=== PATIENT | male | born 1975 | race Caucasian/White ===

== ENCOUNTER → 2018-04-09 09:13 | Outpatient (CLI) | payer OTHER, MEDICAID, SELFPAY ==
[2018-04-09 09:37] LABS: Add Manual Diff / Slide Review NO; Basophils Percent Auto 0.8 % (0-2); Eosinophils Percent Auto 5.5 % (2-4); Hematocrit 43.6 % (41-53); Hemoglobin 15.3 g/dL (13.5-17.5); Lymphocytes Percent Auto 38.6 % (25-40); Mean Corpuscular HGB Conc 35.1 % (30-36); Mean Corpuscular Hemoglobin 29.6 PG (26-34); Mean Corpuscular Volume 84.5 fL (80-100); Monocytes Percent Auto 7.6 % (3-14); Neutrophils Absolute Auto 3700 /uL (3000-5900); Neutrophils Percent Auto 47.5 % (50-75); Platelet Count 208 X10^3/uL (150-400); Red Blood Cell Count 5.15 X10^6/uL (4.5-5.9); White Blood Cell Count 7.7 X10^3/uL (4.5-11.0)
[2018-04-09 10:01] LABS: Cholesterol 148 mg/dL (140-199); HDL Cholesterol 30 mg/dL (40-60); LDL Cholesterol Calculated 68 mg/dL (<100); Triglycerides 251 mg/dL (35-150)
[2018-04-09 10:30] LABS: Thyroid Stimulating Hormone 2.09 uIU/mL (0.47-4.68)
[2018-04-09 10:32] LABS: Prostate Specific Antigen Scrn 0.285 ng/mL (0.1-4.0)
== END ==
PROVIDERS: Family Provider Family Medicine; PCP Family Medicine; Visit Provider Family Medicine
DX: I24.9 Acute ischemic heart disease, unspecified (principal)
CPT/HCPCS: 36415; 80061; 84443; 85025; 85027; G0103

== ENCOUNTER → 2018-10-08 13:24 | Outpatient (CLI) | payer OTHER, MEDICAID, SELFPAY ==
--- NOTE | 2018-10-08 13:25 | DI.US.S_ITS ---
PROCEDURE: US ARTERIAL DUPLEX LE BI INDICATIONS: Low back pain TECHNIQUE: Color and pulse Doppler interrogation was performed of both lower extremity arterial systems, with image documentation. COMPARISON: None. FINDINGS: Right lower extremity: Common femoral artery: 133 cm/sec, with triphasic flow. Deep femoral artery: 55 cm/sec, with triphasic flow. Proximal superficial femoral artery: 93 cm/sec, with triphasic flow. Mid superficial femoral artery: 86 cm/sec, with triphasic flow. Distal superficial femoral artery: 80 cm/sec, with triphasic flow. Popliteal artery: 53 cm/sec, with triphasic flow. Posterior tibial artery: 79 cm/sec, with triphasic flow. Anterior tibial artery/dorsalis pedis: 43 cm/sec, with biphasic flow. [place]-scale imaging description: Negative Left lower extremity: Common femoral artery: 126 cm/sec, with triphasic flow. Deep femoral artery: 45 cm/sec, with biphasic flow. Proximal superficial femoral artery: 97 cm/sec, with triphasic flow. Mid superficial femoral artery: 86 cm/sec, with triphasic flow. Distal superficial femoral artery: 77 cm/sec, with triphasic flow. Popliteal artery: 55 cm/sec, with triphasic flow. Posterior tibial artery: 81 cm/sec, with biphasic flow. Anterior tibial artery/dorsalis pedis: 52 cm/sec, with biphasic flow. [place]-scale imaging description: Negative IMPRESSION: No evidence of arterial insufficiency to the bilateral lower extremities. Dictated by: Mio Suarez M.D. on 10/08/2018 at 15:48 Approved by: Mio Suarez M.D. on 10/08/2018 at 15:50
== END ==
PROVIDERS: Family Provider Family Medicine; PCP Family Medicine; Visit Provider Family Medicine
DX: M54.5 Low back pain (principal)
CPT/HCPCS: 93925

== ENCOUNTER 2018-11-30 23:54 | Emergency (ER) | payer OTHER, MEDICAID, SELFPAY ==
--- NOTE | 2018-11-30 23:57 | ED_ITS ---
HPI - Chest Pain General Chief Complaint: Chest Pain Stated Complaint: Chest Pain Time Seen by Provider: 11/30/18 23:54 Source: patient Mode of arrival: EMS Limitations: no limitations History of Present Illness HPI narrative: 43-year-old male with a known history of coronary artery disease who states he has had 5 heart attacks in the past and also has [address] here for evaluation of chest pain. He states that his chest pain started while he was sitting at home. Started approximately 1900 hr last evening. Has a fairly sudden onset. Not worse with palpation or movement or breathing. He states that it feels very similar to his prior episodes that left to stent placement. Not complaining of any shortness of breath. States that his pain was an 8/10. He called EMS. When EMS arrived they gave him nitroglycerin which improved his pain to 4/10. He also received an aspirin prior to arrival. He did take his statin and Plavix today. Patient arrived by EMS for further evaluation Related Data Home Medications Medication Instructions Recorded Confirmed aspirin 81 mg tablet,delayed 81 mg PO DAILY 04/07/18 12/01/18 release atorvastatin 80 mg tablet 80 mg PO DAILY 04/07/18 12/01/18 Previous Rx's Medication Instructions Recorded metoprolol succinate [Toprol XL] 25 mg PO BID #180 tab 05/08/17 clopidogrel [Plavix] 75 mg PO QDAY #90 tab 05/04/18 lisinopril 2.5 mg PO QDAY #90 tab 05/04/18 Allergies Allergy/AdvReac Type Severity Reaction Status Date / Time No Known Allergies Allergy Uncoded 09/22/18 15:29 Review of Systems Constitutional Denies fever(s) and Denies headache(s) ENT Ears, Nose, Mouth, and Throat: Denies dizziness and Denies headache(s) Cardiovascular Reports chest pain, Denies rapid heart rate, Denies pedal edema, Denies edema, Denies irregular heart rhythm, Denies palpitations and Denies dyspnea Respiratory Denies dyspnea Gastrointestinal Gastrointestinal: Denies abdominal pain, Denies nausea and Denies vomiting Genitourinary Denies dysuria Musculoskeletal Denies myalgias and Denies arthralgias Integumentary/Breasts Denies rash Neurologic Denies confusion, Denies dizziness and Denies headache(s) Psychiatric Denies confusion Endocrine Denies palpitations Hematologic/Lymphatic Comments: The not on anticoagulation [facility] Medical History Chronic back pain (Chronic) Hypertension (Chronic) Myocardial infarction (Resolved) Surgical History Anesthesia (Resolved) History of angioplasty (~1999) History of angioplasty (10/14/11) History of angioplasty (01/02/15) Social History Smoking Status: Former smoker Exam Initial Vital Signs Initial Vital Signs: Vital Signs Pulse Rate 78 12/01/18 00:00 Blood Pressure 141/86 H 12/01/18 00:00 Const General: cooperative, No comfortable (Uncomfortable appearing), well developed, well groomed and No acute distress Orientation: alert, awake and oriented x3 HENMT Head: normal to inspection and normocephalic Chest Chest: normal inspection of the chest, No crepitus and No tenderness Resp Effort & Inspection: normal respiratory effort Auscultation: clear to auscultation bilaterally Cardio Rate: regular rate Rhythm: regular rhythm Pulses: radial pulses present GI Inspection: non-distended Palpation: soft, No firm and No tender Skin Lesions: no lesions Rashes: no rashes Neuro General: alert, awake and oriented x3 Extrem General: normal to inspection and capillary refill normal Psych Appearance: grossly normal and well kempt Course Orders Ordered: ED Orders 11/30/18 23:55 Basic Metabolic Panel Stat Complete Blood Count AUTO DIFF Stat Partial Thromboplastin Time Stat Prothrombin Time INR Stat Troponin I Stat 11/30/18 23:56 EKG-12 Lead Stat 12/01/18 EKG-12 Lead Stat 12/01/18 00:00 XR chest 1V Stat Discontinued Medications Morphine Sulfate (Morphine Sulfate) 4 mg IV NOW ONE Stop: 12/01/18 00:12 Last Admin: 12/01/18 00:15 Dose: 4 mg Morphine Sulfate (Morphine) 4 mg IV NOW ONE Stop: 12/01/18 00:53 Last Admin: 12/01/18 01:00 Dose: 4 mg Nitroglycerin (Nitro-Bid) 1 inch TOP NOW ONE Stop: 11/30/18 23:58 Last Admin: 12/01/18 00:00 Dose: 1 inch Vital Signs - 8 hr 12/01/18 00:00 12/01/18 00:03 12/01/18 00:29 Temperature 97.8 F Pulse Rate 78 78 65 Respiratory Rate 22 15 Blood Pressure 141/86 H 141/86 H Blood Pressure [Left Arm] 134/92 H Pulse Oximetry 100 100 12/01/18 00:41 12/01/18 03:00 Temperature Pulse Rate 67 62 Respiratory Rate 22 13 Blood Pressure Blood Pressure [Left Arm] 132/88 133/92 H Pulse Oximetry 98 100 MDM - Chest Pain Lab Data Attestation: I reviewed the patient's lab results. Result diagrams: 12/01/18 00:05 12/01/18 00:05 Lab Results 12/01/18 12/01/18 12/01/18 Range/Units 00:05 00:05 00:05 WBC 8.4 (4.5-11.0) X10^3/uL RBC 4.87 (4.5-5.9) X10^6/uL Hgb 14.2 (13.5-17.5) g/dL Hct 41.2 (41-53) % MCV 84.6 (80-100) fL MCH 29.1 (26-34) PG MCHC 34.4 (30-36) % RDW 13.7 (11.6-14.8) % Plt Count 223 (150-400) X10^3/uL Neut % (Auto) 33.5 L (50-75) % Lymph % (Auto) 50.4 H (25-40) % [place] % (Auto) 9.2 (3-14) % Eos % (Auto) 5.5 H (2-4) % Baso % (Auto) 1.4 (0-2) % Neut # (Auto) 2800 (6068-9697) /uL PT 11.3 (10.1-12.7) SECONDS INR 1.0 (0.9-1.3) APTT 26 L (26.4-36.2) SECONDS Sodium 139 (137-145) mmol/L Potassium 3.8 (3.4-5.1) mmol/L Chloride 105 (98-107) mmol/L Carbon Dioxide 22 (22-32) mmol/L BUN 10 (9-20) mg/dL Creatinine 0.80 (0.66-1.25) mg/dL Estimated GFR > 60.0 (>60) mL/min BUN/Creatinine Ratio 12.5 (6-22) Glucose 94 (70-100) mg/dL Calcium 9.2 (8.4-10.2) mg/dL Troponin I < 0.012 (0.01-0.034) ng/mL Imaging Data Chest x-ray: Attestation: I personally reviewed and interpreted this imaging study as follows: My impression: Bilateral patchy infiltrates unchanged from prior chest x- ray ECG Data Attestation: I personally reviewed and interpreted this ECG as follows: Prior ECG tracings: not available for review Interpretation: EKG transmitted by EMS shows sinus rhythm ventricular rate [address] T wave changes EKG timed 2356 hr Sinus rhythm Ventricular rate is 79 Normal QRS Q-waves in lead 3 and AVF Unchanged from EKG transmitted by EMS MDM Narrative Medical decision making narrative: Patient received an aspirin prior to arrival. He also has taken his Plavix. Chest x-ray shows bilateral patchy infiltrates however it is unchanged from her prior chest x-ray. Has a nonischemic EKG. Troponin negative. Upon arrival patient states that his chest pain was worsening so nitro paste was placed. He was also given several doses of pain medication which did seem to improve his symptoms somewhat. Patient has never been completely chest pain free. Patient's convict guard is Dr. Capone at [facility]. [facility] has no bed availability. Discussed the case with Dr. Hearn with Cardiology at [facility] who accepts the patient in transfer in for admission. I discussed the transfer with the patient who expressed understanding and agreement. Patient is stable for transport Discharge Plan Departure Patient Disposition: [facility] Clinical Impression: Chest pain Prescriptions: No Action metoprolol succinate [Toprol XL] 25 MG tablet extended release 24 hr 25 mg PO BID Qty: 180 RF: 3 clopidogrel [Plavix] 75 mg tablet 75 mg PO QDAY Qty: 90 RF: 3 lisinopril 2.5 mg tablet 2.5 mg PO QDAY Qty: 90 RF: 3 atorvastatin 80 mg tablet 80 mg PO DAILY RF: 0 aspirin [Aspirin Low Dose] 81 mg tablet,delayed release (DR/EC) 81 mg PO DAILY RF: 0
[2018-12-01] VITALS (8 sets, daily range): BP systolic 106–141; BP diastolic 77–92; PULSE 55–78; RESP 13–22; TEMP 36.6; O2SAT 93–100
[2018-12-01] MEDS: NITROGLYCERIN OINT 1 INCH/GM OINT...G. TOP
--- NOTE | 2018-12-01 | DI.RAD.S_ITS ---
PROCEDURE: XR CHEST 1V INDICATIONS: chest pain TECHNIQUE: One view of the chest was acquired. COMPARISON: [facility], CR, CHEST 1 VIEW, 02/28/2016, 16:55. [facility], CR, XR CHEST 1VW (PORTABLE), 12/07/2016, 0:13. [facility], CR, CHEST 1 VIEW, 02/02/2017, 21:13. FINDINGS: Surgical changes and devices: None. Lungs and pleura: No pleural effusions or pneumothorax. Mild chronic interstitial prominence is unchanged. No focal consolidations. Mediastinum: Mediastinal contours appear normal. Heart size is normal. Bones and chest wall: No suspicious bony lesions. Overlying soft tissues appear unremarkable. IMPRESSION: Mild chronic interstitial prominence. Dictated by: Alysha Olivia M.D. on 12/01/2018 at 8:59 Approved by: Alysha Olivia M.D. on 12/01/2018 at 9:01
[2018-12-01] MEDS: MORPHINE 5 MG/ML INJ 4 MG IV (00:15)
[2018-12-01 00:20] LABS: Add Manual Diff / Slide Review NO; Basophils Percent Auto 1.4 % (0-2); Eosinophils Percent Auto 5.5 % (2-4); Hematocrit 41.2 % (41-53); Hemoglobin 14.2 g/dL (13.5-17.5); Lymphocytes Percent Auto 50.4 % (25-40); Mean Corpuscular HGB Conc 34.4 % (30-36); Mean Corpuscular Hemoglobin 29.1 PG (26-34); Mean Corpuscular Volume 84.6 fL (80-100); Monocytes Percent Auto 9.2 % (3-14); Neutrophils Absolute Auto 2800 /uL (1500-7000); Neutrophils Percent Auto 33.5 % (50-75); Platelet Count 223 X10^3/uL (150-400); Red Blood Cell Count 4.87 X10^6/uL (4.5-5.9); Red Cell Distribution Width 13.7 % (11.6-14.8); White Blood Cell Count 8.4 X10^3/uL (4.5-11.0)
[2018-12-01 00:25] LABS: BUN Creatinine Ratio 12.5 (6-22); Blood Urea Nitrogen 10 mg/dL (9-20); Calcium 9.2 mg/dL (8.4-10.2); Carbon Dioxide 22 mmol/L (22-32); Chloride 105 mmol/L (98-107); Estimated Glomerular Filt Rate > 60.0 mL/min (>60); Glucose 94 mg/dL (70-100); HEMOLYSIS < 15 (0-50); Potassium 3.8 mmol/L (3.4-5.1); Sodium 139 mmol/L (137-145)
[2018-12-01 00:35] LABS: PTT Partial Thromboplastin Tim 26 SECONDS (26.4-36.2); Prothrombin Time 11.3 SECONDS (10.1-12.7)
[2018-12-01 00:38] LABS: Troponin I < 0.012 ng/mL (0.01-0.034)
[2018-12-01] MEDS: MORPHINE 4 MG/ML INJ IV (01:00)
[2018-12-01] MEDS: HYDROMORPHONE 1 MG INJ IV (03:40)
== END 2018-12-01 04:30 | disposition short-term general hospital (02) ==
PROVIDERS: Emergency Provider Emergency Medicine; Family Provider Family Medicine; PCP Family Medicine
DX: R07.9 Chest pain, unspecified (principal)
CPT/HCPCS: 36415; 71045; 80048; 84484; 85025; 85610; 85730; 93005; 96374; 96375; 96376; 99283; 99285; J1170; J2270

== ENCOUNTER 2019-01-24 23:20 | Emergency (ER) | payer OTHER, MEDICAID, SELFPAY ==
--- NOTE | 2019-01-24 23:24 | DI.RAD.S_ITS ---
PROCEDURE: XR CHEST 1V INDICATIONS: chest pain TECHNIQUE: One view of the chest was acquired. COMPARISON: [facility], , CHEST 1 VIEW, 02/02/2017, 21:13. [facility], , XR CHEST 1V, 12/01/2018, 0:19. FINDINGS: Surgical changes and devices: None. Lungs and pleura: Mild chronic interstitial prominence appears unchanged. No pleural effusions or pneumothorax. Mediastinum: Mediastinal contours appear normal. Heart size is normal. Bones and chest wall: No suspicious bony lesions. Overlying soft tissues appear unremarkable. IMPRESSION: No acute cardiopulmonary disease. Dictated by: Alysha Olivia M.D. on 01/25/2019 at 9:29 Approved by: Alysha Olivia M.D. on 01/25/2019 at 9:30
[2019-01-24 23:27] VITALS: BP 125/98; PULSE 77; RESP 17; TEMP 36.8; O2SAT 99; BMI 25.1
[2019-01-24 23:39] VITALS: BP 115/74; PULSE 68; RESP 15; O2SAT 94
[2019-01-24 23:50] LABS: Add Manual Diff / Slide Review NO; Basophils Absolute Auto 100 /uL (0-100); Basophils Percent Auto 1.2 % (0-2); Eosinophils Absolute Auto 100 /uL (0-450); Eosinophils Percent Auto 2.1 % (2-4); Hematocrit 41.1 % (41-53); Lymphocytes Absolute Auto 3400 /uL (1100-4500); Lymphocytes Percent Auto 48.9 % (25-40); Mean Corpuscular HGB Conc 34.1 % (30-36); Mean Corpuscular Hemoglobin 28.9 PG (26-34); Mean Corpuscular Volume 84.7 fL (80-100); Monocytes Absolute Auto 800 /uL (0-900); Monocytes Percent Auto 11.5 % (3-14); Neutrophils Absolute Auto 2500 /uL (1500-7000); Neutrophils Percent Auto 36.3 % (50-75); Platelet Count 231 X10^3/uL (150-400); Red Blood Cell Count 4.86 X10^6/uL (4.5-5.9); Red Cell Distribution Width 13.6 % (11.6-14.8)
[2019-01-24 23:54] VITALS: BP 115/74; PULSE 66
[2019-01-24] MEDS: NITROGLYCERIN 0.4 MG SL TAB SL ×2 (23:54→23:59)
[2019-01-24] MEDS: SODIUM CHLORIDE 0.9% 1,000 ML 150 ML IV (23:54)
[2019-01-24 23:57] LABS: Alanine Aminotransferase 52 IU/L (21-72); Albumin 4.3 g/dL (3.5-5.0); Albumin Globulin Ratio 1.4 (1.0-2.8); Alkaline Phosphatase 64 U/L (38-126); Aspartate Aminotransferase 22 IU/L (17-59); BUN Creatinine Ratio 23.3 (6-22); Bilirubin Total 0.5 mg/dL (0.2-1.3); Blood Urea Nitrogen 21 mg/dL (9-20); Calcium 8.6 mg/dL (8.4-10.2); Carbon Dioxide 23 mmol/L (22-32); Chloride 100 mmol/L (98-107); Creatine Kinase 62 U/L (55-170); Estimated Glomerular Filt Rate > 60.0 mL/min (>60); Glucose 118 mg/dL (70-100); HEMOLYSIS < 15 (0-50); Lipase 131 U/L (23-300); Potassium 3.7 mmol/L (3.4-5.1); Sodium 136 mmol/L (137-145); Total Protein 7.3 g/dL (6.3-8.2)
[2019-01-24 23:58] VITALS: BP 105/65; PULSE 73
[2019-01-24 23:59] VITALS: BP 105/65; PULSE 72
[2019-01-25 00:03] VITALS: BP 94/66; PULSE 76
[2019-01-25 00:10] LABS: Troponin I < 0.012 ng/mL (0.01-0.034)
--- NOTE | 2019-01-25 00:36 | ED.CHESTPAIN ---
HPI - Chest Pain General Chief Complaint: Chest Pain Stated Complaint: Chest Pain Time Seen by Provider: 01/24/19 23:24 Source: patient and EMS Mode of arrival: EMS Limitations: no limitations History of Present Illness HPI narrative: 43-year-old male nonsmoker with cardiac history presents with chief complaint of retrosternal chest pressure that started approximately 30-45 minutes prior to his arrival. He denies associated symptoms such as dizziness, weakness or lightheadedness. He has no shortness of breath, nausea or vomiting. He denies diaphoresis. His pain improved with nitro glycerin which he took at home. At maximum his pain was 8/10 but dropped to 4/10 after his nitro. EMS arrived and performed an EKG which looks similar to prior, no obvious ST change but there is some incomplete left bundle branch block. He was given 1 more of nitro prior to his arrival and has had full-dose aspirin prior to arrival. His most recent cardiac evaluation was in November in which he was transferred from [facility] facility to [facility] and had very complete cardiac evaluation during his admission including an echocardiogram noting EF of 50% and a heart catheterization. The patient was not stented, but does have a history of 5 prior stents. His primary dyer helper is at [facility] complaint: chest pain Onset (ago): minute(s) Duration: constant Onset: during rest Pain location: substernal Severity: moderate Severity scale (1-10): 8 Quality: aching and heaviness Pain radiation: none Relieving factors: nitroglycerin Exacerbating factors: nothing Treatments prior to arrival chest pain: aspirin, nitroglycerin and oxygen Related Data Home Medications Medication Instructions Recorded Confirmed aspirin 81 mg tablet,delayed 81 mg PO DAILY 04/07/18 12/24/18 release atorvastatin 80 mg tablet 80 mg PO DAILY 04/07/18 12/24/18 Previous Rx's Medication Instructions Recorded metoprolol succinate [Toprol XL] 25 mg PO BID #180 tab 05/08/17 clopidogrel [Plavix] 75 mg PO QDAY #90 tab 05/04/18 lisinopril 2.5 mg PO QDAY #90 tab 05/04/18 trazodone 50 mg tablet 50 mg PO BEDTIME #60 tab 12/24/18 oxycodone-acetaminophen 7.5 mg-325 2 tab PO Q6H PRN #100 tab 01/07/19 mg tablet Allergies Allergy/AdvReac Type Severity Reaction Status Date / Time No Known Allergies Allergy Uncoded 12/24/18 12:09 Review of Systems Constitutional Denies chills, Denies fever(s), Denies lethargy and Denies weakness Eyes Denies change in vision, Denies eye discharge, Denies irritation and Denies loss of vision ENT Ears, Nose, Mouth, and Throat: Denies change in voice, Denies neck pain and Denies sore throat Cardiovascular Reports chest pain, Denies irregular heart rhythm, Denies lightheadedness, Denies palpitations, Denies dyspnea, Denies dyspnea on exertion and Denies orthopnea Respiratory Denies cough, Denies dyspnea, Denies dyspnea on exertion and Denies wheezing Gastrointestinal Gastrointestinal: Denies abdominal pain, Denies change in bowel habits, Denies diarrhea, Denies nausea and Denies vomiting Genitourinary Denies hematuria, Denies flank pain, Denies urinary incontinence and Denies urinary urgency Musculoskeletal Denies neck pain Integumentary/Breasts Denies pruritus, Denies erythema, Denies rash and Denies wounds Neurologic Denies confusion, Denies loss of vision and Denies weakness Psychiatric Denies anxiety, Denies confusion, Denies depression, Denies homicidal ideation and Denies suicidal ideation Endocrine Denies palpitations Hematologic/Lymphatic Denies easy bruising Allergic/Immunologic Denies wheezing PFSH Medical History Chronic back pain (Chronic) Hypertension (Chronic) Myocardial infarction (Resolved) Surgical History Anesthesia (Resolved) History of angioplasty (~1999) History of angioplasty (10/14/11) History of angioplasty (01/02/15) Social History Smoking Status: Former smoker Social History Smoking Status: Former smoker Exam Narrative Exam Narrative: GENERAL: This is a well-nourished, well-developed patient, in mild distress. HEAD: Atraumatic. Normocephalic. No temporal or scalp tenderness. EYES: Pupils equal round and reactive. Extraocular motions intact. No scleral icterus. No injection or drainage. ENT: Nose without bleeding, purulent drainage or septal hematoma. Throat without erythema, tonsillar hypertrophy or exudate. Uvula midline. Airway patent. NECK: Trachea midline. No JVD or lymphadenopathy. Supple, nontender, no meningeal signs. CARDIOVASCULAR: Regular rate and rhythm without murmurs, gallops, or rubs. RESPIRATORY: Clear to auscultation. Breath sounds equal bilaterally. No wheezes, rales, or rhonchi. GASTROINTESTINAL: Abdomen soft, non-tender, nondistended. No hepato-splenomegaly, or palpable masses. No guarding. EXTREMITIES: No clubbing, cyanosis, or edema. No joint tenderness, effusion, or edema noted. BACK: Nontender without deformity or crepitance. No flank tenderness. NEURO: AOx3. SKIN: No rash or erythema. Initial Vital Signs Initial Vital Signs: Vital Signs Temperature 98.3 F 01/24/19 23:27 Pulse Rate 77 01/24/19 23:27 Respiratory Rate 17 01/24/19 23:27 Blood Pressure 125/98 H 01/24/19 23:27 Pulse Oximetry 99 01/24/19 23:27 Course Orders Ordered: ED Orders 01/24/19 23:24 XR chest 1V Stat EKG-12 Lead Stat 01/24/19 23:40 Complete Blood Count AUTO DIFF Stat Comprehensive Metabolic Panel Stat Lipase Stat Troponin & CK Cardiac Panel Stat 01/25/19 EKG-12 Lead Stat Sodium Chloride (Normal Saline 0.9%) 1,000 mls @ 150 mls/hr IV CONT ARAVIND Last Infusion: 01/25/19 03:05 Dose: 150 mls/hr Admin: 01/24/19 23:54 Dose: 150 mls/hr Nitroglycerin (Nitrostat) 0.4 mg SL [id number] PRN PRN Reason: Chest Pain Last Admin: 01/24/19 23:59 Dose: 0.4 mg Admin: 01/24/19 23:54 Dose: 0.4 mg Discontinued Medications Metoprolol Tartrate (Lopressor) 5 mg IV NOW ONE Stop: 01/24/19 23:25 Last Admin: 01/25/19 02:04 Dose: Not Given Reevaluation(s) Reevaluation #1: Patient having 5. Has had NG x2 here. BP in 90s, HR in 60s, will hold Metoprolol, but he does take it at home. Awaiting records from [facility] Consultations Consultation #1: All records have arrived from [facility], heart catheterization results demonstrated intervention of the right posterior descending artery noting 99% pre intervention stenosis which improved to 10% after percutaneous coronary angioplasty with 2.5 x 12mm trek balloon Consultation #2: [facility] is full. Decision to call [facility] based on recent transfer and intervention. Dr. Roman is data integrity consultant for cardiology and recommends nitropaste and transfer, he will be accepting. Vital Signs - 8 hr 01/24/19 23:27 01/24/19 23:39 01/24/19 23:54 Temperature 98.3 F Pulse Rate 77 68 66 Respiratory Rate 17 15 Blood Pressure 125/98 H 115/74 Blood Pressure [Right Arm] 115/74 Pulse Oximetry 99 94 01/24/19 23:58 01/24/19 23:59 01/25/19 00:03 Temperature Pulse Rate 73 72 76 Respiratory Rate Blood Pressure 105/65 105/65 94/66 Blood Pressure [Right Arm] Pulse Oximetry 01/25/19 01:31 01/25/19 02:02 01/25/19 02:30 Temperature Pulse Rate 55 L 56 L 56 L Respiratory Rate 12 15 12 Blood Pressure Blood Pressure [Right Arm] 94/61 95/66 93/60 Pulse Oximetry 97 98 96 01/25/19 03:05 Temperature Pulse Rate 53 L Respiratory Rate 13 Blood Pressure Blood Pressure [Right Arm] 90/61 Pulse Oximetry 96 MDM - Chest Pain Medical Records Data Attestation: I reviewed the patient's medical records. Lab Data Attestation: I reviewed the patient's lab results. Result diagrams: 01/24/19 23:40 01/24/19 23:40 Lab Results 01/24/19 01/24/19 Range/Units 23:40 23:40 WBC 7.0 (4.5-11.0) X10^3/uL RBC 4.86 (4.5-5.9) X10^6/uL Hgb 14.0 (13.5-17.5) g/dL Hct 41.1 (41-53) % MCV 84.7 (80-100) fL MCH 28.9 (26-34) PG MCHC 34.1 (30-36) % RDW 13.6 (11.6-14.8) % Plt Count 231 (150-400) X10^3/uL Neut % (Auto) 36.3 L (50-75) % Lymph % (Auto) 48.9 H (25-40) % [place] % (Auto) 11.5 (3-14) % Eos % (Auto) 2.1 (2-4) % Baso % (Auto) 1.2 (0-2) % Neut # (Auto) 2500 (2395-5543) /uL Lymph # (Auto) 3400 (3149-3045) /uL [place] # (Auto) 800 (0-900) /uL Eos # (Auto) 100 (0-450) /uL Baso # (Auto) 100 (0-100) /uL Sodium 136 L (137-145) mmol/L Potassium 3.7 (3.4-5.1) mmol/L Chloride 100 (98-107) mmol/L Carbon Dioxide 23 (22-32) mmol/L BUN 21 H (9-20) mg/dL Creatinine 0.90 (0.66-1.25) mg/dL Estimated GFR > 60.0 (>60) mL/min BUN/Creatinine Ratio 23.3 H (6-22) Glucose 118 H (70-100) mg/dL Calcium 8.6 (8.4-10.2) mg/dL Total Bilirubin 0.5 (0.2-1.3) mg/dL AST 22 (17-59) IU/L ALT 52 (21-72) IU/L Alkaline Phosphatase 64 (38-126) U/L Total Creatine Kinase 62 (55-170) U/L CK-MB (CK-2) TNP CK-MB (CK-2) Rel Index TNP Troponin I < 0.012 (0.01-0.034) ng/mL Total Protein 7.3 (6.3-8.2) g/dL Albumin 4.3 (3.5-5.0) g/dL Globulin 3.0 (1.7-4.1) g/dL Albumin/Globulin Ratio 1.4 (1.0-2.8) Lipase 131 (23-300) U/L Imaging Data Chest x-ray: Attestation: I personally reviewed and interpreted this imaging study as follows: My impression: NAP ECG Data Attestation: I personally reviewed and interpreted this ECG as follows: Prior ECG tracings: available for review Interpretation: EKG is normal sinus rhythm rate [59 ] and free of any signs of ischemia or ectopy. No ST segmental elevation or depression. No T wave inversions Discharge Plan Departure Patient Disposition: [facility] Clinical Impression: Acute coronary syndrome Prescriptions: No Action metoprolol succinate [Toprol XL] 25 MG tablet extended release 24 hr 25 mg PO BID Qty: 180 RF: 3 clopidogrel [Plavix] 75 mg tablet 75 mg PO QDAY Qty: 90 RF: 3 lisinopril 2.5 mg tablet 2.5 mg PO QDAY Qty: 90 RF: 3 oxycodone-acetaminophen 7.5-325 mg tablet 2 tab PO Q6H PRN (Reason: pain) Qty: 100 RF: 0 atorvastatin 80 mg tablet 80 mg PO DAILY RF: 0 aspirin [Aspirin Low Dose] 81 mg tablet,delayed release (DR/EC) 81 mg PO DAILY RF: 0 trazodone 50 mg tablet 50 mg PO BEDTIME Qty: 60 RF: 5 Referrals: Jaylon Muñoz MD [Primary Care Provider] -
--- NOTE | 2019-01-25 00:42 | ED_ITS ---
HPI - Chest Pain General Chief Complaint: Chest Pain Stated Complaint: Chest Pain Time Seen by Provider: 01/24/19 23:24 Source: patient and EMS Mode of arrival: EMS Limitations: no limitations History of Present Illness HPI narrative: 43-year-old male nonsmoker with cardiac history presents with chief complaint of retrosternal chest pressure that started approximately 30-45 minutes prior to his arrival. He denies associated symptoms such as dizziness, weakness or lightheadedness. He has no shortness of breath, nausea or vomiting. He denies diaphoresis. His pain improved with nitro glycerin which he took at home. At maximum his pain was 8/10 but dropped to 4/10 after his nitro. EMS arrived and performed an EKG which looks similar to prior, no obvious ST change but there is some incomplete left bundle branch block. He was given 1 more of nitro prior to his arrival and has had full-dose aspirin prior to arrival. His most recent cardiac evaluation was in November in which he was transferred from our facility to [facility] and had very complete cardiac evaluation during his admission including an echocardiogram noting EF of 50% and a heart catheterization. The patient was not stented, but does have a history of 5 prior stents. 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 [facility] complaint: chest pain Onset (ago): minute(s) Duration: constant Onset: during rest Pain location: substernal Severity: moderate Severity scale (1-10): 8 Quality: aching and heaviness Pain radiation: none Relieving factors: nitroglycerin Exacerbating factors: nothing Treatments prior to arrival chest pain: aspirin, nitroglycerin and oxygen Related Data Home Medications Medication Instructions Recorded Confirmed aspirin 81 mg tablet,delayed 81 mg PO DAILY 04/07/18 12/24/18 release atorvastatin 80 mg tablet 80 mg PO DAILY 04/07/18 12/24/18 Previous Rx's Medication Instructions Recorded metoprolol succinate [Toprol XL] 25 mg PO BID #180 tab 05/08/17 clopidogrel [Plavix] 75 mg PO QDAY #90 tab 05/04/18 lisinopril 2.5 mg PO QDAY #90 tab 05/04/18 trazodone 50 mg tablet 50 mg PO BEDTIME #60 tab 12/24/18 oxycodone-acetaminophen 7.5 mg-325 2 tab PO Q6H PRN #100 tab 01/07/19 mg tablet Allergies Allergy/AdvReac Type Severity Reaction Status Date / Time No Known Allergies Allergy Uncoded 12/24/18 12:09 Review of Systems Constitutional Denies chills, Denies fever(s), Denies lethargy and Denies weakness Eyes Denies change in vision, Denies eye discharge, Denies irritation and Denies loss of vision ENT Ears, Nose, Mouth, and Throat: Denies change in voice, Denies neck pain and Denies sore throat Cardiovascular Reports chest pain, Denies irregular heart rhythm, Denies lightheadedness, Denies palpitations, Denies dyspnea, Denies dyspnea on exertion and Denies orthopnea Respiratory Denies cough, Denies dyspnea, Denies dyspnea on exertion and Denies wheezing Gastrointestinal Gastrointestinal: Denies abdominal pain, Denies change in bowel habits, Denies diarrhea, Denies nausea and Denies vomiting Genitourinary Denies hematuria, Denies flank pain, Denies urinary incontinence and Denies urinary urgency Musculoskeletal Denies neck pain Integumentary/Breasts Denies pruritus, Denies erythema, Denies rash and Denies wounds Neurologic Denies confusion, Denies loss of vision and Denies weakness Psychiatric Denies anxiety, Denies confusion, Denies depression, Denies homicidal ideation and Denies suicidal ideation Endocrine Denies palpitations Hematologic/Lymphatic Denies easy bruising Allergic/Immunologic Denies wheezing PFSH Medical History Chronic back pain (Chronic) Hypertension (Chronic) Myocardial infarction (Resolved) Surgical History Anesthesia (Resolved) History of angioplasty (~1999) History of angioplasty (10/14/11) History of angioplasty (01/02/15) Social History Smoking Status: Former smoker Social History Smoking Status: Former smoker Exam Narrative Exam Narrative: GENERAL: This is a well-nourished, well-developed patient, in mild distress. HEAD: Atraumatic. Normocephalic. No temporal or scalp tenderness. EYES: Pupils equal round and reactive. Extraocular motions intact. No scleral icterus. No injection or drainage. ENT: Nose without bleeding, purulent drainage or septal hematoma. Throat without erythema, tonsillar hypertrophy or exudate. Uvula midline. Airway patent. NECK: Trachea midline. No JVD or lymphadenopathy. Supple, nontender, no meningeal signs. CARDIOVASCULAR: Regular rate and rhythm without murmurs, gallops, or rubs. RESPIRATORY: Clear to auscultation. Breath sounds equal bilaterally. No wheezes, rales, or rhonchi. GASTROINTESTINAL: Abdomen soft, non-tender, nondistended. No hepato- splenomegaly, or palpable masses. No guarding. EXTREMITIES: No clubbing, cyanosis, or edema. No joint tenderness, effusion, or edema noted. BACK: Nontender without deformity or crepitance. No flank tenderness. NEURO: AOx3. SKIN: No rash or erythema. Initial Vital Signs Initial Vital Signs: Vital Signs Temperature 98.3 F 01/24/19 23:27 Pulse Rate 77 01/24/19 23:27 Respiratory Rate 17 01/24/19 23:27 Blood Pressure 125/98 H 01/24/19 23:27 Pulse Oximetry 99 01/24/19 23:27 Course Orders Ordered: ED Orders 01/24/19 23:24 XR chest 1V Stat EKG-12 Lead Stat 01/24/19 23:40 Complete Blood Count AUTO DIFF Stat Comprehensive Metabolic Panel Stat Lipase Stat Troponin & CK Cardiac Panel Stat 01/25/19 EKG-12 Lead Stat Sodium Chloride (Normal Saline 0.9%) 1,000 mls @ 150 mls/hr IV CONT ARAVIND Last Infusion: 01/25/19 03:05 Dose: 150 mls/hr Admin: 01/24/19 23:54 Dose: 150 mls/hr Nitroglycerin (Nitrostat) 0.4 mg SL [id number] PRN PRN Reason: Chest Pain Last Admin: 01/24/19 23:59 Dose: 0.4 mg Admin: 01/24/19 23:54 Dose: 0.4 mg Discontinued Medications Metoprolol Tartrate (Lopressor) 5 mg IV NOW ONE Stop: 01/24/19 23:25 Last Admin: 01/25/19 02:04 Dose: Not Given Reevaluation(s) Reevaluation #1: Patient having 5. Has had NG x2 here. BP in 90s, HR in 60s, will hold Metoprolol, but he does take it at home. Awaiting records from [facility] Consultations Consultation #1: All records have arrived from [facility], heart catheterization results demonstrated intervention of the right posterior descending artery noting 99% pre intervention stenosis which improved to 10% after percutaneous coronary angioplasty with 2.5 x 12mm trek balloon Consultation #2: [facility] is full. Decision to call [facility] based on recent transfer and intervention. Dr. Roman is educational advisor for cardiology and recommends nitropaste and transfer, he will be accepting. Vital Signs - 8 hr 01/24/19 23:27 01/24/19 23:39 01/24/19 23:54 Temperature 98.3 F Pulse Rate 77 68 66 Respiratory Rate 17 15 Blood Pressure 125/98 H 115/74 Blood Pressure [Right Arm] 115/74 Pulse Oximetry 99 94 01/24/19 23:58 01/24/19 23:59 01/25/19 00:03 Temperature Pulse Rate 73 72 76 Respiratory Rate Blood Pressure 105/65 105/65 94/66 Blood Pressure [Right Arm] Pulse Oximetry 01/25/19 01:31 01/25/19 02:02 01/25/19 02:30 Temperature Pulse Rate 55 L 56 L 56 L Respiratory Rate 12 15 12 Blood Pressure Blood Pressure [Right Arm] 94/61 95/66 93/60 Pulse Oximetry 97 98 96 01/25/19 03:05 Temperature Pulse Rate 53 L Respiratory Rate 13 Blood Pressure Blood Pressure [Right Arm] 90/61 Pulse Oximetry 96 MDM - Chest Pain Medical Records Data Attestation: I reviewed the patient's medical records. Lab Data Attestation: I reviewed the patient's lab results. Result diagrams: 01/24/19 23:40 01/24/19 23:40 Lab Results 01/24/19 01/24/19 Range/Units 23:40 23:40 WBC 7.0 (4.5-11.0) X10^3/uL RBC 4.86 (4.5-5.9) X10^6/uL Hgb 14.0 (13.5-17.5) g/dL Hct 41.1 (41-53) % MCV 84.7 (80-100) fL MCH 28.9 (26-34) PG MCHC 34.1 (30-36) % RDW 13.6 (11.6-14.8) % Plt Count 231 (150-400) X10^3/uL Neut % (Auto) 36.3 L (50-75) % Lymph % (Auto) 48.9 H (25-40) % [place] % (Auto) 11.5 (3-14) % Eos % (Auto) 2.1 (2-4) % Baso % (Auto) 1.2 (0-2) % Neut # (Auto) 2500 (6691-7195) /uL Lymph # (Auto) 3400 (8127-0922) /uL [place] # (Auto) 800 (0-900) /uL Eos # (Auto) 100 (0-450) /uL Baso # (Auto) 100 (0-100) /uL Sodium 136 L (137-145) mmol/L Potassium 3.7 (3.4-5.1) mmol/L Chloride 100 (98-107) mmol/L Carbon Dioxide 23 (22-32) mmol/L BUN 21 H (9-20) mg/dL Creatinine 0.90 (0.66-1.25) mg/dL Estimated GFR > 60.0 (>60) mL/min BUN/Creatinine Ratio 23.3 H (6-22) Glucose 118 H (70-100) mg/dL Calcium 8.6 (8.4-10.2) mg/dL Total Bilirubin 0.5 (0.2-1.3) mg/dL AST 22 (17-59) IU/L ALT 52 (21-72) IU/L Alkaline Phosphatase 64 (38-126) U/L Total Creatine Kinase 62 (55-170) U/L CK-MB (CK-2) TNP CK-MB (CK-2) Rel Index TNP Troponin I < 0.012 (0.01-0.034) ng/mL Total Protein 7.3 (6.3-8.2) g/dL Albumin 4.3 (3.5-5.0) g/dL Globulin 3.0 (1.7-4.1) g/dL Albumin/Globulin Ratio 1.4 (1.0-2.8) Lipase 131 (23-300) U/L Imaging Data Chest x-ray: Attestation: I personally reviewed and interpreted this imaging study as follows: My impression: NAP ECG Data Attestation: I personally reviewed and interpreted this ECG as follows: Prior ECG tracings: available for review Interpretation: EKG is normal sinus rhythm rate [59 ] and free of any signs of ischemia or ectopy. No ST segmental elevation or depression. No T wave inversions Discharge Plan Departure Patient Disposition: [facility] Clinical Impression: Acute coronary syndrome Prescriptions: No Action metoprolol succinate [Toprol XL] 25 MG tablet extended release 24 hr 25 mg PO BID Qty: 180 RF: 3 clopidogrel [Plavix] 75 mg tablet 75 mg PO QDAY Qty: 90 RF: 3 lisinopril 2.5 mg tablet 2.5 mg PO QDAY Qty: 90 RF: 3 oxycodone-acetaminophen 7.5-325 mg tablet 2 tab PO Q6H PRN (Reason: pain) Qty: 100 RF: 0 atorvastatin 80 mg tablet 80 mg PO DAILY RF: 0 aspirin [Aspirin Low Dose] 81 mg tablet,delayed release (DR/EC) 81 mg PO DAILY RF: 0 trazodone 50 mg tablet 50 mg PO BEDTIME Qty: 60 RF: 5 Referrals: Jaylon Muñoz MD [Primary Care Provider] -
[2019-01-25 01:31] VITALS: BP 94/61; PULSE 55; RESP 12; O2SAT 97
[2019-01-25 02:02] VITALS: BP 95/66; PULSE 56; RESP 15; O2SAT 98
[2019-01-25 02:30] VITALS: BP 93/60; PULSE 56; RESP 12; O2SAT 96
[2019-01-25 03:05] VITALS: BP 90/61; PULSE 53; RESP 13; O2SAT 96
== END 2019-01-25 03:35 | disposition short-term general hospital (02) ==
PROVIDERS: Emergency Provider Emergency Medicine; Family Provider Family Medicine; PCP Family Medicine
DX: I24.9 Acute ischemic heart disease, unspecified (principal)
CPT/HCPCS: 36415; 71045; 80053; 82550; 82553; 83690; 84484; 85025; 93005; 96360; 96361; 99283; 99291; 99292

== ENCOUNTER → 2019-08-18 14:30 | Outpatient (CLI) | payer OTHER, MEDICAID, SELFPAY ==
--- NOTE | 2019-08-18 14:33 | DI.RAD.S_ITS ---
PROCEDURE: XR KNEE RT 3V INDICATIONS: pain TECHNIQUE: 3 views of the knee were acquired. COMPARISON: [facility], , KNEE 3V RIGHT, 09/08/2016, 10:29. FINDINGS: Bones: No fractures or dislocations. No suspicious bony lesions. Soft tissues: No joint effusion. No suspicious soft tissue calcifications. IMPRESSION: No acute osseous atelectasis. If clinical symptoms persist or suspicion for internal derangement is high, MRI is suggested for further evaluation. Dictated by: Alysha Olivia M.D. on 08/18/2019 at 17:44 Approved by: Alysha Olivia M.D. on 08/18/2019 at 18:44
--- NOTE | 2019-08-18 14:33 | DI.RAD.S_ITS ---
PROCEDURE: XR HIP W PEL IF DONE RT 2V INDICATIONS: pain TECHNIQUE: AP pelvis with lateral view(s) of the right hip(s). COMPARISON: None. FINDINGS: Bones: No fractures or dislocations. Pelvic ring appears intact. No suspicious bony lesions. Mild to moderate symmetric degenerative joint disease hips bilaterally. Soft tissues: The visualized bowel gas pattern is normal. No suspicious soft tissue calcifications. IMPRESSION: Mild to moderate degenerative joint disease hips. Dictated by: Alysha Olivia M.D. on 08/18/2019 at 17:45 Approved by: Alysha Olivia M.D. on 08/18/2019 at 18:42
== END ==
PROVIDERS: PCP Family Medicine; Visit Provider Family Medicine
DX: M16.0 Bilateral primary osteoarthritis of hip (principal); M25.561 Pain in right knee
CPT/HCPCS: 73502; 73562

== ENCOUNTER → 2019-08-19 08:51 | Outpatient (CLI) | payer OTHER, MEDICAID, SELFPAY ==
[2019-08-19 10:04] LABS: Add Manual Diff / Slide Review NO; Basophils Absolute Auto 0 /uL (0-100); Basophils Percent Auto 0.6 % (0-2); Eosinophils Absolute Auto 300 /uL (0-450); Eosinophils Percent Auto 4.5 % (2-4); Hematocrit 42.3 % (41-53); Hemoglobin 14.1 g/dL (13.5-17.5); Lymphocytes Absolute Auto 2100 /uL (1100-4500); Lymphocytes Percent Auto 32.8 % (25-40); Mean Corpuscular HGB Conc 33.4 % (30-36); Mean Corpuscular Volume 89.8 fL (80-100); Monocytes Absolute Auto 500 /uL (0-900); Monocytes Percent Auto 8.6 % (3-14); Neutrophils Absolute Auto 3400 /uL (1500-7000); Neutrophils Percent Auto 53.5 % (50-75); Platelet Count 236 X10^3/uL (150-400); Red Blood Cell Count 4.71 X10^6/uL (4.5-5.9); Red Cell Distribution Width 13.2 % (11.6-14.8); White Blood Cell Count 6.3 X10^3/uL (4.5-11.0)
[2019-08-19 10:20] LABS: Erythrocyte Sedimentation Rate 7 MM/HR (0-15)
[2019-08-19 10:28] LABS: Alanine Aminotransferase 35 IU/L (21-72); Albumin 4.4 g/dL (3.5-5.0); Albumin Globulin Ratio 1.6 (1.0-2.8); Alkaline Phosphatase 55 U/L (38-126); Aspartate Aminotransferase 27 IU/L (17-59); BUN Creatinine Ratio 21.3 (6-22); Bilirubin Total 0.4 mg/dL (0.2-1.3); Blood Urea Nitrogen 17 mg/dL (9-20); Calcium 9.5 mg/dL (8.4-10.2); Carbon Dioxide 27 mmol/L (22-32); Chloride 104 mmol/L (98-107); Estimated Glomerular Filt Rate > 60.0 mL/min (>60); Globulin 2.8 g/dL (1.7-4.1); Glucose 107 mg/dL (70-100); HEMOLYSIS < 15 (0-50); Lipase 129 U/L (23-300); Potassium 4.5 mmol/L (3.4-5.1); Sodium 140 mmol/L (137-145); Total Protein 7.2 g/dL (6.3-8.2)
[2019-08-19 10:38] LABS: C-Reactive Protein Quant < 0.5 mg/dL (<1.0)
[2019-08-21 14:40] LABS: Urea Breath Test >18YRS NOT DETECTED
== END ==
PROVIDERS: PCP Family Medicine; Visit Provider Family Medicine
DX: M54.5 Low back pain (principal)
CPT/HCPCS: 36415; 80053; 83013; 83690; 84443; 85025; 85651; 86140

== ENCOUNTER 2019-10-19 13:45 | Outpatient (RCR) | payer OTHER, MEDICAID, SELFPAY ==
--- NOTE | 2019-05-27 10:39 | PT.OIE ---
Current Diagnoses Low back pain (05/27/19) Muscle spasm of back (05/27/19) Past Medical History (Last Updated 09/21/18 @ 11:33 by Chasidy Kulkarni) Chronic back pain (Chronic) Hypertension (Chronic) Myocardial infarction (Resolved) Past Surgical History (Last Updated 09/21/18 @ 11:33 by Chasidy Kulkarni) Anesthesia (Resolved) History of angioplasty (~1999) History of angioplasty (10/14/11) History of angioplasty (01/02/15) Provider Visit Care Team Role Provider Type Jaylon Muñoz MD Attending Provider Physician Primary Care Provider Specialty: Family Practice Address: [address] [place] [address] Email: [email or web address] Therapy Initial Evaluation PT-OP-A Visit Information Start: 05/27/19 07:37 Freq: Status: Active Protocol: Document 05/27/19 09:00 AMB (Rec: 05/27/19 11:38 AMB [email or web address]) Out-Patient Physical Therapy Visit Information Visit Information Visit Type Initial Evaluation Visit Start Time 09:00 Visit Stop Time 09:45 Total Visit Minutes 45 Visit Number 1 PT-OP-B Current Condition Start: 05/27/19 07:37 Freq: Status: Active Protocol: Document 05/27/19 09:00 AMB (Rec: 05/27/19 15:59 AMB [email or web address]) Current Condition History of Current Condition Onset Date chronic Current Complaints back pain and bilateral lower leg pain History of Current Condition Tremaine reports that he had back pain starting at age 9 when he fell out of a tree. He has worked physical jobs most of his life, so the pain has worsened. The pain started in his low back. 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 He also reports bilateral lower leg pain with walking worse with hills and walking fast. Prior Treatments and Tests MRI 5 years ago per patient report, unavailable to review at this time Prior Functional Status Baseline Function- ADL's Independent Baseline Function- Mobility Independent Current Functional Impairments (Reported) Functional Limitations- Mobility/Gait Difficulty walking, standing, sleeping, lifting, carrying, bending due to pain. Personal Factors Other Personal Factors That May Effect History of 5 MIs per patient Therapy/Recovery report, HTN, hx angioplasty. PT-OP-C Subjective Start: 05/27/19 07:37 Freq: Status: Active Protocol: Document 05/27/19 09:00 AMB (Rec: 05/27/19 11:38 AMB [email or web address]) Patient Questionnaires Oswestry Low Back Index Oswestry Score 56 Oswestry Impairment 40 to 59% Impaired (Score 40- 59) OP-PT Pain Assessment Location Lower Leg Pain Location Details bilateral calf and sarkar Intensity 6 Scale Used Numeric (1 - 10) Pain Aggravating Factors Walking Other Pain Aggravating Factors worse with hills/ walking fast Back Pain Location Details low back and mid back Intensity 6 Scale Used Numeric (1 - 10) Description Aching Dull Frequency Constant Pain Aggravating Factors Activity Standing Sitting Walking PT-OP-F Manual Assessment Start: 05/27/19 07:37 Freq: Status: Active Protocol: Document 05/27/19 09:00 AMB (Rec: 05/29/19 10:10 AMB [email or web address]) Manual Assessments Soft Tissue Assessment Soft Tissue Mobility Assessment Tightness and pain with trigger points at lower trap and infraspinatus bilaterally. Denied pain at QL, lumbar paraspinals tight. Joint Mobility Assessment Joint Mobility Assessment PAs are mildly stiff through lumbar spine but illicit pain quickly. Worse at lower lumbar than upper. PT-OP-J Posture/Palpation/Skin Start: 05/27/19 07:37 Freq: Status: Active Protocol: Document 05/27/19 09:00 AMB (Rec: 05/29/19 10:10 AMB [email or web address]) Posture Evaluation Comments Posture Comments Flat lumbar spine with increased thoracic kyphosis PT-OP-K Range of Motion Start: 05/27/19 07:37 Freq: Status: Active Protocol: Document 05/27/19 09:00 AMB (Rec: 05/29/19 10:10 AMB [email or web address]) Lumbar Spine Range of Motion Lumbar Spine Active Degrees Testing Position Standing Flexion 10 Extension 10 Lateral Flexion Left 20 Lateral Flexion Right 10 ROM Limitations Pain Comments flexion, extension, and sidebending right all illicit low back pain, pt denies current radiating pain but states he has had that in the past PT-OP-M Strength Start: 05/27/19 07:37 Freq: Status: Active Protocol: Document 05/27/19 09:00 AMB (Rec: 05/29/19 10:10 AMB [email or web address]) Shoulder Strength Shoulder Manual Muscle Testing Right Flexion 4+ Good+ Extension 5 Normal Abduction (C5) 4+ Good+ External Rotation 4+ Good+ Internal Rotation 4+ Good+ Horizontal Abduction 4- Good- Horizontal Adduction 4- Good- Left Flexion 4+ Good+ Extension 5 Normal Abduction (C5) 4+ Good+ External Rotation 4 Good Internal Rotation 4+ Good+ Horizontal Abduction 4- Good- Horizontal Adduction 4- Good- Hip Strength Hip Manual Muscle Testing Right Flexion (L2) 4+ Good+ Extension (S1) 4+ Good+ Abduction 4+ Good+ Adduction 4+ Good+ Left Flexion (L2) 4 Good Extension (S1) 4 Good Abduction 4 Good Adduction 4 Good Knee Strength Knee Manual Muscle Testing Right Flexion (S2) 4+ Good+ Extension (L3) 4 Good Left Flexion (S2) 4+ Good+ Extension (L3) 4 Good Ankle/Foot Strength Ankle and Foot Manual Muscle Testing Right Dorsiflexion (L4) 4+ Good+ Plantarflexion (S1) 4+ Good+ Left Dorsiflexion (L4) 4+ Good+ Plantarflexion (S1) 4+ Good+ PT-OP-Q Treatments Start: 05/27/19 07:37 Freq: Status: Active Protocol: Document 05/27/19 09:00 AMB (Rec: 05/29/19 10:39 AMB [email or web address]) Therapeutic Exercises Supine Exercises 1 Supine Exercise Name lower trunk rotation Reps/Minutes 10 Sitting Exercises 2 Sitting Exercise Name cross body stretch Reps/Minutes 20x2 1 Sitting Exercise Name shoulder rolls Comments 10 PT-OP-R Modalities Start: 05/27/19 07:37 Freq: Status: Active Protocol: Document 05/27/19 09:00 AMB (Rec: 05/29/19 10:39 AMB [email or web address]) Hot Pack/Cold Pack Treatment Hot Pack Location low/mid back Patient Position Hooklying Treatment Duration (minutes) 10 PT-OP-T Assessment and Plan Start: 05/27/19 07:37 Freq: Status: Active Protocol: Document 05/27/19 09:00 AMB (Rec: 05/29/19 10:17 AMB [email or web address]) Physical Therapy Assessment Rehab Potential Rehabilitation Potential Good Evaluation Complexity Number of Personal Factors/Comorbidities 3 or More Number of Body Systems Impaired 4 or More Clinical Presentation at Evaluation Evolving Impairments Impairments Activity Tolerance Functional Mobility Gait Pain ROM Strength Goals Three Impairment lack of HEP Short Term Goal (STG) Tremaine will be independent with a HEP for his core and scapular stability. STG Duration 4 weeks One Impairment Pain Short Term Goal (STG) Tremaine will stand with good body mechanics for 5 minutes with 4/10 pain or less. STG Duration 4 weeks Group Home Goal (LTG) Tremaine will report that he can sleep for 6 hours a night without being woken secondary to pain. LTG Duration 8 weeks Two Impairment Walking Short Term Goal (STG) Tremaine will walk for 10 minutes with 4/10 pain or less. 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 The chronic nature of his low back pain, and previous physical therapy that he did not find helpful will challenge his ability to resolve his pain complaints. However, he does show poor core control and myofascial pain at the scapulas that should respond well to PT. He felt that even very gentle exercise during evaluation exacerbated his symptoms, so progression in the beginning of treatment will likely need to be slow. Physical Therapy Plan Frequency and Duration Frequency of Treatment 2x/Week Duration of Treatment 8 weeks Plan of Care Start Date 05/27/19 Plan of Care End Date 08/05/19 Therapeutic Interventions Therapeutic Interventions Aquatic Therapy Gait Training Home Exercise Program Manual Therapy Neuromuscular Re-education Self-Care/Home Management Therapeutic Activities Therapeutic Exercises Modalities Cold Pack/Ice Massage Hot Packs Next Visit Focus/Plan Next Note Type Treatment Note Next Visit Plan clear cervical spine, clear vascular cause of lower leg pain, progress scapular strengthening, core stabilization
--- NOTE | 2019-05-27 10:40 | PT.OPPOC ---
Current Diagnoses Low back pain (05/27/19) Muscle spasm of back (05/27/19) Provider Visit Care Team Role Provider Type Jaylon uMñoz MD Attending Provider Physician Primary Care Provider Specialty: Family Practice Address: [address] [place] [address], [id number] Email: [email or web address] Plan Of Care PT-OP-T Assessment and Plan Start: 05/27/19 07:37 Freq: Status: Active Protocol: Document 05/27/19 09:00 AMB (Rec: 05/29/19 10:17 AMB [email or web address]) Physical Therapy Assessment Rehab Potential Rehabilitation Potential Good Evaluation Complexity Number of Personal Factors/Comorbidities 3 or More Number of Body Systems Impaired 4 or More Clinical Presentation at Evaluation Evolving Impairments Impairments Activity Tolerance Functional Mobility Gait Pain ROM Strength Goals Three Impairment lack of HEP Short Term Goal (STG) Tremaine will be independent with a HEP for his core and scapular stability. STG Duration 4 weeks One Impairment Pain Short Term Goal (STG) Tremaine will stand with good body mechanics for 5 minutes with 4/10 pain or less. STG Duration 4 weeks Glass Furnace Tender Goal (LTG) Tremaine will report that he can sleep for 6 hours a night without being woken secondary to pain. LTG Duration 8 weeks Two Impairment Walking Short Term Goal (STG) Tremaine will walk for 10 minutes with 4/10 pain or less. 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 The chronic nature of his low back pain, and previous physical therapy that he did not find helpful will challenge his ability to resolve his pain complaints. However, he does show poor core control and myofascial pain at the scapulaes that should respond well to PT. He felt that even very gentle exercise during evaluation exacerbated his symptoms, so progression in the beginning of treatment will likely need to be slow. Physical Therapy Plan Frequency and Duration Frequency of Treatment 2x/Week Duration of Treatment 8 weeks Plan of Care Start Date 05/27/19 Plan of Care End Date 08/05/19 Therapeutic Interventions Therapeutic Interventions Aquatic Therapy Gait Training Home Exercise Program Manual Therapy Neuromuscular Re-education Self-Care/Home Management Therapeutic Activities Therapeutic Exercises Modalities Cold Pack/Ice Massage Hot Packs Next Visit Focus/Plan Next Note Type Treatment Note Next Visit Plan clear cervical spine, clear vascular cause of lower leg pain, progress scapular strengthening, core stabilization Plan of Care Dates Plan of Care Start Date 05/27/19 Plan of Care End Date 08/05/19 Please Sign and Return: I have reviewed this Plan of Care and certify that the skilled therapy services above are required to meet the patient?s needs. Physician Signature Date Printed Name and Credentials Clinical Instructor Signature Printed Name and Credentials
--- NOTE | 2019-06-02 13:01 | PT.OTN ---
Current Diagnoses Low back pain (06/02/19) Muscle spasm of back (06/02/19) Physical Therapy Treatment Note PT-OP-A Visit Information Start: 05/27/19 07:37 Freq: Status: Active Protocol: Document 06/02/19 10:30 AMB (Rec: 06/02/19 12:58 AMB [email or web address]) Out-Patient Physical Therapy Visit Information Visit Information Visit Type Treatment Note Visit Start Time 10:30 Visit Stop Time 11:15 Total Visit Minutes 45 Visit Number 2 PT-OP-B Current Condition Start: 05/27/19 07:37 Freq: Status: Active Protocol: Document 05/27/19 09:00 AMB (Rec: 05/27/19 15:59 AMB [email or web address]) Current Condition History of Current Condition Onset Date chronic Current Complaints back pain and bilateral lower leg pain History of Current Condition Tremaine reports that he had back pain starting at age 9 when he fell out of a tree. He has worked physical jobs most of his life, so the pain has worsened. The pain started in his low back. 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 He also reports bilateral lower leg pain with walking worse with hills and walking fast. Prior Treatments and Tests MRI 5 years ago per patient report, unavailable to review at this time Prior Functional Status Baseline Function- ADL's Independent Baseline Function- Mobility Independent Current Functional Impairments (Reported) Functional Limitations- Mobility/Gait Difficulty walking, standing, sleeping, lifting, carrying, bending due to pain. Personal Factors Other Personal Factors That May Effect History of 5 MIs per patient Therapy/Recovery report, HTN, hx angioplasty. PT-OP-C Subjective Start: 05/27/19 07:37 Freq: Status: Active Protocol: Document 06/02/19 10:30 AMB (Rec: 06/02/19 13:01 AMB [email or web address]) OP-PT Subjective Patient Comments Patient Comments Tremaine states that shoulder rolls increased his upper trap pain. PT-OP-F Manual Assessment Start: 05/27/19 07:37 Freq: Status: Active Protocol: Document 05/27/19 09:00 AMB (Rec: 05/29/19 10:10 AMB [email or web address]) Manual Assessments Soft Tissue Assessment Soft Tissue Mobility Assessment Tightness and pain with trigger points at lower trap and infraspinatus bilaterally. Denied pain at QL, lumbar paraspinals tight. Joint Mobility Assessment Joint Mobility Assessment PAs are mildly stiff through lumbar spine but illicit pain quickly. Worse at lower lumbar than upper. PT-OP-J Posture/Palpation/Skin Start: 05/27/19 07:37 Freq: Status: Active Protocol: Document 05/27/19 09:00 AMB (Rec: 05/29/19 10:10 AMB [email or web address]) Posture Evaluation Comments Posture Comments Flat lumbar spine with increased thoracic kyphosis PT-OP-K Range of Motion Start: 05/27/19 07:37 Freq: Status: Active Protocol: Document 05/27/19 09:00 AMB (Rec: 05/29/19 10:10 AMB [email or web address]) Lumbar Spine Range of Motion Lumbar Spine Active Degrees Testing Position Standing Flexion 10 Extension 10 Lateral Flexion Left 20 Lateral Flexion Right 10 ROM Limitations Pain Comments flexion, extension, and sidebending right all illicit low back pain, pt denies current radiating pain but states he has had that in the past PT-OP-M Strength Start: 05/27/19 07:37 Freq: Status: Active Protocol: Document 05/27/19 09:00 AMB (Rec: 05/29/19 10:10 AMB [email or web address]) Shoulder Strength Shoulder Manual Muscle Testing Right Flexion 4+ Good+ Extension 5 Normal Abduction (C5) 4+ Good+ External Rotation 4+ Good+ Internal Rotation 4+ Good+ Horizontal Abduction 4- Good- Horizontal Adduction 4- Good- Left Flexion 4+ Good+ Extension 5 Normal Abduction (C5) 4+ Good+ External Rotation 4 Good Internal Rotation 4+ Good+ Horizontal Abduction 4- Good- Horizontal Adduction 4- Good- Hip Strength Hip Manual Muscle Testing Right Flexion (L2) 4+ Good+ Extension (S1) 4+ Good+ Abduction 4+ Good+ Adduction 4+ Good+ Left Flexion (L2) 4 Good Extension (S1) 4 Good Abduction 4 Good Adduction 4 Good Knee Strength Knee Manual Muscle Testing Right Flexion (S2) 4+ Good+ Extension (L3) 4 Good Left Flexion (S2) 4+ Good+ Extension (L3) 4 Good Ankle/Foot Strength Ankle and Foot Manual Muscle Testing Right Dorsiflexion (L4) 4+ Good+ Plantarflexion (S1) 4+ Good+ Left Dorsiflexion (L4) 4+ Good+ Plantarflexion (S1) 4+ Good+ PT-OP-Q Treatments Start: 05/27/19 07:37 Freq: Status: Active Protocol: Document 06/02/19 10:30 AMB (Rec: 06/02/19 12:58 AMB [email or web address]) Therapeutic Exercises Supine Exercises 3 Supine Exercise Name piriformis stretch Reps/Minutes 30x2 2 Supine Exercise Name bridge on t ball Equipment Used 55cm Reps/Minutes 2x10 1 Supine Exercise Name lower trunk rotation Reps/Minutes 10 Sitting Exercises 1 Sitting Exercise Name shoulder rolls Comments 10 Other Exercises 2 Other Exercise Name quadruped UE flex, then LE ext Reps/Minutes 2x10 ea 1 Other Exercise Name risa pose Reps/Minutes 30x3 Manual Therapy Treatment Soft Tissue Mobilization 1 Body Location bilat scapula Mobilization Type Myofascial Release Joint Mobilizations 1 Joint upper T spine Direction PAs Grade II Body Position Sidelying PT-OP-R Modalities Start: 05/27/19 07:37 Freq: Status: Active Protocol: Document 05/27/19 09:00 AMB (Rec: 05/29/19 10:39 AMB [email or web address]) Hot Pack/Cold Pack Treatment Hot Pack Location low/mid back Patient Position Hooklying Treatment Duration (minutes) 10 PT-OP-T Assessment and Plan Start: 05/27/19 07:37 Freq: Status: Active Protocol: Document 06/02/19 10:30 AMB (Rec: 06/02/19 12:58 AMB [email or web address]) Physical Therapy Assessment Assessment Summary Assessment Normal capillary refill at great toe, no edema. Pt did have neck pain today but didn' t refer into scapulas. Pt felt increased pain in shoulder blades with light manual today. Physical Therapy Plan Next Visit Focus/Plan Next Note Type Treatment Note Next Visit Plan Progress core stabilization, stretching HEP progress manual therapy as tolerated.
--- NOTE | 2019-06-13 16:47 | PT.OTN ---
Current Diagnoses Low back pain (06/13/19) Muscle spasm of back (06/13/19) Physical Therapy Treatment Note PT-OP-A Visit Information Start: 05/27/19 07:37 Freq: Status: Active Protocol: Document 06/13/19 09:45 AMB (Rec: 06/13/19 10:31 AMB [email or web address]) Out-Patient Physical Therapy Visit Information Visit Information Visit Type Treatment Note Visit Start Time 09:45 Visit Stop Time 10:30 Total Visit Minutes 45 Visit Number 3 PT-OP-B Current Condition Start: 05/27/19 07:37 Freq: Status: Active Protocol: Document 05/27/19 09:00 AMB (Rec: 05/27/19 15:59 AMB [email or web address]) Current Condition History of Current Condition Onset Date chronic Current Complaints back pain and bilateral lower leg pain History of Current Condition Tremaine reports that he had back pain starting at age 9 when he fell out of a tree. He has worked physical jobs most of his life, so the pain has worsened. The pain started in his low back. 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 He also reports bilateral lower leg pain with walking worse with hills and walking fast. Prior Treatments and Tests MRI 5 years ago per patient report, unavailable to review at this time Prior Functional Status Baseline Function- ADL's Independent Baseline Function- Mobility Independent Current Functional Impairments (Reported) Functional Limitations- Mobility/Gait Difficulty walking, standing, sleeping, lifting, carrying, bending due to pain. Personal Factors Other Personal Factors That May Effect History of 5 MIs per patient Therapy/Recovery report, HTN, hx angioplasty. PT-OP-C Subjective Start: 05/27/19 07:37 Freq: Status: Active Protocol: Document 06/13/19 09:45 AMB (Rec: 06/13/19 10:31 AMB [email or web address]) OP-PT Subjective Patient Comments Patient Comments Pt states he fell in the shower a week ago and has had increased low back pain since. He has tried to heat but not ice. Bending forward increases his pain. PT-OP-F Manual Assessment Start: 05/27/19 07:37 Freq: Status: Active Protocol: Document 05/27/19 09:00 AMB (Rec: 05/29/19 10:10 AMB [email or web address]) Manual Assessments Soft Tissue Assessment Soft Tissue Mobility Assessment Tightness and pain with trigger points at lower trap and infraspinatus bilaterally. Denied pain at QL, lumbar paraspinals tight. Joint Mobility Assessment Joint Mobility Assessment PAs are mildly stiff through lumbar spine but illicit pain quickly. Worse at lower lumbar than upper. PT-OP-J Posture/Palpation/Skin Start: 05/27/19 07:37 Freq: Status: Active Protocol: Document 05/27/19 09:00 AMB (Rec: 05/29/19 10:10 AMB [email or web address]) Posture Evaluation Comments Posture Comments Flat lumbar spine with increased thoracic kyphosis PT-OP-K Range of Motion Start: 05/27/19 07:37 Freq: Status: Active Protocol: Document 05/27/19 09:00 AMB (Rec: 05/29/19 10:10 AMB [email or web address]) Lumbar Spine Range of Motion Lumbar Spine Active Degrees Testing Position Standing Flexion 10 Extension 10 Lateral Flexion Left 20 Lateral Flexion Right 10 ROM Limitations Pain Comments flexion, extension, and sidebending right all illicit low back pain, pt denies current radiating pain but states he has had that in the past PT-OP-M Strength Start: 05/27/19 07:37 Freq: Status: Active Protocol: Document 05/27/19 09:00 AMB (Rec: 05/29/19 10:10 AMB [email or web address]) Shoulder Strength Shoulder Manual Muscle Testing Right Flexion 4+ Good+ Extension 5 Normal Abduction (C5) 4+ Good+ External Rotation 4+ Good+ Internal Rotation 4+ Good+ Horizontal Abduction 4- Good- Horizontal Adduction 4- Good- Left Flexion 4+ Good+ Extension 5 Normal Abduction (C5) 4+ Good+ External Rotation 4 Good Internal Rotation 4+ Good+ Horizontal Abduction 4- Good- Horizontal Adduction 4- Good- Hip Strength Hip Manual Muscle Testing Right Flexion (L2) 4+ Good+ Extension (S1) 4+ Good+ Abduction 4+ Good+ Adduction 4+ Good+ Left Flexion (L2) 4 Good Extension (S1) 4 Good Abduction 4 Good Adduction 4 Good Knee Strength Knee Manual Muscle Testing Right Flexion (S2) 4+ Good+ Extension (L3) 4 Good Left Flexion (S2) 4+ Good+ Extension (L3) 4 Good Ankle/Foot Strength Ankle and Foot Manual Muscle Testing Right Dorsiflexion (L4) 4+ Good+ Plantarflexion (S1) 4+ Good+ Left Dorsiflexion (L4) 4+ Good+ Plantarflexion (S1) 4+ Good+ PT-OP-Q Treatments Start: 05/27/19 07:37 Freq: Status: Active Protocol: Document 06/13/19 09:45 AMB (Rec: 06/13/19 16:47 AMB [email or web address]) Therapeutic Exercises Supine Exercises 5 Supine Exercise Name TrA drawing in with log roll Reps/Minutes 2 4 Supine Exercise Name TrA drawing in Reps/Minutes 10 Comments hooklying 1 Supine Exercise Name lower trunk rotation Reps/Minutes 10 Prone Exercises 1 Prone Exercise Name prone on elbows Other Exercises 1 Other Exercise Name risa pose Reps/Minutes 30x3 Manual Therapy Treatment Soft Tissue Mobilization 1 Body Location bilat QL, paraspinals Mobilization Type Myofascial Release Joint Mobilizations 1 Joint Lumbar spine Direction PAs Grade II Body Position Sidelying Manual Traction Lumbar Details long axis distraction Body Position Supine Taping 1 Body Location lumbosacral spine Type of Tape Kinesio Tape Comments Star pattern PT-OP-R Modalities Start: 05/27/19 07:37 Freq: Status: Active Protocol: Document 05/27/19 09:00 AMB (Rec: 05/29/19 10:39 AMB [email or web address]) Hot Pack/Cold Pack Treatment Hot Pack Location low/mid back Patient Position Hooklying Treatment Duration (minutes) 10 PT-OP-T Assessment and Plan Start: 05/27/19 07:37 Freq: Status: Active Protocol: Document 06/13/19 09:45 AMB (Rec: 06/13/19 16:47 AMB [email or web address]) Physical Therapy Assessment Assessment Summary Assessment Tremaine had a significant increase in pain due to falling on his butt in the shower a week ago. He continues to feel extension increases his pain, but denies pain that radiates into his buttocks or legs. He did have more pain in the bilateral QLs today than at last visit, while the worst pain continues to be at the lumbosacral junction. Gentle manual therapy continues to be tolerated for short periods of time. He did respond well to body mechanics instruction of log roll technique. He also mentioned new onset dizziness that lasts briefly, did not test for BPPV as would likely exacerbate his pain but if dizziness continues could look into symptoms more. Physical Therapy Plan Next Visit Focus/Plan Next Note Type Treatment Note Next Visit Plan Progress core stabilization, stretching HEP progress manual therapy as tolerated.
--- NOTE | 2019-06-14 17:56 | PT.OTN ---
Current Diagnoses Low back pain (06/14/19) Muscle spasm of back (06/14/19) Physical Therapy Treatment Note PT-OP-A Visit Information Start: 05/27/19 07:37 Freq: Status: Active Protocol: Document 06/14/19 17:42 AMH (Rec: 06/14/19 17:55 AMH [email or web address]) Out-Patient Physical Therapy Visit Information Visit Information Visit Type Treatment Note Visit Start Time 14:30 Visit Stop Time 15:15 Total Visit Minutes 45 Visit Number 4 Evaluation Information Evaluation Date 05/27/19 PT-OP-B Current Condition Start: 05/27/19 07:37 Freq: Status: Active Protocol: Document 05/27/19 09:00 AMB (Rec: 05/27/19 15:59 AMB [email or web address]) Current Condition History of Current Condition Onset Date chronic Current Complaints back pain and bilateral lower leg pain History of Current Condition Tremaine reports that he had back pain starting at age 9 when he fell out of a tree. He has worked physical jobs most of his life, so the pain has worsened. The pain started in his low back. 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 He also reports bilateral lower leg pain with walking worse with hills and walking fast. Prior Treatments and Tests MRI 5 years ago per patient report, unavailable to review at this time Prior Functional Status Baseline Function- ADL's Independent Baseline Function- Mobility Independent Current Functional Impairments (Reported) Functional Limitations- Mobility/Gait Difficulty walking, standing, sleeping, lifting, carrying, bending due to pain. Personal Factors Other Personal Factors That May Effect History of 5 MIs per patient Therapy/Recovery report, HTN, hx angioplasty. PT-OP-C Subjective Start: 05/27/19 07:37 Freq: Status: Active Protocol: Document 06/14/19 17:42 AMH (Rec: 06/14/19 17:55 AMH [email or web address]) OP-PT Subjective Patient Comments Patient Comments pt reports the tape helped reduce some pain. He has left it on following last visit. He also gets some relief with risa pose but this is very temporary PT-OP-F Manual Assessment Start: 05/27/19 07:37 Freq: Status: Active Protocol: Document 05/27/19 09:00 AMB (Rec: 05/29/19 10:10 AMB [email or web address]) Manual Assessments Soft Tissue Assessment Soft Tissue Mobility Assessment Tightness and pain with trigger points at lower trap and infraspinatus bilaterally. Denied pain at QL, lumbar paraspinals tight. Joint Mobility Assessment Joint Mobility Assessment PAs are mildly stiff through lumbar spine but illicit pain quickly. Worse at lower lumbar than upper. PT-OP-J Posture/Palpation/Skin Start: 05/27/19 07:37 Freq: Status: Active Protocol: Document 05/27/19 09:00 AMB (Rec: 05/29/19 10:10 AMB [email or web address]) Posture Evaluation Comments Posture Comments Flat lumbar spine with increased thoracic kyphosis PT-OP-K Range of Motion Start: 05/27/19 07:37 Freq: Status: Active Protocol: Document 05/27/19 09:00 AMB (Rec: 05/29/19 10:10 AMB [email or web address]) Lumbar Spine Range of Motion Lumbar Spine Active Degrees Testing Position Standing Flexion 10 Extension 10 Lateral Flexion Left 20 Lateral Flexion Right 10 ROM Limitations Pain Comments flexion, extension, and sidebending right all illicit low back pain, pt denies current radiating pain but states he has had that in the past PT-OP-M Strength Start: 05/27/19 07:37 Freq: Status: Active Protocol: Document 05/27/19 09:00 AMB (Rec: 05/29/19 10:10 AMB [email or web address]) Shoulder Strength Shoulder Manual Muscle Testing Right Flexion 4+ Good+ Extension 5 Normal Abduction (C5) 4+ Good+ External Rotation 4+ Good+ Internal Rotation 4+ Good+ Horizontal Abduction 4- Good- Horizontal Adduction 4- Good- Left Flexion 4+ Good+ Extension 5 Normal Abduction (C5) 4+ Good+ External Rotation 4 Good Internal Rotation 4+ Good+ Horizontal Abduction 4- Good- Horizontal Adduction 4- Good- Hip Strength Hip Manual Muscle Testing Right Flexion (L2) 4+ Good+ Extension (S1) 4+ Good+ Abduction 4+ Good+ Adduction 4+ Good+ Left Flexion (L2) 4 Good Extension (S1) 4 Good Abduction 4 Good Adduction 4 Good Knee Strength Knee Manual Muscle Testing Right Flexion (S2) 4+ Good+ Extension (L3) 4 Good Left Flexion (S2) 4+ Good+ Extension (L3) 4 Good Ankle/Foot Strength Ankle and Foot Manual Muscle Testing Right Dorsiflexion (L4) 4+ Good+ Plantarflexion (S1) 4+ Good+ Left Dorsiflexion (L4) 4+ Good+ Plantarflexion (S1) 4+ Good+ PT-OP-Q Treatments Start: 05/27/19 07:37 Freq: Status: Active Protocol: Document 06/14/19 17:42 AMH (Rec: 06/14/19 17:55 AMH [email or web address]) Cardio Equipment Elliptical Duration (Minutes) 4 Resistance 2 Therapeutic Exercises Supine Exercises 7 Supine Exercise Name hamstring stretch Comments pt was able to hold behind his knee and slowly straighten a few degrees 6 Supine Exercise Name SKTC Reps/Minutes x 30 sec hold 5 Supine Exercise Name TrA drawing in with log roll Reps/Minutes 2 4 Supine Exercise Name TrA drawing in Reps/Minutes 10 Comments hooklying 3 Supine Exercise Name piriformis stretch Reps/Minutes 30x2 1 Supine Exercise Name lower trunk rotation Reps/Minutes 10 Prone Exercises 2 Prone Exercise Name prone TA facilitation Sitting Exercises 3 Sitting Exercise Name seated flexion stretch Standing Exercises 1 Standing Exercise Name standing calf stretch with the [place] Reps/Minutes 2x 30 sec each Other Exercises 3 Other Exercise Name quadraped TA facilitation Comments needs cues to relax the abdominal wall 1 Other Exercise Name risa pose Reps/Minutes 30x3 Manual Therapy Treatment Manual Traction Lumbar Details long axis distraction Body Position Supine Taping 1 Body Location lumbosacral spine Type of Tape Kinesio Tape Comments Star pattern PT-OP-R Modalities Start: 05/27/19 07:37 Freq: Status: Active Protocol: Document 05/27/19 09:00 AMB (Rec: 05/29/19 10:39 AMB [email or web address]) Hot Pack/Cold Pack Treatment Hot Pack Location low/mid back Patient Position Hooklying Treatment Duration (minutes) 10 PT-OP-T Assessment and Plan Start: 05/27/19 07:37 Freq: Status: Active Protocol: Document 06/14/19 17:42 AMH (Rec: 06/14/19 17:55 AMH [email or web address]) Physical Therapy Assessment Assessment Summary Assessment Tremaine became short of breath on the eliptical after 4 minutes. I had tried it as the biodex was hurting his back. He did not experience any increase in low back pain on the eliptical but reported he felt leg weakness following . He did recover after a few minutes. Because he reported he liked risa pose I added in a few more low back stretches for flexion and posterior chain stretches. He tolerated these without increased c/o pain today. He has difficulty relaxing his abdominal wall at rest and we worked on relaxed awareness of his abdominal wall today in quadruped and prone Physical Therapy Plan Frequency and Duration Frequency of Treatment 2x/Week Duration of Treatment 8 weeks Plan of Care Start Date 05/27/19 Plan of Care End Date 08/05/19 Therapeutic Interventions Therapeutic Interventions Aquatic Therapy Gait Training Home Exercise Program Manual Therapy Neuromuscular Re-education Self-Care/Home Management Therapeutic Activities Therapeutic Exercises Modalities Cold Pack/Ice Massage Hot Packs Next Visit Focus/Plan Next Note Type Treatment Note Next Visit Plan Progress core stabilization, stretching HEP progress manual therapy as tolerated.
--- NOTE | 2019-06-23 15:59 | PT.OTN ---
Current Diagnoses Low back pain (06/23/19) Muscle spasm of back (06/23/19) Physical Therapy Treatment Note PT-OP-A Visit Information Start: 05/27/19 07:37 Freq: Status: Active Protocol: Document 06/23/19 09:45 AMB (Rec: 06/23/19 09:57 AMB [id number]) Out-Patient Physical Therapy Visit Information Visit Information Visit Type Treatment Note Visit Start Time 09:45 Visit Stop Time 10:30 Total Visit Minutes 45 Visit Number 5 PT-OP-B Current Condition Start: 05/27/19 07:37 Freq: Status: Active Protocol: Document 05/27/19 09:00 AMB (Rec: 05/27/19 15:59 AMB [email or web address]) Current Condition History of Current Condition Onset Date chronic Current Complaints back pain and bilateral lower leg pain History of Current Condition Tremaine reports that he had back pain starting at age 9 when he fell out of a tree. He has worked physical jobs most of his life, so the pain has worsened. The pain started in his low back. 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 He also reports bilateral lower leg pain with walking worse with hills and walking fast. Prior Treatments and Tests MRI 5 years ago per patient report, unavailable to review at this time Prior Functional Status Baseline Function- ADL's Independent Baseline Function- Mobility Independent Current Functional Impairments (Reported) Functional Limitations- Mobility/Gait Difficulty walking, standing, sleeping, lifting, carrying, bending due to pain. Personal Factors Other Personal Factors That May Effect History of 5 MIs per patient Therapy/Recovery report, HTN, hx angioplasty. PT-OP-C Subjective Start: 05/27/19 07:37 Freq: Status: Active Protocol: Document 06/23/19 09:45 AMB (Rec: 06/23/19 15:59 AMB [email or web address]) OP-PT Subjective Patient Comments Patient Comments The patient states he strained his right calf last week walking down to [employer] and back. His upper back has been hurting more, now it feels like it spasms even when he is standing straight and not bending over. PT-OP-F Manual Assessment Start: 05/27/19 07:37 Freq: Status: Active Protocol: Document 05/27/19 09:00 AMB (Rec: 05/29/19 10:10 AMB [email or web address]) Manual Assessments Soft Tissue Assessment Soft Tissue Mobility Assessment Tightness and pain with trigger points at lower trap and infraspinatus bilaterally. Denied pain at QL, lumbar paraspinals tight. Joint Mobility Assessment Joint Mobility Assessment PAs are mildly stiff through lumbar spine but illicit pain quickly. Worse at lower lumbar than upper. PT-OP-J Posture/Palpation/Skin Start: 05/27/19 07:37 Freq: Status: Active Protocol: Document 05/27/19 09:00 AMB (Rec: 05/29/19 10:10 AMB [email or web address]) Posture Evaluation Comments Posture Comments Flat lumbar spine with increased thoracic kyphosis PT-OP-K Range of Motion Start: 05/27/19 07:37 Freq: Status: Active Protocol: Document 05/27/19 09:00 AMB (Rec: 05/29/19 10:10 AMB [email or web address]) Lumbar Spine Range of Motion Lumbar Spine Active Degrees Testing Position Standing Flexion 10 Extension 10 Lateral Flexion Left 20 Lateral Flexion Right 10 ROM Limitations Pain Comments flexion, extension, and sidebending right all illicit low back pain, pt denies current radiating pain but states he has had that in the past PT-OP-M Strength Start: 05/27/19 07:37 Freq: Status: Active Protocol: Document 05/27/19 09:00 AMB (Rec: 05/29/19 10:10 AMB [email or web address]) Shoulder Strength Shoulder Manual Muscle Testing Right Flexion 4+ Good+ Extension 5 Normal Abduction (C5) 4+ Good+ External Rotation 4+ Good+ Internal Rotation 4+ Good+ Horizontal Abduction 4- Good- Horizontal Adduction 4- Good- Left Flexion 4+ Good+ Extension 5 Normal Abduction (C5) 4+ Good+ External Rotation 4 Good Internal Rotation 4+ Good+ Horizontal Abduction 4- Good- Horizontal Adduction 4- Good- Hip Strength Hip Manual Muscle Testing Right Flexion (L2) 4+ Good+ Extension (S1) 4+ Good+ Abduction 4+ Good+ Adduction 4+ Good+ Left Flexion (L2) 4 Good Extension (S1) 4 Good Abduction 4 Good Adduction 4 Good Knee Strength Knee Manual Muscle Testing Right Flexion (S2) 4+ Good+ Extension (L3) 4 Good Left Flexion (S2) 4+ Good+ Extension (L3) 4 Good Ankle/Foot Strength Ankle and Foot Manual Muscle Testing Right Dorsiflexion (L4) 4+ Good+ Plantarflexion (S1) 4+ Good+ Left Dorsiflexion (L4) 4+ Good+ Plantarflexion (S1) 4+ Good+ PT-OP-Q Treatments Start: 05/27/19 07:37 Freq: Status: Active Protocol: Document 06/23/19 09:45 AMB (Rec: 06/23/19 15:59 AMB [email or web address]) Therapeutic Exercises Supine Exercises 7 Supine Exercise Name hamstring stretch Comments pt was able to hold behind his knee and slowly straighten a few degrees 6 Supine Exercise Name SKTC Reps/Minutes x 30 sec hold 1 Supine Exercise Name lower trunk rotation Reps/Minutes 10 Standing Exercises 1 Standing Exercise Name standing calf stretch with the [place]HSIA Reps/Minutes 2x 30 sec each Other Exercises 4 Other Exercise Name cat cow Reps/Minutes 2x10 1 Other Exercise Name risa pose Reps/Minutes 30x3 Manual Therapy Treatment Soft Tissue Mobilization 1 Body Location R scapula Mobilization Type Myofascial Release Joint Mobilizations 1 Joint Lumbar spine Direction PAs Grade II Body Position Sidelying Manual Traction Lumbar Details long axis distraction Body Position Supine Taping 1 Body Location lumbosacral spine Type of Tape Kinesio Tape Comments Star pattern PT-OP-R Modalities Start: 05/27/19 07:37 Freq: Status: Active Protocol: Document 05/27/19 09:00 AMB (Rec: 05/29/19 10:39 AMB [email or web address]) Hot Pack/Cold Pack Treatment Hot Pack Location low/mid back Patient Position Hooklying Treatment Duration (minutes) 10 PT-OP-T Assessment and Plan Start: 05/27/19 07:37 Freq: Status: Active Protocol: Document 06/23/19 09:45 AMB (Rec: 06/23/19 15:59 AMB [email or web address]) Physical Therapy Assessment Assessment Summary Assessment Tremaine continues to have low back and upper back pain. He was very tight in his hip flexors R>L today but had difficulty tolerating hip flexor stretches. Physical Therapy Plan Next Visit Focus/Plan Next Note Type Treatment Note Next Visit Plan Progress core stabilization, stretching HEP progress manual therapy as tolerated.
--- NOTE | 2019-06-28 13:46 | PT.OTN ---
Current Diagnoses Low back pain (06/28/19) Muscle spasm of back (06/28/19) Physical Therapy Treatment Note PT-OP-A Visit Information Start: 05/27/19 07:37 Freq: Status: Active Protocol: Document 06/28/19 10:30 GGD (Rec: 06/28/19 13:46 GGD [email or web address]) Out-Patient Physical Therapy Visit Information Visit Information Visit Type Treatment Note Visit Start Time 10:30 Visit Stop Time 11:15 Total Visit Minutes 45 Visit Number 6 Number of DIGITAL PRODUCT SPECIALIST Visits 1 Evaluation Information Evaluation Date 05/27/19 PT-OP-B Current Condition Start: 05/27/19 07:37 Freq: Status: Active Protocol: Document 05/27/19 09:00 AMB (Rec: 05/27/19 15:59 AMB [email or web address]) Current Condition History of Current Condition Onset Date chronic Current Complaints back pain and bilateral lower leg pain History of Current Condition Tremaine reports that he had back pain starting at age 9 when he fell out of a tree. He has worked physical jobs most of his life, so the pain has worsened. The pain started in his low back. 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 He also reports bilateral lower leg pain with walking worse with hills and walking fast. Prior Treatments and Tests MRI 5 years ago per patient report, unavailable to review at this time Prior Functional Status Baseline Function- ADL's Independent Baseline Function- Mobility Independent Current Functional Impairments (Reported) Functional Limitations- Mobility/Gait Difficulty walking, standing, sleeping, lifting, carrying, bending due to pain. Personal Factors Other Personal Factors That May Effect History of 5 MIs per patient Therapy/Recovery report, HTN, hx angioplasty. PT-OP-C Subjective Start: 05/27/19 07:37 Freq: Status: Active Protocol: Document 06/28/19 10:30 GGD (Rec: 06/28/19 13:46 GGD [email or web address]) OP-PT Subjective Patient Comments Patient Comments Pt states that he feels ok today, but hasn't done much. PT-OP-F Manual Assessment Start: 05/27/19 07:37 Freq: Status: Active Protocol: Document 05/27/19 09:00 AMB (Rec: 05/29/19 10:10 AMB [email or web address]) Manual Assessments Soft Tissue Assessment Soft Tissue Mobility Assessment Tightness and pain with trigger points at lower trap and infraspinatus bilaterally. Denied pain at QL, lumbar paraspinals tight. Joint Mobility Assessment Joint Mobility Assessment PAs are mildly stiff through lumbar spine but illicit pain quickly. Worse at lower lumbar than upper. PT-OP-J Posture/Palpation/Skin Start: 05/27/19 07:37 Freq: Status: Active Protocol: Document 05/27/19 09:00 AMB (Rec: 05/29/19 10:10 AMB [email or web address]) Posture Evaluation Comments Posture Comments Flat lumbar spine with increased thoracic kyphosis PT-OP-K Range of Motion Start: 05/27/19 07:37 Freq: Status: Active Protocol: Document 05/27/19 09:00 AMB (Rec: 05/29/19 10:10 AMB [email or web address]) Lumbar Spine Range of Motion Lumbar Spine Active Degrees Testing Position Standing Flexion 10 Extension 10 Lateral Flexion Left 20 Lateral Flexion Right 10 ROM Limitations Pain Comments flexion, extension, and sidebending right all illicit low back pain, pt denies current radiating pain but states he has had that in the past PT-OP-M Strength Start: 05/27/19 07:37 Freq: Status: Active Protocol: Document 05/27/19 09:00 AMB (Rec: 05/29/19 10:10 AMB [email or web address]) Shoulder Strength Shoulder Manual Muscle Testing Right Flexion 4+ Good+ Extension 5 Normal Abduction (C5) 4+ Good+ External Rotation 4+ Good+ Internal Rotation 4+ Good+ Horizontal Abduction 4- Good- Horizontal Adduction 4- Good- Left Flexion 4+ Good+ Extension 5 Normal Abduction (C5) 4+ Good+ External Rotation 4 Good Internal Rotation 4+ Good+ Horizontal Abduction 4- Good- Horizontal Adduction 4- Good- Hip Strength Hip Manual Muscle Testing Right Flexion (L2) 4+ Good+ Extension (S1) 4+ Good+ Abduction 4+ Good+ Adduction 4+ Good+ Left Flexion (L2) 4 Good Extension (S1) 4 Good Abduction 4 Good Adduction 4 Good Knee Strength Knee Manual Muscle Testing Right Flexion (S2) 4+ Good+ Extension (L3) 4 Good Left Flexion (S2) 4+ Good+ Extension (L3) 4 Good Ankle/Foot Strength Ankle and Foot Manual Muscle Testing Right Dorsiflexion (L4) 4+ Good+ Plantarflexion (S1) 4+ Good+ Left Dorsiflexion (L4) 4+ Good+ Plantarflexion (S1) 4+ Good+ PT-OP-Q Treatments Start: 05/27/19 07:37 Freq: Status: Active Protocol: Document 06/28/19 10:30 GGD (Rec: 06/28/19 13:46 GGD [email or web address]) Therapeutic Exercises Supine Exercises Posterior pelvic tilt Supine Exercise Name Posterior pelvic tilt Side bilateral 7 Supine Exercise Name hamstring stretch Comments pt was able to hold behind his knee and slowly straighten a few degrees 6 Supine Exercise Name SKTC Reps/Minutes x 30 sec hold 4 Supine Exercise Name TrA drawing in Reps/Minutes 10 Comments hooklying 1 Supine Exercise Name lower trunk rotation Reps/Minutes 10 Sidelying Exercises clamshells Sidelying Exercise Name clamshells Side bilateral Reps/Minutes 10 Standing Exercises 1 Standing Exercise Name standing calf stretch with the [place]OSHIA Reps/Minutes 2x 30 sec each Other Exercises 4 Other Exercise Name cat cow Reps/Minutes 2x10 1 Other Exercise Name risa pose Reps/Minutes 30x3 Manual Therapy Treatment Soft Tissue Mobilization 1 Body Location R scapula Mobilization Type Myofascial Release Joint Mobilizations 1 Joint Lumbar spine Direction PAs Grade II Body Position Sidelying Manual Traction Lumbar Details long axis distraction Body Position Supine Taping 1 Body Location lumbosacral spine Type of Tape Kinesio Tape Comments Star pattern PT-OP-R Modalities Start: 05/27/19 07:37 Freq: Status: Active Protocol: Document 05/27/19 09:00 AMB (Rec: 05/29/19 10:39 AMB [email or web address]) Hot Pack/Cold Pack Treatment Hot Pack Location low/mid back Patient Position Hooklying Treatment Duration (minutes) 10 PT-OP-T Assessment and Plan Start: 05/27/19 07:37 Freq: Status: Active Protocol: Document 06/28/19 10:30 GGD (Rec: 06/28/19 13:46 GGD [email or web address]) Physical Therapy Assessment Assessment Summary Assessment Pt tight in hamstring. He difficulty with motor planing with PPT. Physical Therapy Plan Frequency and Duration Frequency of Treatment 2x/Week Duration of Treatment 8 weeks Plan of Care Start Date 05/27/19 Plan of Care End Date 08/05/19 Next Visit Focus/Plan Next Note Type Treatment Note Next Visit Plan Progress core stabilization, stretching HEP progress manual therapy as tolerated.
--- NOTE | 2019-07-08 13:07 | PT.OTN ---
Current Diagnoses Low back pain (07/08/19) Muscle spasm of back (07/08/19) Physical Therapy Treatment Note PT-OP-A Visit Information Start: 05/27/19 07:37 Freq: Status: Active Protocol: Document 07/08/19 10:31 SAK (Rec: 07/08/19 11:21 SAK [id number]) Out-Patient Physical Therapy Visit Information Visit Information Visit Type Treatment Note Visit Start Time 10:30 Visit Stop Time 11:15 Total Visit Minutes 48 Visit Number 7 Number of COMMUNITY ACTION WORKER Visits 0 Evaluation Information Evaluation Date 05/27/19 PT-OP-B Current Condition Start: 05/27/19 07:37 Freq: Status: Active Protocol: Document 05/27/19 09:00 AMB (Rec: 05/27/19 15:59 AMB [email or web address]) Current Condition History of Current Condition Onset Date chronic Current Complaints back pain and bilateral lower leg pain History of Current Condition Tremaine reports that he had back pain starting at age 9 when he fell out of a tree. He has worked physical jobs most of his life, so the pain has worsened. The pain started in his low back. 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 He also reports bilateral lower leg pain with walking worse with hills and walking fast. Prior Treatments and Tests MRI 5 years ago per patient report, unavailable to review at this time Prior Functional Status Baseline Function- ADL's Independent Baseline Function- Mobility Independent Current Functional Impairments (Reported) Functional Limitations- Mobility/Gait Difficulty walking, standing, sleeping, lifting, carrying, bending due to pain. Personal Factors Other Personal Factors That May Effect History of 5 MIs per patient Therapy/Recovery report, HTN, hx angioplasty. PT-OP-C Subjective Start: 05/27/19 07:37 Freq: Status: Active Protocol: Document 07/08/19 10:31 SAK (Rec: 07/08/19 11:21 SAK [id number]) OP-PT Subjective Patient Comments Patient Comments Reports decreased lower leg pain, I think maybe it was just some weak muscles. Increased back and scapular pain with work. Reports doing HEP but otherwise minimal activity. Missed a couple appointments due to twisting right knee getting out of car, still a little tender PT-OP-F Manual Assessment Start: 05/27/19 07:37 Freq: Status: Active Protocol: Document 05/27/19 09:00 AMB (Rec: 05/29/19 10:10 AMB [email or web address]) Manual Assessments Soft Tissue Assessment Soft Tissue Mobility Assessment Tightness and pain with trigger points at lower trap and infraspinatus bilaterally. Denied pain at QL, lumbar paraspinals tight. Joint Mobility Assessment Joint Mobility Assessment PAs are mildly stiff through lumbar spine but illicit pain quickly. Worse at lower lumbar than upper. PT-OP-J Posture/Palpation/Skin Start: 05/27/19 07:37 Freq: Status: Active Protocol: Document 05/27/19 09:00 AMB (Rec: 05/29/19 10:10 AMB [email or web address]) Posture Evaluation Comments Posture Comments Flat lumbar spine with increased thoracic kyphosis PT-OP-K Range of Motion Start: 05/27/19 07:37 Freq: Status: Active Protocol: Document 05/27/19 09:00 AMB (Rec: 05/29/19 10:10 AMB [email or web address]) Lumbar Spine Range of Motion Lumbar Spine Active Degrees Testing Position Standing Flexion 10 Extension 10 Lateral Flexion Left 20 Lateral Flexion Right 10 ROM Limitations Pain Comments flexion, extension, and sidebending right all illicit low back pain, pt denies current radiating pain but states he has had that in the past PT-OP-M Strength Start: 05/27/19 07:37 Freq: Status: Active Protocol: Document 05/27/19 09:00 AMB (Rec: 05/29/19 10:10 AMB [email or web address]) Shoulder Strength Shoulder Manual Muscle Testing Right Flexion 4+ Good+ Extension 5 Normal Abduction (C5) 4+ Good+ External Rotation 4+ Good+ Internal Rotation 4+ Good+ Horizontal Abduction 4- Good- Horizontal Adduction 4- Good- Left Flexion 4+ Good+ Extension 5 Normal Abduction (C5) 4+ Good+ External Rotation 4 Good Internal Rotation 4+ Good+ Horizontal Abduction 4- Good- Horizontal Adduction 4- Good- Hip Strength Hip Manual Muscle Testing Right Flexion (L2) 4+ Good+ Extension (S1) 4+ Good+ Abduction 4+ Good+ Adduction 4+ Good+ Left Flexion (L2) 4 Good Extension (S1) 4 Good Abduction 4 Good Adduction 4 Good Knee Strength Knee Manual Muscle Testing Right Flexion (S2) 4+ Good+ Extension (L3) 4 Good Left Flexion (S2) 4+ Good+ Extension (L3) 4 Good Ankle/Foot Strength Ankle and Foot Manual Muscle Testing Right Dorsiflexion (L4) 4+ Good+ Plantarflexion (S1) 4+ Good+ Left Dorsiflexion (L4) 4+ Good+ Plantarflexion (S1) 4+ Good+ PT-OP-Q Treatments Start: 05/27/19 07:37 Freq: Status: Active Protocol: Document 07/08/19 10:31 [facility] (Rec: 07/08/19 11:21 [facility] [id number]) Cardio Equipment Recumbent Stepper (Sci-Fit) Duration (Minutes) 5 Resistance 1.5 Other emphasis on neutral alignment Therapeutic Exercises Supine Exercises pec stretch Reps/Minutes 2x30 Posterior pelvic tilt Supine Exercise Name Posterior pelvic tilt Side bilateral 7 Supine Exercise Name hamstring stretch Comments pt was able to hold behind his knee and slowly straighten a few degrees 6 Supine Exercise Name SKTC Reps/Minutes x 30 sec hold 3 Supine Exercise Name piriformis stretch Reps/Minutes 30x2 1 Supine Exercise Name lower trunk rotation Reps/Minutes 10 Standing Exercises doorway stretch Reps/Minutes 30x1 shoulder ext Resistance L1 TB Reps/Minutes 5x10 row Resistance L1 TB Reps/Minutes 5x10 1 Standing Exercise Name standing calf stretch Equipment Used stair Reps/Minutes 2x 30 sec each Other Exercises 4 Other Exercise Name cat cow Reps/Minutes 2x10 1 Other Exercise Name risa pose Reps/Minutes 30x3 Manual Therapy Treatment Taping 1 Body Location lumbosacral spine Type of Tape Kinesio Tape Comments Star pattern Self-Care/Home Management Treatment Education Patient Education Body Mechanics Home Exercise Program Posture PT-OP-R Modalities Start: 05/27/19 07:37 Freq: Status: Active Protocol: Document 07/08/19 10:31 [facility] (Rec: 07/08/19 13:07 [facility] [id number]) Hot Pack/Cold Pack Treatment Hot Pack Location low/mid back, c/s Patient Position Hooklying Treatment Duration (minutes) 15 Patient Tolerance Good PT-OP-T Assessment and Plan Start: 05/27/19 07:37 Freq: Status: Active Protocol: Document 07/08/19 10:31 [facility] (Rec: 07/08/19 11:21 [facility] [id number]) Physical Therapy Assessment Goals Three Impairment lack of HEP Short Term Goal (STG) Tremaine will be independent with a HEP for his core and scapular stability. STG Duration 4 weeks One Impairment Pain Short Term Goal (STG) Tremaine will stand with good body mechanics for 5 minutes with 4/10 pain or less. STG Duration 4 weeks Nursing Home Goal (LTG) Tremaine will report that he can sleep for 6 hours a night without being woken secondary to pain. LTG Duration 8 weeks Two Impairment Walking Short Term Goal (STG) Tremaine will walk for 10 minutes with 4/10 pain or less. STG Duration 4 weeks Assessment Summary Assessment Patient needs moderate cues for postural alignment and core stabilization with his therapeutic exercises, decreased body awareness. LE pain decreased but LBP persists, irritated by work activities. Physical Therapy Plan Frequency and Duration Frequency of Treatment 2x/Week Duration of Treatment 8 weeks Plan of Care Start Date 05/27/19 Plan of Care End Date 08/05/19 Next Visit Focus/Plan Next Note Type Treatment Note Next Visit Plan Progress core stabilization, stretching HEP progress manual therapy as tolerated.
--- NOTE | 2019-07-14 17:40 | PT.OTN ---
Current Diagnoses Low back pain (07/14/19) Muscle spasm of back (07/14/19) Physical Therapy Treatment Note PT-OP-A Visit Information Start: 05/27/19 07:37 Freq: Status: Active Protocol: Document 07/14/19 17:30 AMH (Rec: 07/14/19 17:40 AMH [email or web address]) Out-Patient Physical Therapy Visit Information Visit Information Visit Type Treatment Note Visit Start Time 15:15 Visit Stop Time 16:00 Total Visit Minutes 45 Visit Number 8 Number of SLUNK SKINNER Visits 0 PT-OP-B Current Condition Start: 05/27/19 07:37 Freq: Status: Active Protocol: Document 05/27/19 09:00 AMB (Rec: 05/27/19 15:59 AMB [email or web address]) Current Condition History of Current Condition Onset Date chronic Current Complaints back pain and bilateral lower leg pain History of Current Condition Tremaine reports that he had back pain starting at age 9 when he fell out of a tree. He has worked physical jobs most of his life, so the pain has worsened. The pain started in his low back. 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 He also reports bilateral lower leg pain with walking worse with hills and walking fast. Prior Treatments and Tests MRI 5 years ago per patient report, unavailable to review at this time Prior Functional Status Baseline Function- ADL's Independent Baseline Function- Mobility Independent Current Functional Impairments (Reported) Functional Limitations- Mobility/Gait Difficulty walking, standing, sleeping, lifting, carrying, bending due to pain. Personal Factors Other Personal Factors That May Effect History of 5 MIs per patient Therapy/Recovery report, HTN, hx angioplasty. PT-OP-C Subjective Start: 05/27/19 07:37 Freq: Status: Active Protocol: Document 07/14/19 17:30 AMH (Rec: 07/14/19 17:40 AMH [email or web address]) OP-PT Subjective Patient Comments Patient Comments Reports he has seen small improvements since starting PT . He walked from work home today 2 miles so is warmed up. PT-OP-F Manual Assessment Start: 05/27/19 07:37 Freq: Status: Active Protocol: Document 05/27/19 09:00 AMB (Rec: 05/29/19 10:10 AMB [email or web address]) Manual Assessments Soft Tissue Assessment Soft Tissue Mobility Assessment Tightness and pain with trigger points at lower trap and infraspinatus bilaterally. Denied pain at QL, lumbar paraspinals tight. Joint Mobility Assessment Joint Mobility Assessment PAs are mildly stiff through lumbar spine but illicit pain quickly. Worse at lower lumbar than upper. PT-OP-J Posture/Palpation/Skin Start: 05/27/19 07:37 Freq: Status: Active Protocol: Document 05/27/19 09:00 AMB (Rec: 05/29/19 10:10 AMB [email or web address]) Posture Evaluation Comments Posture Comments Flat lumbar spine with increased thoracic kyphosis PT-OP-K Range of Motion Start: 05/27/19 07:37 Freq: Status: Active Protocol: Document 05/27/19 09:00 AMB (Rec: 05/29/19 10:10 AMB [email or web address]) Lumbar Spine Range of Motion Lumbar Spine Active Degrees Testing Position Standing Flexion 10 Extension 10 Lateral Flexion Left 20 Lateral Flexion Right 10 ROM Limitations Pain Comments flexion, extension, and sidebending right all illicit low back pain, pt denies current radiating pain but states he has had that in the past PT-OP-M Strength Start: 05/27/19 07:37 Freq: Status: Active Protocol: Document 05/27/19 09:00 AMB (Rec: 05/29/19 10:10 AMB [email or web address]) Shoulder Strength Shoulder Manual Muscle Testing Right Flexion 4+ Good+ Extension 5 Normal Abduction (C5) 4+ Good+ External Rotation 4+ Good+ Internal Rotation 4+ Good+ Horizontal Abduction 4- Good- Horizontal Adduction 4- Good- Left Flexion 4+ Good+ Extension 5 Normal Abduction (C5) 4+ Good+ External Rotation 4 Good Internal Rotation 4+ Good+ Horizontal Abduction 4- Good- Horizontal Adduction 4- Good- Hip Strength Hip Manual Muscle Testing Right Flexion (L2) 4+ Good+ Extension (S1) 4+ Good+ Abduction 4+ Good+ Adduction 4+ Good+ Left Flexion (L2) 4 Good Extension (S1) 4 Good Abduction 4 Good Adduction 4 Good Knee Strength Knee Manual Muscle Testing Right Flexion (S2) 4+ Good+ Extension (L3) 4 Good Left Flexion (S2) 4+ Good+ Extension (L3) 4 Good Ankle/Foot Strength Ankle and Foot Manual Muscle Testing Right Dorsiflexion (L4) 4+ Good+ Plantarflexion (S1) 4+ Good+ Left Dorsiflexion (L4) 4+ Good+ Plantarflexion (S1) 4+ Good+ PT-OP-Q Treatments Start: 05/27/19 07:37 Freq: Status: Active Protocol: Document 07/14/19 17:30 AMH (Rec: 07/14/19 17:40 AMH [email or web address]) Gym Equipment Cable Column (Body Solid) Rows Details 20# 2x 10 reps Lat Pull Down Details 20 # 2x 10 reps Therapeutic Exercises Supine Exercises pec stretch Supine Exercise Name over foam roll Reps/Minutes 4 min Comments with AROM UE Posterior pelvic tilt Supine Exercise Name Posterior pelvic tilt Side bilateral 7 Supine Exercise Name hamstring stretch Comments pt was able to hold behind his knee and slowly straighten a few degrees 6 Supine Exercise Name SKTC Reps/Minutes x 30 sec hold 4 Supine Exercise Name TA with marches Reps/Minutes x 10 each leg 3 Supine Exercise Name piriformis stretch Reps/Minutes 30x2 Sidelying Exercises clamshells Sidelying Exercise Name clamshells Side bilateral Reps/Minutes 10 Sitting Exercises 3 Sitting Exercise Name seated flexion stretch 2 Sitting Exercise Name seated sidebends Other Exercises 3 Other Exercise Name quadraped TA facilitation Comments needs cues to relax the abdominal wall 1 Other Exercise Name risa pose Reps/Minutes 30x3 Manual Therapy Treatment Taping 1 Body Location lumbosacral spine Type of Tape Kinesio Tape Comments Star pattern PT-OP-R Modalities Start: 05/27/19 07:37 Freq: Status: Active Protocol: Document 07/08/19 10:31 SAK (Rec: 07/08/19 13:07 [facility] [id number]) Hot Pack/Cold Pack Treatment Hot Pack Location low/mid back, c/s Patient Position Hooklying Treatment Duration (minutes) 15 Patient Tolerance Good PT-OP-T Assessment and Plan Start: 05/27/19 07:37 Freq: Status: Active Protocol: Document 07/14/19 17:30 AMH (Rec: 07/14/19 17:40 AMH [email or web address]) Physical Therapy Assessment Assessment Summary Assessment still needs cues for stabilization but able to sustain his abdominal wall engagement for lat pull down and seated rows Physical Therapy Plan Frequency and Duration Frequency of Treatment 2x/Week Duration of Treatment 8 weeks Plan of Care Start Date 05/27/19 Plan of Care End Date 08/05/19 Therapeutic Interventions Therapeutic Interventions Aquatic Therapy Gait Training Home Exercise Program Manual Therapy Neuromuscular Re-education Self-Care/Home Management Therapeutic Activities Therapeutic Exercises Modalities Cold Pack/Ice Massage Hot Packs Next Visit Focus/Plan Next Note Type Treatment Note Next Visit Plan Progress core stabilization, stretching HEP progress manual therapy as tolerated.
--- NOTE | 2019-07-22 12:00 | PT.OTN ---
Current Diagnoses Low back pain (07/22/19) Muscle spasm of back (07/22/19) Physical Therapy Treatment Note PT-OP-A Visit Information Start: 05/27/19 07:37 Freq: Status: Active Protocol: Document 07/22/19 09:45 AMB (Rec: 07/22/19 09:52 AMB [email or web address]) Out-Patient Physical Therapy Visit Information Visit Information Visit Type Treatment Note Visit Start Time 09:45 Visit Stop Time 10:30 Total Visit Minutes 45 Visit Number 9 Number of JACKERMAN Visits 0 PT-OP-B Current Condition Start: 05/27/19 07:37 Freq: Status: Active Protocol: Document 05/27/19 09:00 AMB (Rec: 05/27/19 15:59 AMB [email or web address]) Current Condition History of Current Condition Onset Date chronic Current Complaints back pain and bilateral lower leg pain History of Current Condition Tremaine reports that he had back pain starting at age 9 when he fell out of a tree. He has worked physical jobs most of his life, so the pain has worsened. The pain started in his low back. 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 He also reports bilateral lower leg pain with walking worse with hills and walking fast. Prior Treatments and Tests MRI 5 years ago per patient report, unavailable to review at this time Prior Functional Status Baseline Function- ADL's Independent Baseline Function- Mobility Independent Current Functional Impairments (Reported) Functional Limitations- Mobility/Gait Difficulty walking, standing, sleeping, lifting, carrying, bending due to pain. Personal Factors Other Personal Factors That May Effect History of 5 MIs per patient Therapy/Recovery report, HTN, hx angioplasty. PT-OP-C Subjective Start: 05/27/19 07:37 Freq: Status: Active Protocol: Document 07/22/19 09:45 AMB (Rec: 07/22/19 09:52 AMB [email or web address]) OP-PT Subjective Patient Comments Patient Comments Pt feels his upper back pain is getting better, his low back pain is better than it was after his fall, but is still pretty bothersome. PT-OP-F Manual Assessment Start: 05/27/19 07:37 Freq: Status: Active Protocol: Document 05/27/19 09:00 AMB (Rec: 05/29/19 10:10 AMB [email or web address]) Manual Assessments Soft Tissue Assessment Soft Tissue Mobility Assessment Tightness and pain with trigger points at lower trap and infraspinatus bilaterally. Denied pain at QL, lumbar paraspinals tight. Joint Mobility Assessment Joint Mobility Assessment PAs are mildly stiff through lumbar spine but illicit pain quickly. Worse at lower lumbar than upper. PT-OP-J Posture/Palpation/Skin Start: 05/27/19 07:37 Freq: Status: Active Protocol: Document 05/27/19 09:00 AMB (Rec: 05/29/19 10:10 AMB [email or web address]) Posture Evaluation Comments Posture Comments Flat lumbar spine with increased thoracic kyphosis PT-OP-K Range of Motion Start: 05/27/19 07:37 Freq: Status: Active Protocol: Document 05/27/19 09:00 AMB (Rec: 05/29/19 10:10 AMB [email or web address]) Lumbar Spine Range of Motion Lumbar Spine Active Degrees Testing Position Standing Flexion 10 Extension 10 Lateral Flexion Left 20 Lateral Flexion Right 10 ROM Limitations Pain Comments flexion, extension, and sidebending right all illicit low back pain, pt denies current radiating pain but states he has had that in the past PT-OP-M Strength Start: 05/27/19 07:37 Freq: Status: Active Protocol: Document 05/27/19 09:00 AMB (Rec: 05/29/19 10:10 AMB [email or web address]) Shoulder Strength Shoulder Manual Muscle Testing Right Flexion 4+ Good+ Extension 5 Normal Abduction (C5) 4+ Good+ External Rotation 4+ Good+ Internal Rotation 4+ Good+ Horizontal Abduction 4- Good- Horizontal Adduction 4- Good- Left Flexion 4+ Good+ Extension 5 Normal Abduction (C5) 4+ Good+ External Rotation 4 Good Internal Rotation 4+ Good+ Horizontal Abduction 4- Good- Horizontal Adduction 4- Good- Hip Strength Hip Manual Muscle Testing Right Flexion (L2) 4+ Good+ Extension (S1) 4+ Good+ Abduction 4+ Good+ Adduction 4+ Good+ Left Flexion (L2) 4 Good Extension (S1) 4 Good Abduction 4 Good Adduction 4 Good Knee Strength Knee Manual Muscle Testing Right Flexion (S2) 4+ Good+ Extension (L3) 4 Good Left Flexion (S2) 4+ Good+ Extension (L3) 4 Good Ankle/Foot Strength Ankle and Foot Manual Muscle Testing Right Dorsiflexion (L4) 4+ Good+ Plantarflexion (S1) 4+ Good+ Left Dorsiflexion (L4) 4+ Good+ Plantarflexion (S1) 4+ Good+ PT-OP-Q Treatments Start: 05/27/19 07:37 Freq: Status: Active Protocol: Document 07/22/19 09:45 AMB (Rec: 07/22/19 10:06 AMB [id number]) Gym Equipment Cable Column (Body Solid) Rows Details 20# 2x 10 reps Lat Pull Down Details 20 # 2x 10 reps Therapeutic Exercises Supine Exercises pec stretch Supine Exercise Name over foam roll Reps/Minutes 4 min Comments with AROM UE Posterior pelvic tilt Supine Exercise Name Posterior pelvic tilt Side bilateral 7 Supine Exercise Name hamstring stretch Comments pt was able to hold behind his knee and slowly straighten a few degrees 6 Supine Exercise Name SKTC Reps/Minutes x 30 sec hold 4 Supine Exercise Name TA with marches Reps/Minutes x 10 each leg 3 Supine Exercise Name piriformis stretch Reps/Minutes 30x2 1 Supine Exercise Name lower trunk rotation Reps/Minutes 10 Other Exercises 5 Other Exercise Name low plinth plank Comments 30x3 Manual Therapy Treatment Taping 1 Body Location lumbosacral spine Type of Tape Kinesio Tape Comments Star pattern PT-OP-R Modalities Start: 05/27/19 07:37 Freq: Status: Active Protocol: Document 07/08/19 10:31 SAK (Rec: 07/08/19 13:07 SAK [id number]) Hot Pack/Cold Pack Treatment Hot Pack Location low/mid back, c/s Patient Position Hooklying Treatment Duration (minutes) 15 Patient Tolerance Good PT-OP-T Assessment and Plan Start: 05/27/19 07:37 Freq: Status: Active Protocol: Document 07/22/19 09:45 AMB (Rec: 07/22/19 10:29 AMB [email or web address]) Physical Therapy Assessment Assessment Summary Assessment Pt was able to tolerate low plinth plank with good stabilization without an increase in pain. Work continues to increase his pain . Physical Therapy Plan Next Visit Focus/Plan Next Note Type Treatment Note Next Visit Plan Progress core stabilization, stretching HEP
--- NOTE | 2019-07-26 14:27 | PT.OTN ---
Current Diagnoses Low back pain (07/26/19) Muscle spasm of back (07/26/19) Physical Therapy Treatment Note PT-OP-A Visit Information Start: 05/27/19 07:37 Freq: Status: Active Protocol: Document 07/26/19 14:20 GGD (Rec: 07/26/19 14:27 GGD [email or web address]) Out-Patient Physical Therapy Visit Information Visit Information Visit Type Treatment Note Visit Start Time 11:15 Visit Stop Time 11:55 Total Visit Minutes 40 Visit Number 10 Number of YARD PIPE GRADER Visits 1 Evaluation Information Evaluation Date 05/27/19 PT-OP-B Current Condition Start: 05/27/19 07:37 Freq: Status: Active Protocol: Document 05/27/19 09:00 AMB (Rec: 05/27/19 15:59 AMB [email or web address]) Current Condition History of Current Condition Onset Date chronic Current Complaints back pain and bilateral lower leg pain History of Current Condition Tremaine reports that he had back pain starting at age 9 when he fell out of a tree. He has worked physical jobs most of his life, so the pain has worsened. The pain started in his low back. 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 He also reports bilateral lower leg pain with walking worse with hills and walking fast. Prior Treatments and Tests MRI 5 years ago per patient report, unavailable to review at this time Prior Functional Status Baseline Function- ADL's Independent Baseline Function- Mobility Independent Current Functional Impairments (Reported) Functional Limitations- Mobility/Gait Difficulty walking, standing, sleeping, lifting, carrying, bending due to pain. Personal Factors Other Personal Factors That May Effect History of 5 MIs per patient Therapy/Recovery report, HTN, hx angioplasty. PT-OP-C Subjective Start: 05/27/19 07:37 Freq: Status: Active Protocol: Document 07/26/19 14:20 GGD (Rec: 07/26/19 14:27 GGD [email or web address]) OP-PT Subjective Patient Comments Patient Comments Pt states he is feeling stronger, but still is stiff and sore in AM. He had better tolerance to work after PT last visit. PT-OP-F Manual Assessment Start: 05/27/19 07:37 Freq: Status: Active Protocol: Document 05/27/19 09:00 AMB (Rec: 05/29/19 10:10 AMB [email or web address]) Manual Assessments Soft Tissue Assessment Soft Tissue Mobility Assessment Tightness and pain with trigger points at lower trap and infraspinatus bilaterally. Denied pain at QL, lumbar paraspinals tight. Joint Mobility Assessment Joint Mobility Assessment PAs are mildly stiff through lumbar spine but illicit pain quickly. Worse at lower lumbar than upper. PT-OP-J Posture/Palpation/Skin Start: 05/27/19 07:37 Freq: Status: Active Protocol: Document 05/27/19 09:00 AMB (Rec: 05/29/19 10:10 AMB [email or web address]) Posture Evaluation Comments Posture Comments Flat lumbar spine with increased thoracic kyphosis PT-OP-K Range of Motion Start: 05/27/19 07:37 Freq: Status: Active Protocol: Document 05/27/19 09:00 AMB (Rec: 05/29/19 10:10 AMB [email or web address]) Lumbar Spine Range of Motion Lumbar Spine Active Degrees Testing Position Standing Flexion 10 Extension 10 Lateral Flexion Left 20 Lateral Flexion Right 10 ROM Limitations Pain Comments flexion, extension, and sidebending right all illicit low back pain, pt denies current radiating pain but states he has had that in the past PT-OP-M Strength Start: 05/27/19 07:37 Freq: Status: Active Protocol: Document 05/27/19 09:00 AMB (Rec: 05/29/19 10:10 AMB [email or web address]) Shoulder Strength Shoulder Manual Muscle Testing Right Flexion 4+ Good+ Extension 5 Normal Abduction (C5) 4+ Good+ External Rotation 4+ Good+ Internal Rotation 4+ Good+ Horizontal Abduction 4- Good- Horizontal Adduction 4- Good- Left Flexion 4+ Good+ Extension 5 Normal Abduction (C5) 4+ Good+ External Rotation 4 Good Internal Rotation 4+ Good+ Horizontal Abduction 4- Good- Horizontal Adduction 4- Good- Hip Strength Hip Manual Muscle Testing Right Flexion (L2) 4+ Good+ Extension (S1) 4+ Good+ Abduction 4+ Good+ Adduction 4+ Good+ Left Flexion (L2) 4 Good Extension (S1) 4 Good Abduction 4 Good Adduction 4 Good Knee Strength Knee Manual Muscle Testing Right Flexion (S2) 4+ Good+ Extension (L3) 4 Good Left Flexion (S2) 4+ Good+ Extension (L3) 4 Good Ankle/Foot Strength Ankle and Foot Manual Muscle Testing Right Dorsiflexion (L4) 4+ Good+ Plantarflexion (S1) 4+ Good+ Left Dorsiflexion (L4) 4+ Good+ Plantarflexion (S1) 4+ Good+ PT-OP-Q Treatments Start: 05/27/19 07:37 Freq: Status: Active Protocol: Document 07/26/19 14:20 GGD (Rec: 07/26/19 14:27 GGD [email or web address]) Cardio Equipment Recumbent Stepper (Sci-Fit) Duration (Minutes) 5 Resistance 1.5 Other emphasis on neutral alignment Gym Equipment Cable Column (Body Solid) Rows Details 20# 2x 10 reps Lat Pull Down Details 20 # 2x 10 reps Therapeutic Exercises Supine Exercises pec stretch Supine Exercise Name over foam roll Reps/Minutes 4 min Comments with AROM UE Posterior pelvic tilt Supine Exercise Name Posterior pelvic tilt Side bilateral 7 Supine Exercise Name hamstring stretch Comments pt was able to hold behind his knee and slowly straighten a few degrees 6 Supine Exercise Name SKTC Reps/Minutes x 30 sec hold 4 Supine Exercise Name TA with marches Reps/Minutes x 10 each leg 3 Supine Exercise Name piriformis stretch Reps/Minutes 30x2 2 Supine Exercise Name bridge Reps/Minutes 2x10 1 Supine Exercise Name lower trunk rotation Reps/Minutes 10 Other Exercises 1 Other Exercise Name risa pose Reps/Minutes 30x3 Manual Therapy Treatment Taping 1 Body Location lumbosacral spine Type of Tape Kinesio Tape Comments Star pattern PT-OP-R Modalities Start: 05/27/19 07:37 Freq: Status: Active Protocol: Document 07/08/19 10:31 SAK (Rec: 07/08/19 13:07 SAK [email or web address]) Hot Pack/Cold Pack Treatment Hot Pack Location low/mid back, c/s Patient Position Hooklying Treatment Duration (minutes) 15 Patient Tolerance Good PT-OP-T Assessment and Plan Start: 05/27/19 07:37 Freq: Status: Active Protocol: Document 07/26/19 14:20 GGD (Rec: 07/26/19 14:27 GGD [email or web address]) Physical Therapy Assessment Goals Three Impairment lack of HEP Short Term Goal (STG) Tremaine will be independent with a HEP for his core and scapular stability. STG Duration 4 weeks One Impairment Pain Short Term Goal (STG) Tremaine will stand with good body mechanics for 5 minutes with 4/10 pain or less. STG Duration 4 weeks Risk And Compliance Analytics Director Goal (LTG) Tremaine will report that he can sleep for 6 hours a night without being woken secondary to pain. LTG Duration 8 weeks Two Impairment Walking Short Term Goal (STG) Tremaine will walk for 10 minutes with 4/10 pain or less. STG Duration 4 weeks Assessment Summary Assessment Pt improving slowly with flexibility. He needs cues for stabilization. He is improving with tolerance to exercise. Physical Therapy Plan Frequency and Duration Frequency of Treatment 2x/Week Duration of Treatment 8 weeks Plan of Care Start Date 05/27/19 Plan of Care End Date 08/05/19 Next Visit Focus/Plan Next Note Type Treatment Note Next Visit Plan Progress core stabilization, stretching HEP
--- NOTE | 2019-08-02 16:00 | PT.OTN ---
Current Diagnoses Low back pain (08/02/19) Muscle spasm of back (08/02/19) Physical Therapy Treatment Note PT-OP-A Visit Information Start: 05/27/19 07:37 Freq: Status: Active Protocol: Document 08/02/19 09:45 AMB (Rec: 08/03/19 07:09 AMB [email or web address]) Out-Patient Physical Therapy Visit Information Visit Information Visit Type Treatment Note Visit Start Time 09:45 Visit Stop Time 10:30 Total Visit Minutes 45 Visit Number 11 Number of WELFARE OFFICER Visits 0 PT-OP-B Current Condition Start: 05/27/19 07:37 Freq: Status: Active Protocol: Document 05/27/19 09:00 AMB (Rec: 05/27/19 15:59 AMB [email or web address]) Current Condition History of Current Condition Onset Date chronic Current Complaints back pain and bilateral lower leg pain History of Current Condition Tremaine reports that he had back pain starting at age 9 when he fell out of a tree. He has worked physical jobs most of his life, so the pain has worsened. The pain started in his low back. 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 He also reports bilateral lower leg pain with walking worse with hills and walking fast. Prior Treatments and Tests MRI 5 years ago per patient report, unavailable to review at this time Prior Functional Status Baseline Function- ADL's Independent Baseline Function- Mobility Independent Current Functional Impairments (Reported) Functional Limitations- Mobility/Gait Difficulty walking, standing, sleeping, lifting, carrying, bending due to pain. Personal Factors Other Personal Factors That May Effect History of 5 MIs per patient Therapy/Recovery report, HTN, hx angioplasty. PT-OP-C Subjective Start: 05/27/19 07:37 Freq: Status: Active Protocol: Document 08/02/19 09:45 AMB (Rec: 08/03/19 07:09 AMB [email or web address]) OP-PT Subjective Patient Comments Patient Comments Pt reports 5/10 back pain current, 7/10 at worst with standing, walking, or sitting more than 10 minutes. Upper back over all is feeling better, but low back continues to be a problem and he thought that the lower leg pain was getting better, but now thinks it is the same as it has been over the past few months. PT-OP-F Manual Assessment Start: 05/27/19 07:37 Freq: Status: Active Protocol: Document 05/27/19 09:00 AMB (Rec: 05/29/19 10:10 AMB [email or web address]) Manual Assessments Soft Tissue Assessment Soft Tissue Mobility Assessment Tightness and pain with trigger points at lower trap and infraspinatus bilaterally. Denied pain at QL, lumbar paraspinals tight. Joint Mobility Assessment Joint Mobility Assessment PAs are mildly stiff through lumbar spine but illicit pain quickly. Worse at lower lumbar than upper. PT-OP-J Posture/Palpation/Skin Start: 05/27/19 07:37 Freq: Status: Active Protocol: Document 05/27/19 09:00 AMB (Rec: 05/29/19 10:10 AMB [email or web address]) Posture Evaluation Comments Posture Comments Flat lumbar spine with increased thoracic kyphosis PT-OP-K Range of Motion Start: 05/27/19 07:37 Freq: Status: Active Protocol: Document 08/02/19 09:30 AMB (Rec: 08/02/19 10:11 AMB [id number]) Lumbar Spine Range of Motion Lumbar Spine Active Degrees Flexion 25 Extension 15 Lateral Flexion Left 20 Lateral Flexion Right 20 ROM Limitations Pain PT-OP-M Strength Start: 05/27/19 07:37 Freq: Status: Active Protocol: Document 05/27/19 09:00 AMB (Rec: 05/29/19 10:10 AMB [email or web address]) Shoulder Strength Shoulder Manual Muscle Testing Right Flexion 4+ Good+ Extension 5 Normal Abduction (C5) 4+ Good+ External Rotation 4+ Good+ Internal Rotation 4+ Good+ Horizontal Abduction 4- Good- Horizontal Adduction 4- Good- Left Flexion 4+ Good+ Extension 5 Normal Abduction (C5) 4+ Good+ External Rotation 4 Good Internal Rotation 4+ Good+ Horizontal Abduction 4- Good- Horizontal Adduction 4- Good- Hip Strength Hip Manual Muscle Testing Right Flexion (L2) 4+ Good+ Extension (S1) 4+ Good+ Abduction 4+ Good+ Adduction 4+ Good+ Left Flexion (L2) 4 Good Extension (S1) 4 Good Abduction 4 Good Adduction 4 Good Knee Strength Knee Manual Muscle Testing Right Flexion (S2) 4+ Good+ Extension (L3) 4 Good Left Flexion (S2) 4+ Good+ Extension (L3) 4 Good Ankle/Foot Strength Ankle and Foot Manual Muscle Testing Right Dorsiflexion (L4) 4+ Good+ Plantarflexion (S1) 4+ Good+ Left Dorsiflexion (L4) 4+ Good+ Plantarflexion (S1) 4+ Good+ PT-OP-Q Treatments Start: 05/27/19 07:37 Freq: Status: Active Protocol: Document 08/02/19 09:45 AMB (Rec: 08/03/19 07:09 AMB [email or web address]) Therapeutic Exercises Supine Exercises 7 Supine Exercise Name hamstring stretch Comments pt was able to hold behind his knee and slowly straighten a few degrees 4 Supine Exercise Name TA with marches Reps/Minutes x 10 each leg 2 Supine Exercise Name bridge Reps/Minutes 2x10 1 Supine Exercise Name lower trunk rotation Reps/Minutes 10 Prone Exercises 2 Prone Exercise Name I, Y, T off end of plinth Side bilateral Resistance AROM Reps/Minutes 2x10 ea Standing Exercises row Resistance #3 t band Comments pt felt was easy Other Exercises 1 Other Exercise Name risa pose Reps/Minutes 30x3 Manual Therapy Treatment Taping 1 Body Location lumbosacral spine Type of Tape Kinesio Tape Comments Star pattern PT-OP-R Modalities Start: 05/27/19 07:37 Freq: Status: Active Protocol: Document 07/08/19 10:31 SAK (Rec: 07/08/19 13:07 SAK [id number]) Hot Pack/Cold Pack Treatment Hot Pack Location low/mid back, c/s Patient Position Hooklying Treatment Duration (minutes) 15 Patient Tolerance Good PT-OP-T Assessment and Plan Start: 05/27/19 07:37 Freq: Status: Active Protocol: Document 08/02/19 09:55 AMB (Rec: 08/02/19 09:59 AMB [id number]) Physical Therapy Assessment Goals Three Impairment lack of HEP Short Term Goal (STG) Tremaine will be independent with a HEP for his core and scapular stability. 910: progress made STG Duration 4 weeks One Impairment Pain Short Term Goal (STG) Tremaine will stand with good body mechanics for 5 minutes with 4/10 pain or less. 08/03: not met STG Duration 4 weeks Hat Body Sorter Goal (LTG) Tremaine will report that he can sleep for 6 hours a night without being woken secondary to pain. 910: progress made- intermittently met LTG Duration 8 weeks Two Impairment Walking Short Term Goal (STG) Tremaine will walk for 10 minutes with 4/10 pain or less. 9/10 : not met: 6-7/10 after 10 min STG Duration 06/01 Assessment Summary Assessment Pt has been seeing relief with some flexibilty exercises, but explained that stability exercises will likely take some time to see effects from. Pt continues to have low back pain with extended sit, stand, walking which he needs to do for his job. He would benefit from continued PT to further instruct him in body mechanics and core stabilization so that he is able to tolerate extended positions with less back pain. Physical Therapy Plan Frequency and Duration Frequency of Treatment 1x/Week Duration of Treatment 6 weeks Plan of Care Start Date 08/02/19 Plan of Care End Date 09/13/19 Therapeutic Interventions Therapeutic Interventions Aquatic Therapy,Gait Training, Home Exercise Program,Manual Therapy,Neuromuscular Re- education,Self-Care/Home Management,Therapeutic Activities,Therapeutic Exercises Modalities Cold Pack/Ice Massage,Hot Packs Next Visit Focus/Plan Next Note Type Treatment Note Next Visit Plan Progress core stabilization, stretching HEP
--- NOTE | 2019-08-02 16:00 | PT.OPPOC ---
Current Diagnoses Low back pain (08/02/19) Muscle spasm of back (08/02/19) Visit Care Team Role Provider Type Jaylon Muñoz MD Attending Provider Physician Primary Care Provider Specialty: Family Practice Address: [address] [place] [address], [id number] Email: [email or web address] Plan Of Care PT-OP-T Assessment and Plan Start: 05/27/19 07:37 Freq: Status: Active Protocol: Document 08/02/19 09:55 AMB (Rec: 08/02/19 09:59 AMB [id number]) Physical Therapy Assessment Goals Three Impairment lack of HEP Short Term Goal (STG) Tremaine will be independent with a HEP for his core and scapular stability. 08/02: progress made STG Duration 4 weeks One Impairment Pain Short Term Goal (STG) Tremaine will stand with good body mechanics for 5 minutes with 4/10 pain or less. 08/03: not met STG Duration 4 weeks Area Field Manager Goal (LTG) Tremaine will report that he can sleep for 6 hours a night without being woken secondary to pain. 08/02: progress made- intermittently met LTG Duration 8 weeks Two Impairment Walking Short Term Goal (STG) Tremaine will walk for 10 minutes with 4/10 pain or less. 10 : not met: 6-7/10 after 10 min STG Duration 06/01 Assessment Summary Assessment Pt has been seeing relief with some flexibility exercises, but this PT explained that stability exercises will likely take some time to see effects from. Pt continues to have low back pain with extended sit, stand, walking which he needs to do for his job. He has improved his ROM. He would benefit from continued PT to further instruct him in body mechanics and core stabilization so that he is able to tolerate extended positions with less back pain. Physical Therapy Plan Frequency and Duration Frequency of Treatment 1x/Week Duration of Treatment 6 weeks Plan of Care Start Date 08/02/19 Plan of Care End Date 09/13/19 Therapeutic Interventions Therapeutic Interventions Aquatic Therapy,Gait Training, Home Exercise Program,Manual Therapy,Neuromuscular Re- education,Self-Care/Home Management,Therapeutic Activities,Therapeutic Exercises Modalities Cold Pack/Ice Massage,Hot Packs Next Visit Focus/Plan Next Note Type Treatment Note Next Visit Plan Progress core stabilization, stretching HEP Plan of Care Dates Plan of Care Start Date 08/02/19 Plan of Care End Date 09/13/19 Please Sign and Return: I have reviewed this Plan of Care and certify that the skilled therapy services above are required to meet the patient?s needs. Physician Signature Date Printed Name and Credentials Clinical Instructor Signature Printed Name and Credentials
--- NOTE | 2019-08-03 07:18 | PT.OTN ---
Current Diagnoses Low back pain (08/02/19) Muscle spasm of back (08/02/19) Physical Therapy Treatment Note PT-OP-A Visit Information Start: 05/27/19 07:37 Freq: Status: Active Protocol: Document 08/02/19 09:45 AMB (Rec: 08/03/19 07:09 AMB [email or web address]) Out-Patient Physical Therapy Visit Information Visit Information Visit Type Treatment Note Visit Start Time 09:45 Visit Stop Time 10:30 Total Visit Minutes 45 Visit Number 11 Number of OUT PATIENT THERAPIST Visits 0 PT-OP-B Current Condition Start: 05/27/19 07:37 Freq: Status: Active Protocol: Document 05/27/19 09:00 AMB (Rec: 05/27/19 15:59 AMB [email or web address]) Current Condition History of Current Condition Onset Date chronic Current Complaints back pain and bilateral lower leg pain History of Current Condition Tremaine reports that he had back pain starting at age 9 when he fell out of a tree. He has worked physical jobs most of his life, so the pain has worsened. The pain started in his low back. 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 He also reports bilateral lower leg pain with walking worse with hills and walking fast. Prior Treatments and Tests MRI 5 years ago per patient report, unavailable to review at this time Prior Functional Status Baseline Function- ADL's Independent Baseline Function- Mobility Independent Current Functional Impairments (Reported) Functional Limitations- Mobility/Gait Difficulty walking, standing, sleeping, lifting, carrying, bending due to pain. Personal Factors Other Personal Factors That May Effect History of 5 MIs per patient Therapy/Recovery report, HTN, hx angioplasty. PT-OP-C Subjective Start: 05/27/19 07:37 Freq: Status: Active Protocol: Document 08/02/19 09:45 AMB (Rec: 08/03/19 07:09 AMB [email or web address]) OP-PT Subjective Patient Comments Patient Comments Pt reports 5/10 back pain current, 7/10 at worst with standing, walking, or sitting more than 10 minutes. Upper back over all is feeling better, but low back continues to be a problem and he thought that the lower leg pain was getting better, but now thinks it is the same as it has been over the past few months. PT-OP-F Manual Assessment Start: 05/27/19 07:37 Freq: Status: Active Protocol: Document 05/27/19 09:00 AMB (Rec: 05/29/19 10:10 AMB [email or web address]) Manual Assessments Soft Tissue Assessment Soft Tissue Mobility Assessment Tightness and pain with trigger points at lower trap and infraspinatus bilaterally. Denied pain at QL, lumbar paraspinals tight. Joint Mobility Assessment Joint Mobility Assessment PAs are mildly stiff through lumbar spine but illicit pain quickly. Worse at lower lumbar than upper. PT-OP-J Posture/Palpation/Skin Start: 05/27/19 07:37 Freq: Status: Active Protocol: Document 05/27/19 09:00 AMB (Rec: 05/29/19 10:10 AMB [email or web address]) Posture Evaluation Comments Posture Comments Flat lumbar spine with increased thoracic kyphosis PT-OP-K Range of Motion Start: 05/27/19 07:37 Freq: Status: Active Protocol: Document 08/02/19 09:30 AMB (Rec: 08/02/19 10:11 AMB [id number]) Lumbar Spine Range of Motion Lumbar Spine Active Degrees Flexion 25 Extension 15 Lateral Flexion Left 20 Lateral Flexion Right 20 ROM Limitations Pain PT-OP-M Strength Start: 05/27/19 07:37 Freq: Status: Active Protocol: Document 05/27/19 09:00 AMB (Rec: 05/29/19 10:10 AMB [email or web address]) Shoulder Strength Shoulder Manual Muscle Testing Right Flexion 4+ Good+ Extension 5 Normal Abduction (C5) 4+ Good+ External Rotation 4+ Good+ Internal Rotation 4+ Good+ Horizontal Abduction 4- Good- Horizontal Adduction 4- Good- Left Flexion 4+ Good+ Extension 5 Normal Abduction (C5) 4+ Good+ External Rotation 4 Good Internal Rotation 4+ Good+ Horizontal Abduction 4- Good- Horizontal Adduction 4- Good- Hip Strength Hip Manual Muscle Testing Right Flexion (L2) 4+ Good+ Extension (S1) 4+ Good+ Abduction 4+ Good+ Adduction 4+ Good+ Left Flexion (L2) 4 Good Extension (S1) 4 Good Abduction 4 Good Adduction 4 Good Knee Strength Knee Manual Muscle Testing Right Flexion (S2) 4+ Good+ Extension (L3) 4 Good Left Flexion (S2) 4+ Good+ Extension (L3) 4 Good Ankle/Foot Strength Ankle and Foot Manual Muscle Testing Right Dorsiflexion (L4) 4+ Good+ Plantarflexion (S1) 4+ Good+ Left Dorsiflexion (L4) 4+ Good+ Plantarflexion (S1) 4+ Good+ PT-OP-Q Treatments Start: 05/27/19 07:37 Freq: Status: Active Protocol: Document 08/02/19 09:45 AMB (Rec: 08/03/19 07:09 AMB [email or web address]) Therapeutic Exercises Supine Exercises 7 Supine Exercise Name hamstring stretch Comments pt was able to hold behind his knee and slowly straighten a few degrees 4 Supine Exercise Name TA with marches Reps/Minutes x 10 each leg 2 Supine Exercise Name bridge Reps/Minutes 2x10 1 Supine Exercise Name lower trunk rotation Reps/Minutes 10 Prone Exercises 2 Prone Exercise Name I, Y, T off end of plinth Side bilateral Resistance AROM Reps/Minutes 2x10 ea Standing Exercises row Resistance #3 t band Comments pt felt was easy Other Exercises 1 Other Exercise Name risa pose Reps/Minutes 30x3 Manual Therapy Treatment Taping 1 Body Location lumbosacral spine Type of Tape Kinesio Tape Comments Star pattern PT-OP-R Modalities Start: 05/27/19 07:37 Freq: Status: Active Protocol: Document 07/08/19 10:31 SAK (Rec: 07/08/19 13:07 SAK [id number]) Hot Pack/Cold Pack Treatment Hot Pack Location low/mid back, c/s Patient Position Hooklying Treatment Duration (minutes) 15 Patient Tolerance Good PT-OP-T Assessment and Plan Start: 05/27/19 07:37 Freq: Status: Active Protocol: Document 08/02/19 09:55 AMB (Rec: 08/02/19 09:59 AMB [id number]) Physical Therapy Assessment Goals Three Impairment lack of HEP Short Term Goal (STG) Tremaine will be independent with a HEP for his core and scapular stability. 910: progress made STG Duration 4 weeks One Impairment Pain Short Term Goal (STG) Tremaine will stand with good body mechanics for 5 minutes with 4/10 pain or less. 08/03: not met STG Duration 4 weeks Hall Director Goal (LTG) Tremaine will report that he can sleep for 6 hours a night without being woken secondary to pain. 910: progress made- intermittently met LTG Duration 8 weeks Two Impairment Walking Short Term Goal (STG) Tremaine will walk for 10 minutes with 4/10 pain or less. 9/10 : not met: 6-7/10 after 10 min STG Duration 06/01 Assessment Summary Assessment Pt has been seeing relief with some flexibilty exercises, but explained that stability exercises will likely take some time to see effects from. Pt continues to have low back pain with extended sit, stand, walking which he needs to do for his job. He would benefit from continued PT to further instruct him in body mechanics and core stabilization so that he is able to tolerate extended positions with less back pain. Physical Therapy Plan Frequency and Duration Frequency of Treatment 1x/Week Duration of Treatment 6 weeks Plan of Care Start Date 08/02/19 Plan of Care End Date 09/13/19 Therapeutic Interventions Therapeutic Interventions Aquatic Therapy,Gait Training, Home Exercise Program,Manual Therapy,Neuromuscular Re- education,Self-Care/Home Management,Therapeutic Activities,Therapeutic Exercises Modalities Cold Pack/Ice Massage,Hot Packs Next Visit Focus/Plan Next Note Type Treatment Note Next Visit Plan Progress core stabilization, stretching HEP
--- NOTE | 2019-08-09 16:50 | PT.OTN ---
Current Diagnoses Low back pain (08/09/19) Muscle spasm of back (08/09/19) Physical Therapy Treatment Note PT-OP-A Visit Information Start: 05/27/19 07:37 Freq: Status: Active Protocol: Document 08/09/19 16:36 GGD (Rec: 08/09/19 16:50 GGD [email or web address]) Out-Patient Physical Therapy Visit Information Visit Information Visit Type Treatment Note Visit Start Time 09:45 Visit Stop Time 10:10 Total Visit Minutes 40 Visit Number 12 Number of TRACK TEMPLATE MAKER Visits 1 Evaluation Information Evaluation Date 05/27/19 PT-OP-B Current Condition Start: 05/27/19 07:37 Freq: Status: Active Protocol: Document 05/27/19 09:00 AMB (Rec: 05/27/19 15:59 AMB [email or web address]) Current Condition History of Current Condition Onset Date chronic Current Complaints back pain and bilateral lower leg pain History of Current Condition Tremaine reports that he had back pain starting at age 9 when he fell out of a tree. He has worked physical jobs most of his life, so the pain has worsened. The pain started in his low back. 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 He also reports bilateral lower leg pain with walking worse with hills and walking fast. Prior Treatments and Tests MRI 5 years ago per patient report, unavailable to review at this time Prior Functional Status Baseline Function- ADL's Independent Baseline Function- Mobility Independent Current Functional Impairments (Reported) Functional Limitations- Mobility/Gait Difficulty walking, standing, sleeping, lifting, carrying, bending due to pain. Personal Factors Other Personal Factors That May Effect History of 5 MIs per patient Therapy/Recovery report, HTN, hx angioplasty. PT-OP-C Subjective Start: 05/27/19 07:37 Freq: Status: Active Protocol: Document 08/09/19 16:36 GGD (Rec: 08/09/19 16:50 GGD [email or web address]) OP-PT Subjective Patient Comments Patient Comments Pt states his hip is sore today. He feels mid back is doing better with not looking down at work. PT-OP-F Manual Assessment Start: 05/27/19 07:37 Freq: Status: Active Protocol: Document 05/27/19 09:00 AMB (Rec: 05/29/19 10:10 AMB [email or web address]) Manual Assessments Soft Tissue Assessment Soft Tissue Mobility Assessment Tightness and pain with trigger points at lower trap and infraspinatus bilaterally. Denied pain at QL, lumbar paraspinals tight. Joint Mobility Assessment Joint Mobility Assessment PAs are mildly stiff through lumbar spine but illicit pain quickly. Worse at lower lumbar than upper. PT-OP-J Posture/Palpation/Skin Start: 05/27/19 07:37 Freq: Status: Active Protocol: Document 05/27/19 09:00 AMB (Rec: 05/29/19 10:10 AMB [email or web address]) Posture Evaluation Comments Posture Comments Flat lumbar spine with increased thoracic kyphosis PT-OP-K Range of Motion Start: 05/27/19 07:37 Freq: Status: Active Protocol: Document 08/02/19 09:30 AMB (Rec: 08/02/19 10:11 AMB [id number]) Lumbar Spine Range of Motion Lumbar Spine Active Degrees Flexion 25 Extension 15 Lateral Flexion Left 20 Lateral Flexion Right 20 ROM Limitations Pain PT-OP-M Strength Start: 05/27/19 07:37 Freq: Status: Active Protocol: Document 05/27/19 09:00 AMB (Rec: 05/29/19 10:10 AMB [email or web address]) Shoulder Strength Shoulder Manual Muscle Testing Right Flexion 4+ Good+ Extension 5 Normal Abduction (C5) 4+ Good+ External Rotation 4+ Good+ Internal Rotation 4+ Good+ Horizontal Abduction 4- Good- Horizontal Adduction 4- Good- Left Flexion 4+ Good+ Extension 5 Normal Abduction (C5) 4+ Good+ External Rotation 4 Good Internal Rotation 4+ Good+ Horizontal Abduction 4- Good- Horizontal Adduction 4- Good- Hip Strength Hip Manual Muscle Testing Right Flexion (L2) 4+ Good+ Extension (S1) 4+ Good+ Abduction 4+ Good+ Adduction 4+ Good+ Left Flexion (L2) 4 Good Extension (S1) 4 Good Abduction 4 Good Adduction 4 Good Knee Strength Knee Manual Muscle Testing Right Flexion (S2) 4+ Good+ Extension (L3) 4 Good Left Flexion (S2) 4+ Good+ Extension (L3) 4 Good Ankle/Foot Strength Ankle and Foot Manual Muscle Testing Right Dorsiflexion (L4) 4+ Good+ Plantarflexion (S1) 4+ Good+ Left Dorsiflexion (L4) 4+ Good+ Plantarflexion (S1) 4+ Good+ PT-OP-Q Treatments Start: 05/27/19 07:37 Freq: Status: Active Protocol: Document 08/09/19 16:36 GGD (Rec: 08/09/19 16:50 GGD [email or web address]) Cardio Equipment Recumbent Stepper (Sci-Fit) Duration (Minutes) 5 Resistance 1.5 Other emphasis on neutral alignment Gym Equipment Cable Column (Body Solid) Rows Details 40# 2x 10 reps Lat Pull Down Details 40 # 2x 10 reps Therapeutic Exercises Supine Exercises pec stretch Supine Exercise Name over foam roll Reps/Minutes 4 min Comments with AROM UE Posterior pelvic tilt Supine Exercise Name Posterior pelvic tilt Side bilateral 7 Supine Exercise Name hamstring stretch Comments pt was able to hold behind his knee and slowly straighten a few degrees 6 Supine Exercise Name SKTC Reps/Minutes x 30 sec hold 4 Supine Exercise Name TA with marches Reps/Minutes x 10 each leg 3 Supine Exercise Name piriformis stretch Reps/Minutes 30x2 2 Supine Exercise Name bridge Reps/Minutes 2x10 1 Supine Exercise Name lower trunk rotation Reps/Minutes 10 Prone Exercises 2 Prone Exercise Name I, Y, T off end of plinth Side bilateral Resistance AROM Reps/Minutes 2x10 ea Other Exercises 4 Other Exercise Name cat cow Reps/Minutes 2x10 1 Other Exercise Name risa pose Reps/Minutes 30x3 Manual Therapy Treatment Taping 1 Body Location lumbosacral spine Type of Tape Kinesio Tape Comments Star pattern PT-OP-R Modalities Start: 05/27/19 07:37 Freq: Status: Active Protocol: Document 07/08/19 10:31 SAK (Rec: 07/08/19 13:07 SAK [id number]) Hot Pack/Cold Pack Treatment Hot Pack Location low/mid back, c/s Patient Position Hooklying Treatment Duration (minutes) 15 Patient Tolerance Good PT-OP-T Assessment and Plan Start: 05/27/19 07:37 Freq: Status: Active Protocol: Document 08/09/19 16:36 GGD (Rec: 08/09/19 16:50 GGD [email or web address]) Physical Therapy Assessment Assessment Summary Assessment Pt had decrease pain with exercise. He improved with core control, but needed cues. Physical Therapy Plan Frequency and Duration Frequency of Treatment 1x/Week Duration of Treatment 6 weeks Plan of Care Start Date 08/02/19 Plan of Care End Date 09/13/19 Next Visit Focus/Plan Next Note Type Treatment Note Next Visit Plan Progress core stabilization, stretching HEP
--- NOTE | 2019-08-17 18:18 | PT.OTN ---
Current Diagnoses Low back pain (08/17/19) Muscle spasm of back (08/17/19) Physical Therapy Treatment Note PT-OP-A Visit Information Start: 05/27/19 07:37 Freq: Status: Active Protocol: Document 08/17/19 16:02 HH (Rec: 08/17/19 18:18 HH [email or web address]) Out-Patient Physical Therapy Visit Information Visit Information Visit Type Treatment Note Visit Start Time 16:02 Visit Stop Time 16:47 Total Visit Minutes 45 Visit Number 13 Number of OLEOMARGARINE MAKER Visits 0 PT-OP-B Current Condition Start: 05/27/19 07:37 Freq: Status: Active Protocol: Document 05/27/19 09:00 AMB (Rec: 05/27/19 15:59 AMB [email or web address]) Current Condition History of Current Condition Onset Date chronic Current Complaints back pain and bilateral lower leg pain History of Current Condition Tremaine reports that he had back pain starting at age 9 when he fell out of a tree. He has worked physical jobs most of his life, so the pain has worsened. The pain started in his low back. 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 He also reports bilateral lower leg pain with walking worse with hills and walking fast. Prior Treatments and Tests MRI 5 years ago per patient report, unavailable to review at this time Prior Functional Status Baseline Function- ADL's Independent Baseline Function- Mobility Independent Current Functional Impairments (Reported) Functional Limitations- Mobility/Gait Difficulty walking, standing, sleeping, lifting, carrying, bending due to pain. Personal Factors Other Personal Factors That May Effect History of 5 MIs per patient Therapy/Recovery report, HTN, hx angioplasty. PT-OP-C Subjective Start: 05/27/19 07:37 Freq: Status: Active Protocol: Document 08/17/19 16:02 HH (Rec: 08/17/19 18:18 HH [email or web address]) OP-PT Subjective Patient Comments Patient Comments Pt states his back is around the same and rated himself as 25% better since IE. His primary c/o is still his R posterior hip pain (at SIJ area) PT-OP-F Manual Assessment Start: 05/27/19 07:37 Freq: Status: Active Protocol: Document 05/27/19 09:00 AMB (Rec: 05/29/19 10:10 AMB [email or web address]) Manual Assessments Soft Tissue Assessment Soft Tissue Mobility Assessment Tightness and pain with trigger points at lower trap and infraspinatus bilaterally. Denied pain at QL, lumbar paraspinals tight. Joint Mobility Assessment Joint Mobility Assessment PAs are mildly stiff through lumbar spine but illicit pain quickly. Worse at lower lumbar than upper. PT-OP-J Posture/Palpation/Skin Start: 05/27/19 07:37 Freq: Status: Active Protocol: Document 05/27/19 09:00 AMB (Rec: 05/29/19 10:10 AMB [email or web address]) Posture Evaluation Comments Posture Comments Flat lumbar spine with increased thoracic kyphosis PT-OP-K Range of Motion Start: 05/27/19 07:37 Freq: Status: Active Protocol: Document 08/02/19 09:30 AMB (Rec: 08/02/19 10:11 AMB [id number]) Lumbar Spine Range of Motion Lumbar Spine Active Degrees Flexion 25 Extension 15 Lateral Flexion Left 20 Lateral Flexion Right 20 ROM Limitations Pain PT-OP-M Strength Start: 05/27/19 07:37 Freq: Status: Active Protocol: Document 05/27/19 09:00 AMB (Rec: 05/29/19 10:10 AMB [email or web address]) Shoulder Strength Shoulder Manual Muscle Testing Right Flexion 4+ Good+ Extension 5 Normal Abduction (C5) 4+ Good+ External Rotation 4+ Good+ Internal Rotation 4+ Good+ Horizontal Abduction 4- Good- Horizontal Adduction 4- Good- Left Flexion 4+ Good+ Extension 5 Normal Abduction (C5) 4+ Good+ External Rotation 4 Good Internal Rotation 4+ Good+ Horizontal Abduction 4- Good- Horizontal Adduction 4- Good- Hip Strength Hip Manual Muscle Testing Right Flexion (L2) 4+ Good+ Extension (S1) 4+ Good+ Abduction 4+ Good+ Adduction 4+ Good+ Left Flexion (L2) 4 Good Extension (S1) 4 Good Abduction 4 Good Adduction 4 Good Knee Strength Knee Manual Muscle Testing Right Flexion (S2) 4+ Good+ Extension (L3) 4 Good Left Flexion (S2) 4+ Good+ Extension (L3) 4 Good Ankle/Foot Strength Ankle and Foot Manual Muscle Testing Right Dorsiflexion (L4) 4+ Good+ Plantarflexion (S1) 4+ Good+ Left Dorsiflexion (L4) 4+ Good+ Plantarflexion (S1) 4+ Good+ PT-OP-Q Treatments Start: 05/27/19 07:37 Freq: Status: Active Protocol: Document 08/17/19 16:02 (Rec: 08/17/19 18:18 HH [email or web address]) Therapeutic Exercises Supine Exercises Posterior pelvic tilt Supine Exercise Name Posterior pelvic tilt Side bilateral 7 Supine Exercise Name hamstring stretch Comments pt was able to hold behind his knee and slowly straighten a few degrees Other Exercises 4 Other Exercise Name cat cow Reps/Minutes 2x10 Comments cues on lumbar segmental control 1 Other Exercise Name risa pose Reps/Minutes 10x3 Comments with lateral flexion Manual Therapy Treatment Joint Mobilizations anterior tilt Joint R innominate Grade III Body Position Standing Comments during standing flexion PA mob with lumbar flexion Grade III Body Position Sitting Comments PA mob with lumbar flexion PT-OP-R Modalities Start: 05/27/19 07:37 Freq: Status: Active Protocol: Document 07/08/19 10:31 SAK (Rec: 07/08/19 13:07 SAK [id number]) Hot Pack/Cold Pack Treatment Hot Pack Location low/mid back, c/s Patient Position Hooklying Treatment Duration (minutes) 15 Patient Tolerance Good PT-OP-T Assessment and Plan Start: 05/27/19 07:37 Freq: Status: Active Protocol: Document 08/17/19 16:02 (Rec: 08/17/19 18:18 [email or web address]) Physical Therapy Assessment Goals Three Impairment lack of HEP Short Term Goal (STG) Tremaine will be independent with a HEP for his core and scapular stability. 910: progress made STG Duration 4 weeks One Impairment Pain Short Term Goal (STG) Tremaine will stand with good body mechanics for 5 minutes with 4/10 pain or less. 11: not met STG Duration 4 weeks Halfway Goal (LTG) Tremaine will report that he can sleep for 6 hours a night without being woken secondary to pain. 910: progress made- intermittently met LTG Duration 8 weeks Two Impairment Walking Short Term Goal (STG) Tremaine will walk for 10 minutes with 4/10 pain or less. 9/10 : not met: 6-7/10 after 10 min STG Duration 7/10 Assessment Summary Assessment Pt cont to have very poor hamstrings flexibility and limited segmental lumbar flexion. He has a difficult time performing anterior pelvic tilt today and he felt relieved at one point with anterior pelvic tilt mobilization during standing flexion. He also had a hard time performing hip hinge pattern. Physical Therapy Plan Next Visit Focus/Plan Next Note Type Treatment Note Next Visit Plan Progress core stabilization, stretching HEP
--- NOTE | 2019-08-31 16:23 | PT.OTN ---
Current Diagnoses Low back pain (08/31/19) Muscle spasm of back (08/31/19) Physical Therapy Treatment Note PT-OP-A Visit Information Start: 05/27/19 07:37 Freq: Status: Active Protocol: Document 08/31/19 09:00 AMB (Rec: 08/31/19 12:49 AMB [email or web address]) Out-Patient Physical Therapy Visit Information Visit Information Visit Type Initial Evaluation Visit Start Time 09:00 Visit Stop Time 09:45 Total Visit Minutes 45 Visit Number 14 PT-OP-B Current Condition Start: 05/27/19 07:37 Freq: Status: Active Protocol: Document 05/27/19 09:00 AMB (Rec: 05/27/19 15:59 AMB [email or web address]) Current Condition History of Current Condition Onset Date chronic Current Complaints back pain and bilateral lower leg pain History of Current Condition Tremaine reports that he had back pain starting at age 9 when he fell out of a tree. He has worked physical jobs most of his life, so the pain has worsened. The pain started in his low back. 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 He also reports bilateral lower leg pain with walking worse with hills and walking fast. Prior Treatments and Tests MRI 5 years ago per patient report, unavailable to review at this time Prior Functional Status Baseline Function- ADL's Independent Baseline Function- Mobility Independent Current Functional Impairments (Reported) Functional Limitations- Mobility/Gait Difficulty walking, standing, sleeping, lifting, carrying, bending due to pain. Personal Factors Other Personal Factors That May Effect History of 5 MIs per patient Therapy/Recovery report, HTN, hx angioplasty. PT-OP-C Subjective Start: 05/27/19 07:37 Freq: Status: Active Protocol: Document 08/31/19 09:00 AMB (Rec: 08/31/19 12:49 AMB [email or web address]) OP-PT Subjective Patient Comments Patient Comments Pt attends with new prescription for his L knee and L hip, although his insurance does not allow another evaluation. This was explained to the pt. PT-OP-F Manual Assessment Start: 05/27/19 07:37 Freq: Status: Active Protocol: Document 05/27/19 09:00 AMB (Rec: 05/29/19 10:10 AMB [email or web address]) Manual Assessments Soft Tissue Assessment Soft Tissue Mobility Assessment Tightness and pain with trigger points at lower trap and infraspinatus bilaterally. Denied pain at QL, lumbar paraspinals tight. Joint Mobility Assessment Joint Mobility Assessment PAs are mildly stiff through lumbar spine but illicit pain quickly. Worse at lower lumbar than upper. PT-OP-J Posture/Palpation/Skin Start: 05/27/19 07:37 Freq: Status: Active Protocol: Document 05/27/19 09:00 AMB (Rec: 05/29/19 10:10 AMB [email or web address]) Posture Evaluation Comments Posture Comments Flat lumbar spine with increased thoracic kyphosis PT-OP-K Range of Motion Start: 05/27/19 07:37 Freq: Status: Active Protocol: Document 08/02/19 09:30 AMB (Rec: 08/02/19 10:11 AMB [id number]) Lumbar Spine Range of Motion Lumbar Spine Active Degrees Flexion 25 Extension 15 Lateral Flexion Left 20 Lateral Flexion Right 20 ROM Limitations Pain PT-OP-M Strength Start: 05/27/19 07:37 Freq: Status: Active Protocol: Document 05/27/19 09:00 AMB (Rec: 05/29/19 10:10 AMB [email or web address]) Shoulder Strength Shoulder Manual Muscle Testing Right Flexion 4+ Good+ Extension 5 Normal Abduction (C5) 4+ Good+ External Rotation 4+ Good+ Internal Rotation 4+ Good+ Horizontal Abduction 4- Good- Horizontal Adduction 4- Good- Left Flexion 4+ Good+ Extension 5 Normal Abduction (C5) 4+ Good+ External Rotation 4 Good Internal Rotation 4+ Good+ Horizontal Abduction 4- Good- Horizontal Adduction 4- Good- Hip Strength Hip Manual Muscle Testing Right Flexion (L2) 4+ Good+ Extension (S1) 4+ Good+ Abduction 4+ Good+ Adduction 4+ Good+ Left Flexion (L2) 4 Good Extension (S1) 4 Good Abduction 4 Good Adduction 4 Good Knee Strength Knee Manual Muscle Testing Right Flexion (S2) 4+ Good+ Extension (L3) 4 Good Left Flexion (S2) 4+ Good+ Extension (L3) 4 Good Ankle/Foot Strength Ankle and Foot Manual Muscle Testing Right Dorsiflexion (L4) 4+ Good+ Plantarflexion (S1) 4+ Good+ Left Dorsiflexion (L4) 4+ Good+ Plantarflexion (S1) 4+ Good+ PT-OP-Q Treatments Start: 05/27/19 07:37 Freq: Status: Active Protocol: Document 08/31/19 09:45 AMB (Rec: 08/31/19 16:23 AMB [email or web address]) Therapeutic Exercises Supine Exercises Posterior pelvic tilt Supine Exercise Name Posterior pelvic tilt Side bilateral 7 Supine Exercise Name hamstring stretch Comments SLR with gait belt 2 Supine Exercise Name bridge Reps/Minutes 2x10 Comments with theraband around thighs for abd Standing Exercises 1 Standing Exercise Name wall squat Reps/Minutes 10 Other Exercises 4 Other Exercise Name cat cow Reps/Minutes 2x10 Comments cues on lumbar segmental control PT-OP-R Modalities Start: 05/27/19 07:37 Freq: Status: Active Protocol: Document 07/08/19 10:31 SAK (Rec: 07/08/19 13:07 SAK [id number]) Hot Pack/Cold Pack Treatment Hot Pack Location low/mid back, c/s Patient Position Hooklying Treatment Duration (minutes) 15 Patient Tolerance Good PT-OP-T Assessment and Plan Start: 05/27/19 07:37 Freq: Status: Active Protocol: Document 08/31/19 09:45 AMB (Rec: 08/31/19 16:23 AMB [email or web address]) Physical Therapy Assessment Assessment Summary Assessment Pt's knee pain was limiting his ability to tolerate hamstring stretching today. Hip pain continues to be posterior and upper hip, more over SI joint. Physical Therapy Plan Next Visit Focus/Plan Next Note Type Treatment Note Next Visit Plan Progress core stabilization, stretching HEP
--- NOTE | 2019-10-19 16:00 | PT.OTN ---
Current Diagnoses Low back pain (10/19/19) Muscle spasm of back (10/19/19) Physical Therapy Treatment Note PT-OP-A Visit Information Start: 05/27/19 07:37 Freq: Status: Active Protocol: Document 10/19/19 13:45 AMB (Rec: 10/24/19 08:14 AMB [email or web address]) Out-Patient Physical Therapy Visit Information Visit Information Visit Type Discharge Summary Visit Start Time 13:45 Visit Stop Time 14:30 Total Visit Minutes 45 Visit Number 15 PT-OP-B Current Condition Start: 05/27/19 07:37 Freq: Status: Active Protocol: Document 05/27/19 09:00 AMB (Rec: 05/27/19 15:59 AMB [email or web address]) Current Condition History of Current Condition Onset Date chronic Current Complaints back pain and bilateral lower leg pain History of Current Condition Tremaine reports that he had back pain starting at age 9 when he fell out of a tree. He has worked physical jobs most of his life, so the pain has worsened. The pain started in his low back. 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 He also reports bilateral lower leg pain with walking worse with hills and walking fast. Prior Treatments and Tests MRI 5 years ago per patient report, unavailable to review at this time Prior Functional Status Baseline Function- ADL's Independent Baseline Function- Mobility Independent Current Functional Impairments (Reported) Functional Limitations- Mobility/Gait Difficulty walking, standing, sleeping, lifting, carrying, bending due to pain. Personal Factors Other Personal Factors That May Effect History of 5 MIs per patient Therapy/Recovery report, HTN, hx angioplasty. PT-OP-C Subjective Start: 05/27/19 07:37 Freq: Status: Active Protocol: Document 10/19/19 13:45 AMB (Rec: 10/24/19 08:14 AMB [email or web address]) OP-PT Subjective Patient Comments Patient Comments Pt states he continues to have hip pain that limits him. He think his upper back pain is a bit better, but his low back is the same as when he came to PT in June. Patient Questionnaires Oswestry Low Back Index Oswestry Score 56 Oswestry Impairment 40 to 59% Impaired (Score 40- 59) PT-OP-F Manual Assessment Start: 05/27/19 07:37 Freq: Status: Active Protocol: Document 05/27/19 09:00 AMB (Rec: 05/29/19 10:10 AMB [email or web address]) Manual Assessments Soft Tissue Assessment Soft Tissue Mobility Assessment Tightness and pain with trigger points at lower trap and infraspinatus bilaterally. Denied pain at QL, lumbar paraspinals tight. Joint Mobility Assessment Joint Mobility Assessment PAs are mildly stiff through lumbar spine but illicit pain quickly. Worse at lower lumbar than upper. PT-OP-J Posture/Palpation/Skin Start: 05/27/19 07:37 Freq: Status: Active Protocol: Document 05/27/19 09:00 AMB (Rec: 05/29/19 10:10 AMB [email or web address]) Posture Evaluation Comments Posture Comments Flat lumbar spine with increased thoracic kyphosis PT-OP-K Range of Motion Start: 05/27/19 07:37 Freq: Status: Active Protocol: Document 08/02/19 09:30 AMB (Rec: 08/02/19 10:11 AMB [id number]) Lumbar Spine Range of Motion Lumbar Spine Active Degrees Flexion 25 Extension 15 Lateral Flexion Left 20 Lateral Flexion Right 20 ROM Limitations Pain PT-OP-M Strength Start: 05/27/19 07:37 Freq: Status: Active Protocol: Document 05/27/19 09:00 AMB (Rec: 05/29/19 10:10 AMB [email or web address]) Shoulder Strength Shoulder Manual Muscle Testing Right Flexion 4+ Good+ Extension 5 Normal Abduction (C5) 4+ Good+ External Rotation 4+ Good+ Internal Rotation 4+ Good+ Horizontal Abduction 4- Good- Horizontal Adduction 4- Good- Left Flexion 4+ Good+ Extension 5 Normal Abduction (C5) 4+ Good+ External Rotation 4 Good Internal Rotation 4+ Good+ Horizontal Abduction 4- Good- Horizontal Adduction 4- Good- Hip Strength Hip Manual Muscle Testing Right Flexion (L2) 4+ Good+ Extension (S1) 4+ Good+ Abduction 4+ Good+ Adduction 4+ Good+ Left Flexion (L2) 4 Good Extension (S1) 4 Good Abduction 4 Good Adduction 4 Good Knee Strength Knee Manual Muscle Testing Right Flexion (S2) 4+ Good+ Extension (L3) 4 Good Left Flexion (S2) 4+ Good+ Extension (L3) 4 Good Ankle/Foot Strength Ankle and Foot Manual Muscle Testing Right Dorsiflexion (L4) 4+ Good+ Plantarflexion (S1) 4+ Good+ Left Dorsiflexion (L4) 4+ Good+ Plantarflexion (S1) 4+ Good+ PT-OP-Q Treatments Start: 05/27/19 07:37 Freq: Status: Active Protocol: Document 10/19/19 13:45 AMB (Rec: 10/24/19 08:14 AMB [email or web address]) Therapeutic Exercises Supine Exercises Posterior pelvic tilt Supine Exercise Name Posterior pelvic tilt Side bilateral 7 Supine Exercise Name hamstring stretch Comments SLR with gait belt 2 Supine Exercise Name bridge Reps/Minutes 2x10 Comments with theraband around thighs for abd Sidelying Exercises 1 Sidelying Exercise Name QL stretch Reps/Minutes 30x4 Other Exercises 4 Other Exercise Name cat cow Reps/Minutes 2x10 Comments cues on lumbar segmental control PT-OP-R Modalities Start: 05/27/19 07:37 Freq: Status: Active Protocol: Document 07/08/19 10:31 SAK (Rec: 07/08/19 13:07 SAK [id number]) Hot Pack/Cold Pack Treatment Hot Pack Location low/mid back, c/s Patient Position Hooklying Treatment Duration (minutes) 15 Patient Tolerance Good PT-OP-T Assessment and Plan Start: 05/27/19 07:37 Freq: Status: Active Protocol: Document 10/19/19 13:53 AMB (Rec: 10/19/19 15:45 AMB [id number]) Physical Therapy Assessment Goals Three Impairment lack of HEP Short Term Goal (STG) Tremaine will be independent with a HEP for his core and scapular stability. STG Duration MET One Impairment Pain Short Term Goal (STG) Tremaine will stand with good body mechanics for 5 minutes with 4/10 pain or less. STG Duration MET Snf Goal (LTG) Tremaine will report that he can sleep for 6 hours a night without being woken secondary to pain. LTG Duration NOT MET Two Impairment Walking Short Term Goal (STG) Tremaine will walk for 10 minutes with 4/10 pain or less. STG Duration NOT MET Assessment Summary Assessment Tremaine continues to have pain throughout his body that limits his ability to tolerate extended positions. His pain with standing has improved with physical therapy, but now his hip is bothering him with sitting. He was originally sent to physical therapy for his back, and then another prescription was sent for his hip and knee. His knee is doing better, but his hip remains painful. He was instructed in a HEP, and he plans to return to his PCP for further management at this time. Physical Therapy Plan Frequency and Duration Frequency of Treatment 1x/Week Duration of Treatment 1 week Plan of Care Start Date 10/19/19 Plan of Care End Date 10/26/19 Therapeutic Interventions Therapeutic Interventions Aquatic Therapy,Gait Training, Home Exercise Program,Manual Therapy,Neuromuscular Re- education,Self-Care/Home Management,Therapeutic Activities,Therapeutic Exercises Modalities Cold Pack/Ice Massage,Hot Packs Discharge Physical Therapy Discharge Reasons Plateau in Progress
== END 2019-12-08 08:59 ==
LOC: PHYS 13:45
PROVIDERS: PCP Family Medicine; Visit Provider Family Medicine
DX: M62.830 Muscle spasm of back (principal); M54.5 Low back pain
CPT/HCPCS: 97010; 97110; 97140; 97162

== ENCOUNTER → 2019-10-30 14:37 | Outpatient (CLI) | payer OTHER, MEDICAID, SELFPAY ==
--- NOTE | 2019-10-30 14:38 | DI.MRI.S_ITS ---
PROCEDURE: MR LUMBAR SPINE WO CON INDICATIONS: Pain TECHNIQUE: Noncontrast sagittal T1 spin echo and T2 fast echo, sagittal STIR, axial T1 and T2 fast spin echo through the lumbar spine. In cases with scoliosis, additional coronal T2 fast spin echo may be performed. COMPARISON: [facility], , L-SPINE WITHOUT CONTRAST, 12/06/2015, 12:36. FINDINGS: Image quality: Excellent. Alignment and Curvature: Straightening of the normal lordotic curvature. Trace retrolisthesis of L5 on S1, L3 on L4 and L2 on L3. Bone Marrow: Chronic-appearing mild L4 compression fracture. Multilevel degenerative endplate sclerosis and spurring. Diffuse facet arthropathy. Spinal Cord: Conus medullaris terminates at the L1 level. Visualized cord demonstrates normal signal and size. Paraspinous Soft Tissues: No paravertebral masses. L1-L2: Normal appearance. L2-L3: Minimal dorsal epidural lipomatosis. Mild-moderate central canal narrowing. Partial effacement of both lateral recesses with bilaterally symmetric appearance. Moderate bilateral foraminal stenoses with minimal nerve root compression. L3-L4: Dorsal epidural lipomatosis. Severe central canal narrowing. Partial effacement of both lateral recesses with bilaterally symmetric appearance. Moderate right foraminal narrowing with slight nerve root compression mild-moderate left foraminal stenosis. L4-L5: Mild central canal narrowing. Partial effacement of both lateral recesses with bilaterally symmetric appearance. Mild bilateral foraminal narrowing. L5-S1: Left paracentral disc extrusion with slight inferior migration to the level of the mid S1 vertebral body. There is associated complete effacement of the left lateral recess and moderate left-sided canal narrowing. Mild left foraminal narrowing. Mild right foraminal narrowing. IMPRESSION: Prominent left paracentral L5-S1 disc protrusion/extrusion with slight inferior migration. Associated effacement of the left lateral recess, suggesting impingement of the descending left S1 nerve root. This appears new or progressed since the prior study Additional bilateral foraminal stenoses as detailed above by spinal level. These appear unchanged Chronic appearing L4 compression fracture. This finding new since the prior study. Severe L3-L4 canal stenosis. This finding progressed since the prior study Dictated by: Chad Benitez M.D. on 10/31/2019 at 16:27 Approved by: Chad Benitez M.D. on 10/31/2019 at 16:37
== END ==
PROVIDERS: PCP Family Medicine; Visit Provider Family Medicine
DX: M51.27 Other intervertebral disc displacement, lumbosacral region (principal); M48.061 Spinal stenosis, lumbar region without neurogenic claudication; M48.07 Spinal stenosis, lumbosacral region; M48.56XA Collapsed vertebra, not elsewhere classified, lumbar region, initial encounter for fracture
CPT/HCPCS: 72148

== ENCOUNTER → 2019-11-22 15:23 | Outpatient (CLI) | payer OTHER, MEDICAID, SELFPAY ==
--- NOTE | 2019-11-22 15:25 | DI.RAD.S_ITS ---
PROCEDURE: XR ELBOW LT MIN 3V INDICATIONS: left elbow pain TECHNIQUE: 3 views of the elbow were acquired. COMPARISON: None. FINDINGS: Bones: No fractures or dislocations. No suspicious bony lesions. Soft tissues: No elbow joint effusion. No suspicious soft tissue calcifications. IMPRESSION: No visualized acute fracture or dislocation. However, if clinical concern and/or pain persist, short interval imaging followup in 7-10 days is recommended, as occult injury cannot be definitively excluded. Dictated by: Radha Finch M.D. on 11/22/2019 at 16:57 Approved by: Radha Finch M.D. on 11/22/2019 at 16:59
== END ==
PROVIDERS: PCP Family Medicine; Visit Provider Nurse Practitioner Family
DX: M25.522 Pain in left elbow (principal)
CPT/HCPCS: 73080

== ENCOUNTER 2019-12-15 13:58 | Emergency (ER) | payer OTHER, MEDICAID, SELFPAY ==
[2019-12-15] VITALS (7 sets, daily range): BP systolic 101–131; BP diastolic 52–99; PULSE 59–84; RESP 14–24; TEMP 36.6; O2SAT 93–100; BMI 23.6
--- NOTE | 2019-12-15 14:09 | DI.RAD.S_ITS ---
PROCEDURE: XR CHEST 1V INDICATIONS: chest pain TECHNIQUE: One view of the chest was acquired. COMPARISON: [facility], CR, XR CHEST 1V, 01/24/2019, 23:50. FINDINGS: Surgical changes and devices: None. Lungs and pleura: Lungs are clear. No pleural effusions or pneumothorax. Mediastinum: Mediastinal contours appear normal. Heart size is normal. Bones and chest wall: No suspicious bony lesions. Overlying soft tissues appear unremarkable. IMPRESSION: No acute process. Dictated by: Mio Suarez M.D. on 12/15/2019 at 14:27 Approved by: Mio Suarez M.D. on 12/15/2019 at 14:27
[2019-12-15 14:41] LABS: Add Manual Diff / Slide Review NO; Basophils Absolute Auto 0 /uL (0-100); Basophils Percent Auto 0.6 % (0-2); Eosinophils Absolute Auto 300 /uL (0-450); Eosinophils Percent Auto 4.6 % (2-4); Hematocrit 39.9 % (41-53); Hemoglobin 13.7 g/dL (13.5-17.5); Lymphocytes Absolute Auto 2100 /uL (1100-4500); Lymphocytes Percent Auto 29.7 % (25-40); Mean Corpuscular HGB Conc 34.3 % (30-36); Mean Corpuscular Hemoglobin 30.2 PG (26-34); Mean Corpuscular Volume 87.9 fL (80-100); Monocytes Absolute Auto 600 /uL (0-900); Monocytes Percent Auto 7.9 % (3-14); Neutrophils Absolute Auto 4000 /uL (1500-7000); Neutrophils Percent Auto 57.2 % (50-75); Platelet Count 198 X10^3/uL (150-400); Red Blood Cell Count 4.54 X10^6/uL (4.5-5.9); Red Cell Distribution Width 14.1 % (11.6-14.8)
[2019-12-15 14:46] LABS: Prothrombin Time 11.5 SECONDS (10.1-12.7)
[2019-12-15 14:48] LABS: PTT Partial Thromboplastin Tim 25 SECONDS (26.4-36.2)
[2019-12-15 14:50] LABS: Alanine Aminotransferase 30 IU/L (<50); Albumin 4.4 g/dL (3.5-5.0); Albumin Globulin Ratio 1.5 (1.0-2.8); Alkaline Phosphatase 56 U/L (38-126); Aspartate Aminotransferase 25 IU/L (17-59); Bilirubin Total 0.6 mg/dL (0.2-1.3); Blood Urea Nitrogen 18 mg/dL (9-20); Calcium 9.3 mg/dL (8.4-10.2); Carbon Dioxide 30 mmol/L (22-32); Chloride 104 mmol/L (98-107); Creatine Kinase 75 U/L (55-170); Estimated Glomerular Filt Rate > 60.0 mL/min (>60); Glucose 109 mg/dL (70-100); HEMOLYSIS < 15 (0-50); Lipase 159 U/L (23-300); Potassium 3.9 mmol/L (3.4-5.1); Sodium 142 mmol/L (137-145); Total Protein 7.4 g/dL (6.3-8.2)
[2019-12-15 15:02] LABS: Troponin I < 0.012 ng/mL (0.01-0.034)
--- NOTE | 2019-12-15 17:30 | DI.CT.S_ITS ---
PROCEDURE: CT CERVICAL SPINE WO CON INDICATIONS: neck pain TECHNIQUE: Noncontrast 3 mm thick sections acquired from the skull base to the T4 level. Sagittal and coronal reformats were then constructed. For radiation dose reduction, the following was used: automated exposure control, adjustment of mA and/or kV according to patient size. COMPARISON: None. FINDINGS: Image quality: Excellent. Bones: No fractures or dislocations. Visualized superior ribs are intact. Straightening of the normal lordotic curvature. Diffuse mild spondylosis and facet disease. Mid cervical anterior ununited endplate osteophytes Soft tissues: Prevertebral soft tissues are normal in thickness. No paravertebral hematomas. No apical pneumothoraces. IMPRESSION: No acute fracture identified. Chronic degenerative changes as above Dictated by: Chad Benitez M.D. on 12/15/2019 at 18:21 Approved by: Chad Benitez M.D. on 12/15/2019 at 18:28
--- NOTE | 2019-12-15 17:32 | DI.CT.S_ITS ---
PROCEDURE: CT THORACIC SPINE WO CON INDICATIONS: upper back, left shoulder pain TECHNIQUE: Noncontrast 3 mm thick sections acquired through the region of interest in the thoracic spine. Sagittal and coronal reformats were then constructed. For radiation dose reduction, the following was used: automated exposure control. COMPARISON: None. FINDINGS: Image quality: Excellent. Bones: There is normal overall bony alignment. No acute vertebral body compression fractures. No suspicious sclerotic or lytic bony lesions. Central spinal canal is of normal overall caliber. Scattered Schmorl's nodes incidentally noted Soft tissues: No paravertebral masses or hematomas. Coronary artery calcifications are present. Visualized posteromedial lungs appear clear. IMPRESSION: No fracture Dictated by: Chad Benitez M.D. on 12/15/2019 at 18:28 Approved by: Chad Benitez M.D. on 12/15/2019 at 18:35
[2019-12-15] MEDS: KETOROLAC 60 MG/2 ML VIAL 30 MG IV (17:43)
[2019-12-15] MEDS: CYCLOBENZAPRINE 10 MG TABLET PO (17:44)
--- NOTE | 2019-12-15 20:14 | ED_ITS ---
HPI - Extremity Problem General Chief complaint: Extremity Problem,Nontraumatic Stated complaint: left side neck and face tingling Time Seen by Provider: 12/15/19 15:36 Source: patient Mode of arrival: Ambulatory History of Present Illness HPI Narrative: The patient is a 44-year-old male who presents to the emergency department with left neck numbness and pain which extends to the shoulder. There is no discomfort below the shoulder numbness tingling or shooting pain and discomfort. He did denies any weakness in his left arm. The patient denies any fall or injury arm. He states that the discomfort feels as though he has pins and needles in his arm superior posterior shoulder and left neck. He has muscle spasms and cramps in his neck and shoulder. He has had numbness in his neck and his shoulder for 1 week but he has had pain in his neck since the age of 11. He denies any chest pain cough shortness of breath difficulty in breathing. He denies any abdominal pain nausea or vomiting. He has not fallen or injured his neck shoulder or arm. The patient states that his pain and discomfort is 9/10 in intensity and is a dull achy discomfort that is sometimes sharp with movement. He has limited ability to flex his neck to the right or left laterally or to rotate his neck because of the discomfort. He sometimes takes Motrin arm but takes at least 7.5 mg oxycodone per day for the pain and discomfort. The patient has had a mild tension headache. He denies any fever chills but has periodic night sweats. He denies any shortness of breath cough chest pain palpitations or dizziness and has had no abdominal pain nausea or vomiting.. Related Data Home Medications Medication Instructions Recorded Confirmed aspirin 81 mg tablet,delayed 81 mg PO DAILY 04/07/18 11/22/19 release atorvastatin 80 mg tablet 80 mg PO DAILY 04/07/18 11/22/19 isosorbide mononitrate 60 mg 60 mg PO DAILY 09/20/19 11/22/19 tablet,extended release 24 hr Previous Rx's Medication Instructions Recorded metoprolol succinate [Toprol XL] 25 mg PO BID #180 tab 05/08/17 lisinopril 2.5 mg PO QDAY #90 tab 05/04/18 sildenafil (pulm.hypertension) 20 20 mg PO ONCE #20 tab 09/25/19 mg tablet clopidogrel 75 mg tablet 75 mg PO QDAY #90 tab 08/22/19 ezetimibe 10 mg tablet 10 mg PO DAILY #90 tab 12/14/19 oxycodone-acetaminophen 7.5 mg-325 2 tab PO Q6H PRN #100 tab 12/14/19 mg tablet Allergies Allergy/AdvReac Type Severity Reaction Status Date / Time No Known Drug Allergies Allergy Verified 12/15/19 14:03 Review of Systems Review of Systems Narrative: All review of systems were negative except for those mentioned in the history of present illness. Patient History Medical History (Updated 12/15/19 @ 18:48 by Vimal Grubbs MD) Chronic back pain (Chronic) Hypertension (Chronic) Myocardial infarction (Resolved) Surgical History (Updated 09/21/18 @ 11:33 by Chasidy Kulkarni) Anesthesia (Resolved) History of angioplasty (~1999) History of angioplasty (10/14/11) History of angioplasty (01/02/15) Social History Smoking Status: Former smoker alcohol intake: current substance use type: marijuana Smoking Status: Former smoker alcohol intake frequency: 0-2 drinks per day Substance Use Type: marijuana Exam Narrative Exam Narrative: PHYSICAL EXAM: CONSTITUTIONAL: Awake, Alert, Oriented, Coherent, Cooperative in NAD. Does not appear toxic or ill. HEAD: AT/NC EENT: PERRL, FROM of eyes, no discharge, No epistaxis or nasal drainage Oral mucosa is moist and pink, posterior pharynx is without erythema or exudate. NECK: Supple, no obvious JVD, Trachea is midline without stridor, no palpable LN or masses. SPINE: The patient is diffusely tender to palpation over his posterior cervical and upper thoracic spine without any bony deformity. The patient also is diffusely tender over the trapezius muscle on the left extending all the way to the apex of the shoulder with muscle spasms present he is also tender to palpation along the left paraspinous cervical muscles and the lower facet joints of the cervical spine. He has limited ability to flex and extend his neck laterally flexes neck or rotated script writer left because of the pain and discomfort. THORAX: No deformity, retractions, chest wall tenderness, subcutaneous air or crepitice. LUNGS: Clear with symmetrical breath sounds without respiratory distress HEART: Normal heart tones, regular rhythm and rate without murmur. ABDOMEN: Soft, non-tender, normal bowel sounds without guarding, rebound, rigidity or palpable mass or organomegaly. EXTREMITIES: No edema, cyanosis, SKIN: No rash, NEURO: Awake, alert, oriented, conversive, cranial nerves II-XII are symmetrical and normal, moves all 4 extremities and is ambulatory Initial Vital Signs Initial Vital Signs: Vital Signs Temperature 97.8 F 12/15/19 14:03 Pulse Rate 68 12/15/19 14:03 Respiratory Rate 18 12/15/19 14:03 Blood Pressure 113/69 12/15/19 14:03 Pulse Oximetry 100 12/15/19 14:03 Course Course Course Narrative: The patient's cardiac enzymes and chemistries are within normal limits. The patient's cardiac enzymes were within normal limits chest x- ray revealed no acute cardiopulmonary pathology and the CT of his neck revealed osteo degenerative changes without fractures or malalignment. CT of his thoracic spine was normal. The patient was informed that he there's no oral medications and stronger than the oxycodone he has already taken at 7.5 mg at least once or twice a day. He was advised to try Naprosyn 500 mg p.o. b.i.d. in conjunction with the oxycodone. But not to take both Motrin and Naprosyn. He was given a prescription for Flexeril 10 mg 3 times a day as a muscle relaxant and discharged home to be seen in follow-up by his primary care physician to be referred to physical therapy for evaluation and treatment. Orders Ordered: Discontinued Medications Cyclobenzaprine HCl (Flexeril) 10 mg PO NOW ONE Stop: 12/15/19 17:34 Last Admin: 12/15/19 17:44 Dose: 10 mg Documented by: BEVERLY Ketorolac Tromethamine (Toradol) 30 mg IV NOW ONE Stop: 12/15/19 17:34 Last Admin: 12/15/19 17:43 Dose: 30 mg Documented by: BEVERLY Vital Signs Vital signs: Vital Signs - 8 hr 12/15/19 14:03 12/15/19 14:05 12/15/19 14:40 Temperature 97.8 F Pulse Rate 68 69 Pulse Rate [Bilateral Radial] 70 Respiratory Rate 18 24 Blood Pressure 113/69 Blood Pressure [Right Arm] 101/58 L Pulse Oximetry 100 98 12/15/19 15:20 12/15/19 15:50 12/15/19 16:00 Temperature Pulse Rate 84 80 59 L Pulse Rate [Bilateral Radial] Respiratory Rate 16 16 16 Blood Pressure Blood Pressure [Right Arm] 112/73 116/52 L 115/68 Pulse Oximetry 94 93 99 12/15/19 19:23 Temperature Pulse Rate 63 Pulse Rate [Bilateral Radial] Respiratory Rate 14 Blood Pressure Blood Pressure [Right Arm] 131/99 H Pulse Oximetry 99 MDM - Extremity (Nontraumatic) Lab Data Result diagrams: 12/15/19 14:23 12/15/19 14:23 Labs: Lab Results 12/15/19 12/15/19 12/15/19 Range/Units 14:23 14:23 14:23 WBC 7.0 (4.5-11.0) X10^3/uL RBC 4.54 (4.5-5.9) X10^6/uL Hgb 13.7 (13.5-17.5) g/dL Hct 39.9 L (41-53) % MCV 87.9 (80-100) fL MCH 30.2 (26-34) PG MCHC 34.3 (30-36) % RDW 14.1 (11.6-14.8) % Plt Count 198 (150-400) X10^3/uL Neut % (Auto) 57.2 (50-75) % Lymph % (Auto) 29.7 (25-40) % [place] % (Auto) 7.9 (3-14) % Eos % (Auto) 4.6 H (2-4) % Baso % (Auto) 0.6 (0-2) % Neut # (Auto) 4000 (8474-3264) /uL Lymph # (Auto) 2100 (1359-3401) /uL [place] # (Auto) 600 (0-900) /uL Eos # (Auto) 300 (0-450) /uL Baso # (Auto) 0 (0-100) /uL PT 11.5 (10.1-12.7) SECONDS INR 1.0 (0.9-1.3) APTT 25 L (26.4-36.2) SECONDS Sodium 142 (137-145) mmol/L Potassium 3.9 (3.4-5.1) mmol/L Chloride 104 (98-107) mmol/L Carbon Dioxide 30 (22-32) mmol/L BUN 18 (9-20) mg/dL Creatinine 0.90 (0.66-1.25) mg/dL Estimated GFR > 60.0 (>60) mL/min BUN/Creatinine Ratio 20.0 (6-22) Glucose 109 H (70-100) mg/dL Calcium 9.3 (8.4-10.2) mg/dL Total Bilirubin 0.6 (0.2-1.3) mg/dL AST 25 (17-59) IU/L ALT 30 (<50) IU/L Alkaline Phosphatase 56 (38-126) U/L Total Creatine Kinase 75 (55-170) U/L CK-MB (CK-2) TNP CK-MB (CK-2) Rel Index TNP Troponin I < 0.012 (0.01-0.034) ng/mL Total Protein 7.4 (6.3-8.2) g/dL Albumin 4.4 (3.5-5.0) g/dL Globulin 3.0 (1.7-4.1) g/dL Albumin/Globulin Ratio 1.5 (1.0-2.8) Lipase 159 (23-300) U/L Discharge Plan Departure Patient Disposition: Home Clinical Impression: Back muscle spasm, Muscle spasms of neck, Muscle spasm of left shoulder Discharge Date/Time: 12/15/19 19:29 Instructions: Shoulder Tendinopathy, DI for Shoulder Pain, DI for Chronic Neck Pain, DI for Muscle Spasm Activity Restrictions/Additional Instructions: Apply cold compresses to your neck and shoulder muscles where they ache. Alternate this with warm compresses every 2 hours for 20-30 minutes as tolerated. Do not take ibuprofen if you are taking Naprosyn for the pain and discomfort. Try the Naprosyn as prescribed to assist the Percocet that you are taking for your pain and discomfort. Take Flexeril as prescribed for the muscle spasms. Follow-up with your primary care physician to be referred to physical therapy for evaluation treatment besides ultrasound and deep heat. Prescriptions: No Action metoprolol succinate [Toprol XL] 25 MG tablet extended release 24 hr 25 mg PO BID Qty: 180 RF: 3 lisinopril 2.5 mg tablet 2.5 mg PO QDAY Qty: 90 RF: 3 clopidogrel [Plavix] 75 mg tablet 75 mg PO QDAY Qty: 90 RF: 3 ezetimibe [Zetia] 10 mg tablet 10 mg PO DAILY Qty: 90 RF: 1 oxycodone-acetaminophen 7.5-325 mg tablet 2 tab PO Q6H PRN (Reason: pain) Qty: 100 RF: 0 atorvastatin 80 mg tablet 80 mg PO DAILY RF: 0 aspirin [Aspirin Low Dose] 81 mg tablet,delayed release (DR/EC) 81 mg PO DAILY RF: 0 sildenafil (pulm.hypertension) 20 mg tablet 20 mg PO ONCE Qty: 20 RF: 5 isosorbide mononitrate 60 mg tablet extended release 24 hr 60 mg PO DAILY RF: 0 Referrals: Jaylon Muñoz MD [Primary Care Provider] -
== END 2019-12-15 19:29 | disposition home or self-care (01) ==
PROVIDERS: Emergency Provider Emergency Medicine; PCP Family Medicine
DX: M62.830 Muscle spasm of back (principal); M62.838 Other muscle spasm; R07.9 Chest pain, unspecified
CPT/HCPCS: 36415; 71045; 72125; 72128; 80053; 82550; 83690; 84484; 85025; 85610; 85730; 93005; 93010; 96374; 99284; 99285; J1885

== ENCOUNTER 2019-12-27 08:48 | Observation (INO) | payer OTHER, MEDICAID, SELFPAY ==
[2019-12-27] VITALS (18 sets, daily range): BP systolic 110–159; BP diastolic 66–109; PULSE 55–72; RESP 10–19; TEMP 36.1–36.8; O2SAT 96–100; BMI 23.6
--- NOTE | 2019-12-27 08:59 | DI.RAD.S_ITS ---
PROCEDURE: XR CHEST 1V INDICATIONS: chest pain TECHNIQUE: One view of the chest was acquired. COMPARISON: [facility], CR, XR CHEST 1V, 12/15/2019, 14:12. FINDINGS: Surgical changes and devices: None. Lungs and pleura: Lungs are clear. No pleural effusions or pneumothorax. Mediastinum: Mediastinal contours appear normal. Heart size is enlarged. Bones and chest wall: No suspicious bony lesions. Overlying soft tissues appear unremarkable. IMPRESSION: No acute pulmonary process. Dictated by: Radha Finch M.D. on 12/27/2019 at 9:52 Approved by: Radha Finch M.D. on 12/27/2019 at 9:54
[2019-12-27] MEDS: NITROGLYCERIN 0.4 MG SL TAB SL (09:06)
--- NOTE | 2019-12-27 09:09 | ED.CHESTPAIN ---
HPI - Chest Pain General Chief Complaint: Chest Pain Stated Complaint: Chest Pain Time Seen by Provider: 12/27/19 08:57 Source: patient and EMS Mode of arrival: EMS Limitations: no limitations History of Present Illness HPI narrative: Patient is a 44-year-old male with known coronary artery disease states he has had 5 heart attacks with stents of presenting with chest pain which started 1 hour ago and feels like his previous heart attacks. It is non radiating but is in quite a bit of discomfort he said he had 2 nitro and aspirin with EMS the nitro helped only briefly. And now is in significant pain stay. He was seen here on the with back spasms and pain. MD complaint: chest pain Related Data Home Medications Medication Instructions Recorded Confirmed aspirin 81 mg tablet,delayed 81 mg PO DAILY 04/07/18 12/27/19 release atorvastatin 80 mg tablet 80 mg PO DAILY 04/07/18 12/27/19 isosorbide mononitrate 60 mg 60 mg PO DAILY 09/20/19 12/27/19 tablet,extended release 24 hr clopidogrel [Plavix] 75 mg PO DAILY 12/27/19 12/27/19 ibuprofen 200 mg PO PRN PRN 12/27/19 12/27/19 lisinopril 10 mg PO DAILY 12/27/19 12/27/19 metoprolol succinate [Toprol XL] 25 mg PO DAILY 12/27/19 12/27/19 Previous Rx's Medication Instructions Recorded ezetimibe 10 mg tablet 10 mg PO DAILY #90 tab 12/14/19 oxycodone-acetaminophen 7.5 mg-325 2 tab PO Q6H PRN #100 tab 12/14/19 mg tablet Allergies Allergy/AdvReac Type Severity Reaction Status Date / Time No Known Drug Allergies Allergy Verified 12/15/19 14:03 Review of Systems Review of Systems Narrative: GENERAL: Denies chills, fatigue, malaise, fever, sweats, travel HEENT: Denies sinus pain, ear pain, sore throat, difficulty swallowing, neck pain RESPIRATORY: Denies dyspnea, cough, wheezing, hemoptysis, sputum. CARDIOVASCULAR: See HPI GASTROINTESTINAL: Denies nausea, vomiting, abdominal pain, diarrhea, constipation, melena. : Denies dysuria, frequency, incontinence, hematuria, urinary retention, flank pain. MUSCULOSKELETAL: Denies weakness, joint pain, or bony pain SKIN: No rash, no erythema, no pruritus NEUROLOGIC: Denies weakness, dizziness, headache, numbness, change in speech, confusion PSYCHIATRIC: No concerning psychosocial issues. 12 point review of systems is negative except for those stated above and HPI Patient History Medical History Chronic back pain (Chronic) Hypertension (Chronic) Myocardial infarction (Resolved) Surgical History Anesthesia (Resolved) History of angioplasty (~1999) History of angioplasty (10/14/11) History of angioplasty (01/02/15) Social History household members: friend(s) Smoking Status: Former smoker alcohol intake: current substance use type: marijuana Smoking Status: Former smoker alcohol intake frequency: 0-2 drinks per day Substance Use Type: marijuana Exam Initial Vital Signs Initial Vital Signs: Vital Signs Pulse Rate 70 12/27/19 09:06 Blood Pressure 159/109 H 12/27/19 09:06 GENERAL: Severe pain HEENT: Head atraumatic,EOMI, pupils reactive, face symmetric, moist mucous membranes CARDIOVASCULAR: Regular rate and rhythm without murmurs, rubs or gallops. RESPIRATORY: Breath sounds equal bilaterally, no wheezes rales or rhonchi. ABDOMEN: Soft, nontender. Normoactive bowel sounds all 4 quadrants. No guarding or rebound. EXTREMITIES: Normal range of motion, no clubbing or edema. Neurovascularly intact NEUROLOGICAL: Alert and oriented x4.Normal gait and speech. Cranial nerves II through XII grossly intact. SKIN: Warm, dry, no laceration, no petechiae, no rashes or lesions. Course Orders Ordered: ED Orders 12/27/19 08:55 Complete Blood Count AUTO DIFF Stat Comprehensive Metabolic Panel Stat Lipase Stat NT-proBNP (BNP-Adult 18+) Stat PTT [Partial Thromboplastin Time] Stat Prothrombin Time INR Stat Troponin & CK Cardiac Panel Stat 12/27/19 08:59 XR chest 1V Stat EKG-12 Lead Stat 12/27/19 09:20 CT angio chest abdomen pelvis Stat 12/27/19 11:24 EKG-12 Lead Stat 12/27/19 11:35 Trop I [Troponin I] Stat Acetaminophen (Tylenol) 650 mg PO Q6HR PRN PRN Reason: Fever/Mild Pain (1-3) Heparin Sodium (Porcine) (Heparin) 5,000 unit SUBCUT BID ARAVIND Sodium Chloride (Normal Saline 0.9%) 1,000 mls @ 150 mls/hr IV CONT ARAVIND Last Infusion: 12/27/19 12:50 Dose: 0 mls/hr Documented by: Infusion: 12/27/19 12:49 Dose: 0 mls/hr Documented by: Admin: 12/27/19 09:14 Dose: 150 mls/hr Documented by: JIMMY Nitroglycerin (Nitroglycerin) 50 mg in 250 mls @ 1.5 mls/hr IV TITRATE ARAVIND; Protocol Last Titration: 12/27/19 12:49 Dose: 0 mcg/min, 0 mls/hr Documented by: Titration: 12/27/19 10:28 Dose: 0 mcg/min, 0 mls/hr Documented by: Titration: 12/27/19 09:39 Dose: 7.5 mcg/min, 2.25 mls/hr Documented by: Admin: 12/27/19 09:17 Dose: 5 mcg/min, 1.5 mls/hr Documented by: JIMMY Morphine Sulfate (Morphine) 2 mg IV Q4HR PRN PRN Reason: Pain, Moderate (4-6) Naloxone HCl (Narcan) 0.2 mg IV Q2MIN PRN PRN Reason: Opiate Reversal Nitroglycerin (Nitrostat) 0.4 mg SL [id number] PRN PRN Reason: Chest Pain Last Admin: 12/27/19 09:06 Dose: 0.4 mg Documented by: JIMMY Oxycodone/Acetaminophen (Percocet 5/325) 1 tab PO Q4HR PRN PRN Reason: Pain, Moderate (4-6) Discontinued Medications Hydromorphone HCl (Dilaudid) 1 mg IV NOW ONE Stop: 12/27/19 10:02 Last Admin: 12/27/19 10:10 Dose: 1 mg Documented by: JIMMY Heparin Sodium/Dextrose (Heparin Drip) 25,000 unit in 500 mls @ 17.962 mls/hr IV CONT ARAVIND; Protocol Last Infusion: 12/27/19 12:51 Dose: 0 units/kg/hr, 0 mls/hr Documented by: Admin: 12/27/19 09:50 Dose: 12 units/kg/hr, 17.962 mls/hr Documented by: JIMMY Morphine Sulfate (Morphine) 2 mg IV NOW ONE Stop: 12/27/19 09:01 Last Admin: 12/27/19 09:14 Dose: 2 mg Documented by: JIMMY Consultations Consultation #1: Dr. nunez, cardiology has been updated on symptoms current test results. He was able to look through his records patient had a cardiac catheterization 3 months ago which was negative and he had similar symptoms. Recommend turning off nitro to see if patient's pain increases his and doing stress test at this hospital. Time: 10:25 Consultation #2: Dr. Diez has been updated on patient's symptoms test results would like to talk to Cardiology himself. He has been down to the Emergency Department himself to evaluate patient. Time: 11:11 Vital Signs Vital signs: Vital Signs - 8 hr 12/27/19 09:06 12/27/19 09:10 12/27/19 09:11 Temperature 97.2 F L Pulse Rate 70 72 72 Respiratory Rate 16 16 Blood Pressure 159/109 H 159/109 H Blood Pressure [Left Arm] 143/94 H Pulse Oximetry 96 96 12/27/19 09:17 12/27/19 09:19 12/27/19 09:21 Temperature Pulse Rate 67 70 64 Respiratory Rate 12 18 Blood Pressure 127/75 Blood Pressure [Left Arm] 127/75 125/80 Pulse Oximetry 100 100 12/27/19 09:38 12/27/19 09:45 12/27/19 09:54 Temperature Pulse Rate 65 61 69 Respiratory Rate 16 18 18 Blood Pressure Blood Pressure [Left Arm] 139/89 135/84 133/81 Pulse Oximetry 100 100 99 12/27/19 10:09 12/27/19 10:27 12/27/19 10:42 Temperature Pulse Rate 61 60 58 L Respiratory Rate 18 18 18 Blood Pressure Blood Pressure [Left Arm] 122/74 152/79 H 142/88 H Pulse Oximetry 100 100 98 12/27/19 11:24 Temperature Pulse Rate 60 Respiratory Rate 10 L Blood Pressure Blood Pressure [Left Arm] 140/84 Pulse Oximetry 100 MDM - Chest Pain Lab Data Attestation: I reviewed the patient's lab results. Result diagrams: 12/27/19 08:55 12/27/19 08:55 Labs: Lab Results 12/27/19 12/27/19 12/27/19 Range/Units 08:55 08:55 08:55 WBC 10.3 (4.5-11.0) X10^3/uL RBC 5.00 (4.5-5.9) X10^6/uL Hgb 15.4 (13.5-17.5) g/dL Hct 44.8 (41-53) % MCV 89.5 (80-100) fL MCH 30.7 (26-34) PG MCHC 34.3 (30-36) % RDW 14.2 (11.6-14.8) % Plt Count 250 (150-400) X10^3/uL Neut % (Auto) 52.4 (50-75) % Lymph % (Auto) 30.9 (25-40) % Mcintosh % (Auto) 12.1 (3-14) % Eos % (Auto) 4.1 H (2-4) % Baso % (Auto) 0.5 (0-2) % Neut # (Auto) 5400 (4580-7655) /uL Lymph # (Auto) 3200 (3888-0958) /uL Mcintosh # (Auto) 1300 H (0-900) /uL Eos # (Auto) 400 (0-450) /uL Baso # (Auto) 100 (0-100) /uL PT 10.4 (10.1-12.7) SECONDS INR 0.9 (0.9-1.3) APTT 28 D (26.4-36.2) SECONDS Sodium 141 (137-145) mmol/L Potassium 3.9 (3.4-5.1) mmol/L Chloride 102 (98-107) mmol/L Carbon Dioxide 25 (22-32) mmol/L BUN 27 H (9-20) mg/dL Creatinine 1.10 (0.66-1.25) mg/dL Estimated GFR > 60.0 (>60) mL/min BUN/Creatinine Ratio 24.5 H (6-22) Glucose 107 H (70-100) mg/dL Calcium 9.8 (8.4-10.2) mg/dL Total Bilirubin 0.5 (0.2-1.3) mg/dL AST 31 (17-59) IU/L ALT 31 (<50) IU/L Alkaline Phosphatase 70 (38-126) U/L Total Creatine Kinase 90 (55-170) U/L CK-MB (CK-2) TNP CK-MB (CK-2) Rel Index TNP Troponin I < 0.012 (0.01-0.034) ng/mL NT-Pro-B Natriuret Pep (<125) pg/mL Total Protein 8.9 H (6.3-8.2) g/dL Albumin 5.2 H (3.5-5.0) g/dL Globulin 3.7 (1.7-4.1) g/dL Albumin/Globulin Ratio 1.4 (1.0-2.8) Lipase (23-300) U/L 12/27/19 12/27/19 Range/Units 08:55 11:35 WBC (4.5-11.0) X10^3/uL RBC (4.5-5.9) X10^6/uL Hgb (13.5-17.5) g/dL Hct (41-53) % MCV (80-100) fL MCH (26-34) PG MCHC (30-36) % RDW (11.6-14.8) % Plt Count (150-400) X10^3/uL Neut % (Auto) (50-75) % Lymph % (Auto) (25-40) % Mcintosh % (Auto) (3-14) % Eos % (Auto) (2-4) % Baso % (Auto) (0-2) % Neut # (Auto) (5131-9724) /uL Lymph # (Auto) (5522-5712) /uL Mcintosh # (Auto) (0-900) /uL Eos # (Auto) (0-450) /uL Baso # (Auto) (0-100) /uL PT (10.1-12.7) SECONDS INR (0.9-1.3) APTT (26.4-36.2) SECONDS Sodium (137-145) mmol/L Potassium (3.4-5.1) mmol/L Chloride (98-107) mmol/L Carbon Dioxide (22-32) mmol/L BUN (9-20) mg/dL Creatinine (0.66-1.25) mg/dL Estimated GFR (>60) mL/min BUN/Creatinine Ratio (6-22) Glucose (70-100) mg/dL Calcium (8.4-10.2) mg/dL Total Bilirubin (0.2-1.3) mg/dL AST (17-59) IU/L ALT (<50) IU/L Alkaline Phosphatase (38-126) U/L Total Creatine Kinase (55-170) U/L CK-MB (CK-2) CK-MB (CK-2) Rel Index Troponin I < 0.012 (0.01-0.034) ng/mL NT-Pro-B Natriuret Pep 176 H (<125) pg/mL Total Protein (6.3-8.2) g/dL Albumin (3.5-5.0) g/dL Globulin (1.7-4.1) g/dL Albumin/Globulin Ratio (1.0-2.8) Lipase 340 H (23-300) U/L Imaging Data Chest x-ray: Radiologist's Impression: PROCEDURE: XR CHEST 1V INDICATIONS: chest pain TECHNIQUE: One view of the chest was acquired. COMPARISON: [facility], , XR CHEST 1V, 12/15/2019, 14:12. FINDINGS: Surgical changes and devices: None. Lungs and pleura: Lungs are clear. No pleural effusions or pneumothorax. Mediastinum: Mediastinal contours appear normal. Heart size is enlarged. Bones and chest wall: No suspicious bony lesions. Overlying soft tissues appear unremarkable. IMPRESSION: No acute pulmonary process. Dictated by: Radha Finch M.D. on 12/27/2019 at 9:52 CT scan - abdomen/pelvis: Radiologist's Impression: PROCEDURE: CT ANGIO CHEST ABDOMEN PELVIS INDICATIONS: severe chest pain TECHNIQUE: Precontrast 5 mm thick sections acquired from the lung apices to the iliac crests. After the administration of intravenous contrast, 2.5 mm thick sections again acquired from the lung apices to the iliac crests. Maximum intensity projection (MIP) oblique sagittal and coronal reformats were then acquired. For radiation dose reduction, the following was used: automated exposure control. COMPARISON: [facility], CT, CT ANGIO CHEST ABDOMEN PELVIS, 09/08/2019, 13:08. FINDINGS: Image quality: Diagnostic. ARTERIES: The ascending and descending portions of the raphic aorta are normal in course and caliber no evidence of aneurysm or dissection. An anatomic variant of the aortic arch vessels is present, compatible with an aberrant right subclavian artery. No significant atherosclerosis involving the arch vessels is identified. However, there may be mild atherosclerosis involving the origin of the left common carotid artery. Midabdominal aorta and demonstrates mild distal atherosclerotic calcifications. There is no evidence of aneurysm or dissection. The celiac artery, superior mesenteric artery, and inferior mesenteric artery are widely patent and noted to be intact. There are multiple right and left renal arteries, which are unchanged in size and number. Moderate atherosclerosis is noted involving the bilateral common iliac arteries with areas of moderate narrowing (left greater than right). No occlusion is evident. The external and internal iliac arteries are widely patent bilaterally. There is prominent atherosclerotic irregularity involving the internal iliac arteries. There is also atherosclerosis involving the imaged portions of the bilateral common femoral arteries and superficial femoral arteries. The profunda femoral arteries are unremarkable. CHEST: Lungs and pleura: There appear to be early centrilobular emphysematous changes within the lung apices. No focal consolidation, effusion, or pneumothorax is identified. There may be amenable scarring at the right lung base. There is borderline bronchial wall thickening within the bilateral infrahilar regions. There is no bronchiectasis. There is no lung mass or definite pulmonary nodule. Mediastinum: Heart size is normal. There may be early in coronary artery atherosclerosis. However, the coronary vessels are not adequately evaluated on this study. No pericardial effusion. No mediastinal or hilar adenopathy by size criteria. Central pulmonary arteries are normal in size. Esophagus is normal in caliber. No hiatal hernias. Bones and chest wall: No axillary adenopathy by size criteria. Thyroid gland is not enlarged or adequately evaluated. No suspicious bony lesions. No vertebral body compression fractures. Age-appropriate degenerative changes of the spine are similar to the prior study. ABDOMEN: Solid organs: Liver is normal in size and enhancement. Gallbladder is not enlarged or inflamed. Biliary system is non dilated. Pancreas enhances normally. Spleen is normal in size and enhancement. No adrenal nodules. Both kidneys are normal in size and enhancement, without hydronephrosis. Peritoneum and bowel: The stomach is unremarkable. The small bowel loops are nondilated. The appendix is well-visualized and normal. Mild prominence of the wall of the terminal ileum is identified. Moderate amount of residual stool is seen within the colon. No significant mesenteric inflammation is identified. There is no free fluid or loculated fluid collection. No free air is evident. Nodes and vessels: No retroperitoneal or mesenteric adenopathy by size criteria. Inferior vena cava is normal in morphology. Bones: No acute fracture or suspicious osseous lesion is evident. Moderate multilevel degenerative changes of the lumbar spine are present with areas of central canal or neural foraminal narrowing. There is a moderate sized compression deformity involving the L4 vertebral body, which is unchanged since the previous exam. PELVIS: Genitourinary: Bladder wall thickness is normal. The prostate is not enlarged. Miscellaneous: No inguinal hernias or adenopathy. No free fluid or loculated fluid collection is identified. Bones: No suspicious bony lesions. No acute pelvic fractures are evident. Mild degenerative changes of the spine are unchanged. IMPRESSION: 1. No evidence of aneurysm or dissection of the aorta or its corresponding major branch vessels. 2. 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 3. No definite acute process within the chest, abdomen, or pelvis is evident. 4. Nonspecific wall prominence of the terminal ileum may be related to incomplete distention. Ileitis could potentially have this appearance. Additional findings: -Probable early centrilobular emphysematous changes of the lungs. -Aberrant right subclavian artery. -Moderate residual stool within the colon may represent constipation. Dictated by: Jeremias Reich M.D. on 12/27/2019 at 9:32 ECG Data Attestation: I personally reviewed and interpreted this ECG as follows: Prior ECG tracings: available for review Interpretation: EKG 1. Normal sinus rhythm rate [address] elevations similar to prior EKGs no T-wave inversion EKG 2. Sinus rhythm rate 66 no p.r. interval [address] changes similar to prior EKG Core Measures AMI core measures followed: Yes MDM Narrative Medical decision making narrative: Patient initially in significant amount of pain with known coronary artery disease multiple stents, started immediately on heparin and nitro. Pain only improved minimally was given morphine as well. Concern for dissection. Patient was sent to CT to rule out dissection. No dissection identified and he was still having pain on nitroglycerin he was given Dilaudid. Per cardiology recommendations with turned off nitroglycerin drip pain remained exactly the same and controlled undergo clotted. Initial troponin is negative no EKG changes. Repeat troponin was also negative which point heparin was also. Per cardiology recommendations. Dr. Diez agrees to accept the patient for chest pain observation. Critical Care Time Critical Care Time Critical Care Time: Yes Total Critical Care Time: 30 Attestation: The high probability of a clinically significant, sudden or life threatening deterioration of the [cardiovascular] system(s) required my full and direct attention, intervention and personal management. The aggregate critical care time was 30 minutes. This time is in addition to time spent performing reported procedures but includes the following: [x] Data Review and interpretation [x] Patient assessment and monitoring of vital signs [x] Documentation [x] Medication orders and management Discharge Plan Departure Patient Disposition: Admitted as Observation Clinical Impression: Chest pain Qualifiers: Chest pain type: unspecified Qualified Code(s): R07.9 - Chest pain, unspecified Discharge Date/Time: 12/27/19 13:47 Referrals: Jaylon Muñoz MD [Primary Care Provider] - Admit Date/Time: 12/27/19 12:01 Admit Provider: Curtis Diez
[2019-12-27 09:12] LABS: Add Manual Diff / Slide Review NO; Basophils Absolute Auto 100 /uL (0-100); Basophils Percent Auto 0.5 % (0-2); Eosinophils Absolute Auto 400 /uL (0-450); Eosinophils Percent Auto 4.1 % (2-4); Hematocrit 44.8 % (41-53); Hemoglobin 15.4 g/dL (13.5-17.5); Lymphocytes Absolute Auto 3200 /uL (1100-4500); Lymphocytes Percent Auto 30.9 % (25-40); Mean Corpuscular HGB Conc 34.3 % (30-36); Mean Corpuscular Hemoglobin 30.7 PG (26-34); Mean Corpuscular Volume 89.5 fL (80-100); Monocytes Absolute Auto 1300 /uL (0-900); Monocytes Percent Auto 12.1 % (3-14); Neutrophils Absolute Auto 5400 /uL (1500-7000); Neutrophils Percent Auto 52.4 % (50-75); Platelet Count 250 X10^3/uL (150-400); Red Cell Distribution Width 14.2 % (11.6-14.8); White Blood Cell Count 10.3 X10^3/uL (4.5-11.0)
[2019-12-27 09:14] LABS: INR 0.9 (0.9-1.3); Prothrombin Time 10.4 SECONDS (10.1-12.7)
[2019-12-27] MEDS: SODIUM CHLORIDE 0.9% 1,000 ML 150 ML IV (09:14)
[2019-12-27] MEDS: MORPHINE 2 MG/ML INJ IV (09:14)
[2019-12-27 09:16] LABS: PTT Partial Thromboplastin Tim 28 SECONDS (26.4-36.2)
[2019-12-27 09:17] LABS: Alanine Aminotransferase 31 IU/L (<50); Albumin 5.2 g/dL (3.5-5.0); Albumin Globulin Ratio 1.4 (1.0-2.8); Alkaline Phosphatase 70 U/L (38-126); Aspartate Aminotransferase 31 IU/L (17-59); BUN Creatinine Ratio 24.5 (6-22); Bilirubin Total 0.5 mg/dL (0.2-1.3); Blood Urea Nitrogen 27 mg/dL (9-20); Calcium 9.8 mg/dL (8.4-10.2); Carbon Dioxide 25 mmol/L (22-32); Chloride 102 mmol/L (98-107); Creatine Kinase 90 U/L (55-170); Estimated Glomerular Filt Rate > 60.0 mL/min (>60); Globulin 3.7 g/dL (1.7-4.1); Glucose 107 mg/dL (70-100); HEMOLYSIS < 15 (0-50); Potassium 3.9 mmol/L (3.4-5.1); Sodium 141 mmol/L (137-145); Total Protein 8.9 g/dL (6.3-8.2)
[2019-12-27] MEDS: NITROGLYCERIN 50 MG/250 ML INFUS..BTL IV (09:17)
--- NOTE | 2019-12-27 09:20 | DI.CT.S_ITS ---
PROCEDURE: CT ANGIO CHEST ABDOMEN PELVIS INDICATIONS: severe chest pain TECHNIQUE: Precontrast 5 mm thick sections acquired from the lung apices to the iliac crests. After the administration of intravenous contrast, 2.5 mm thick sections again acquired from the lung apices to the iliac crests. Maximum intensity projection (MIP) oblique sagittal and coronal reformats were then acquired. For radiation dose reduction, the following was used: automated exposure control. COMPARISON: [facility], CT, CT ANGIO CHEST ABDOMEN PELVIS, 09/08/2019, 13:08. FINDINGS: Image quality: Diagnostic. ARTERIES: The ascending and descending portions of the raphic aorta are normal in course and caliber no evidence of aneurysm or dissection. An anatomic variant of the aortic arch vessels is present, compatible with an aberrant right subclavian artery. No significant atherosclerosis involving the arch vessels is identified. However, there may be mild atherosclerosis involving the origin of the left common carotid artery. Midabdominal aorta and demonstrates mild distal atherosclerotic calcifications. There is no evidence of aneurysm or dissection. The celiac artery, superior mesenteric artery, and inferior mesenteric artery are widely patent and noted to be intact. There are multiple right and left renal arteries, which are unchanged in size and number. Moderate atherosclerosis is noted involving the bilateral common iliac arteries with areas of moderate narrowing (left greater than right). No occlusion is evident. The external and internal iliac arteries are widely patent bilaterally. There is prominent atherosclerotic irregularity involving the internal iliac arteries. There is also atherosclerosis involving the imaged portions of the bilateral common femoral arteries and superficial femoral arteries. The profunda femoral arteries are unremarkable. CHEST: Lungs and pleura: There appear to be early centrilobular emphysematous changes within the lung apices. No focal consolidation, effusion, or pneumothorax is identified. There may be amenable scarring at the right lung base. There is borderline bronchial wall thickening within the bilateral infrahilar regions. There is no bronchiectasis. There is no lung mass or definite pulmonary nodule. Mediastinum: Heart size is normal. There may be early in coronary artery atherosclerosis. However, the coronary vessels are not adequately evaluated on this study. No pericardial effusion. No mediastinal or hilar adenopathy by size criteria. Central pulmonary arteries are normal in size. Esophagus is normal in caliber. No hiatal hernias. Bones and chest wall: No axillary adenopathy by size criteria. Thyroid gland is not enlarged or adequately evaluated. No suspicious bony lesions. No vertebral body compression fractures. Age-appropriate degenerative changes of the spine are similar to the prior study. ABDOMEN: Solid organs: Liver is normal in size and enhancement. Gallbladder is not enlarged or inflamed. Biliary system is non dilated. Pancreas enhances normally. Spleen is normal in size and enhancement. No adrenal nodules. Both kidneys are normal in size and enhancement, without hydronephrosis. Peritoneum and bowel: The stomach is unremarkable. The small bowel loops are nondilated. The appendix is well-visualized and normal. Mild prominence of the wall of the terminal ileum is identified. Moderate amount of residual stool is seen within the colon. No significant mesenteric inflammation is identified. There is no free fluid or loculated fluid collection. No free air is evident. Nodes and vessels: No retroperitoneal or mesenteric adenopathy by size criteria. Inferior vena cava is normal in morphology. Bones: No acute fracture or suspicious osseous lesion is evident. Moderate multilevel degenerative changes of the lumbar spine are present with areas of central canal or neural foraminal narrowing. There is a moderate sized compression deformity involving the L4 vertebral body, which is unchanged since the previous exam. PELVIS: Genitourinary: Bladder wall thickness is normal. The prostate is not enlarged. Miscellaneous: No inguinal hernias or adenopathy. No free fluid or loculated fluid collection is identified. Bones: No suspicious bony lesions. No acute pelvic fractures are evident. Mild degenerative changes of the spine are unchanged. IMPRESSION: 1. No evidence of aneurysm or dissection of the aorta or its corresponding major branch vessels. 2. 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 3. No definite acute process within the chest, abdomen, or pelvis is evident. 4. Nonspecific wall prominence of the terminal ileum may be related to incomplete distention. Ileitis could potentially have this appearance. Additional findings: -Probable early centrilobular emphysematous changes of the lungs. -Aberrant right subclavian artery. -Moderate residual stool within the colon may represent constipation. Dictated by: Jeremias Reich M.D. on 12/27/2019 at 9:32 Approved by: Jeremias Reich M.D. on 12/27/2019 at 9:42
[2019-12-27 09:22] LABS: Lipase 340 U/L (23-300)
[2019-12-27 09:28] LABS: Troponin I < 0.012 ng/mL (0.01-0.034)
[2019-12-27 09:32] LABS: NT-proBNP (BNP-Adult 18+) 176 pg/mL (<125)
[2019-12-27] MEDS: HEPARIN DRIP 25,000 UNIT/500 ML IV.SOLN 17.962 UNIT IV (09:50)
[2019-12-27] MEDS: HYDROMORPHONE 1 MG INJ IV (10:10)
[2019-12-27 12:13] LABS: Troponin I < 0.012 ng/mL (0.01-0.034)
--- NOTE | 2019-12-27 13:54 | P.HP_ITS ---
History of Present Illness History of Present Illness Date Patient Seen: 12/27/19 Time Patient Seen: 11:30 Chief complaint: Chest Pain Narrative: Tremaine Sy is a 44 y/o M with PMH of CAD (s/p multiple stents, most recently with angioplasty in early 2018, then in 08/2019 had + stress testing but no new disease on [facility]), hypertension, and chronic back pain who pr esented with chest pain starting this morning. States patient states he woke up this morning with a 7/10 substernal chest pressure that radiated slightly into his left shoulder. He states that he had sweating overnight but did not have any when he was experiencing chest pain. He denied any nausea or vomiting, he denied any arm numbness or tingling. He endorses that this chest pressure is similar to his prior cardiac ischemic events. He attempted to take nitro, however he believes that this medication is and this did not help with his pain. This is when he decided to call EMS. He denies recent palpitations, dyspnea on exertion, lower extremity edema, fever, chills. He denies any current nausea or vomiting. In the emergency room, patient received nitro sublingual and was started on a nitro drip as well as a heparin drip given his presentation. Cardiology was consulted in the emergency room initially and they recommended stopping his nitro drip given initial lab values. They further recommended stopping his heparin drip if his troponins are negative, which they were. His vital signs remained unremarkable. Initial lab evaluation was also unremarkable with normal CBC and an unremarkable chemistry. Troponin was negative x2, proBNP 176, lipase was notable at 340 but not significant given clinical presentation. Repeated discussion with Cardiology once patient arrived to the floor, and Dr. Capone recommended a stress test despite the recent normal left heart catheterization to rule out any new defects. Given concerning presentation, and with discussion with the patient, elected for observation stay with plan for a stress test in the morning. Patient History Medical History Chronic back pain (Chronic) Hypertension (Chronic) Myocardial infarction (Resolved) Surgical History Anesthesia (Resolved) History of angioplasty (~2000) History of angioplasty (10/14/11) History of angioplasty (01/02/15) Family & Social History Safety & Behavioral: Feels Safe in Current Yes Environment Tobacco & Substance use: Smoking Status Former smoker alcohol intake current alcohol intake frequency 0-2 drinks per day Substance Use Type marijuana Meds Home Medications and Allergies Home Medications Medication Instructions Recorded Confirmed Type aspirin 81 mg tablet,delayed 81 mg PO DAILY 04/07/18 12/27/19 History release atorvastatin 80 mg tablet 80 mg PO DAILY 04/07/18 12/27/19 History isosorbide mononitrate 60 mg 60 mg PO DAILY 09/20/19 12/27/19 History tablet,extended release 24 hr ezetimibe 10 mg tablet 10 mg PO DAILY #90 tab 12/14/19 12/27/19 Rx oxycodone-acetaminophen 7.5 mg-325 2 tab PO Q6H PRN #100 tab 12/14/19 12/27/19 Rx mg tablet clopidogrel [Plavix] 75 mg PO DAILY 12/27/19 12/27/19 History ibuprofen 200 mg PO PRN PRN 12/27/19 12/27/19 History lisinopril 10 mg PO DAILY 12/27/19 12/27/19 History metoprolol succinate [Toprol XL] 25 mg PO DAILY 12/27/19 12/27/19 History Allergies Allergy/AdvReac Type Severity Reaction Status Date / Time No Known Drug Allergies Allergy Verified 12/15/19 14:03 Review of Systems Review of Systems Narrative: All other systems reviewed with the patient and are negative unless otherwise stated. Exam Vital Signs (past 8 hours): - 12/27/19 09:06 12/27/19 09:10 12/27/19 09:11 Temperature 97.2 F L Pulse Rate 70 72 72 Respiratory Rate 16 16 Blood Pressure 159/109 H 159/109 H Blood Pressure [Left Arm] 143/94 H Pulse Oximetry 96 96 12/27/19 09:17 12/27/19 09:19 12/27/19 09:21 Temperature Pulse Rate 67 70 64 Respiratory Rate 12 18 Blood Pressure 127/75 Blood Pressure [Left Arm] 127/75 125/80 Pulse Oximetry 100 100 12/27/19 09:38 12/27/19 09:45 12/27/19 09:54 Temperature Pulse Rate 65 61 69 Respiratory Rate 16 18 18 Blood Pressure Blood Pressure [Left Arm] 139/89 135/84 133/81 Pulse Oximetry 100 100 99 12/27/19 10:09 12/27/19 10:27 12/27/19 10:42 Temperature Pulse Rate 61 60 58 L Respiratory Rate 18 18 18 Blood Pressure Blood Pressure [Left Arm] 122/74 152/79 H 142/88 H Pulse Oximetry 100 100 98 12/27/19 11:24 12/27/19 12:36 12/27/19 13:34 Temperature Pulse Rate 60 55 L 61 Respiratory Rate 10 L 18 19 Blood Pressure Blood Pressure [Left Arm] 140/84 126/76 116/66 Pulse Oximetry 100 98 99 Oxygen Delivery Method Room Air Narrative Exam Narrative: GENERAL APPEARANCE: Well developed, well nourished, in no acute distress. SKIN: Inspection of the skin reveals no rashes, ulcerations or petechiae. HEENT: The sclerae were anicteric and conjunctivae were pink and moist. Extraocular movements were intact and pupils were equal, round with normal accommodation. External inspection of the ears and nose showed no scars, lesions, or masses. Lips, teeth, and gums showed normal mucosa. The oral mucosa, hard and soft palate, tongue and posterior pharynx were unremarkable. NECK: Supple and symmetric. There was no thyroid enlargement, and no tenderness, or masses were felt. CHEST: Normal AP diameter and normal contour without any kyphoscoliosis. LUNGS: Auscultation of the lungs revealed no wheezes, rhonchi, or rales. CARDIOVASCULAR: There was a regular rate and rhythm without any murmurs, gallops, rubs. Peripheral pulses were 2+ and symmetric. ABDOMEN: Soft and nontender with normal bowel sounds. No ascites was noted. MUSCULOSKELETAL: There was no tenderness or effusions noted. Muscle strength and tone were normal. EXTREMITIES: No cyanosis, clubbing or edema. NEUROLOGIC: Alert and oriented x 3. Normal affect. Gait was normal. Strength is +5/5 in the Upper Extremities and Lower Extremities Bilaterally. Sensation to touch was normal. Objective Labs Result Diagrams: 12/27/19 08:55 12/27/19 08:55 Labs: Laboratory Results - last 24 hr 12/27/19 12/27/19 12/27/19 08:55 08:55 08:55 WBC 10.3 RBC 5.00 Hgb 15.4 Hct 44.8 MCV 89.5 MCH 30.7 MCHC 34.3 RDW 14.2 Plt Count 250 Neut % (Auto) 52.4 Lymph % (Auto) 30.9 Petroleum % (Auto) 12.1 Eos % (Auto) 4.1 H Baso % (Auto) 0.5 Neut # (Auto) 5400 Lymph # (Auto) 3200 Petroleum # (Auto) 1300 H Eos # (Auto) 400 Baso # (Auto) 100 PT 10.4 INR 0.9 APTT 28 D Sodium 141 Potassium 3.9 Chloride 102 Carbon Dioxide 25 BUN 27 H Creatinine 1.10 Estimated GFR > 60.0 BUN/Creatinine Ratio 24.5 H Glucose 107 H Calcium 9.8 Total Bilirubin 0.5 AST 31 ALT 31 Alkaline Phosphatase 70 Total Creatine Kinase 90 CK-MB (CK-2) TNP CK-MB (CK-2) Rel Index TNP Troponin I < 0.012 NT-Pro-B Natriuret Pep Total Protein 8.9 H Albumin 5.2 H Globulin 3.7 Albumin/Globulin Ratio 1.4 Lipase 12/27/19 12/27/19 08:55 11:35 WBC RBC Hgb Hct MCV MCH MCHC RDW Plt Count Neut % (Auto) Lymph % (Auto) Petroleum % (Auto) Eos % (Auto) Baso % (Auto) Neut # (Auto) Lymph # (Auto) Petroleum # (Auto) Eos # (Auto) Baso # (Auto) PT INR APTT Sodium Potassium Chloride Carbon Dioxide BUN Creatinine Estimated GFR BUN/Creatinine Ratio Glucose Calcium Total Bilirubin AST ALT Alkaline Phosphatase Total Creatine Kinase CK-MB (CK-2) CK-MB (CK-2) Rel Index Troponin I < 0.012 NT-Pro-B Natriuret Pep 176 H Total Protein Albumin Globulin Albumin/Globulin Ratio Lipase 340 H Assessment & Plan Assessment & Plan narrative: Tremaine Sy is a 44 y/o M with PMH of CAD (s/p multiple stents, most recently with angioplasty in early 2018, then in 08/2019 had + stress testing but no new disease on [facility]), hypertension, and chronic back pain who presented with chest pain starting this morning. His chest pain has since resolved since arriving to the emergency room, however patient was started on nitro drip and heparin drip which was discontinued at the recommendations of cardiology. Given his concerning presentation consistent with possible cardiac ischemia and known severe cardiac disease, have elected for stress test to be done in the morning. 1. Chest pain, acute, present on admission, improved- -repeat troponin at 4:30 p.m. -patient was initially started on nitro and heparin infusions, however these were held after initial workup with negative troponins and unchanged EKGs. Can continue sublingual nitro as needed if chest pain recurs. -EKG is unchanged since November and there are no dynamic changes -NPO at midnight for stress test tomorrow, patient can perform treadmill stress -patient without symptoms of shortness of breath or evidence of heart failure, as well as recent echocardiogram, will hold off on echocardiogram at this time. 2. CAD, chronic, present on admission -hold home Imdur and metoprolol prior to stress test -continue home aspirin, Plavix, Lipitor, ezetimibe 3. Hypertension, chronic, stable -resume home medications except for metoprolol as noted above 4. Chronic back pain, chronic, stable -continue home oxycodone acetaminophen 7.5/ 325 as needed Dispo: Patient will be admitted under observation status as his stay is not likely to exceed 2 midnights DVT: Heparin subcu Code: Full
--- NOTE | 2019-12-27 13:55 | DI.NM.S_ITS ---
PROCEDURE: MN ROBLES PERF SPECT REST & STR Rest and exercise myocardial perfusion SPECT with gated imaging and ejection fraction RADIOPHARMACEUTICAL: 26.8 mCi Tc-99m sestamibi IV at rest and 25.9 mCi Tc-99m sestamibi IV at peak exercise. A [id number] was performed. INDICATIONS: chest pain TECHNIQUE: Radiopharmaceutical was injected at peak stress test, and also at rest. SPECT images were obtained. SPECT myocardial perfusion images were displayed in short axis, horizontal long axis, and vertical long axis views. Gated images were reviewed using [email or web address] software. COMPARISON: [place], [place], DAJUANISCDUC MYOCARDIAL PERFUSION, 01/05/2017, 13:54. CARDIAC STRESS: A standard [place] treadmill exercise tolerance test was performed by the patient under the supervision of an attending staff. The patient exercised for 9 minutes and 7 seconds; functional aerobic impairment (THI) is +18%. Hemodynamic data: There is normal heart rate and flat blood pressure response to exercise stress. Patient achieved 87% of maximum predicted heart rate at peak exercise. Symptoms: Patient denied chest pain during exercise. EKG: Baseline EKG with NSR and q waves in inferior leads. No diagnostic EKG changes of ischemia; no ectopy. FINDINGS: Raw data: There is good myocardial labeling by radiotracer. No significant motion artifacts. [id number] ratio is 0.29 (normal is less than 0.38 for sestamibi tracer, and less than 0.50 for thallium tracer). Left ventricle function: Gated images demonstrate akinesis of the inferior wall. No other segmental wall motion abnormality. No transient ischemic dilation; TID is 0.80 (normal less than 1.3). The left ventricle resting end-diastolic volume is 174 mL. Left ventricle stress ejection fraction is 45% ; normal values are above 45%. Myocardial perfusion: There is a large, fixed defect extending from the basal inferior and inferolateral wall to the mid and apical inferior wall with no reversibility on rest images. Otherwise normal distribution of activity in the left ventricular myocardium. . IMPRESSION: -Large, fixed inferior wall defect consistent with infarct in the RCA territory, associated with inferior wall akinesis. -No reversible defect. -SSS 14, SRS 13. -Moderately reduced exercise capacity and flat blood pressure response to exercise. -Mildly reduced LVEF and dilated LV. The LVEF may be affected due to lack of tracer uptake in the inferior wall. Please correlate with echo. -These findings are similar to the prior study's report from 01/05/2017 except for previously reported LVEF of 58%. Dictated by: Salvador Hidalgo M.D. on 12/30/2019 at 17:10 Approved by: Salvador Hidalgo M.D. on 12/30/2019 at 17:21
[2019-12-27] MEDS: ACETAMINOPHEN 325 MG TABLET 650 MG PO (14:35)
[2019-12-27] MEDS: OXYCODONE/ACETAMINOPHEN 5/325 TABLET 1 TAB PO (14:35)
--- NOTE | 2019-12-27 15:36 | PC.ADMIT ---
[email or web address] Admission Note: The patient,Tremaine Sy,44 y/o, was given written information regarding hospital policies, unit procedures and contact persons. Patient's smoking status: Former smoker. Vital Signs - 8 hr 12/27/19 09:06 12/27/19 09:10 12/27/19 09:11 Temperature 97.2 F L Pulse Rate 70 72 72 Respiratory Rate 16 16 Blood Pressure 159/109 H 159/109 H Blood Pressure [Left Arm] 143/94 H Pulse Oximetry 96 96 12/27/19 09:17 12/27/19 09:19 12/27/19 09:21 Temperature Pulse Rate 67 70 64 Respiratory Rate 12 18 Blood Pressure 127/75 Blood Pressure [Left Arm] 127/75 125/80 Pulse Oximetry 100 100 12/27/19 09:38 12/27/19 09:45 12/27/19 09:54 Temperature Pulse Rate 65 61 69 Respiratory Rate 16 18 18 Blood Pressure Blood Pressure [Left Arm] 139/89 135/84 133/81 Pulse Oximetry 100 100 99 12/27/19 10:09 12/27/19 10:27 12/27/19 10:42 Temperature Pulse Rate 61 60 58 L Respiratory Rate 18 18 18 Blood Pressure Blood Pressure [Left Arm] 122/74 152/79 H 142/88 H Pulse Oximetry 100 100 98 12/27/19 11:24 12/27/19 12:36 12/27/19 13:34 Temperature Pulse Rate 60 55 L 61 Respiratory Rate 10 L 18 19 Blood Pressure Blood Pressure [Left Arm] 140/84 126/76 116/66 Pulse Oximetry 100 98 99 12/27/19 14:00 Temperature 97.4 F L Pulse Rate 58 L Respiratory Rate 14 Blood Pressure 116/70 Blood Pressure [Left Arm] Pulse Oximetry 97 Arrived to room 215 at 1345. Wide awake and alert, oriented X3. Denied chest pain/pressure/palpitations or shortness of breath. Lungs CTA. HRR. Tele monitoring in place. C/O 6/10 headache and neck pain, medicated with Percocet and Tylenol for the same. Low fall risk, steady on feet without assistive device. Instructed that he will be having a stress test tomorrow (at 1100 per this chief underwriter's discussion with Nuc. Med), so no caffeine/decaf/chocolate until after stress test. NPO after 0830 tomorrow morning. Oriented to room and call light and encouraged to make needs known. Call light and belongings within reach.
[2019-12-27] MEDS: CYCLOBENZAPRINE 10 MG TABLET PO (17:21)
[2019-12-27 17:24] LABS: Troponin I < 0.012 ng/mL (0.01-0.034)
[2019-12-27] MEDS: SODIUM CHLORIDE 0.9% FLUSH 10 ML IV (20:16)
[2019-12-27] MEDS: OXYCODONE/ACETAMINOPHEN 7.5/325 TABLET 2 TAB PO (20:24)
[2019-12-28 00:25] VITALS: BP 110/54; PULSE 58; RESP 16; TEMP 36.6; O2SAT 97
[2019-12-28 04:10] VITALS: BP 115/64; PULSE 61; RESP 16; TEMP 36.9; O2SAT 98
[2019-12-28 05:44] LABS: BUN Creatinine Ratio 17.5 (6-22); Blood Urea Nitrogen 14 mg/dL (9-20); Calcium 9.3 mg/dL (8.4-10.2); Carbon Dioxide 29 mmol/L (22-32); Chloride 104 mmol/L (98-107); Estimated Glomerular Filt Rate > 60.0 mL/min (>60); Glucose 94 mg/dL (70-100); HEMOLYSIS < 15 (0-50); Magnesium 2.2 mg/dL (1.6-2.3); Potassium 4.3 mmol/L (3.4-5.1); Sodium 138 mmol/L (137-145)
[2019-12-28 06:36] LABS: TSH w/ Reflex to FT4 2.82 uIU/mL (0.47-4.68)
[2019-12-28 08:00] VITALS: BP 119/77; PULSE 69; RESP 15; TEMP 36.2; O2SAT 95
[2019-12-28] MEDS: HEPARIN 5,000 UNIT/ML VIAL 5000 UNIT SUBCUT (10:35)
[2019-12-28] MEDS: SODIUM CHLORIDE 0.9% FLUSH 10 ML IV (10:35)
[2019-12-28] MEDS: ATORVASTATIN 20 MG TABLET 80 MG PO (10:35)
[2019-12-28] MEDS: ASPIRIN EC 81 MG TABLET PO (10:36)
[2019-12-28 10:37] VITALS: BP 121/78; PULSE 73
[2019-12-28] MEDS: CLOPIDOGREL 75 MG TABLET PO (10:37)
[2019-12-28] MEDS: lisinopriL 10 MG TABLET PO (10:37)
[2019-12-28] MEDS: EZETIMIBE 10 MG TABLET PO (10:38)
--- NOTE | 2019-12-28 10:47 | CM.DANOTE ---
DCP: Case received, EMR reviewed and met with patient. Introduced self and role. Was able to meet with patient to obtain baseline health and activity information. DCP assessment completed with information currently available. Patient is a 44 year old male who admitted yesterday afternoon to the care of the hospitalist. PCP: Dr. Muñoz. Payer: confirmed: [employer]. Patient came to the hospital via ambulance secondary to chest pain. Patient has history of coronary artery disease, and has had history of MIs. Patient is here under observation, and is expected to have stress test today. Met with patient. He is alert and oriented, was laying in bed. He lives alone, and is employed at [employer]. He is independent. P: DCP to continue to follow. Patient should be able to go home when he is medically stable after testing is complete. Marion Maguire RN/Plant Controller
[2019-12-28] MEDS: ACETAMINOPHEN 325 MG TABLET 650 MG PO (11:16)
--- NOTE | 2019-12-28 13:31 | PM.DS.1 ---
History of Present Illness History of Present Illness Date Patient Seen: 12/27/19 Chief complaint: Chest Pain Narrative: Written by Dr. Diez: Tremaine Sy is a 44 y/o M with PMH of CAD (s/p multiple stents, most recently with angioplasty in early 2018, then in 08/2019 had + stress testing but no new disease on [facility]), hypertension, and chronic back pain who presented with chest pain starting this morning. States patient states he woke up this morning with a 7/10 substernal chest pressure that radiated slightly into his left shoulder. He states that he had sweating overnight but did not have any when he was experiencing chest pain. He denied any nausea or vomiting, he denied any arm numbness or tingling. He endorses that this chest pressure is similar to his prior cardiac ischemic events. He attempted to take nitro, however he believes that this medication is and this did not help with his pain. This is when he decided to call EMS. He denies recent palpitations, dyspnea on exertion, lower extremity edema, fever, chills. He denies any current nausea or vomiting. In the emergency room, patient received nitro sublingual and was started on a nitro drip as well as a heparin drip given his presentation. Cardiology was consulted in the emergency room initially and they recommended stopping his nitro drip given initial lab values. They further recommended stopping his heparin drip if his troponins are negative, which they were. His vital signs remained unremarkable. Initial lab evaluation was also unremarkable with normal CBC and an unremarkable chemistry. Troponin was negative x2, proBNP 176, lipase was notable at 340 but not significant given clinical presentation. Repeated discussion with Cardiology once patient arrived to the floor, and Dr. Capone recommended a stress test despite the recent normal left heart catheterization to rule out any new defects. Given concerning presentation, and with discussion with the patient, elected for observation stay with plan for a stress test in the morning. Discharge Providers Provider Date of admission: 12/27/19 12:01 Discharge Date: 12/28/19 Primary care physician: Jaylon Muñoz MD Discharge provider: Anum Nowak DO Summary Hospital Course Discharge Diagnosis: 1. Acute chest pain, present on admission. Resolved. 2. CAD, chronic, present on admission. Presumed stable. 3. Hypertension, chronic, present on admission. Stable. 4. Chronic back pain with opiate dependence, chronic, present on admission. Stable. Hospital Course: Tremaine Sy is a 44-year-old male with a past medical history significant for hypertension, chronic back pain with opiate dependence, and coronary artery disease status post multiple stents with most recent angioplasty in early 2018 and recent stress test and left heart catheterization in 08/2019 without any new obstructive coronary disease who presented to the ED with abrupt onset chest pain. 1. Acute chest pain, present on admission. Resolved. -Patient awoke with substernal chest pain radiating to left shoulder that was similar to previous cardiac events and not relieved with nitroglycerin. -CTA chest abdomen and pelvis demonstrated no evidence of aneurysm or dissection of the aorta or its corresponding major branchvessels. 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 Recommend continued surveillance and possible future IR guided iliac stenting. -EKG demonstrated sinus rhythm with old inferior infarct otherwise no acute ischemic changes such as ST elevation or depression. -Serial troponin x3 negative. -Initially started on nitro and heparin gtt, however, these were discontinued per Cardiology after initial workup with negative troponins and unchanged EKGs. -Patient without symptoms of shortness of breath or evidence of heart failure, as well as recent echocardiogram, will hold off on echocardiogram at this time. -Admitting provider discussed patient with patient's streets and buildings decorator, Dr. Capone, who recommended stress test as patient is high risk due to significant coronary artery disease. Stress portion of nuclear medicine stress test performed and demonstrated previous inferior, lateral, and apical defect unchanged. Cardiology recommended rest portion of stress test tomorrow. Patient is chest pain-free and appropriate for discharge with plans for rest portion of stress test tomorrow. 2. CAD, chronic, present on admission. Presumed stable. -Continued home aspirin 81 mg daily, atorvastatin 80 mg daily, clopidogrel 75 mg daily, ezetimibe 10 mg daily and lisinopril 10 mg daily. Admitting provider held isosorbide mononitrate 60 mg daily and metoprolol succinate 25 mg daily for stress test. 3. Hypertension, chronic, present on admission. Stable. -Continued home lisinopril 10 mg daily. Admitting provider held isosorbide mononitrate 60 mg daily and metoprolol succinate 25 mg daily for stress test. 4. Chronic back pain with opiate dependence, chronic, present on admission. Stable. -Continued home oxycodone acetaminophen 7.5-325 mg 2 tabs every 6 hours as needed. Exam Vital Signs (past 8 hours): - 12/28/19 08:00 12/28/19 10:37 Temperature 97.1 F L Pulse Rate 69 73 Respiratory Rate 15 Blood Pressure 119/77 121/78 Pulse Oximetry 95 Oxygen Delivery Method Room Air Oxygen Flow Rate 0 Narrative Exam Narrative: General: Middle-aged gentleman sitting in bed and in no acute distress, well-developed, well-nourished, appropriately interactive. HEENT: Normocephalic, atraumatic. External ears without defect. Pupils equal, round, and reactive to light. Anicteric sclerae, moist conjunctivae, and no lid lag. Oropharynx free of erythema and cobble stoning with moist mucosa. Neck: Supple with full range of motion. No jugular venous distension. No lymphadenopathy or thyromegaly. Cardiovascular: Regular rate and rhythm without murmurs, rubs, or gallops appreciated. Pulmonary: Clear to auscultation bilaterally without crackles, wheezes, or rhonchi. Normal respiratory effort with no use of accessory muscles. Abdomen: Soft, bowel sounds present, nontender, nondistended. No hepatosplenomegaly or masses appreciated. Extremities: No clubbing, cyanosis, or edema. Skin: Normal temperature, turgor, and texture; no rash, ulcers, or subcutaneous nodules appreciated. Neurological: Cranial nerves grossly intact. Psychiatric: Normal mood and affect. Alert and oriented to person, place, and time. Objective Labs Result Diagrams: 12/27/19 08:55 12/28/19 05:20 Labs: Laboratory Results - last 24 hr 12/27/19 12/28/19 12/28/19 16:51 05:20 05:20 Sodium 138 Potassium 4.3 Chloride 104 Carbon Dioxide 29 BUN 14 Creatinine 0.80 Estimated GFR > 60.0 BUN/Creatinine Ratio 17.5 Glucose 94 Calcium 9.3 Magnesium 2.2 Troponin I < 0.012 TSH 2.82 Discharge Plan Discharge Plan Patient Disposition: Home Discharge comment: You are being discharged home. Your stress test demonstrated perfusion defect consistent with your previous defect. Cardiology recommends rest portion of your stress test tomorrow at 10:00 a.m. so please keep your scheduled appointment. Please do not eat or drink after midnight. You may take your morning medications with sips of water. You have significant plaque disease of your iliac arteries which are the arteries that supply blood to your legs and you may require stenting in the future for which you may discuss with your streets and buildings decorator Dr. Capone. Please follow-up with your primary care provider, Dr. Muñoz, regarding your hospitalization in the next 1-2 weeks. Please follow-up with your streets and buildings decorator as instructed. Discharge orders & Medications Prescriptions: Continued ezetimibe [Zetia] 10 mg tablet 10 mg PO DAILY Qty: 90 RF: 1 oxycodone-acetaminophen 7.5-325 mg tablet 2 tab PO Q6H PRN (Reason: pain) Qty: 100 RF: 0 atorvastatin 80 mg tablet 80 mg PO DAILY RF: 0 aspirin [Aspirin Low Dose] 81 mg tablet,delayed release (DR/EC) 81 mg PO DAILY RF: 0 isosorbide mononitrate 60 mg tablet extended release 24 hr 60 mg PO DAILY RF: 0 lisinopril 10 mg tablet 10 mg PO DAILY RF: 0 clopidogrel [Plavix] 75 mg tablet 75 mg PO DAILY RF: 0 metoprolol succinate [Toprol XL] 25 MG tablet extended release 24 hr 25 mg PO DAILY RF: 0 ibuprofen 200 mg Tablet 200 mg PO PRN PRN (Reason: pain) RF: 0 Follow up/Referrals: Jaylon Muñoz MD [Primary Care Provider] - 1 Week Diet/Activity/Treatments Diet: Low-fat, Low-sodium and Low-cholesterol Activity: Activity as tolerated Visit Report/Discharge Packet Instructions: Cardiac Stress Test Discharge Data Primary Care Provider: Jaylon Muñoz Attending Provider: Curtis Diez Admit Date/Time: 12/27/19 12:01 Quality VTE Deep Vein Thrombosis/Pulmonary Embolism Present on Admission: No
== END 2019-12-28 14:48 | disposition home or self-care (01) ==
LOC: ED 12:01 → AC 12:02
PROVIDERS: Admitting Provider Internal Medicine; Emergency Provider Emergency Medicine; PCP Family Medicine; Referring Provider Emergency Medicine; Visit Provider Internal Medicine
DX: R07.9 Chest pain, unspecified (principal); I25.10 Atherosclerotic heart disease of native coronary artery without angina pectoris; I25.2 Old myocardial infarction; I10 Essential (primary) hypertension; G89.29 Other chronic pain; M54.5 Low back pain; F11.20 Opioid dependence, uncomplicated
CPT/HCPCS: 36415; 71045; 71275; 74174; 78452; 80048; 80053; 82550; 83690; 83735; 83880; 84443; 84484; 85025; 85610; 85730; 93005; 93017; 96365; 96366; 96368; 96372; 96375; 99285; 99291; G0378; A9502; J1170; J1644; J2270; Q9967

== ENCOUNTER 2020-02-13 14:15 | Outpatient (RCR) | payer OTHER, MEDICAID, SELFPAY ==
--- NOTE | 2019-12-26 15:31 | PT.OPPOC ---
Addendum entered and electronically signed by Adrianne Andrade, PT 12/27/19 16:02: sent for E-signing Original Note: Physical, Occupational & Speech Therapy [facility] Current Diagnoses Pain in left elbow (12/26/19) Visit Care Team Role Provider Type Jaylon Muñoz MD Primary Care Provider Physician Specialty: [facility] Address: [address] [place] [address], [id number] Email: [email or web address] JO-ANN Carmen Attending Provider Advanced Support Architect Referring Provider Specialty: [facility] Address: [address] [place] [address], [address] Email: [email or web address] Plan Of Care PT-OP-T Assessment and Plan Start: 12/26/19 15:30 Freq: Status: Active Protocol: Document 12/26/19 15:31 DLM (Rec: 12/27/19 15:59 DLM [id number]) Physical Therapy Assessment Rehab Potential Rehabilitation Potential Good Evaluation Complexity Number of Personal Factors/Comorbidities 3 or More Number of Body Systems Impaired 3 Clinical Presentation at Evaluation Evolving Impairments Impairments Activity Tolerance,Pain,ROM, Soft Tissue Mobility,Strength Goals Three Impairment Limited use left UE due to elbow pain Produce Inspector Goal (LTG) Resume normal use left UE without increased left elbow pain LTG Duration 6 weeks One Impairment left elbow pain 4/10 Short Term Goal (STG) decrease his pain to less than 2/10 STG Duration 4 weeks Produce Inspector Goal (LTG) 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 He presents with clinical signs of strain/ sprain left elbow. Pt reports his symptoms are improving. His case is complicated by his neck and back pain. He reports he has been able to change his work activities to aid in his recovery. He could benefit from physical therapy to address his above deficits. Physical Therapy Plan Frequency and Duration Frequency of Treatment 2x/Week Duration of Treatment 6 weeks Plan of Care Start Date 12/26/19 Plan of Care End Date 02/24/20 Therapeutic Interventions Therapeutic Interventions Home Exercise Program,Manual Therapy,Patient/Caregiver Education,Self-Care/Home Management,Soft Tissue Mobilization,Taping, Therapeutic Activities, Therapeutic Exercises Modalities Cold Pack/Ice Massage,Electric Stimulation,Hot Packs, Ultrasound Next Visit Focus/Plan Next Note Type Treatment Note Next Visit Plan add manual therapy, advance exercises Plan of Care Dates Plan of Care Start Date 12/26/19 Plan of Care End Date 02/24/20 Electronically Signed by: Adrianne Andrade, PT 12/27/19 1600 Please Sign and Return: I have reviewed this Plan of Care and certify that the skilled therapy services above are required to meet the patient?s needs. Physician Signature Date Printed Name and Credentials
--- NOTE | 2019-12-26 15:31 | PT.OIE ---
Current Diagnoses Pain in left elbow (12/26/19) Past Medical History (Last Reviewed 12/27/19 @ 09:10 by Holly Araujo DO) Chronic back pain (Chronic) Hypertension (Chronic) Myocardial infarction (Resolved) Past Surgical History (Last Reviewed 12/27/19 @ 09:10 by Holly Araujo DO) Anesthesia (Resolved) History of angioplasty (~1999) History of angioplasty (10/14/11) History of angioplasty (01/02/15) Visit Care Team Role Provider Type Jaylon Muñoz MD Primary Care Provider Physician Specialty: [facility] Address: [address] [place] [address] Email: [email or web address] JO-ANN Carmen Attending Provider Advanced Reliability Technician Referring Provider Specialty: [facility] Address: [address] [place] [address], [id number] Email: [email or web address] Physical Therapy Initial Evaluation PT-OP-A Visit Information Start: 12/26/19 15:30 Freq: Status: Active Protocol: Document 12/26/19 15:31 DLM (Rec: 12/27/19 15:59 DL [id number]) Out-Patient Physical Therapy Visit Information Visit Information Visit Type Initial Evaluation Visit Start Time 14:41 Visit Stop Time 15:31 Total Visit Minutes 50 Visit Number 1 Evaluation Information Evaluation Date 12/26/19 Precautions Precautions He has a significant cardiac hx with RI x 5. 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 He has been able to decrease his pain by changing to his right hand lifting the frier basket. He reports his pain is getting better but has not resolved. He has a compression sleeve and a strap for his elbow that he uses to manage his pain. Prior Treatments and Tests Pt using compression sleeve, elbow strap, ice and rest at home to manage his pain. 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 He also has neck pain but has not gotten a referral to therapy for his neck yet. PT-OP-C Subjective Start: 12/26/19 15:30 Freq: Status: Active Protocol: Document 12/26/19 15:31 DLM (Rec: 12/27/19 15:59 DL [id number]) OP-PT Subjective Patient Comments Patient Comments His elbow pain does not affect his sleep. His back and neck pain does affect his sleep. He reports is left elbow pain is 50% improved since the onset of the pain. Patient Questionnaires Quick Dash- Upper Extremity Quick Dash UE Score 34 Quick Dash UE Impairment 20 to 39% Impaired (Score 20- 39) OP-PT Pain Assessment Location Left Elbow Intensity 4 Scale Used Numeric (1 - 10) Description Aching Frequency Constant Pain Aggravating Factors Activity,Lifting Other Pain Aggravating Factors gripping with left hand Pain Alleviating Factors Cold,Rest Other Pain Alleviating Factors compression sleeve Left Neck Intensity 8 Scale Used Numeric (1 - 10) Description Aching,Tightness Frequency Constant Back Intensity 7 Scale Used Numeric (1 - 10) Description Aching,Chronic Frequency Constant Pain Aggravating Factors Activity,Sitting Pain Alleviating Factors Standing Home Pain Medication Use Pain Medications Used Yes: Ibuprofen intermittently Pain Behaviors Pain Behaviors Facial Grimacing PT-OP-F Manual Assessment Start: 12/26/19 15:30 Freq: Status: Active Protocol: Document 12/26/19 15:31 DLM (Rec: 12/27/19 15:59 DL [id number]) Manual Assessments Soft Tissue Assessment Soft Tissue Mobility Assessment left wrist flexor tightness, old laceration scar left forearm Tenderness to palpation left lateral elbow, wrist flexors and triceps Joint Mobility Assessment Joint Mobility Assessment WFL left elbow Other Manual Assessments Other Manual Assessments able to visually see soft tissue tightness left cervical area PT-OP-K Range of Motion Start: 12/26/19 15:30 Freq: Status: Active Protocol: Document 12/26/19 15:31 DLM (Rec: 12/27/19 15:59 DL [id number]) Cervical Spine Range of Motion Cervical Spine Active Percentage Testing Position Sitting Flexion 100 Extension 100 Rotation Left 80 Rotation Right 80 Lateral Flexion Left 80 Lateral Flexion Right 80 ROM Limitations Soft Tissue Tightness,Pain Elbow/Forearm Range of Motion Elbow/Forearm Right Active Elbow/Forearm ROM WFL Yes Left Active Elbow/Forearm ROM WFL Yes Wrist Goniometric Range of Motion Wrist Right Wrist ROM WFL Yes Left Wrist ROM WFL Yes PT-OP-M Strength Start: 12/26/19 15:30 Freq: Status: Active Protocol: Document 12/26/19 15:31 DLM (Rec: 12/27/19 15:59 [facility] [id number]) Shoulder Strength Shoulder Manual Muscle Testing Left Flexion 5 Normal Extension 5 Normal Abduction (C5) 5 Normal Adduction 5 Normal External Rotation 4 Good Internal Rotation 5 Normal Comments pain with external rotation Elbow/Forearm Strength Elbow and Forearm Manual Muscle Testing Left Flexion (C6) 5 Normal Extension (C7) 5 Normal Comments pain with extension Wrist Strength Wrist Manual Muscle Testing Left Flexion (C7) 5 Normal Extension (C6) 5 Normal Hand Truck Mechanic/Pinch Strength Hand Dominance Hand Dominance Right Hand Strength Left Truck Mechanic (lbs) 38 Comments painful Right Truck Mechanic (lbs) 40 PT-OP-Q Treatments Start: 12/26/19 15:30 Freq: Status: Active Protocol: Document 12/26/19 15:31 DLM (Rec: 12/27/19 15:59 DL [id number]) Therapeutic Exercises Sitting Exercises 1 Sitting Exercise Name Triceps stretch, arm across body Side left Resistance passive Reps/Minutes 3 reps, 20 count hold Standing Exercises 2 Standing Exercise Name wrist flexor stretch, hand on table and lean over hand Side left Resistance passive Reps/Minutes 2 reps 1 Standing Exercise Name flexor stretch with hand on wall and rotate away Side left Reps/Minutes 2 reps, 20 sec hold each Self-Care/Home Management Treatment Education Patient Education Home Exercise Program PT-OP-R Modalities Start: 12/26/19 15:30 Freq: Status: Active Protocol: Document 12/26/19 15:31 DLM (Rec: 12/26/19 15:33 DL [id number]) Ultrasound Therapy Treatment Left Elbow Treatment Duration (minutes) 7 Patient Position Sitting Applicator Size (cm2) 5 Mode Setting Pulsed Duty Cycle 50% Intensity Setting (w/cm2) 1.5 Comments into forearm area PT-OP-T Assessment and Plan Start: 12/26/19 15:30 Freq: Status: Active Protocol: Document 12/26/19 15:31 DLM (Rec: 12/27/19 15:59 DL [id number]) Physical Therapy Assessment Rehab Potential Rehabilitation Potential Good Evaluation Complexity Number of Personal Factors/Comorbidities 3 or More Number of Body Systems Impaired 3 Clinical Presentation at Evaluation Evolving Impairments Impairments Activity Tolerance,Pain,ROM, Soft Tissue Mobility,Strength Goals Three Impairment Limited use left UE due to elbow pain Lithographing Machine Operator Goal (LTG) Resume normal use left UE without increased left elbow pain LTG Duration 6 weeks One Impairment left elbow pain 4/10 Short Term Goal (STG) decrease his pain to less than 2/10 STG Duration 4 weeks Lithographing Machine Operator Goal (LTG) 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 He presents with clinical signs of strain/ sprain left elbow. Pt reports his symptoms are improving. His case is complicated by his neck and back pain. He reports he has been able to change his work activities to aid in his recovery. He could benefit from physical therapy to address his above deficits. Physical Therapy Plan Frequency and Duration Frequency of Treatment 2x/Week Duration of Treatment 6 weeks Plan of Care Start Date 12/26/19 Plan of Care End Date 02/24/20 Therapeutic Interventions Therapeutic Interventions Home Exercise Program,Manual Therapy,Patient/Caregiver Education,Self-Care/Home Management,Soft Tissue Mobilization,Taping, Therapeutic Activities, Therapeutic Exercises Modalities Cold Pack/Ice Massage,Electric Stimulation,Hot Packs, Ultrasound Next Visit Focus/Plan Next Note Type Treatment Note Next Visit Plan add manual therapy, advance exercises
--- NOTE | 2020-01-05 17:09 | PT.OTN ---
Current Diagnoses Pain in left elbow (01/05/20) Physical Therapy Treatment Note PT-OP-A Visit Information Start: 12/26/19 15:30 Freq: Status: Active Protocol: Document 01/05/20 11:25 LRN (Rec: 01/05/20 12:32 LRN [id number]) Out-Patient Physical Therapy Visit Information Visit Information Visit Type Treatment Note Visit Note Message received that per Dr. Muñoz, it was okay to resume PT. Visit Start Time 11:25 Visit Stop Time 12:13 Total Visit Minutes 48 Visit Number 2 Evaluation Information Evaluation Date 12/26/19 Precautions Precautions He has a significant cardiac hx with [place] x 5. 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 Vertebral Artery Test with head turn R caused vision to see swirling of wall. 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 He has been able to decrease his pain by changing to his right hand lifting the frier basket. He reports his pain is getting better but has not resolved. He has a compression sleeve and a strap for his elbow that he uses to manage his pain. Prior Treatments and Tests Pt using compression sleeve, elbow strap, ice and rest at home to manage his pain. 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 He also has neck pain but has not gotten a referral to therapy for his neck yet. PT-OP-C Subjective Start: 12/26/19 15:30 Freq: Status: Active Protocol: Document 01/05/20 11:25 LRN (Rec: 01/05/20 12:32 LRN [id number]) OP-PT Subjective Patient Comments Patient Comments States the US was good last session but it didn't last because of work lifted something heavy (15-20#). States he has a hx of neck problems. PT-OP-F Manual Assessment Start: 12/26/19 15:30 Freq: Status: Active Protocol: Document 12/26/19 15:31 DLM (Rec: 12/27/19 15:59 DLM [id number]) Manual Assessments Soft Tissue Assessment Soft Tissue Mobility Assessment left wrist flexor tightness, old laceration scar left forearm Tenderness to palpation left lateral elbow, wrist flexors and triceps Joint Mobility Assessment Joint Mobility Assessment WFL left elbow Other Manual Assessments Other Manual Assessments able to visually see soft tissue tightness left cervical area PT-OP-K Range of Motion Start: 12/26/19 15:30 Freq: Status: Active Protocol: Document 12/26/19 15:31 DLM (Rec: 12/27/19 15:59 DLM [id number]) Cervical Spine Range of Motion Cervical Spine Active Percentage Testing Position Sitting Flexion 100 Extension 100 Rotation Left 80 Rotation Right 80 Lateral Flexion Left 80 Lateral Flexion Right 80 ROM Limitations Soft Tissue Tightness,Pain Elbow/Forearm Range of Motion Elbow/Forearm Right Active Elbow/Forearm ROM WFL Yes Left Active Elbow/Forearm ROM WFL Yes Wrist Goniometric Range of Motion Wrist Right Wrist ROM WFL Yes Left Wrist ROM WFL Yes PT-OP-L Special Tests Start: 12/26/19 15:30 Freq: Status: Active Protocol: Document 01/05/20 11:25 LRN (Rec: 01/05/20 12:36 LRN [id number]) Special Tests Cervical Spine Special Tests Vertebral Artery Test Results Questionable + Left Comments Sup: pt saw swirling on the wall he was looking at, Sit: no visual changes Elbow Special Tests Lateral Epicondylitis Flexed Test Results - left Comments No pain with elbow flexed Lateral Epicondylitis Extended Test Results + left Comments Pain with full elbow ext PT-OP-M Strength Start: 12/26/19 15:30 Freq: Status: Active Protocol: Document 12/26/19 15:31 DLM (Rec: 12/27/19 15:59 DLM [id number]) Shoulder Strength Shoulder Manual Muscle Testing Left Flexion 5 Normal Extension 5 Normal Abduction (C5) 5 Normal Adduction 5 Normal External Rotation 4 Good Internal Rotation 5 Normal Comments pain with external rotation Elbow/Forearm Strength Elbow and Forearm Manual Muscle Testing Left Flexion (C6) 5 Normal Extension (C7) 5 Normal Comments pain with extension Wrist Strength Wrist Manual Muscle Testing Left Flexion (C7) 5 Normal Extension (C6) 5 Normal Hand Fuel Yard Operator/Pinch Strength Hand Dominance Hand Dominance Right Hand Strength Left Fuel Yard Operator (lbs) 38 Comments painful Right Fuel Yard Operator (lbs) 40 PT-OP-Q Treatments Start: 12/26/19 15:30 Freq: Status: Active Protocol: Document 01/05/20 11:25 LRN (Rec: 01/05/20 12:32 LRN [id number]) Manual Therapy Treatment Soft Tissue Mobilization L Wrist Ext at Lateral Epicondyle Body Location L Wrist Ext at Lat Epicondyle Mobilization Type Strumming,Sustained Pressure L C/S Paraspinals Body Location L C/S Paraspinals Mobilization Type Strumming,Sustained Pressure L Supraspinatus Body Location L Supraspinatus Mobilization Type Sustained Pressure L Scalenes Body Location L Scalenes Mobilization Type Sustained Pressure L UT Body Location L UT Mobilization Type Strumming,Sustained Pressure PT-OP-R Modalities Start: 12/26/19 15:30 Freq: Status: Active Protocol: Document 01/05/20 11:25 LRN (Rec: 01/05/20 12:32 LRN [id number]) Ultrasound Therapy Treatment Left Elbow Treatment Duration (minutes) 8 Patient Position Sitting Applicator Size (cm2) 5 Mode Setting Pulsed Duty Cycle 50% Intensity Setting (w/cm2) 1.5 Comments into forearm area PT-OP-T Assessment and Plan Start: 12/26/19 15:30 Freq: Status: Active Protocol: Document 01/05/20 11:25 LRN (Rec: 01/05/20 12:32 LRN [id number]) Physical Therapy Assessment Goals Three Impairment Limited use left UE due to elbow pain Rehab Services Aide Goal (LTG) Resume normal use left UE without increased left elbow pain LTG Duration 6 weeks One Impairment left elbow pain 4/10 Short Term Goal (STG) decrease his pain to less than 2/10 STG Duration 4 weeks Rehab Services Aide Goal (LTG) Tolerate normal natural remedy consultant left hand without increased pain LTG Duration 6 weeks Two Impairment Pain with resisted elbow extension Short Term Goal (STG) Tolerate strengthening left elbow without increased pain STG Duration 4 weeks Usp Goal (LTG) 5/5 strength left UE without pain LTG Duration 6 weeks Assessment Summary Assessment 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 He has L elbow pain only with end- range elbow ext. His L elbow pain is palpable at the Lateral epicondyle, but not elicited with resisted movement at the wrist and minimally at the elbow with elbow flex. Unable to assess neck involvement due to + VA Test on left, with onset of visual swirling on the wall. He reported decrease in pain on elbow ext with cervical compression and increased with mild traction; therefore C/S instability may be present. Pt is tight in the C/S and L shoulder musculature. Rehab will be hindered & prolonged due to neck and back pain, and history of [place] with recent hospitalization for chest pain with unidentified diagnosis ( per pt report). Physical Therapy Plan Frequency and Duration Frequency of Treatment 2x/Week Duration of Treatment 6 weeks Plan of Care Start Date 12/26/19 Plan of Care End Date 02/24/20 Next Visit Focus/Plan Next Note Type Treatment Note Next Visit Plan Set pt for vestibular assessment and treatment and further monitoring for +VA Test. Manual therapy to soft tissue for L neck/shoulder, cont L UE neural tension and shoulder/wrist stretches, advance exercises for proper neck/shoulder posture & to improve painfree shoulder ER.
--- NOTE | 2020-01-09 18:15 | PT.OTN ---
Current Diagnoses Pain in left elbow (01/09/20) Physical Therapy Treatment Note PT-OP-A Visit Information Start: 12/26/19 15:30 Freq: Status: Active Protocol: Document 01/09/20 12:48 LRN (Rec: 01/09/20 13:34 LRN [id number]) Out-Patient Physical Therapy Visit Information Visit Information Visit Type Treatment Note Visit Start Time 12:48 Visit Stop Time 13:34 Total Visit Minutes 46 Visit Number 3 Evaluation Information Evaluation Date 12/26/19 Precautions Precautions He has a significant cardiac hx with [place] x 5. 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 Vertebral Artery Test with head turn R caused vision to see swirling of wall. 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 He has been able to decrease his pain by changing to his right hand lifting the frier basket. He reports his pain is getting better but has not resolved. He has a compression sleeve and a strap for his elbow that he uses to manage his pain. Prior Treatments and Tests Pt using compression sleeve, elbow strap, ice and rest at home to manage his pain. 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 He also has neck pain but has not gotten a referral to therapy for his neck yet. PT-OP-C Subjective Start: 12/26/19 15:30 Freq: Status: Active Protocol: Document 01/09/20 12:48 LRN (Rec: 01/09/20 13:34 LRN [id number]) OP-PT Subjective Patient Comments Patient Comments Ultrasound didn't help last session. [place] better after therapy, more flexible at wrist. PT-OP-F Manual Assessment Start: 12/26/19 15:30 Freq: Status: Active Protocol: Document 12/26/19 15:31 DLM (Rec: 12/27/19 15:59 DLM [id number]) Manual Assessments Soft Tissue Assessment Soft Tissue Mobility Assessment left wrist flexor tightness, old laceration scar left forearm Tenderness to palpation left lateral elbow, wrist flexors and triceps Joint Mobility Assessment Joint Mobility Assessment WFL left elbow Other Manual Assessments Other Manual Assessments able to visually see soft tissue tightness left cervical area PT-OP-K Range of Motion Start: 12/26/19 15:30 Freq: Status: Active Protocol: Document 12/26/19 15:31 DLM (Rec: 12/27/19 15:59 DLM [id number]) Cervical Spine Range of Motion Cervical Spine Active Percentage Testing Position Sitting Flexion 100 Extension 100 Rotation Left 80 Rotation Right 80 Lateral Flexion Left 80 Lateral Flexion Right 80 ROM Limitations Soft Tissue Tightness,Pain Elbow/Forearm Range of Motion Elbow/Forearm Right Active Elbow/Forearm ROM WFL Yes Left Active Elbow/Forearm ROM WFL Yes Wrist Goniometric Range of Motion Wrist Right Wrist ROM WFL Yes Left Wrist ROM WFL Yes PT-OP-L Special Tests Start: 12/26/19 15:30 Freq: Status: Active Protocol: Document 01/05/20 11:25 LRN (Rec: 01/05/20 12:36 LRN [id number]) Special Tests Cervical Spine Special Tests Vertebral Artery Test Results Questionable + Left Comments Sup: pt saw swirling on the wall he was looking at, Sit: no visual changes Elbow Special Tests Lateral Epicondylitis Flexed Test Results - left Comments No pain with elbow flexed Lateral Epicondylitis Extended Test Results + left Comments Pain with full elbow ext PT-OP-M Strength Start: 12/26/19 15:30 Freq: Status: Active Protocol: Document 12/26/19 15:31 DLM (Rec: 12/27/19 15:59 DLM [id number]) Shoulder Strength Shoulder Manual Muscle Testing Left Flexion 5 Normal Extension 5 Normal Abduction (C5) 5 Normal Adduction 5 Normal External Rotation 4 Good Internal Rotation 5 Normal Comments pain with external rotation Elbow/Forearm Strength Elbow and Forearm Manual Muscle Testing Left Flexion (C6) 5 Normal Extension (C7) 5 Normal Comments pain with extension Wrist Strength Wrist Manual Muscle Testing Left Flexion (C7) 5 Normal Extension (C6) 5 Normal Hand Managed Care Coordinator/Pinch Strength Hand Dominance Hand Dominance Right Hand Strength Left Managed Care Coordinator (lbs) 38 Comments painful Right Managed Care Coordinator (lbs) 40 PT-OP-Q Treatments Start: 12/26/19 15:30 Freq: Status: Active Protocol: Document 01/09/20 12:48 LRN (Rec: 01/09/20 13:34 LRN [id number]) Cardio Equipment Treadmill Duration (Minutes) 6 Speed 1.2 Incline 0 Other Easy pace Therapeutic Exercises Supine Exercises L UE neural stretch Supine Exercise Name Radial n. stretch:Arm out to side, wrist flexed, rotate head away Side left Sitting Exercises L UT stretch Sitting Exercise Name L UT stretch Side left Reps/Minutes 20 sec hold x 3 Stretch to wrist extensors Sitting Exercise Name Stretch to wrist extensors Side left Resistance passive Reps/Minutes 20 sec hold x 3 1 Sitting Exercise Name Triceps stretch, arm across body Side left Resistance passive Reps/Minutes 3 reps, 20 count hold Manual Therapy Treatment Soft Tissue Mobilization L Wrist Ext at Lateral Epicondyle Body Location L Wrist Ext at Lat Epicondyle Mobilization Type Strumming,Sustained Pressure L C/S Paraspinals Body Location L C/S Paraspinals Mobilization Type Strumming,Sustained Pressure L Scalenes Body Location L Scalenes Mobilization Type Sustained Pressure Joint Mobilizations MWM Joint L active elbow ext w/Medial glide Brachium/Lat glide Radius Ulna Body Position Supine Comments No pain with active elbow extension PT-OP-R Modalities Start: 12/26/19 15:30 Freq: Status: Active Protocol: Document 01/09/20 12:48 LRN (Rec: 01/09/20 13:34 LRN [id number]) Ultrasound Therapy Treatment Left Elbow Treatment Duration (minutes) 8 Patient Position Sitting Applicator Size (cm2) 5 Mode Setting Pulsed Duty Cycle 50% Intensity Setting (w/cm2) 1.5 Comments into forearm area PT-OP-T Assessment and Plan Start: 12/26/19 15:30 Freq: Status: Active Protocol: Document 01/09/20 12:48 LRN (Rec: 01/09/20 13:34 LRN [id number]) Physical Therapy Assessment Goals Three Impairment Limited use left UE due to elbow pain Mcfp Goal (LTG) Resume normal use left UE without increased left elbow pain LTG Duration 6 weeks One Impairment left elbow pain 4/10 Short Term Goal (STG) decrease his pain to less than 2/10 STG Duration 4 weeks Mcfp Goal (LTG) Tolerate 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 He states he had a cardiac stress test on his last admission (when no cardiac involvement was found for his chest pain) and states he did well with no I/S regarding his cardiac health. Pt is walking 40' to and from work; therefore good tolerance to slow walk on TM is expected. The pt had pain at L lateral epicondyle and at L wrist extensor ms bellies that responded well to Ultrasound. Pt L neck/shoulder remains tight. Pt L elbow pain appeared soft tissue related today vs possibly cervical component, although his +VA test prevents treatment for neck involvement. Pt may benefit from use of Iontophoresis; therefore referral needed for it. Pt appeared improved today after treatment. Physical Therapy Plan Frequency and Duration Frequency of Treatment 2x/Week Duration of Treatment 6 weeks Plan of Care Start Date 12/26/19 Plan of Care End Date 02/24/20 Next Visit Focus/Plan Next Note Type Treatment Note Next Visit Plan Request use of Iontophoresis at L lateral epicondyle. New POC needed to set pt for vestibular assessment and treatment. Pt needs further monitoring for +VA Test. Manual therapy to soft tissue for L neck/shoulder, Issue HEP for L UE neural stretches and shoulder/wrist stretches, advance exercises for proper neck/shoulder posture & to improve painfree shoulder ER.
--- NOTE | 2020-01-12 10:16 | PT.OTN ---
Current Diagnoses Pain in left elbow (01/12/20) Physical Therapy Treatment Note PT-OP-A Visit Information Start: 12/26/19 15:30 Freq: Status: Active Protocol: Document 01/12/20 09:07 LRN (Rec: 01/12/20 10:15 LRN [id number]) Out-Patient Physical Therapy Visit Information Visit Information Visit Type Treatment Note Visit Start Time 09:07 Visit Stop Time 09:58 Total Visit Minutes 51 Visit Number 4 Evaluation Information Evaluation Date 12/26/19 Precautions Precautions He has a significant cardiac hx with VT x 5. 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 Vertebral Artery Test with head turn R caused vision to see swirling of wall. 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 He has been able to decrease his pain by changing to his right hand lifting the frier basket. He reports his pain is getting better but has not resolved. He has a compression sleeve and a strap for his elbow that he uses to manage his pain. Prior Treatments and Tests Pt using compression sleeve, elbow strap, ice and rest at home to manage his pain. 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 He also has neck pain but has not gotten a referral to therapy for his neck yet. PT-OP-C Subjective Start: 12/26/19 15:30 Freq: Status: Active Protocol: Document 01/12/20 09:07 LRN (Rec: 01/12/20 10:15 LRN [id number]) OP-PT Subjective Patient Comments Patient Comments Last night having a lot of pain at work last night. Last night iced it a couple times, but didn't seem to help. Today feeling pretty good, not much pain straightening out. PT-OP-F Manual Assessment Start: 12/26/19 15:30 Freq: Status: Active Protocol: Document 12/26/19 15:31 DLM (Rec: 12/27/19 15:59 DLM [id number]) Manual Assessments Soft Tissue Assessment Soft Tissue Mobility Assessment left wrist flexor tightness, old laceration scar left forearm Tenderness to palpation left lateral elbow, wrist flexors and triceps Joint Mobility Assessment Joint Mobility Assessment WFL left elbow Other Manual Assessments Other Manual Assessments able to visually see soft tissue tightness left cervical area PT-OP-K Range of Motion Start: 12/26/19 15:30 Freq: Status: Active Protocol: Document 12/26/19 15:31 DLM (Rec: 12/27/19 15:59 DLM [id number]) Cervical Spine Range of Motion Cervical Spine Active Percentage Testing Position Sitting Flexion 100 Extension 100 Rotation Left 80 Rotation Right 80 Lateral Flexion Left 80 Lateral Flexion Right 80 ROM Limitations Soft Tissue Tightness,Pain Elbow/Forearm Range of Motion Elbow/Forearm Right Active Elbow/Forearm ROM WFL Yes Left Active Elbow/Forearm ROM WFL Yes Wrist Goniometric Range of Motion Wrist Right Wrist ROM WFL Yes Left Wrist ROM WFL Yes PT-OP-L Special Tests Start: 12/26/19 15:30 Freq: Status: Active Protocol: Document 01/05/20 11:25 LRN (Rec: 01/05/20 12:36 LRN [id number]) Special Tests Cervical Spine Special Tests Vertebral Artery Test Results Questionable + Left Comments Sup: pt saw swirling on the wall he was looking at, Sit: no visual changes Elbow Special Tests Lateral Epicondylitis Flexed Test Results - left Comments No pain with elbow flexed Lateral Epicondylitis Extended Test Results + left Comments Pain with full elbow ext PT-OP-M Strength Start: 12/26/19 15:30 Freq: Status: Active Protocol: Document 12/26/19 15:31 DLM (Rec: 12/27/19 15:59 DL [id number]) Shoulder Strength Shoulder Manual Muscle Testing Left Flexion 5 Normal Extension 5 Normal Abduction (C5) 5 Normal Adduction 5 Normal External Rotation 4 Good Internal Rotation 5 Normal Comments pain with external rotation Elbow/Forearm Strength Elbow and Forearm Manual Muscle Testing Left Flexion (C6) 5 Normal Extension (C7) 5 Normal Comments pain with extension Wrist Strength Wrist Manual Muscle Testing Left Flexion (C7) 5 Normal Extension (C6) 5 Normal Hand Quality Process Lead/Pinch Strength Hand Dominance Hand Dominance Right Hand Strength Left Quality Process Lead (lbs) 38 Comments painful Right Quality Process Lead (lbs) 40 PT-OP-Q Treatments Start: 12/26/19 15:30 Freq: Status: Active Protocol: Document 01/12/20 09:07 LRN (Rec: 01/12/20 10:15 LRN [id number]) Cardio Equipment Treadmill Duration (Minutes) 8 Speed 1.4 Incline 0 Other Easy pace, hands on siderails, proper head/neck posture Therapeutic Exercises Supine Exercises Stretch to wrist extensors Supine Exercise Name Stretch to wrist extensors Side left Reps/Minutes 2' pec stretch Supine Exercise Name Scap retraction Reps/Minutes 15x Standing Exercises L UE neural stretch Standing Exercise Name Depress shoulder, Bend wrist up w/fingers pointeing away from body Reps/Minutes 3' Comments Extra time for training for proper position Manual Therapy Treatment Soft Tissue Mobilization Pec stretch Body Location L Pec stretch Mobilization Type Myofascial Release L Wrist Ext at Lateral Epicondyle Body Location L Wrist Ext at Lat Epicondyle Mobilization Type Strumming Comments 1', pt had no pain at end of treatment. L C/S Paraspinals Body Location L C/S Paraspinals Mobilization Type Sustained Pressure L Supraspinatus Body Location L Supraspinatus Mobilization Type Sustained Pressure L Scalenes Body Location L Scalenes Mobilization Type Sustained Pressure L UT Body Location L UT Mobilization Type Strumming,Sustained Pressure Self-Care/Home Management Treatment Education Patient Education Home Exercise Program Activities Self-Care/Home Management Activities Issued & reviewed HEP: UE radial nerve stretch, neck alignment ex in supine, L shoulder UT stretch, & postural alighnment against wall. PT-OP-R Modalities Start: 12/26/19 15:30 Freq: Status: Active Protocol: Document 01/12/20 09:07 LRN (Rec: 01/12/20 10:15 LRN [id number]) Ultrasound Therapy Treatment Left Elbow Treatment Duration (minutes) 8 Patient Position Supine Applicator Size (cm2) 5 Mode Setting Pulsed Duty Cycle 50% Intensity Setting (w/cm2) 1.5 Comments into forearm area PT-OP-T Assessment and Plan Start: 12/26/19 15:30 Freq: Status: Active Protocol: Document 01/12/20 09:07 LRN (Rec: 01/12/20 10:15 LRN [id number]) Physical Therapy Assessment Goals Three Impairment Limited use left UE due to elbow pain Comb Winder Goal (LTG) Resume normal use left UE without increased left elbow pain LTG Duration 6 weeks One Impairment left elbow pain 4/10 Short Term Goal (STG) decrease his pain to less than 2/10 STG Duration 4 weeks Halfway Goal (LTG) Tolerate normal site coordinator left hand without increased pain LTG Duration 6 weeks Two Impairment Pain with resisted elbow extension Short Term Goal (STG) Tolerate strengthening left elbow without increased pain STG Duration 4 weeks Comb Winder Goal (LTG) 5/5 strength left UE without pain LTG Duration 6 weeks Assessment Summary Assessment No episodes of dizziness since initial eval, no indication of vestibular dysfunction; therefore assessment probably not needed, will monitor in future for need of assessment. today pt had -VA testing bilaterally. Pt able to straighten his L elbow without pain for the first time today . No palpable pain at lateral epicondyle wrist extensors, or with elbow ext, post therapy. Physical Therapy Plan Frequency and Duration Frequency of Treatment 2x/Week Duration of Treatment 6 weeks Plan of Care Start Date 12/26/19 Plan of Care End Date 02/24/20 Next Visit Focus/Plan Next Note Type Treatment Note Next Visit Plan Request use of Iontophoresis at L lateral epicondyle Monitor dizziness. Manual therapy to soft tissue for L neck/shoulder, Issue HEP for L Scalene & wrist (extensor) stretches, advance exercises for proper neck/shoulder posture & to improve painfree shoulder ER. Progress towards strengthening of wrist extensors without pain.
--- NOTE | 2020-01-19 17:18 | PT.OPPN ---
Current Diagnoses Pain in left elbow (01/12/20) Physical Therapy Progress Note PT-OP-A Visit Information Start: 12/26/19 15:30 Freq: Status: Active Protocol: Document 01/12/20 09:07 LRN (Rec: 01/12/20 10:15 LRN [id number]) Out-Patient Physical Therapy Visit Information Visit Information Visit Type Treatment Note Visit Start Time 09:07 Visit Stop Time 09:58 Total Visit Minutes 51 Visit Number 4 Evaluation Information Evaluation Date 12/26/19 Precautions Precautions He has a significant cardiac hx with RI x 5. 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 Vertebral Artery Test with head turn R caused vision to see swirling of wall. 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 He has been able to decrease his pain by changing to his right hand lifting the frier basket. He reports his pain is getting better but has not resolved. He has a compression sleeve and a strap for his elbow that he uses to manage his pain. Prior Treatments and Tests Pt using compression sleeve, elbow strap, ice and rest at home to manage his pain. 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 He also has neck pain but has not gotten a referral to therapy for his neck yet. PT-OP-C Subjective Start: 12/26/19 15:30 Freq: Status: Active Protocol: Document 01/12/20 09:07 LRN (Rec: 01/12/20 10:15 LRN [id number]) OP-PT Subjective Patient Comments Patient Comments Last night having a lot of pain at work last night. Last night iced it a couple times, but didn't seem to help. Today feeling pretty good, not much pain straightening out. PT-OP-F Manual Assessment Start: 12/26/19 15:30 Freq: Status: Active Protocol: Document 12/26/19 15:31 DLM (Rec: 12/27/19 15:59 DLM [id number]) Manual Assessments Soft Tissue Assessment Soft Tissue Mobility Assessment left wrist flexor tightness, old laceration scar left forearm Tenderness to palpation left lateral elbow, wrist flexors and triceps Joint Mobility Assessment Joint Mobility Assessment WFL left elbow Other Manual Assessments Other Manual Assessments able to visually see soft tissue tightness left cervical area PT-OP-K Range of Motion Start: 12/26/19 15:30 Freq: Status: Active Protocol: Document 12/26/19 15:31 DLM (Rec: 12/27/19 15:59 DLM [id number]) Cervical Spine Range of Motion Cervical Spine Active Percentage Testing Position Sitting Flexion 100 Extension 100 Rotation Left 80 Rotation Right 80 Lateral Flexion Left 80 Lateral Flexion Right 80 ROM Limitations Soft Tissue Tightness,Pain Elbow/Forearm Range of Motion Elbow/Forearm Measured in Degrees Right Active Elbow/Forearm ROM WFL Yes Left Active Elbow/Forearm ROM WFL Yes Wrist Goniometric Range of Motion Wrist Measured in Degrees Right Wrist ROM WFL Yes Left Wrist ROM WFL Yes PT-OP-L Special Tests Start: 12/26/19 15:30 Freq: Status: Active Protocol: Document 01/05/20 11:25 LRN (Rec: 01/05/20 12:36 LRN [id number]) Special Tests Cervical Spine Special Tests Vertebral Artery Test Results Questionable + Left Comments Sup: pt saw swirling on the wall he was looking at, Sit: no visual changes Elbow Special Tests Lateral Epicondylitis Flexed Test Results - left Comments No pain with elbow flexed Lateral Epicondylitis Extended Test Results + left Comments Pain with full elbow ext PT-OP-M Strength Start: 12/26/19 15:30 Freq: Status: Active Protocol: Document 12/26/19 15:31 DLM (Rec: 12/27/19 15:59 DLM [id number]) Shoulder Strength Shoulder Manual Muscle Testing Left Flexion 5 Normal Extension 5 Normal Abduction (C5) 5 Normal Adduction 5 Normal External Rotation 4 Good Internal Rotation 5 Normal Comments pain with external rotation Elbow/Forearm Strength Elbow and Forearm Manual Muscle Testing Left Flexion (C6) 5 Normal Extension (C7) 5 Normal Comments pain with extension Wrist Strength Wrist Manual Muscle Testing Left Flexion (C7) 5 Normal Extension (C6) 5 Normal Hand Diamond Powder Technician/Pinch Strength Hand Dominance Hand Dominance Right Hand Strength Left Diamond Powder Technician (lbs) 38 Comments painful Right Diamond Powder Technician (lbs) 40 PT-OP-T Assessment and Plan Start: 12/26/19 15:30 Freq: Status: Active Protocol: Document 01/19/20 17:09 LRN (Rec: 01/19/20 17:17 LRN [id number]) Physical Therapy Assessment Rehab Potential Rehabilitation Potential Good Evaluation Complexity Number of Personal Factors/Comorbidities 3 or More Number of Body Systems Impaired 3 Clinical Presentation at Evaluation Evolving Impairments Impairments Activity Tolerance,Pain,ROM, Soft Tissue Mobility,Strength Goals Three Impairment Limited use left UE due to elbow pain Assisted Goal (LTG) Resume normal use left UE without increased left elbow pain LTG Duration 6 weeks One Impairment left elbow pain 4/10 Short Term Goal (STG) decrease his pain to less than 2/10 STG Duration 4 weeks Assisted Goal (LTG) Tolerate normal switchboard receptionist left hand without increased pain LTG Duration 6 weeks Two Impairment Pain with resisted elbow extension Short Term Goal (STG) Tolerate strengthening left elbow without increased pain STG Duration 4 weeks Principal Solutions Architect Goal (LTG) 5/5 strength left UE without pain LTG Duration 6 weeks Progress Towards Goals Progress Towards Goals Slow Progress due to Activity Tolerance Progress Comments Progress slow due to pt continues to work while doing therapy. Assessment Summary Assessment No episodes of dizziness since initial eval, therefore no indication of vestibular dysfunction. Assessment is probably not needed, will monitor in future for need of assessment. Pt had -Vertebral Artery testing bilaterally; therefore I have been able to do some therapy involving his neck, which appears to be helpful. Pt able to straighten his L elbow without pain for the first time today. No palpable pain at lateral epicondyle wrist extensors, or with elbow ext, post therapy. Pt does have pain with use; therefore I recommend adding to his therapy program use of Iontophoresis to help decrease his L elbow pain if you agree . Physical Therapy Plan Frequency and Duration Frequency of Treatment 2x/Week Duration of Treatment 6 weeks Plan of Care Start Date 12/26/19 Plan of Care End Date 02/24/20 Therapeutic Interventions Therapeutic Interventions Home Exercise Program,Manual Therapy,Patient/Caregiver Education,Self-Care/Home Management,Soft Tissue Mobilization,Taping, Therapeutic Activities, Therapeutic Exercises Modalities Cold Pack/Ice Massage,Electric Stimulation,Hot Packs, Ultrasound Other Therapeutic Interventions Iontophoresis with 4mg/mL Dexamethasone with Sodium Phosphate. Next Visit Focus/Plan Next Note Type Treatment Note Next Visit Plan If new POC returned, add use of Iontophoresis at L lateral epicondyle for pain. Monitor dizziness. Manual therapy to soft tissue for L neck/ shoulder, Issue HEP for L Scalene & wrist (extensor) stretches, advance exercises for proper neck/shoulder posture & to improve painfree shoulder ER. Progress towards strengthening of wrist extensors without pain.
--- NOTE | 2020-01-19 17:20 | PT.OPPOC ---
Physical, Occupational & Speech Therapy At [facility] Current Diagnoses Pain in left elbow (01/12/20) Visit Care Team Role Provider Type Jaylon Muñoz MD Primary Care Provider Physician Specialty: [facility] Address: [address] [place] [address], [id number] Email: [email or web address] JO-ANN Carmen Attending Provider Advanced Salvage Engineering Technician Referring Provider Specialty: [facility] Address: [address] [place] [address], [id number] Email: [email or web address] Plan Of Care PT-OP-T Assessment and Plan Start: 12/26/19 15:30 Freq: Status: Active Protocol: Document 01/19/20 17:09 LRN (Rec: 01/19/20 17:17 LRN [id number]) Physical Therapy Assessment Rehab Potential Rehabilitation Potential Good Evaluation Complexity Number of Personal Factors/Comorbidities 3 or More Number of Body Systems Impaired 3 Clinical Presentation at Evaluation Evolving Impairments Impairments Activity Tolerance,Pain,ROM, Soft Tissue Mobility,Strength Goals Three Impairment Limited use left UE due to elbow pain Senior Living Goal (LTG) Resume normal use left UE without increased left elbow pain LTG Duration 6 weeks One Impairment left elbow pain 4/10 Short Term Goal (STG) decrease his pain to less than 2/10 STG Duration 4 weeks Senior Living Goal (LTG) Tolerate normal vacuum worker left hand without increased pain LTG Duration 6 weeks Two Impairment Pain with resisted elbow extension Short Term Goal (STG) Tolerate strengthening left elbow without increased pain STG Duration 4 weeks Senior Living Goal (LTG) 5/5 strength left UE without pain LTG Duration 6 weeks Progress Towards Goals Progress Towards Goals Slow Progress due to Activity Tolerance Progress Comments Progress slow due to pt continues to work while doing therapy. Assessment Summary Assessment No episodes of dizziness since initial eval, therefore no indication of vestibular dysfunction. Assessment is probably not needed, will monitor in future for need of assessment. Pt had -Vertebral Artery testing bilaterally; therefore I have been able to do some therapy involving his neck, which appears to be helpful. Pt able to straighten his L elbow without pain for the first time today. No palpable pain at lateral epicondyle wrist extensors, or with elbow ext, post therapy. Pt does have pain with use; therefore I recommend adding to his therapy program use of Iontophoresis to help decrease his L elbow pain if you agree . Physical Therapy Plan Frequency and Duration Frequency of Treatment 2x/Week Duration of Treatment 6 weeks Plan of Care Start Date 12/26/19 Plan of Care End Date 02/24/20 Therapeutic Interventions Therapeutic Interventions Home Exercise Program,Manual Therapy,Patient/Caregiver Education,Self-Care/Home Management,Soft Tissue Mobilization,Taping, Therapeutic Activities, Therapeutic Exercises Modalities Cold Pack/Ice Massage,Electric Stimulation,Hot Packs, Ultrasound Other Therapeutic Interventions Iontophoresis with 4mg/mL Dexamethasone with Sodium Phosphate. Next Visit Focus/Plan Next Note Type Treatment Note Next Visit Plan If new POC returned, add use of Iontophoresis at L lateral epicondyle for pain. Monitor dizziness. Manual therapy to soft tissue for L neck/ shoulder, Issue HEP for L Scalene & wrist (extensor) stretches, advance exercises for proper neck/shoulder posture & to improve painfree shoulder ER. Progress towards strengthening of wrist extensors without pain. Plan of Care Dates Plan of Care Start Date 12/26/19 Plan of Care End Date 02/24/20 Electronically Signed by: Kendy Camargo, PT 01/19/20 [id number] Please Sign and Return: I have reviewed this Plan of Care and certify that the skilled therapy services above are required to meet the patient?s needs. Physician Signature Date Printed Name and Credentials Clinical Instructor Signature Printed Name and Credentials
--- NOTE | 2020-02-03 16:29 | PT.OTN ---
Current Diagnoses Pain in left elbow (02/03/20) Physical Therapy Treatment Note PT-OP-A Visit Information Start: 12/26/19 15:30 Freq: Status: Active Protocol: Document 02/03/20 09:56 LRN (Rec: 02/03/20 10:32 LRN [id number]) Out-Patient Physical Therapy Visit Information Visit Information Visit Type Treatment Note Visit Start Time 09:56 Visit Stop Time 10:31 Total Visit Minutes 35 Visit Number 6 Evaluation Information Evaluation Date 12/26/19 Precautions Precautions He has a significant cardiac hx with CO x 5. 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 Vertebral Artery Test with head turn R caused vision to see swirling of wall. 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 He has been able to decrease his pain by changing to his right hand lifting the frier basket. He reports his pain is getting better but has not resolved. He has a compression sleeve and a strap for his elbow that he uses to manage his pain. Prior Treatments and Tests Pt using compression sleeve, elbow strap, ice and rest at home to manage his pain. 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 He also has neck pain but has not gotten a referral to therapy for his neck yet. PT-OP-C Subjective Start: 12/26/19 15:30 Freq: Status: Active Protocol: Document 02/03/20 09:56 LRN (Rec: 02/03/20 10:32 LRN [id number]) OP-PT Subjective Patient Comments Patient Comments States it is better with icing . Wearing strap at work. PT-OP-F Manual Assessment Start: 12/26/19 15:30 Freq: Status: Active Protocol: Document 12/26/19 15:31 DLM (Rec: 12/27/19 15:59 DLM [id number]) Manual Assessments Soft Tissue Assessment Soft Tissue Mobility Assessment left wrist flexor tightness, old laceration scar left forearm Tenderness to palpation left lateral elbow, wrist flexors and triceps Joint Mobility Assessment Joint Mobility Assessment WFL left elbow Other Manual Assessments Other Manual Assessments able to visually see soft tissue tightness left cervical area PT-OP-K Range of Motion Start: 12/26/19 15:30 Freq: Status: Active Protocol: Document 12/26/19 15:31 DLM (Rec: 12/27/19 15:59 DLM [id number]) Cervical Spine Range of Motion Cervical Spine Active Percentage Testing Position Sitting Flexion 100 Extension 100 Rotation Left 80 Rotation Right 80 Lateral Flexion Left 80 Lateral Flexion Right 80 ROM Limitations Soft Tissue Tightness,Pain Elbow/Forearm Range of Motion Elbow/Forearm Right Active Elbow/Forearm ROM WFL Yes Left Active Elbow/Forearm ROM WFL Yes Wrist Goniometric Range of Motion Wrist Right Wrist ROM WFL Yes Left Wrist ROM WFL Yes PT-OP-L Special Tests Start: 12/26/19 15:30 Freq: Status: Active Protocol: Document 01/05/20 11:25 LRN (Rec: 01/05/20 12:36 LRN [id number]) Special Tests Cervical Spine Special Tests Vertebral Artery Test Results Questionable + Left Comments Sup: pt saw swirling on the wall he was looking at, Sit: no visual changes Elbow Special Tests Lateral Epicondylitis Flexed Test Results - left Comments No pain with elbow flexed Lateral Epicondylitis Extended Test Results + left Comments Pain with full elbow ext PT-OP-M Strength Start: 12/26/19 15:30 Freq: Status: Active Protocol: Document 12/26/19 15:31 DLM (Rec: 12/27/19 15:59 DLM [id number]) Shoulder Strength Shoulder Manual Muscle Testing Left Flexion 5 Normal Extension 5 Normal Abduction (C5) 5 Normal Adduction 5 Normal External Rotation 4 Good Internal Rotation 5 Normal Comments pain with external rotation Elbow/Forearm Strength Elbow and Forearm Manual Muscle Testing Left Flexion (C6) 5 Normal Extension (C7) 5 Normal Comments pain with extension Wrist Strength Wrist Manual Muscle Testing Left Flexion (C7) 5 Normal Extension (C6) 5 Normal Hand Log Getter/Pinch Strength Hand Dominance Hand Dominance Right Hand Strength Left Log Getter (lbs) 38 Comments painful Right Log Getter (lbs) 40 PT-OP-Q Treatments Start: 12/26/19 15:30 Freq: Status: Active Protocol: Document 02/03/20 09:56 LRN (Rec: 02/03/20 16:21 LRN [id number]) Therapeutic Exercises Supine Exercises Wrist ext Supine Exercise Name Active wrist ext after US Side left Reps/Minutes 10x in each forearm position Comments Forearm: sup, pron, 1/2 sup Stretch to wrist extensors Supine Exercise Name Stretch to wrist extensors Side left Reps/Minutes 2' L UE neural stretch Supine Exercise Name Passive stretch Radial & Median nerve stretch Side left Reps/Minutes 3' Sitting Exercises L Wrist ext's Sitting Exercise Name Wrist ext Side left Resistance with & w/o Lev 1 T-Band Reps/Minutes 4' Comments Ex with & w/o T-Band using manual pressure across extensors to mitigate pn Stretch to wrist extensors Sitting Exercise Name Stretch to wrist extensors Side left Resistance passive Reps/Minutes 20 sec hold x 3 Manual Therapy Treatment Soft Tissue Mobilization L Wrist Ext at Lateral Epicondyle Body Location L Wrist Ext at Lat Epicondyle Mobilization Type Strumming Comments Done after US. Started superficial and working to moderate depth. L UT Body Location L UT Mobilization Type Sustained Pressure PT-OP-R Modalities Start: 12/26/19 15:30 Freq: Status: Active Protocol: Document 02/03/20 09:56 LRN (Rec: 02/03/20 16:21 LRN [id number]) Iontophoresis Treatment L lateral epicondyle Treatment Medication Dexamethasone (-) Medication Amount (mL) (ml) 1 Medication Dosage 4mg/mL Treatment Polarity Negative to Negative Active Electrode Placement L lateral Epicondyle Dispersive Electrode Placement L lateral Brachium Treatment Duration (minutes) 12 Patient Tolerance Good Ultrasound Therapy Treatment Left Elbow Treatment Duration (minutes) 8 Patient Position Supine Applicator Size (cm2) 5 Mode Setting Pulsed Duty Cycle 50% Intensity Setting (w/cm2) 1.5 Comments L lateral wrist ext proximal tendons and into forearm. PT-OP-T Assessment and Plan Start: 12/26/19 15:30 Freq: Status: Active Protocol: Document 02/03/20 09:56 LRN (Rec: 02/03/20 10:32 LRN [id number]) Physical Therapy Assessment Goals Three Impairment Limited use left UE due to elbow pain College Dean Goal (LTG) Resume normal use left UE without increased left elbow pain LTG Duration 6 weeks (02/03/20: NOT MET) One Impairment left elbow pain 4/10 Short Term Goal (STG) decrease his pain to less than 2/10. 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 Only after US was pt able to exer wrist extensors without pain. Pt working is hindering his ability to progress with therapy. He has noticed less pain with an increased use of cryotherapy. Dizziness not present. Physical Therapy Plan Frequency and Duration Frequency of Treatment 2x/Week Duration of Treatment 6 weeks Plan of Care Start Date 12/26/19 Plan of Care End Date 02/24/20 Next Visit Focus/Plan Next Note Type Treatment Note Next Visit Plan Cont Iontophoresis at L lateral epicondyle for pain. Monitor dizziness. Manual therapy to soft tissue for L neck/shoulder, Issue HEP for L wrist (extensor) stretches, advance exercises for proper neck/shoulder posture & to improve painfree shoulder ER. Progress towards strengthening of wrist extensors without pain.
--- NOTE | 2020-02-06 17:40 | PT.OTN ---
Current Diagnoses Pain in left elbow (02/06/20) Physical Therapy Treatment Note PT-OP-A Visit Information Start: 12/26/19 15:30 Freq: Status: Active Protocol: Document 02/06/20 12:48 LRN (Rec: 02/06/20 13:30 LRN [id number]) Out-Patient Physical Therapy Visit Information Visit Information Visit Type Treatment Note Visit Start Time 12:48 Visit Stop Time 13:29 Total Visit Minutes 41 Visit Number 7 Evaluation Information Evaluation Date 12/26/19 Precautions Precautions He has a significant cardiac hx with [place] x 5. 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 Vertebral Artery Test with head turn R caused vision to see swirling of wall. 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 He has been able to decrease his pain by changing to his right hand lifting the frier basket. He reports his pain is getting better but has not resolved. He has a compression sleeve and a strap for his elbow that he uses to manage his pain. Prior Treatments and Tests Pt using compression sleeve, elbow strap, ice and rest at home to manage his pain. 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 He also has neck pain but has not gotten a referral to therapy for his neck yet. PT-OP-C Subjective Start: 12/26/19 15:30 Freq: Status: Active Protocol: Document 02/06/20 12:48 LRN (Rec: 02/06/20 13:30 LRN [id number]) OP-PT Subjective Patient Comments Patient Comments States he is off for this week due to COVID-19 Virus. Last worked yesterday morning, elbow is not too bad, its a little better, less pain. OP-PT Pain Assessment Location Left Elbow Intensity 2 PT-OP-F Manual Assessment Start: 12/26/19 15:30 Freq: Status: Active Protocol: Document 12/26/19 15:31 DLM (Rec: 12/27/19 15:59 DLM [id number]) Manual Assessments Soft Tissue Assessment Soft Tissue Mobility Assessment left wrist flexor tightness, old laceration scar left forearm Tenderness to palpation left lateral elbow, wrist flexors and triceps Joint Mobility Assessment Joint Mobility Assessment WFL left elbow Other Manual Assessments Other Manual Assessments able to visually see soft tissue tightness left cervical area PT-OP-K Range of Motion Start: 12/26/19 15:30 Freq: Status: Active Protocol: Document 12/26/19 15:31 DLM (Rec: 12/27/19 15:59 DLM [id number]) Cervical Spine Range of Motion Cervical Spine Active Percentage Testing Position Sitting Flexion 100 Extension 100 Rotation Left 80 Rotation Right 80 Lateral Flexion Left 80 Lateral Flexion Right 80 ROM Limitations Soft Tissue Tightness,Pain Elbow/Forearm Range of Motion Elbow/Forearm Right Active Elbow/Forearm ROM WFL Yes Left Active Elbow/Forearm ROM WFL Yes Wrist Goniometric Range of Motion Wrist Right Wrist ROM WFL Yes Left Wrist ROM WFL Yes PT-OP-L Special Tests Start: 12/26/19 15:30 Freq: Status: Active Protocol: Document 01/05/20 11:25 LRN (Rec: 01/05/20 12:36 LRN [id number]) Special Tests Cervical Spine Special Tests Vertebral Artery Test Results Questionable + Left Comments Sup: pt saw swirling on the wall he was looking at, Sit: no visual changes Elbow Special Tests Lateral Epicondylitis Flexed Test Results - left Comments No pain with elbow flexed Lateral Epicondylitis Extended Test Results + left Comments Pain with full elbow ext PT-OP-M Strength Start: 12/26/19 15:30 Freq: Status: Active Protocol: Document 12/26/19 15:31 DLM (Rec: 12/27/19 15:59 DLM [id number]) Shoulder Strength Shoulder Manual Muscle Testing Left Flexion 5 Normal Extension 5 Normal Abduction (C5) 5 Normal Adduction 5 Normal External Rotation 4 Good Internal Rotation 5 Normal Comments pain with external rotation Elbow/Forearm Strength Elbow and Forearm Manual Muscle Testing Left Flexion (C6) 5 Normal Extension (C7) 5 Normal Comments pain with extension Wrist Strength Wrist Manual Muscle Testing Left Flexion (C7) 5 Normal Extension (C6) 5 Normal Hand Food Concession Manager/Pinch Strength Hand Dominance Hand Dominance Right Hand Strength Left Food Concession Manager (lbs) 38 Comments painful Right Food Concession Manager (lbs) 40 PT-OP-Q Treatments Start: 12/26/19 15:30 Freq: Status: Active Protocol: Document 02/06/20 12:48 LRN (Rec: 02/06/20 13:30 LRN [id number]) Therapeutic Exercises Supine Exercises L shoulder stretches Supine Exercise Name Passive shoulder flex, ER, IR Side left Reps/Minutes 3' Wrist ext Supine Exercise Name Active wrist ext after US Side left Reps/Minutes 10x in each forearm position Comments Forearm: sup, pron, 1/2 sup Stretch to wrist extensors Supine Exercise Name Stretch to wrist extensors Side left Reps/Minutes 2' L UE neural stretch Supine Exercise Name Passive stretch Radial & Median nerve stretch Side left Reps/Minutes 3' Sitting Exercises Gripping Sitting Exercise Name Gripping folded hand towel Side left Reps/Minutes 15x Comments Food Concession Manager within painfree range Standing Exercises doorway stretch Standing Exercise Name Shoulders 120, 90, 70 deg's AB Reps/Minutes 30x2 each Comments Corner stretch Manual Therapy Treatment Soft Tissue Mobilization L Wrist Ext at Lateral Epicondyle Body Location L Wrist Ext at Lat Epicondyle Mobilization Type Strumming Comments Done after US. Started superficial and working to moderate depth. L Scalenes Body Location L Scalenes Mobilization Type Sustained Pressure L UT Body Location L UT Mobilization Type Sustained Pressure PT-OP-R Modalities Start: 12/26/19 15:30 Freq: Status: Active Protocol: Document 02/06/20 12:48 LRN (Rec: 02/06/20 13:30 LRN [id number]) Iontophoresis Treatment L lateral epicondyle Treatment Medication Dexamethasone (-) Medication Amount (mL) (ml) 1 Medication Dosage 4mg/mL Treatment Polarity Negative to Negative Active Electrode Placement L lateral Epicondyle Dispersive Electrode Placement L lateral Brachium Treatment Duration (minutes) 12 Patient Tolerance Good Ultrasound Therapy Treatment L Wrist Ext mm Treatment Duration (minutes) 5 Patient Position Supine Applicator Size (cm2) 5 Duty Cycle 100% Intensity Setting (w/cm2) 1.5 Left Elbow Treatment Duration (minutes) 3 Patient Position Supine Applicator Size (cm2) 5 Mode Setting Pulsed Duty Cycle 50% Intensity Setting (w/cm2) 1.0 Comments L lateral wrist ext proximal tendons and into forearm. PT-OP-T Assessment and Plan Start: 12/26/19 15:30 Freq: Status: Active Protocol: Document 02/06/20 12:48 LRN (Rec: 02/06/20 13:30 LRN [id number]) Physical Therapy Assessment Goals Three Impairment Limited use left UE due to elbow pain Production Support Consultant Goal (LTG) Resume normal use left UE without increased left elbow pain LTG Duration 6 weeks (02/03/20: NOT MET) One Impairment left elbow pain 4/10 Short Term Goal (STG) decrease his pain to less than 2/10. (02/03/20: Pain is 2/10) STG Duration 4 weeks (02/03/20: Progressing) Fpc Goal (LTG) Tolerate normal technical aid left hand without increased pain LTG Duration 6 weeks (02/03/20: NOT MET) Two Impairment Pain with resisted elbow extension Short Term Goal (STG) Tolerate strengthening left elbow without increased pain STG Duration 4 weeks (02/03/20: NOT MET) Production Support Consultant Goal (LTG) 5/5 strength left UE without pain LTG Duration 6 weeks (02/03/20: NOT MET) Assessment Summary Assessment Pt sore in L wrist extensor mm bellies with palpation, tenderness at L lateral epicondyle with active wrist extension. Pt is less tender at lateral epicondyle compared to last session, but pain present with active use. Pt has the week off work; therefore expect greater improvement this week. Physical Therapy Plan Frequency and Duration Frequency of Treatment 2x/Week Duration of Treatment 6 weeks Plan of Care Start Date 12/26/19 Plan of Care End Date 02/24/20 Next Visit Focus/Plan Next Note Type Treatment Note Next Visit Plan Issue HEP for L wrist ( extensor) stretches. Cont Iontophoresis at L lateral epicondyle for pain. Monitor dizziness. Manual therapy to soft tissue for L neck/ shoulder, advance exercises for proper neck/shoulder posture & to improve painfree shoulder ER. Progress towards strengthening of wrist extensors without pain.
--- NOTE | 2020-02-09 16:07 | PT.OTN ---
Current Diagnoses Pain in left elbow (02/09/20) Physical Therapy Treatment Note PT-OP-A Visit Information Start: 12/26/19 15:30 Freq: Status: Active Protocol: Document 02/09/20 13:27 LRN (Rec: 02/09/20 16:00 LRN [id number]) Out-Patient Physical Therapy Visit Information Visit Information Visit Type Progress Note Visit Start Time 13:27 Visit Stop Time 14:19 Total Visit Minutes 52 Visit Number 8 Evaluation Information Evaluation Date 12/26/19 Precautions Precautions He has a significant cardiac hx with [place] x 5. 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 Vertebral Artery Test with head turn R caused vision to see swirling of wall. 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 He has been able to decrease his pain by changing to his right hand lifting the frier basket. He reports his pain is getting better but has not resolved. He has a compression sleeve and a strap for his elbow that he uses to manage his pain. Prior Treatments and Tests Pt using compression sleeve, elbow strap, ice and rest at home to manage his pain. 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 He also has neck pain but has not gotten a referral to therapy for his neck yet. PT-OP-C Subjective Start: 12/26/19 15:30 Freq: Status: Active Protocol: Document 02/09/20 13:27 LRN (Rec: 02/09/20 16:00 LRN [id number]) OP-PT Subjective Patient Comments Patient Comments States he has felt better, but today his L elbow hurts. Thought the Iontopatch was helpful with reduction in pain the day of treatment; the day after hardly had any pain. PT-OP-F Manual Assessment Start: 12/26/19 15:30 Freq: Status: Active Protocol: Document 12/26/19 15:31 DLM (Rec: 12/27/19 15:59 DLM [id number]) Manual Assessments Soft Tissue Assessment Soft Tissue Mobility Assessment left wrist flexor tightness, old laceration scar left forearm Tenderness to palpation left lateral elbow, wrist flexors and triceps Joint Mobility Assessment Joint Mobility Assessment WFL left elbow Other Manual Assessments Other Manual Assessments able to visually see soft tissue tightness left cervical area PT-OP-K Range of Motion Start: 12/26/19 15:30 Freq: Status: Active Protocol: Document 12/26/19 15:31 DLM (Rec: 12/27/19 15:59 DLM [id number]) Cervical Spine Range of Motion Cervical Spine Active Percentage Testing Position Sitting Flexion 100 Extension 100 Rotation Left 80 Rotation Right 80 Lateral Flexion Left 80 Lateral Flexion Right 80 ROM Limitations Soft Tissue Tightness,Pain Elbow/Forearm Range of Motion Elbow/Forearm Right Active Elbow/Forearm ROM WFL Yes Left Active Elbow/Forearm ROM WFL Yes Wrist Goniometric Range of Motion Wrist Right Wrist ROM WFL Yes Left Wrist ROM WFL Yes PT-OP-L Special Tests Start: 12/26/19 15:30 Freq: Status: Active Protocol: Document 01/05/20 11:25 LRN (Rec: 01/05/20 12:36 LRN [id number]) Special Tests Cervical Spine Special Tests Vertebral Artery Test Results Questionable + Left Comments Sup: pt saw swirling on the wall he was looking at, Sit: no visual changes Elbow Special Tests Lateral Epicondylitis Flexed Test Results - left Comments No pain with elbow flexed Lateral Epicondylitis Extended Test Results + left Comments Pain with full elbow ext PT-OP-M Strength Start: 12/26/19 15:30 Freq: Status: Active Protocol: Document 02/03/20 15:31 DLM (Rec: 12/27/19 15:59 DLM [id number]) Shoulder Strength Shoulder Manual Muscle Testing Left Flexion 5 Normal Extension 5 Normal Abduction (C5) 5 Normal Adduction 5 Normal External Rotation 4 Good Internal Rotation 5 Normal Comments pain with external rotation Elbow/Forearm Strength Elbow and Forearm Manual Muscle Testing Left Flexion (C6) 5 Normal Extension (C7) 5 Normal Comments pain with extension Wrist Strength Wrist Manual Muscle Testing Left Flexion (C7) 5 Normal Extension (C6) 5 Normal Hand Missile And Missile Checkout Technician/Pinch Strength Hand Dominance Hand Dominance Right Hand Strength Left Missile And Missile Checkout Technician (lbs) 38 Comments painful Right Missile And Missile Checkout Technician (lbs) 40 PT-OP-Q Treatments Start: 12/26/19 15:30 Freq: Status: Active Protocol: Document 02/09/20 13:27 LRN (Rec: 02/09/20 16:00 LRN [id number]) Therapeutic Exercises Supine Exercises L Supinator Supine Exercise Name Contract/Relax stretch & MFR with wrist flex/ext during stretch Reps/Minutes 4' Stretch to wrist extensors Supine Exercise Name Stretch to wrist extensors Side left Reps/Minutes 3' L UE neural stretch Supine Exercise Name Passive stretch Radial & Median nerve stretch Side left Reps/Minutes 3' pec stretch Supine Exercise Name Scapular Pinches Reps/Minutes 10x Manual Therapy Treatment Soft Tissue Mobilization Region near L Supinator Body Location L Supinator Mobilization Type Trigger Point Release Intensity/Depth Deep Body Position Supine L Wrist Ext ms bellies Body Location L wrist Ext ms bellies Mobilization Type Strumming,Sustained Pressure Intensity/Depth Moderate L Wrist Ext at Lateral Epicondyle Body Location L Wrist Ext at Lat Epicondyle Mobilization Type Strumming Body Position Supine Comments Done after US. Started superficial and working to moderate depth. L C/S Paraspinals Body Location S C/S Paraspinals Mobilization Type Strumming Self-Care/Home Management Treatment Education Patient Education Home Exercise Program Activities Self-Care/Home Management Activities Issued and I/S pt in use of contrast bath for decreasing edema and pain for L lateral epicondyle. PT-OP-R Modalities Start: 12/26/19 15:30 Freq: Status: Active Protocol: Document 02/09/20 13:27 LRN (Rec: 02/09/20 16:00 LRN [id number]) Iontophoresis Treatment L lateral epicondyle Treatment Medication Dexamethasone (-) Medication Amount (mL) (ml) 1 Medication Dosage 4mg/mL Treatment Polarity Negative to Negative Active Electrode Placement L lateral Epicondyle Dispersive Electrode Placement L lateral Brachium Treatment Duration (minutes) 12 Patient Tolerance Good Ultrasound Therapy Treatment Left Elbow Treatment Duration (minutes) 8 Patient Position Supine Applicator Size (cm2) 5 Mode Setting Pulsed Duty Cycle 50% Intensity Setting (w/cm2) 1.0 Comments L lateral wrist ext proximal tendons and into forearm. PT-OP-T Assessment and Plan Start: 12/26/19 15:30 Freq: Status: Active Protocol: Document 02/09/20 13:27 LRN (Rec: 02/09/20 16:00 LRN [id number]) Physical Therapy Assessment Rehab Potential Rehabilitation Potential Good Evaluation Complexity Number of Personal Factors/Comorbidities 3 or More Number of Body Systems Impaired 3 Clinical Presentation at Evaluation Evolving Impairments Impairments Activity Tolerance,Pain,ROM, Soft Tissue Mobility,Strength Goals Three Impairment Limited use left UE due to elbow pain Social Services Aide Goal (LTG) Resume normal use left UE without increased left elbow pain LTG Duration 6 weeks (02/03/20: NOT MET) One Impairment left elbow pain 4/10 Short Term Goal (STG) decrease his pain to less than 2/10. 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 He was sore in L wrist extenson mm bellies along the ulna after treatment with less pain noted at L lateral epicondyle after US. Pt has had a positive response to iontophoresis with minimal discomfort the day after treatment. The pt may benefit from further physical therapy for treatment including iontophoresis, especially since the pt will be off for the next 1.5 weeks due to the COVID-19 outbreak. He has been hindered in his progress due to his working while trying to rehab his L elbow. Physical Therapy Plan Frequency and Duration Frequency of Treatment 2x/Week Plan of Care Start Date 12/26/19 Plan of Care End Date 03/24/20 Next Visit Focus/Plan Next Note Type Treatment Note Next Visit Plan Progress pt on self care exercises (issue HEP for L wrist extensor stretches). Cont Iontophoresis at L lateral epicondyle for pain. Manual therapy to soft tissue for L neck/shoulder, advance exercises for proper neck/ shoulder posture & to improve painfree shoulder ER. Progress towards strengthening of wrist extensors without pain.
--- NOTE | 2020-02-09 16:08 | PT.OPPOC ---
Physical, Occupational & Speech Therapy At [facility] Current Diagnoses Pain in left elbow (02/09/20) Visit Care Team Role Provider Type Jaylon Muñoz MD Primary Care Provider Physician Specialty: [facility] Practice Address: [address] [place] [address], [id number] Email: [email or web address] JO-ANN Carmen Attending Provider Advanced Relocation Specialist Referring Provider Specialty: [facility] Address: [address] [place] [address], [id number] Email: [email or web address] Plan Of Care PT-OP-T Assessment and Plan Start: 12/26/19 15:30 Freq: Status: Active Protocol: Document 02/09/20 13:27 LRN (Rec: 02/09/20 16:00 LRN [id number]) Physical Therapy Assessment Rehab Potential Rehabilitation Potential Good Evaluation Complexity Number of Personal Factors/Comorbidities 3 or More Number of Body Systems Impaired 3 Clinical Presentation at Evaluation Evolving Impairments Impairments Activity Tolerance,Pain,ROM, Soft Tissue Mobility,Strength Goals Three Impairment Limited use left UE due to elbow pain Mcc Goal (LTG) Resume normal use left UE without increased left elbow pain LTG Duration 6 weeks (02/03/20: NOT MET) One Impairment left elbow pain 4/10 Short Term Goal (STG) decrease his pain to less than 2/10. (02/03/20: Pain is 2/10) STG Duration 4 weeks (02/03/20: Progressing) Mcc Goal (LTG) Tolerate normal associate professor of art left hand without increased pain LTG Duration 6 weeks (02/03/20: NOT MET) Two Impairment Pain with resisted elbow extension Short Term Goal (STG) Tolerate strengthening left elbow without increased pain STG Duration 4 weeks (02/03/20: NOT MET) Frame Straightener Goal (LTG) 5/5 strength left UE without pain LTG Duration 6 weeks (02/03/20: NOT MET) Assessment Summary Assessment Pt did not work for the past 2 days due to COVID-19 virus, and new workplace precautions. He was sore in L wrist extenson mm bellies along the ulna after treatment with less pain noted at L lateral epicondyle after US. Pt has had a positive response to iontophoresis with minimal discomfort the day after treatment. The pt may benefit from further physical therapy for treatment including iontophoresis, especially since the pt will be off for the next 1.5 weeks due to the COVID-19 outbreak. He has been hindered in his progress due to his working while trying to rehab his L elbow. Physical Therapy Plan Frequency and Duration Frequency of Treatment 2x/Week Plan of Care Start Date 12/26/19 Plan of Care End Date 03/24/20 Next Visit Focus/Plan Next Note Type Treatment Note Next Visit Plan Progress pt on self care exercises (issue HEP for L wrist extensor stretches). Cont Iontophoresis at L lateral epicondyle for pain. Manual therapy to soft tissue for L neck/shoulder, advance exercises for proper neck/ shoulder posture & to improve painfree shoulder ER. Progress towards strengthening of wrist extensors without pain. Plan of Care Dates Plan of Care Start Date 12/26/19 Plan of Care End Date 03/24/20 Electronically Signed by: Kendy Camargo, PT 02/09/20 2180 Please Sign and Return: I have reviewed this Plan of Care and certify that the skilled therapy services above are required to meet the patient?s needs. Physician Signature Date Printed Name and Credentials Clinical Instructor Signature Printed Name and Credentials
--- NOTE | 2020-02-13 15:41 | PT.OTN ---
Current Diagnoses Pain in left elbow (02/13/20) Physical Therapy Treatment Note PT-OP-A Visit Information Start: 12/26/19 15:30 Freq: Status: Active Protocol: Document 02/13/20 14:18 LRN (Rec: 02/13/20 15:39 LRN [id number]) Out-Patient Physical Therapy Visit Information Visit Information Visit Type Treatment Note Visit Start Time 14:18 Visit Stop Time 15:00 Total Visit Minutes 42 Visit Number 9 Evaluation Information Evaluation Date 12/26/19 Precautions Precautions He has a significant cardiac hx with [place] x 5. 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 Vertebral Artery Test with head turn R caused vision to see swirling of wall. 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 He has been able to decrease his pain by changing to his right hand lifting the frier basket. He reports his pain is getting better but has not resolved. He has a compression sleeve and a strap for his elbow that he uses to manage his pain. Prior Treatments and Tests Pt using compression sleeve, elbow strap, ice and rest at home to manage his pain. 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 He also has neck pain but has not gotten a referral to therapy for his neck yet. PT-OP-C Subjective Start: 12/26/19 15:30 Freq: Status: Active Protocol: Document 02/13/20 14:18 LRN (Rec: 02/13/20 15:39 LRN [id number]) OP-PT Subjective Patient Comments Patient Comments States his L elbow hurt a lot this weekend and he didn't do anything, He has been watching TV lying on his recliner chair. PT-OP-F Manual Assessment Start: 12/26/19 15:30 Freq: Status: Active Protocol: Document 12/26/19 15:31 DLM (Rec: 12/27/19 15:59 DLM [id number]) Manual Assessments Soft Tissue Assessment Soft Tissue Mobility Assessment left wrist flexor tightness, old laceration scar left forearm Tenderness to palpation left lateral elbow, wrist flexors and triceps Joint Mobility Assessment Joint Mobility Assessment WFL left elbow Other Manual Assessments Other Manual Assessments able to visually see soft tissue tightness left cervical area PT-OP-K Range of Motion Start: 12/26/19 15:30 Freq: Status: Active Protocol: Document 12/26/19 15:31 DLM (Rec: 12/27/19 15:59 DLM [id number]) Cervical Spine Range of Motion Cervical Spine Active Percentage Testing Position Sitting Flexion 100 Extension 100 Rotation Left 80 Rotation Right 80 Lateral Flexion Left 80 Lateral Flexion Right 80 ROM Limitations Soft Tissue Tightness,Pain Elbow/Forearm Range of Motion Elbow/Forearm Right Active Elbow/Forearm ROM WFL Yes Left Active Elbow/Forearm ROM WFL Yes Wrist Goniometric Range of Motion Wrist Right Wrist ROM WFL Yes Left Wrist ROM WFL Yes PT-OP-L Special Tests Start: 12/26/19 15:30 Freq: Status: Active Protocol: Document 01/05/20 11:25 LRN (Rec: 01/05/20 12:36 LRN [id number]) Special Tests Cervical Spine Special Tests Vertebral Artery Test Results Questionable + Left Comments Sup: pt saw swirling on the wall he was looking at, Sit: no visual changes Elbow Special Tests Lateral Epicondylitis Flexed Test Results - left Comments No pain with elbow flexed Lateral Epicondylitis Extended Test Results + left Comments Pain with full elbow ext PT-OP-M Strength Start: 12/26/19 15:30 Freq: Status: Active Protocol: Document 12/26/19 15:31 DLM (Rec: 12/27/19 15:59 DL [id number]) Shoulder Strength Shoulder Manual Muscle Testing Left Flexion 5 Normal Extension 5 Normal Abduction (C5) 5 Normal Adduction 5 Normal External Rotation 4 Good Internal Rotation 5 Normal Comments pain with external rotation Elbow/Forearm Strength Elbow and Forearm Manual Muscle Testing Left Flexion (C6) 5 Normal Extension (C7) 5 Normal Comments pain with extension Wrist Strength Wrist Manual Muscle Testing Left Flexion (C7) 5 Normal Extension (C6) 5 Normal Hand Music Coordinator/Pinch Strength Hand Dominance Hand Dominance Right Hand Strength Left Music Coordinator (lbs) 38 Comments painful Right Music Coordinator (lbs) 40 PT-OP-Q Treatments Start: 12/26/19 15:30 Freq: Status: Active Protocol: Document 02/13/20 14:18 LRN (Rec: 02/13/20 15:39 LRN [id number]) Therapeutic Exercises Supine Exercises PROM neck Supine Exercise Name Passive C/S rotation Side bilateral Reps/Minutes 1' Comments End-range pain with L rotation @ C6-C7 facet Manual Therapy Treatment Soft Tissue Mobilization L Wrist Ext ms bellies Body Location L wrist Ext ms bellies Mobilization Type Strumming,Sustained Pressure Intensity/Depth Moderate Pec stretch Body Location L Pec stretch Mobilization Type Myofascial Release Joint Mobilizations Cervical Joint C3-C4, C5-C6, C6-C7 Direction PA at C3-C4, gapping at C5-C6, C6-C7 Grade I Body Position Supine Reps/Duration 10' Comments Oscillations @ C3-C4, Gentle gapping at C5-C6 as tolerated and limited per reducation of pain and onset of pain. Manual Traction Cervical Details Gentle Cervical traction @ 30 deg's and ~60 deg's Body Position Supine Reps/Duration 5' Comments Pt had variable response from reduction of pain to an increase in pain and stiffness . Inconsistent response. PT-OP-R Modalities Start: 12/26/19 15:30 Freq: Status: Active Protocol: Document 02/13/20 14:18 LRN (Rec: 02/13/20 15:39 LRN [id number]) Iontophoresis Treatment L lateral epicondyle Treatment Medication Dexamethasone (-) Medication Amount (mL) (ml) 1 Medication Dosage 4mg/mL Treatment Polarity Negative to Negative Active Electrode Placement L lateral Epicondyle Dispersive Electrode Placement L lateral Brachium Treatment Duration (minutes) 3 Patient Tolerance Good Comment Treatment Comment Solution & patch gathered by PT Aide Ultrasound Therapy Treatment Left Elbow Treatment Duration (minutes) 8 Patient Position Supine Applicator Size (cm2) 5 Mode Setting Pulsed Duty Cycle 50% Intensity Setting (w/cm2) 1.0 Comments L lateral epicondye for attachements of wrist ext proximal tendons and into forearm. PT-OP-T Assessment and Plan Start: 12/26/19 15:30 Freq: Status: Active Protocol: Document 02/13/20 14:18 LRN (Rec: 02/13/20 15:39 LRN [id number]) Physical Therapy Assessment Goals Three Impairment Limited use left UE due to elbow pain Mcfp Goal (LTG) Resume normal use left UE without increased left elbow pain LTG Duration 6 weeks (02/03/20: NOT MET) One Impairment left elbow pain 4/10 Short Term Goal (STG) decrease his pain to less than 2/10. 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 New Pt tender to palpation at L lateral epicondyle to start . Pain changed from lessening at the elbow but onset of wrist extensor tendons. Pain was relieved with cervical traction from level 7/10 to 5/ 10 initially, but after traction and facet gapping, he had c/o increased stiffness and pain with active elbow flex and manual Pec stretch. Pt may have L lateral epicondylitis but also shows signs of neurological involvement at the neck and anterior thoracic region. Pt finds relief of pain with use of iontophoresis but onset of pain while resting in recliner watching TV. Pt to monitor his neck/shoulder posturing and try to keep neutral. Physical Therapy Plan Frequency and Duration Frequency of Treatment 2x/Week Plan of Care Start Date 12/26/19 Plan of Care End Date 03/24/20 Next Visit Focus/Plan Next Note Type Progress Note Next Visit Plan Progress pt on self care exercises (issue HEP for L wrist extensor stretches) as tolerated. Assess response to manual cervical traction and cervical L facet gapping (C3- C7) Cont Iontophoresis at L lateral epicondyle for pain. Manual therapy to soft tissue for L neck/shoulder, advance exercises for proper neck/ shoulder posture & to improve painfree shoulder ER. Progress towards strengthening of wrist extensors without pain.
--- NOTE | 2020-05-01 10:08 | PT-OP ANOTE ---
Late Entry: Message rec'd 05/01/20 that pt requested DC due to no longer needing PT.
--- NOTE | 2020-05-17 10:15 | PT.OPDS ---
Current Diagnoses Pain in left elbow (02/13/20) Visit Care Team Role Provider Type Jaylon Muñoz MD Primary Care Provider Physician Specialty: [facility] Practice Address: [address] [place] [address], [id number] Email: [email or web address] JO-ANN Carmen Attending Provider Advanced Plating Foreman Referring Provider Specialty: [facility] Address: [address] [place] [address], [id number] Email: [email or web address] Visit Number Visit Number 9 Discharge Summary PT-OP-B Current Condition Start: 12/26/19 15:30 Freq: Status: Active Protocol: Document 12/26/19 15:31 DLM (Rec: 12/27/19 15:59 DLM [id number]) Current Condition History of Current Condition Onset Date 3 months ago Current Complaints left elbow pain History of Current Condition He describes left elbow pain that is worse at 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 He has been able to decrease his pain by changing to his right hand lifting the frier basket. He reports his pain is getting better but has not resolved. He has a compression sleeve and a strap for his elbow that he uses to manage his pain. Prior Treatments and Tests Pt using compression sleeve, elbow strap, ice and rest at home to manage his pain. 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 He also has neck pain but has not gotten a referral to therapy for his neck yet. PT-OP-C Subjective Start: 12/26/19 15:30 Freq: Status: Active Protocol: Document 02/13/20 14:18 LRN (Rec: 02/13/20 15:39 LRN [id number]) OP-PT Subjective Patient Comments Patient Comments States his L elbow hurt a lot this weekend and he didn't do anything, He has been watching TV lying on his recliner chair. PT-OP-F Manual Assessment Start: 12/26/19 15:30 Freq: Status: Active Protocol: Document 12/26/19 15:31 DLM (Rec: 12/27/19 15:59 DLM [id number]) Manual Assessments Soft Tissue Assessment Soft Tissue Mobility Assessment left wrist flexor tightness, old laceration scar left forearm Tenderness to palpation left lateral elbow, wrist flexors and triceps Joint Mobility Assessment Joint Mobility Assessment WFL left elbow Other Manual Assessments Other Manual Assessments able to visually see soft tissue tightness left cervical area PT-OP-K Range of Motion Start: 12/26/19 15:30 Freq: Status: Active Protocol: Document 12/26/19 15:31 DLM (Rec: 12/27/19 15:59 DLM [id number]) Cervical Spine Range of Motion Cervical Spine Active Percentage Testing Position Sitting Flexion 100 Extension 100 Rotation Left 80 Rotation Right 80 Lateral Flexion Left 80 Lateral Flexion Right 80 ROM Limitations Soft Tissue Tightness,Pain Elbow/Forearm Range of Motion Elbow/Forearm Right Active Elbow/Forearm ROM WFL Yes Left Active Elbow/Forearm ROM WFL Yes Wrist Goniometric Range of Motion Wrist Right Wrist ROM WFL Yes Left Wrist ROM WFL Yes PT-OP-L Special Tests Start: 12/26/19 15:30 Freq: Status: Active Protocol: Document 01/05/20 11:25 LRN (Rec: 01/05/20 12:36 LRN [id number]) Special Tests Cervical Spine Special Tests Vertebral Artery Test Results Questionable + Left Comments Sup: pt saw swirling on the wall he was looking at, Sit: no visual changes Elbow Special Tests Lateral Epicondylitis Flexed Test Results - left Comments No pain with elbow flexed Lateral Epicondylitis Extended Test Results + left Comments Pain with full elbow ext PT-OP-M Strength Start: 12/26/19 15:30 Freq: Status: Active Protocol: Document 12/26/19 15:31 DLM (Rec: 12/27/19 15:59 DLM [id number]) Shoulder Strength Shoulder Manual Muscle Testing Left Flexion 5 Normal Extension 5 Normal Abduction (C5) 5 Normal Adduction 5 Normal External Rotation 4 Good Internal Rotation 5 Normal Comments pain with external rotation Elbow/Forearm Strength Elbow and Forearm Manual Muscle Testing Left Flexion (C6) 5 Normal Extension (C7) 5 Normal Comments pain with extension Wrist Strength Wrist Manual Muscle Testing Left Flexion (C7) 5 Normal Extension (C6) 5 Normal Hand Motor Operator/Pinch Strength Hand Dominance Hand Dominance Right Hand Strength Left Motor Operator (lbs) 38 Comments painful Right Motor Operator (lbs) 40 PT-OP-T Assessment and Plan Start: 12/26/19 15:30 Freq: Status: Active Protocol: Document 05/01/20 10:09 LRN (Rec: 05/17/20 10:15 LRN [id number]) Physical Therapy Assessment Goals Three Impairment Limited use left UE due to elbow pain Fci Goal (LTG) Resume normal use left UE without increased left elbow pain LTG Duration 6 weeks (02/03/20: NOT MET) One Impairment left elbow pain 4/10 Short Term Goal (STG) decrease his pain to less than 2/10. (02/03/20: Pain is 2/10) STG Duration 4 weeks (02/03/20: Progressing) Floor Technician Goal (LTG) Tolerate normal notch machine operator left hand without increased pain LTG Duration 6 weeks (02/03/20: NOT MET) Two Impairment Pain with resisted elbow extension Short Term Goal (STG) Tolerate strengthening left elbow without increased pain STG Duration 4 weeks (02/03/20: NOT MET) Floor Technician Goal (LTG) 5/5 strength left UE without pain LTG Duration 6 weeks (02/03/20: NOT MET) Assessment Summary Assessment Pt was last seen 02/13/20, due to COVID 19 restrictions the pt's therapy was interrupted. Upon contact 05/01/20 the pt requested D/C from therapy due to no longer needing therapy. Pt was unavailable for final assessment. See goals above last assessment. Physical Therapy Plan Discharge Physical Therapy Discharge Reasons Patient Request Discharge Comments Pt rehab interrupted due to COVID-19 Pandemic. Upon lifting of social distancing requirements pt was notified and requested D/C from therapy due to no longer needing therapy.
--- NOTE | 2020-07-03 09:34 | PT.OPDS ---
Current Diagnoses Pain in left elbow (02/13/20) Visit Care Team Role Provider Type Jaylon Muñoz MD Primary Care Provider Physician Specialty: [facility] Practice Address: [address] [place] [address], [id number] Email: [email or web address] JO-ANN Carmen Attending Provider Advanced Tubular Splitting Machine Tender Referring Provider Specialty: [facility] Address: [address] [place] [address], [id number] Email: 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 He has been able to decrease his pain by changing to his right hand lifting the frier basket. He reports his pain is getting better but has not resolved. He has a compression sleeve and a strap for his elbow that he uses to manage his pain. Prior Treatments and Tests Pt using compression sleeve, elbow strap, ice and rest at home to manage his pain. 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 He also has neck pain but has not gotten a referral to therapy for his neck yet. PT-OP-C Subjective Start: 12/26/19 15:30 Freq: Status: Active Protocol: Document 02/13/20 14:18 LRN (Rec: 02/13/20 15:39 LRN [id number]) OP-PT Subjective Patient Comments Patient Comments States his L elbow hurt a lot this weekend and he didn't do anything, He has been watching TV lying on his recliner chair. PT-OP-F Manual Assessment Start: 12/26/19 15:30 Freq: Status: Active Protocol: Document 12/26/19 15:31 DLM (Rec: 12/27/19 15:59 DLM [id number]) Manual Assessments Soft Tissue Assessment Soft Tissue Mobility Assessment left wrist flexor tightness, old laceration scar left forearm Tenderness to palpation left lateral elbow, wrist flexors and triceps Joint Mobility Assessment Joint Mobility Assessment WFL left elbow Other Manual Assessments Other Manual Assessments able to visually see soft tissue tightness left cervical area PT-OP-K Range of Motion Start: 12/26/19 15:30 Freq: Status: Active Protocol: Document 12/26/19 15:31 DLM (Rec: 12/27/19 15:59 DLM [id number]) Cervical Spine Range of Motion Cervical Spine Active Percentage Testing Position Sitting Flexion 100 Extension 100 Rotation Left 80 Rotation Right 80 Lateral Flexion Left 80 Lateral Flexion Right 80 ROM Limitations Soft Tissue Tightness,Pain Elbow/Forearm Range of Motion Elbow/Forearm Right Active Elbow/Forearm ROM WFL Yes Left Active Elbow/Forearm ROM WFL Yes Wrist Goniometric Range of Motion Wrist Right Wrist ROM WFL Yes Left Wrist ROM WFL Yes PT-OP-L Special Tests Start: 12/26/19 15:30 Freq: Status: Active Protocol: Document 01/05/20 11:25 LRN (Rec: 01/05/20 12:36 LRN [id number]) Special Tests Cervical Spine Special Tests Vertebral Artery Test Results Questionable + Left Comments Sup: pt saw swirling on the wall he was looking at, Sit: no visual changes Elbow Special Tests Lateral Epicondylitis Flexed Test Results - left Comments No pain with elbow flexed Lateral Epicondylitis Extended Test Results + left Comments Pain with full elbow ext PT-OP-M Strength Start: 12/26/19 15:30 Freq: Status: Active Protocol: Document 12/26/19 15:31 DLM (Rec: 12/27/19 15:59 DL [id number]) Shoulder Strength Shoulder Manual Muscle Testing Left Flexion 5 Normal Extension 5 Normal Abduction (C5) 5 Normal Adduction 5 Normal External Rotation 4 Good Internal Rotation 5 Normal Comments pain with external rotation Elbow/Forearm Strength Elbow and Forearm Manual Muscle Testing Left Flexion (C6) 5 Normal Extension (C7) 5 Normal Comments pain with extension Wrist Strength Wrist Manual Muscle Testing Left Flexion (C7) 5 Normal Extension (C6) 5 Normal Hand Verification Engineer/Pinch Strength Hand Dominance Hand Dominance Right Hand Strength Left Verification Engineer (lbs) 38 Comments painful Right Verification Engineer (lbs) 40 PT-OP-T Assessment and Plan Start: 12/26/19 15:30 Freq: Status: Active Protocol: Document 07/03/20 09:34 MB (Rec: 07/03/20 09:34 MB [id number]) Physical Therapy Plan Discharge Physical Therapy Discharge Reasons No Longer Attending PT Discharge Comments Per front office, pt did not return call to reschedule after re-opening after COVID. Will d/c PT.
== END 2020-07-03 12:49 ==
LOC: PHYS 14:15
PROVIDERS: PCP Family Medicine; Referring Provider Nurse Practitioner Family; Visit Provider Nurse Practitioner Family
DX: M25.522 Pain in left elbow (principal)
CPT/HCPCS: 97035; 97110; 97140; 97162

== ENCOUNTER 2020-08-25 12:32 | Emergency (ER) | payer OTHER, SELFPAY ==
[2019-12-27 13:50] VITALS: BMI 23.6
[2020-08-25 12:40] VITALS: BP 112/65; PULSE 54; RESP 14; TEMP 36.8; O2SAT 96; BMI 24.3
--- NOTE | 2020-08-25 12:49 | ED_ITS ---
HPI - Wound/Laceration <JO-ANN Gomez - Last Filed: 08/25/20 14:35> General Chief Complaint: Wound/Laceration Stated Complaint: Cut Left Finger At Work Time Seen by Provider: 08/25/20 12:34 Source: patient Mode of arrival: Ambulatory Limitations: no limitations History of Present Illness HPI narrative: 45yo male presents to the emergency department for a laceration to his left index finger. 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 He states he is taking aspirin and Plavix. Bleeding was controlled with pressure. Unsure last Tdap, chart reports last Tdap was in 2014. Patient denies any other injuries or difficulty moving his finger. He denies any fevers, chills, nausea, vomiting, diarrhea, chest pain, shortness of breath, or other concerns. Related Data Home Medications Medication Instructions Recorded Confirmed aspirin 81 mg tablet,delayed 81 mg PO DAILY 04/07/18 01/11/20 release atorvastatin 80 mg tablet 80 mg PO DAILY 04/07/18 01/11/20 ibuprofen 200 mg PO PRN PRN 12/27/19 01/11/20 metoprolol succinate [Toprol XL] 25 mg PO DAILY 12/27/19 01/11/20 Previous Rx's Medication Instructions Recorded ezetimibe 10 mg tablet 10 mg PO DAILY #90 tab 12/14/19 prednisone 50 mg tablet 50 mg PO DAILY #5 tab 03/07/20 clopidogrel 75 mg tablet 75 mg PO DAILY #90 tab 03/12/20 isosorbide mononitrate 60 mg 60 mg PO DAILY #90 tab 03/26/20 tablet,extended release 24 hr lisinopril 10 mg tablet See Rx Instructions .ROUTE 04/27/20 .COMPLEX #90 tab dexamethasone 4 mg tablet 4 mg PO .COMPLEX #12 tab 07/12/20 oxycodone-acetaminophen 7.5 mg-325 2 tab PO Q6H PRN #100 tab 08/13/20 mg tablet Allergies Allergy/AdvReac Type Severity Reaction Status Date / Time No Known Drug Allergies Allergy Verified 08/25/20 12:40 Review of Systems <JO-ANN Gomez - Last Filed: 08/25/20 14:35> Review of Systems Narrative: REVIEW OF SYSTEMS: GENERAL: Denies fever or chills. HENT: Denies head trauma. EYE: Denies double vision or vision loss. CARDIOVASCULAR: Denies syncope. MUSCULOSKELETAL: Denies weakness, or deformities. INTEGUMENTARY: Complains of finger laceration, see HPI. NEURO: Denies numbness or tingling. Patient History <JO-ANN Gomez - Last Filed: 08/25/20 14:35> Medical History Chronic back pain (Chronic) Hypertension (Chronic) Myocardial infarction (Resolved) Surgical History Anesthesia (Resolved) History of angioplasty (~1999) History of angioplasty (10/14/11) History of angioplasty (01/02/15) Social History household members: friend(s) Smoking Status: Former smoker alcohol intake: current substance use type: marijuana Smoking Status: Former smoker alcohol intake frequency: holidays/special occasions only Substance Use Type: marijuana Exam <JO-ANN Gomez - Last Filed: 08/25/20 14:35> Initial Vital Signs Initial Vital Signs: Vital Signs Temperature 98.3 F 08/25/20 12:40 Pulse Rate 54 L 08/25/20 12:40 Respiratory Rate 14 08/25/20 12:40 Blood Pressure 112/65 08/25/20 12:40 Pulse Oximetry 96 08/25/20 12:40 PHYSICAL EXAMINATION: GENERAL: Well groomed, alert, and cooperative. Answers questions promptly and appropriately. Vital signs noted. HENT: Normocephalic, atraumatic. RESPIRATORY: Normal respiratory rate, trachea midline, airway patent. No stridor, nasal flaring or accessory muscle use. MUSCULOSKELETAL: Full range of motion of finger including dip joint against resistance. Normal gait and coordination. Equal tone and mass bilaterally. EXTREMITIES: CMS intact. Moves all extremities. SKIN: Warm, dry, soft, appropriate color for ethnicity. A 2 cm laceration noted to lateral tip of right index finger, no nail involvement, bleeding controlled with pressure. NEURO: Alert and Oriented X 3. Good coordination. PSYCH: Appropriate affect and mood. <Holly Araujo DO - Last Filed: 08/26/20 07:58> Initial Vital Signs Initial Vital Signs: Vital Signs Temperature 98.3 F 08/25/20 12:40 Pulse Rate 54 L 08/25/20 12:40 Respiratory Rate 14 08/25/20 12:40 Blood Pressure 112/65 08/25/20 12:40 Pulse Oximetry 96 08/25/20 12:40 Procedures <Macy TorresJO-ANN hendricks - Last Filed: 08/25/20 14:35> Laceration Repair Laceration 1: Site: upper extremity Side (If applicable): left Size (cm): 2 Description: linear Depth: simple, single layer Pre-repair: wound explored Skin layer closed with: dermabond Course <Macy JO-ANN Zuluaga - Last Filed: 08/25/20 14:35> Course Course Narrative: Wound irrigated with water and soap. No foreign bodies. Discussed patient's last Tdap was 2014, the declined update. Vital Signs Vital signs: Vital Signs - 8 hr 08/25/20 12:40 Temperature 98.3 F Pulse Rate 54 L Respiratory Rate 14 Blood Pressure 112/65 Pulse Oximetry 96 <Holly Araujo DO - Last Filed: 08/26/20 07:58> Vital Signs Vital signs: Vital Signs - 8 hr 08/25/20 12:40 Temperature 98.3 F Pulse Rate 54 L Respiratory Rate 14 Blood Pressure 112/65 Pulse Oximetry 96 MDM - Wound/Laceration <Macy TorresJO-ANN hendricks - Last Filed: 08/25/20 14:35> Medical Records Attestation: I reviewed the patient's medical records. Lab Data Attestation: I reviewed the patient's lab results. [facility] Narrative Medical decision making narrative: History and examination reveals a simple laceration, bleeding controlled, rather superficial. Small amount of Dermabond was applied to reduce chance of reoccurring bleeding as patient is on Plavix. Full range of motion of finger against resistance, no concern for tendon involvement. No concern for infection at this time. Patient declined Tdap update. Patient was educated about returning to the ED for any new or worsening symptoms. Discharge Plan Departure Patient Disposition: Home Clinical Impression: Finger laceration Qualifiers: Encounter type: initial encounter Finger: index finger Damage to nail status: without damage Foreign body presence: without foreign body Laterality: left Qu alified Code(s): S61.211A - Laceration without foreign body of left index finger without damage to nail, initial encounter Discharge Date/Time: 08/25/20 13:18 Instructions: DI for Laceration Repair Activity Restrictions/Additional Instructions: Thank you for entrusting me with your care today. As discussed, your finger laceration was repaired with glue. Please try to keep the area dry for the next 24 hours. Do not apply bacitracin or Neosporin to the area the next 3 days. No foreign bodies were found in your wound today. While there is low-risk for infection at this time, retained foreign bodies and infection are always possible with any cut or break in the skin. Please monitor the wound closely and be re-evaluated immediately if you develop any signs of infection such as pus, increasing redness, increasing pain, fevers, or any other concerns. Prescriptions: No Action ezetimibe [Zetia] 10 mg tablet 10 mg PO DAILY Qty: 90 RF: 1 prednisone 50 mg tablet 50 mg PO DAILY Qty: 5 RF: 0 clopidogrel [Plavix] 75 mg tablet 75 mg PO DAILY Qty: 90 RF: 3 isosorbide mononitrate 60 mg tablet extended release 24 hr 60 mg PO DAILY Qty: 90 RF: 3 lisinopril 10 mg tablet See Rx Instructions .ROUTE .COMPLEX Qty: 90 RF: 1 dexamethasone 4 mg tablet 4 mg PO .COMPLEX Qty: 12 RF: 0 oxycodone-acetaminophen 7.5-325 mg tablet 2 tab PO Q6H PRN (Reason: pain) Qty: 100 RF: 0 atorvastatin 80 mg tablet 80 mg PO DAILY RF: 0 aspirin [Aspirin Low Dose] 81 mg tablet,delayed release (DR/EC) 81 mg PO DAILY RF: 0 metoprolol succinate [Toprol XL] 25 MG tablet extended release 24 hr 25 mg PO DAILY RF: 0 ibuprofen 200 mg Tablet 200 mg PO PRN PRN (Reason: pain) RF: 0 Referrals: Jaylon Muñoz MD [Primary Care Provider] - <Holly Araujo DO - Last Filed: 08/26/20 07:58> Cosign ED Attending Nieves Attestation: I was immediately available in the department for consultation. Documentation has been reviewed. I agree with assessment and plan.
== END 2020-08-25 13:18 | disposition home or self-care (01) ==
PROVIDERS: Emergency Provider Nurse Practitioner; PCP Family Medicine
DX: S61.211A Laceration without foreign body of left index finger without damage to nail, initial encounter (principal); W26.0XXA Contact with knife, initial encounter; Y99.0 Civilian activity done for income or pay
CPT/HCPCS: 99281

== ENCOUNTER → 2020-09-17 12:29 | Outpatient (CLI) | payer OTHER, MEDICAID, SELFPAY ==
[2019-12-27 13:50] VITALS: BMI 23.6
[2020-09-17 13:36] LABS: Cholesterol 145 mg/dL (140-199); HDL Cholesterol 30 mg/dL (40-60); LDL Cholesterol Calculated 81 mg/dL (<100); Triglycerides 170 mg/dL (35-150)
[2020-09-17 14:07] LABS: Prostate Specific Antigen Scrn 0.441 ng/mL (0.1-4.0)
== END ==
PROVIDERS: PCP Family Medicine; Referring Provider Family Medicine; Visit Provider Family Medicine
DX: I25.10 Atherosclerotic heart disease of native coronary artery without angina pectoris (principal); Z12.5 Encounter for screening for malignant neoplasm of prostate
CPT/HCPCS: 36415; 80061; G0103

== ENCOUNTER → 2021-01-10 16:32 | Outpatient (CLI) | payer OTHER, MEDICAID, SELFPAY ==
[2019-12-27 13:50] VITALS: BMI 23.6
[2021-01-10 17:06] LABS: Add Manual Diff / Slide Review NO; Basophils Absolute Auto 0 /uL (0-100); Basophils Percent Auto 0.4 % (0-2); Eosinophils Absolute Auto 100 /uL (0-450); Eosinophils Percent Auto 1.2 % (2-4); Hematocrit 41.4 % (41-53); Hemoglobin 14.2 g/dL (13.5-17.5); Lymphocytes Absolute Auto 3500 /uL (1100-4500); Lymphocytes Percent Auto 33.1 % (25-40); Mean Corpuscular HGB Conc 34.3 % (30-36); Mean Corpuscular Hemoglobin 29.4 PG (26-34); Mean Corpuscular Volume 85.9 fL (80-100); Monocytes Absolute Auto 1300 /uL (0-900); Neutrophils Absolute Auto 5700 /uL (1500-7000); Neutrophils Percent Auto 53.3 % (50-75); Platelet Count 202 X10^3/uL (150-400); Red Blood Cell Count 4.82 X10^6/uL (4.5-5.9); Red Cell Distribution Width 13.7 % (11.6-14.8); White Blood Cell Count 10.7 X10^3/uL (4.5-11.0)
[2021-01-10 17:32] LABS: Alanine Aminotransferase 24 IU/L (<50); Albumin 4.2 g/dL (3.5-5.0); Albumin Globulin Ratio 1.4 (1.0-2.8); Alkaline Phosphatase 71 U/L (38-126); Aspartate Aminotransferase 23 IU/L (17-59); BUN Creatinine Ratio 17.6 (6-22); Bilirubin Total 0.2 mg/dL (0.2-1.3); Blood Urea Nitrogen 19 mg/dL (9-20); Calcium 8.9 mg/dL (8.4-10.2); Carbon Dioxide 32 mmol/L (22-32); Chloride 99 mmol/L (98-107); Estimated Glomerular Filt Rate > 60.0 mL/min (>60); Globulin 3.1 g/dL (1.7-4.1); Glucose 91 mg/dL (70-100); HEMOLYSIS < 15 (0-50); Potassium 3.4 mmol/L (3.4-5.1); Sodium 138 mmol/L (137-145); Total Protein 7.3 g/dL (6.3-8.2)
== END ==
PROVIDERS: PCP Family Medicine; Referring Provider Family Medicine; Visit Provider Family Medicine
DX: I10 Essential (primary) hypertension (principal); I24.9 Acute ischemic heart disease, unspecified; Z79.01 Long term (current) use of anticoagulants
CPT/HCPCS: 36415; 80053; 85025

== ENCOUNTER → 2021-02-04 13:42 | Outpatient (CLI) | payer OTHER, MEDICAID, SELFPAY ==
[2019-12-27 13:50] VITALS: BMI 23.6
[2021-02-04 15:38] LABS: COVID19 -Nasal RAPID Negative (Negative)
== END ==
PROVIDERS: PCP Family Medicine; Visit Provider Physician Assistant
DX: Z20.822 Contact with and (suspected) exposure to COVID-19 (principal)
CPT/HCPCS: 87635

== ENCOUNTER 2021-02-14 10:30 | Outpatient (RCR) | payer OTHER, MEDICAID, SELFPAY ==
[2019-12-27 13:50] VITALS: BMI 23.6
== END 2021-02-14 11:30 ==
LOC: CAR 10:30
PROVIDERS: PCP Family Medicine; Referring Provider Internal Medicine Cardiovascular Disease; Visit Provider Internal Medicine Cardiovascular Disease
DX: I20.9 Angina pectoris, unspecified (principal)
CPT/HCPCS: 93798

== ENCOUNTER 2021-03-30 20:20 | Emergency (ER) | payer OTHER, MEDICAID, SELFPAY ==
[2019-12-27 13:50] VITALS: BMI 23.6
[2021-03-30] VITALS (10 sets, daily range): BP systolic 101–116; BP diastolic 58–65; PULSE 56–65; RESP 15–21; TEMP 37; O2SAT 96–98; BMI 25.8
--- NOTE | 2021-03-30 20:41 | DI.RAD.S_ITS ---
PROCEDURE: XR CHEST 1V INDICATIONS: chest pain TECHNIQUE: One view of the chest was acquired. COMPARISON: [facility], CR, XR CHEST 1V, 12/15/2019, 14:12. [facility], CR, XR CHEST 1V, 12/27/2019, 9:12. FINDINGS: Surgical changes and devices: None. Lungs and pleura: Lungs are clear. No pleural effusions or pneumothorax. Mediastinum: Mediastinal contours appear unchanged, with prominent cardiophrenic fat redemonstrated medially in the right lung base. Heart size is normal. Bones and chest wall: No suspicious bony lesions. Overlying soft tissues appear unremarkable. IMPRESSION: 1. No acute cardiopulmonary disease. Dictated by: Vaibhav Glover M.D. on 03/30/2021 at 21:07 Approved by: Vaibhav Glover M.D. on 03/30/2021 at 21:08
--- NOTE | 2021-03-30 21:01 | ED_ITS ---
HPI - Chest Pain General Chief Complaint: Chest Pain Stated Complaint: numbness left arm, chest pressure Time Seen by Provider: 03/30/21 21:00 Source: patient Mode of arrival: Ambulatory Limitations: no limitations History of Present Illness HPI narrative: The patient has well documented coronary artery disease. He has been to the laborer cutting tool multiple times, he has a total of [address], apparently has had 5 MIs. Last angioplasty was about 2 years ago. He is scheduled to see his rn clinical quality next week. About 10:00 p.m. today at work he developed 4/10 central sternal chest pain. He has some discomfort in his left arm, primarily tingling. He has no associated dizziness. He is a nonsmoker. He has hyperlipidemia. He is compliant with medications. He took aspirin earlier today, again this afternoon. He took 2 nitro when symptoms started, his pain persists but is now 1/10. He denies recent illness. Related Data Home Medications Medication Instructions Recorded Confirmed aspirin 81 mg tablet,delayed 81 mg PO DAILY 04/07/18 02/28/21 release atorvastatin 80 mg tablet 80 mg PO DAILY 04/07/18 02/28/21 ibuprofen 200 mg PO PRN PRN 12/27/19 02/28/21 metoprolol succinate [Toprol XL] 25 mg PO DAILY 12/27/19 02/28/21 Previous Rx's Medication Instructions Recorded isosorbide mononitrate 60 mg 60 mg PO DAILY #90 tab 09/06/20 tablet,extended release 24 hr nitroglycerin 0.4 mg sublingual 0.4 mg SL Q5M PRN #100 tab 09/26/20 tablet lisinopril 10 mg tablet See Rx Instructions .ROUTE 11/22/20 .COMPLEX #90 tab naloxone 4 mg/actuation nasal spray 4 mg INTRANASAL Q2M PRN #2 ea 12/31/20 triamcinolone acetonide 0.5 % 1 applic TOPICAL BID PRN #15 g 02/28/21 topical cream oxycodone-acetaminophen 7.5 mg-325 2 tab PO Q6H PRN #100 tab 03/18/21 mg tablet clopidogrel 75 mg tablet 75 mg PO DAILY #90 tab 03/20/21 ezetimibe 10 mg tablet See Rx Instructions .ROUTE 03/21/21 .COMPLEX #90 tab Allergies Allergy/AdvReac Type Severity Reaction Status Date / Time penicillin V Allergy Mild dermatitis Verified 02/28/21 16:47 Review of Systems Constitutional Constitutional: Denies chills, Denies fever(s) and Denies headache(s) Eyes Eyes: Denies change in vision ENT Ears, Nose, Mouth, and Throat: Denies vertigo, Denies dizziness, Denies headache(s) and Denies sore throat Cardiovascular Cardiovascular: Reports as per HPI, Reports chest pain, Denies syncope, Denies rapid heart rate and Denies leg edema Gastrointestinal Gastrointestinal: Denies abdominal pain, Denies change in bowel habits, Denies diarrhea, Denies nausea and Denies vomiting Musculoskeletal Musculoskeletal: Denies arthralgias and Denies back pain Integumentary/Breasts Skin/Breast: Denies erythema and Denies rash Neurologic Neurologic: Denies confusion, Denies vertigo, Denies dizziness, Denies syncope and Denies headache(s) Psychiatric Psychiatric: Denies confusion and Denies depression Hematologic/Lymphatic Hematologic/Lymphatic: Denies easy bleeding Patient History Medical History Chronic back pain Hypertension Myocardial infarction Surgical History Anesthesia History of angioplasty (~1999) History of angioplasty (10/14/11) History of angioplasty (01/02/15) Social History household members: friend(s) Smoking Status: Former smoker alcohol intake: current substance use type: marijuana Smoking Status: Former smoker alcohol intake frequency: holidays/special occasions only Substance Use Type: marijuana Exam Initial Vital Signs Initial Vital Signs: Vital Signs Temperature 98.6 F 03/30/21 20:24 Pulse Rate 63 03/30/21 20:24 Respiratory Rate 19 03/30/21 20:24 Blood Pressure 107/62 03/30/21 20:24 Pulse Oximetry 97 03/30/21 20:24 Const General: cooperative and well developed Nutritional Appearance: well nourished [facility] Head: normocephalic and atraumatic Neck Neck: No JVD Chest Chest: normal inspection of the chest Resp Auscultation: clear to auscultation bilaterally Cardio Rate: regular rate Rhythm: regular rhythm Pulses: normal peripheral pulses GI Inspection: non-distended Palpation: soft, no hepatosplenomegaly, No guarding, No pulsatile mass and No tender Auscultation: normal bowel sounds Back/Spine/Pelvis Back: normal to inspection Skin General: no rashes or lesions noted and No jaundice Neuro General: patient alert, patient oriented x3, gait normal and no focal motor deficits Speech: speech normal Extrem General: no calf tenderness and No edema Psych Appearance: well kempt Mental Status: mental status grossly normal Attitude: cooperative Thought Content: normal and suicidality Judgment: judgment good Course Course Course Narrative: The patient was pain-free after topical nitro. His vitals were stable. The EKG shows no acute findings, there is evidence of an old i nferior LA. troponin and repeat her trauma both normal. Given the patient's dramatic, significant past medical history cardiology was consulted. Dr. Wilkinson is on-call for the patient's rn clinical quality, Dr. Capone. Dr. Wilkinson thought his clinical history is significant, suggested admission with follow-up stress test or cardiac catheterization depending on the patient's progression. This plan was not presented to the patient. The patient has plans for tomorrow, he decided to leave Against Medical Advice. He is pain-free at the time of departure. He is advised to continue his medications any contact his rn clinical quality as soon as possible. He is advised to return here if symptoms escalate. Orders Ordered: ED Orders 03/30/21 20:30 Comprehensive Metabolic Panel Stat Lipase Stat Partial Thromboplastin Time Stat Prothrombin Time INR Stat Troponin & CK Cardiac Panel Stat 03/30/21 20:34 EKG-12 Lead Routine 03/30/21 20:41 XR chest 1V Stat 03/30/21 21:10 COVID19 -Nasal swab/Pre-Proc Stat 03/30/21 22:57 Troponin I Stat Discontinued Medications Nitroglycerin (Nitroglycerin Oint 1 Inch/Gm Oint...G.) 1 inch TOP NOW ONE Stop: 03/30/21 21:02 Last Admin: 03/30/21 21:11 Dose: 1 inch Documented by: EMETERIO Vital Signs Vital signs: Vital Signs - 8 hr 03/30/21 20:24 03/30/21 20:36 03/30/21 20:38 Temperature 98.6 F Pulse Rate 63 62 61 Respiratory Rate 19 18 17 Blood Pressure 107/62 116/63 Pulse Oximetry 97 96 03/30/21 21:00 03/30/21 21:11 03/30/21 21:30 Temperature Pulse Rate 65 62 59 L Respiratory Rate 21 18 Blood Pressure 113/64 113/64 102/58 L Pulse Oximetry 97 96 03/30/21 22:00 03/30/21 22:30 03/30/21 23:00 Temperature Pulse Rate 56 L 56 L 60 Respiratory Rate 17 15 18 Blood Pressure 102/61 101/60 112/65 Pulse Oximetry 96 97 98 03/30/21 23:30 03/31/21 00:00 03/31/21 00:30 Temperature Pulse Rate 58 L 56 L 62 Respiratory Rate 17 18 13 Blood Pressure 107/60 105/62 112/68 Pulse Oximetry 97 96 97 03/31/21 01:00 Temperature Pulse Rate 60 Respiratory Rate 13 Blood Pressure 110/72 Pulse Oximetry 98 MDM - Chest Pain Lab Data Result diagrams: 03/30/21 10:40 03/30/21 20:30 Labs: Lab Results 03/30/21 03/30/21 03/30/21 Range/Units 10:40 20:30 20:30 WBC 8.6 (4.5-11.0) X10^3/uL RBC 4.68 (4.5-5.9) X10^6/uL Hgb 13.6 (13.5-17.5) g/dL Hct 39.8 L (41-53) % MCV 85.1 (80-100) fL MCH 29.1 (26-34) PG MCHC 34.2 (30-36) % RDW 14.6 (11.6-14.8) % Plt Count 234 (150-400) X10^3/uL Neut % (Auto) 37.7 L (50-75) % Lymph % (Auto) 45.2 H (25-40) % [place] % (Auto) 10.6 (3-14) % Eos % (Auto) 6.0 H (2-4) % Baso % (Auto) 0.5 (0-2) % Neut # (Auto) 3200 (0014-8063) /uL Lymph # (Auto) 3900 (5780-7147) /uL [place] # (Auto) 900 (0-900) /uL Eos # (Auto) 500 H (0-450) /uL Baso # (Auto) 0 (0-100) /uL PT 11.2 (10.1-12.7) SECONDS INR 1.0 (0.9-1.3) APTT 28 (26.4-36.2) SECONDS Sodium 139 (137-145) mmol/L Potassium 3.8 (3.4-5.1) mmol/L Chloride 106 (98-107) mmol/L Carbon Dioxide 29 (22-32) mmol/L BUN 23 H (9-20) mg/dL Creatinine 1.08 (0.66-1.25) mg/dL Estimated GFR > 60.0 (>60) mL/min BUN/Creatinine Ratio 21.3 (6-22) Glucose 98 (70-100) mg/dL Calcium 9.2 (8.4-10.2) mg/dL Total Bilirubin 0.1 L (0.2-1.3) mg/dL AST 25 (17-59) IU/L ALT 26 (<50) IU/L Alkaline Phosphatase 78 (38-126) U/L Total Creatine Kinase 96 (55-170) U/L CK-MB (CK-2) TNP CK-MB (CK-2) Rel Index TNP Troponin I < 0.012 (0.01-0.034) ng/mL Total Protein 7.0 (6.3-8.2) g/dL Albumin 4.1 (3.5-5.0) g/dL Globulin 2.9 (1.7-4.1) g/dL Albumin/Globulin Ratio 1.4 (1.0-2.8) Lipase 92 (23-300) U/L SARS-CoV-2 (PCR) (Negative) 03/30/21 03/30/21 Range/Units 21:10 22:57 WBC (4.5-11.0) X10^3/uL RBC (4.5-5.9) X10^6/uL Hgb (13.5-17.5) g/dL Hct (41-53) % MCV (80-100) fL MCH (26-34) PG MCHC (30-36) % RDW (11.6-14.8) % Plt Count (150-400) X10^3/uL Neut % (Auto) (50-75) % Lymph % (Auto) (25-40) % [place] % (Auto) (3-14) % Eos % (Auto) (2-4) % Baso % (Auto) (0-2) % Neut # (Auto) (8687-9166) /uL Lymph # (Auto) (9756-9211) /uL [place] # (Auto) (0-900) /uL Eos # (Auto) (0-450) /uL Baso # (Auto) (0-100) /uL PT (10.1-12.7) SECONDS INR (0.9-1.3) APTT (26.4-36.2) SECONDS Sodium (137-145) mmol/L Potassium (3.4-5.1) mmol/L Chloride (98-107) mmol/L Carbon Dioxide (22-32) mmol/L BUN (9-20) mg/dL Creatinine (0.66-1.25) mg/dL Estimated GFR (>60) mL/min BUN/Creatinine Ratio (6-22) Glucose (70-100) mg/dL Calcium (8.4-10.2) mg/dL Total Bilirubin (0.2-1.3) mg/dL AST (17-59) IU/L ALT (<50) IU/L Alkaline Phosphatase (38-126) U/L Total Creatine Kinase (55-170) U/L CK-MB (CK-2) CK-MB (CK-2) Rel Index Troponin I < 0.012 (0.01-0.034) ng/mL Total Protein (6.3-8.2) g/dL Albumin (3.5-5.0) g/dL Globulin (1.7-4.1) g/dL Albumin/Globulin Ratio (1.0-2.8) Lipase (23-300) U/L SARS-CoV-2 (PCR) Negative (Negative) Imaging Data Chest x-ray: Radiologist's Impression: [address] [id number] ReportSigned Patient: Tremaine Sy [facility]#: [id number]: 1975Acct:[id number]/Sex: 46 / MDate of Service: 03/30/21Loc: EDAccession Number: [id number] Procedure: XR chest 1V Ordering Provider: Randy Figueroa MD PROCEDURE: XR CHEST 1V INDICATIONS: chest pain TECHNIQUE: One view of the chest was acquired. COMPARISON: [facility], CR, XR CHEST 1V, 12/15/2019, 14:12. [facility], CR, XR CHEST 1V, 12/27/2019, 9:12. FINDINGS: Surgical changes and devices: None. Lungs and pleura: Lungs are clear. No pleural effusions or pneumothorax. Mediastinum: Mediastinal contours appear unchanged, with prominent cardiop hrenic fat redemonstrated medially in the right lung base. Heart size is normal. Bones and chest wall: No suspicious bony lesions. Overlying soft tissues appear unremarkable. IMPRESSION: 1. No acute cardiopulmonary disease. Dictated by: Vaibhav Glover M.D. on 03/30/2021 at 21:07 ECG Data Attestation: I personally reviewed and interpreted this ECG as follows: (Normal sinus rhythm rate 60 beats per minute. Old inferior LA with Q-waves. No current ectopy. No acute ST T wave changes.) Discharge Plan Departure Patient Disposition: Left Against Medical Advice Clinical Impression: Chest pain Qualifiers: Chest pain type: unspecified Qualified Code(s): R07.9 - Chest pain, unspecified Instructions: DI for Angina Activity Restrictions/Additional Instructions: The intent was to put you in the hospital, and based upon your clinical course over the next several hours you would either go for a stress test, or to the laborer cutting tool later today. Continue your current medications. Take nitroglycerin if necessary for chest pain. Contact your rn clinical quality as soon as possible. I talked to Dr. Wilkinson, Dr. Bernal's partner gage. Be sure your rn clinical quality is where he had chest pain and you came to the ER. Return the ER if symptoms escalate. Prescriptions: No Action isosorbide mononitrate 60 mg tablet extended release 24 hr 60 mg PO DAILY Qty: 90 RF: 3 nitroglycerin 0.4 mg tablet, sublingual 0.4 mg SL Q5M PRN (Reason: chest pain) Qty: 100 RF: 5 lisinopril 10 mg tablet See Rx Instructions .ROUTE .COMPLEX Qty: 90 RF: 0 oxycodone-acetaminophen 7.5-325 mg tablet 2 tab PO Q6H PRN (Reason: pain) Qty: 100 RF: 0 clopidogrel [Plavix] 75 mg tablet 75 mg PO DAILY Qty: 90 RF: 3 ezetimibe 10 mg tablet See Rx Instructions .ROUTE .COMPLEX Qty: 90 RF: 0 atorvastatin 80 mg tablet 80 mg PO DAILY RF: 0 aspirin [Aspirin Low Dose] 81 mg tablet,delayed release (DR/EC) 81 mg PO DAILY RF: 0 triamcinolone acetonide 0.5 % cream 1 applic topical BID PRN (Reason: skin rash) Qty: 15 RF: 0 Narcan 4 mg/actuation spray,non-aerosol 4 mg intranasal Q2M PRN (Reason: opioid overdose) Qty: 2 RF: 0 metoprolol succinate [Toprol XL] 25 MG tablet extended release 24 hr 25 mg PO DAILY RF: 0 ibuprofen 200 mg Tablet 200 mg PO PRN PRN (Reason: pain) RF: 0 Referrals: Chris Hampton MD [Primary Care Provider] - Stand Alone Forms: Against Medical Advice
[2021-03-30 21:06] LABS: Prothrombin Time 11.2 SECONDS (10.1-12.7)
[2021-03-30 21:07] LABS: Add Manual Diff / Slide Review NO; Basophils Absolute Auto 0 /uL (0-100); Basophils Percent Auto 0.5 % (0-2); Eosinophils Absolute Auto 500 /uL (0-450); Hematocrit 39.8 % (41-53); Hemoglobin 13.6 g/dL (13.5-17.5); Lymphocytes Absolute Auto 3900 /uL (1100-4500); Lymphocytes Percent Auto 45.2 % (25-40); Mean Corpuscular HGB Conc 34.2 % (30-36); Mean Corpuscular Hemoglobin 29.1 PG (26-34); Mean Corpuscular Volume 85.1 fL (80-100); Monocytes Absolute Auto 900 /uL (0-900); Monocytes Percent Auto 10.6 % (3-14); Neutrophils Absolute Auto 3200 /uL (1500-7000); Neutrophils Percent Auto 37.7 % (50-75); Platelet Count 234 X10^3/uL (150-400); Red Blood Cell Count 4.68 X10^6/uL (4.5-5.9); Red Cell Distribution Width 14.6 % (11.6-14.8); White Blood Cell Count 8.6 X10^3/uL (4.5-11.0)
[2021-03-30 21:11] LABS: Alanine Aminotransferase 26 IU/L (<50); Albumin 4.1 g/dL (3.5-5.0); Albumin Globulin Ratio 1.4 (1.0-2.8); Alkaline Phosphatase 78 U/L (38-126); Aspartate Aminotransferase 25 IU/L (17-59); BUN Creatinine Ratio 21.3 (6-22); Bilirubin Total 0.1 mg/dL (0.2-1.3); Blood Urea Nitrogen 23 mg/dL (9-20); Calcium 9.2 mg/dL (8.4-10.2); Carbon Dioxide 29 mmol/L (22-32); Chloride 106 mmol/L (98-107); Creatine Kinase 96 U/L (55-170); Estimated Glomerular Filt Rate > 60.0 mL/min (>60); Globulin 2.9 g/dL (1.7-4.1); Glucose 98 mg/dL (70-100); HEMOLYSIS < 15 (0-50); Lipase 92 U/L (23-300); Potassium 3.8 mmol/L (3.4-5.1); Sodium 139 mmol/L (137-145)
[2021-03-30] MEDS: NITROGLYCERIN OINT 1 INCH/GM OINT...G. TOP (21:11)
[2021-03-30 21:17] LABS: PTT Partial Thromboplastin Tim 28 SECONDS (26.4-36.2)
[2021-03-30 21:22] LABS: Troponin I < 0.012 ng/mL (0.01-0.034)
[2021-03-30 21:37] LABS: COVID19 -Nasal RAPID Negative (Negative)
[2021-03-30 23:34] LABS: Troponin I < 0.012 ng/mL (0.01-0.034)
[2021-03-31] VITALS: BP 105/62; PULSE 56; RESP 18; O2SAT 96
[2021-03-31 00:30] VITALS: BP 112/68; PULSE 62; RESP 13; O2SAT 97
[2021-03-31 01:00] VITALS: BP 110/72; PULSE 60; RESP 13; O2SAT 98
== END 2021-03-31 01:10 | disposition left against medical advice (07) ==
PROVIDERS: Emergency Provider Emergency Medicine; PCP Family Medicine
DX: R07.9 Chest pain, unspecified (principal); Z20.822 Contact with and (suspected) exposure to COVID-19
CPT/HCPCS: 36415; 71045; 80053; 82550; 83690; 84484; 85025; 85610; 85730; 87635; 93005; 93010; 99284; C9803

== ENCOUNTER 2021-04-05 17:58 | Emergency (ER) | payer OTHER, MEDICAID, SELFPAY ==
[2019-12-27 13:50] VITALS: BMI 23.6
[2021-04-05 18:08] VITALS: BP 102/56; PULSE 68; RESP 15; TEMP 36.2; O2SAT 97; BMI 25.1
[2021-04-05 19:50] LABS: Add Manual Diff / Slide Review NO; Basophils Absolute Auto 100 /uL (0-100); Basophils Percent Auto 0.8 % (0-2); Eosinophils Absolute Auto 500 /uL (0-450); Eosinophils Percent Auto 5.9 % (2-4); Hematocrit 39.5 % (41-53); Hemoglobin 13.1 g/dL (13.5-17.5); Lymphocytes Absolute Auto 3500 /uL (1100-4500); Lymphocytes Percent Auto 38.9 % (25-40); Mean Corpuscular HGB Conc 33.2 % (30-36); Mean Corpuscular Hemoglobin 28.7 PG (26-34); Mean Corpuscular Volume 86.6 fL (80-100); Monocytes Absolute Auto 900 /uL (0-900); Monocytes Percent Auto 9.9 % (3-14); Neutrophils Absolute Auto 4000 /uL (1500-7000); Neutrophils Percent Auto 44.5 % (50-75); Platelet Count 228 X10^3/uL (150-400); Red Blood Cell Count 4.57 X10^6/uL (4.5-5.9); Red Cell Distribution Width 14.2 % (11.6-14.8); White Blood Cell Count 8.9 X10^3/uL (4.5-11.0)
[2021-04-05 19:54] LABS: Alanine Aminotransferase 26 IU/L (<50); Albumin 3.9 g/dL (3.5-5.0); Albumin Globulin Ratio 1.4 (1.0-2.8); Alkaline Phosphatase 69 U/L (38-126); Aspartate Aminotransferase 27 IU/L (17-59); BUN Creatinine Ratio 25.2 (6-22); Bilirubin Total 0.2 mg/dL (0.2-1.3); Blood Urea Nitrogen 28 mg/dL (9-20); Calcium 8.7 mg/dL (8.4-10.2); Carbon Dioxide 23 mmol/L (22-32); Chloride 107 mmol/L (98-107); Creatine Kinase 128 U/L (55-170); Estimated Glomerular Filt Rate > 60.0 mL/min (>60); Globulin 2.8 g/dL (1.7-4.1); Glucose 98 mg/dL (70-100); HEMOLYSIS < 15 (0-50); Lipase 389 U/L (23-300); Potassium 4.2 mmol/L (3.4-5.1); Sodium 137 mmol/L (137-145); Total Protein 6.7 g/dL (6.3-8.2)
--- NOTE | 2021-04-05 20:01 | ED_ITS ---
HPI - Neck Pain/Injury General Chief Complaint: Neck Pain/Injury Stated Complaint: LEFT SIDE OF NECK AND SHOULDER NUMBNESS Time Seen by Provider: 04/05/21 19:15 Source: patient Mode of arrival: Ambulatory Limitations: no limitations History of Present Illness HPI Narrative: Patient is a 46-year-old male. Has a known history of coronary artery disease. Was seen here in this emergency department a couple days ago for what he states was similar symptoms that brought him in today. During that visit he had a cardiac workup and according to the providers notes there was a recommendation that he be admitted to the hospital for further risk stratification however the patient decided not to stay and signed out against medical advice. He states that he had a follow-up with his cigar head puncher today who told him that there was nothing wrong with his heart and that he did not need to be seen until a year from now. He is here for left-sided neck discomfort, or upper back pain, and tingling down his left arm. He feels like his symptoms today could potentially be somewhat worse than what they were last time he was here. Has not tried anything for the symptoms prior to arrival. Does not describe any trauma. States that it hurts when he puts his arm out to the side. Also hurts when you touch certain areas of a shoulder/arm. Related Data Home Medications Medication Instructions Recorded Confirmed aspirin 81 mg tablet,delayed 81 mg PO DAILY 04/07/18 02/28/21 release atorvastatin 80 mg tablet 80 mg PO DAILY 04/07/18 02/28/21 ibuprofen 200 mg PO PRN PRN 12/27/19 02/28/21 metoprolol succinate [Toprol XL] 25 mg PO DAILY 12/27/19 02/28/21 Previous Rx's Medication Instructions Recorded isosorbide mononitrate 60 mg 60 mg PO DAILY #90 tab 09/06/20 tablet,extended release 24 hr nitroglycerin 0.4 mg sublingual 0.4 mg SL Q5M PRN #100 tab 09/26/20 tablet lisinopril 10 mg tablet See Rx Instructions .ROUTE 11/22/20 .COMPLEX #90 tab naloxone 4 mg/actuation nasal spray 4 mg INTRANASAL Q2M PRN #2 ea 12/31/20 triamcinolone acetonide 0.5 % 1 applic TOPICAL BID PRN #15 g 02/28/21 topical cream oxycodone-acetaminophen 7.5 mg-325 2 tab PO Q6H PRN #100 tab 03/18/21 mg tablet clopidogrel 75 mg tablet 75 mg PO DAILY #90 tab 03/20/21 ezetimibe 10 mg tablet See Rx Instructions .ROUTE 03/21/21 .COMPLEX #90 tab Allergies Allergy/AdvReac Type Severity Reaction Status Date / Time penicillin V Allergy Mild dermatitis Verified 04/05/21 18:10 Review of Systems Constitutional Constitutional: Denies headache(s) ENT Ears, Nose, Mouth, and Throat: Denies headache(s) Cardiovascular Cardiovascular: Reports chest pain (Earlier today) and Denies dyspnea Respiratory Respiratory: Denies dyspnea Gastrointestinal Gastrointestinal: Denies abdominal pain Musculoskeletal Musculoskeletal: Reports tingling Comments: Left shoulder pain Integumentary/Breasts Skin/Breast: Denies rash Neurologic Neurologic: Denies headache(s) and Reports tingling Psychiatric Psychiatric: Reports system reviewed and no additional complaints, except as documented Hematologic/Lymphatic On Anticoagulants: No Allergic/Immunologic Allergic/Immunologic: Reports system reviewed and no additional complaints, except as documented Patient History Medical History Chronic back pain Hypertension Myocardial infarction Surgical History Anesthesia History of angioplasty (~1999) History of angioplasty (10/14/11) History of angioplasty (01/02/15) Social History household members: friend(s) Smoking Status: Former smoker alcohol intake: current substance use type: marijuana Smoking Status: Former smoker alcohol intake frequency: holidays/special occasions only Substance Use Type: marijuana Exam Initial Vital Signs Initial Vital Signs: Vital Signs Temperature 97.1 F L 04/05/21 18:08 Pulse Rate 68 04/05/21 18:08 Respiratory Rate 15 04/05/21 18:08 Blood Pressure 102/56 L 04/05/21 18:08 Pulse Oximetry 97 04/05/21 18:08 Const General: cooperative, healthy appearing and comfortable Limitations: mental status not altered HENMT Head: normal to inspection and normocephalic Chest Chest: No crepitus and No tenderness Resp Effort & Inspection: normal respiratory effort Cardio Rate: regular rate GI Inspection: non-distended Back/Spine/Pelvis Other: Does have tenderness to palpation in areas around the left shoulder girdle to include over the rhomboids. Skin Lesions: no lesions Rashes: no rashes Neuro Sensory Exam: no sensory deficits noted Extrem Other: Patient able to abduct and adduct his left arm without much discomfort. Does have tenderness along the insertion of the deltoid on the humerus. Does not have any biceps tendon tenderness. Has some tenderness over the AC joint and over the supraspinatus. His near/[place]/cross-arm/drop can test all negative. Psych Appearance: grossly normal and well kempt Scores GCS Siddharth coma scale eye opening: Spontaneous Siddharth coma scale verbal response: Orientated Siddharth coma scale motor response: Obey commands Siddharth coma scale total score: 15 Course Orders Ordered: ED Orders 04/05/21 19:23 EKG-12 Lead Stat 04/05/21 19:28 Complete Blood Count AUTO DIFF Stat Comprehensive Metabolic Panel Stat Lipase Stat Troponin & CK Cardiac Panel Stat Vital Signs Vital signs: Vital Signs - 8 hr 04/05/21 20:17 Blood Pressure 97/56 L MDM - Neck Pain/Injury Lab Data Attestation: I reviewed the patient's lab results. Result diagrams: 04/05/21 19:28 04/05/21 19:28 Labs: Lab Results 04/05/21 04/05/21 Range/Units 19:28 19:28 WBC 8.9 (4.5-11.0) X10^3/uL RBC 4.57 (4.5-5.9) X10^6/uL Hgb 13.1 L (13.5-17.5) g/dL Hct 39.5 L (41-53) % MCV 86.6 (80-100) fL MCH 28.7 (26-34) PG MCHC 33.2 (30-36) % RDW 14.2 (11.6-14.8) % Plt Count 228 (150-400) X10^3/uL Neut % (Auto) 44.5 L (50-75) % Lymph % (Auto) 38.9 (25-40) % [place] % (Auto) 9.9 (3-14) % Eos % (Auto) 5.9 H (2-4) % Baso % (Auto) 0.8 (0-2) % Neut # (Auto) 4000 (0116-0295) /uL Lymph # (Auto) 3500 (2273-9895) /uL [place] # (Auto) 900 (0-900) /uL Eos # (Auto) 500 H (0-450) /uL Baso # (Auto) 100 (0-100) /uL Sodium 137 (137-145) mmol/L Potassium 4.2 (3.4-5.1) mmol/L Chloride 107 (98-107) mmol/L Carbon Dioxide 23 (22-32) mmol/L BUN 28 H (9-20) mg/dL Creatinine 1.11 (0.66-1.25) mg/dL Estimated GFR > 60.0 (>60) mL/min BUN/Creatinine Ratio 25.2 H (6-22) Glucose 98 (70-100) mg/dL Calcium 8.7 (8.4-10.2) mg/dL Total Bilirubin 0.2 (0.2-1.3) mg/dL AST 27 (17-59) IU/L ALT 26 (<50) IU/L Alkaline Phosphatase 69 (38-126) U/L Total Creatine Kinase 128 (55-170) U/L CK-MB (CK-2) 1.28 (<2.37) ng/mL CK-MB (CK-2) Rel Index 1.0 L (1.5-5.0) % Troponin I < 0.012 (0.01-0.034) ng/mL Total Protein 6.7 (6.3-8.2) g/dL Albumin 3.9 (3.5-5.0) g/dL Globulin 2.8 (1.7-4.1) g/dL Albumin/Globulin Ratio 1.4 (1.0-2.8) Lipase 389 H D (23-300) U/L [facility] Narrative Medical decision making narrative: Patient did have some chest discomfort earlier today however is not having any at the time of my evaluation. The symptoms that brought him in today are reproducible with touching his left shoulder specifically over the insertion point of the deltoid on his humerus. Given his presentation today do have lower suspicion that his symptoms are ACS related. I suspect more this is musculoskeletal in origin. I suspect that the tingling is related to inflammation of the nerves most likely because of the muscular issues to his left shoulder. He is also tender over the AC joint. He has not had any falls. Low suspicion for fracture. I feel we can hold on radiologic studies. I did discuss his symptoms with him. Have him contact his primary provider for follow-up to discuss further workup to include physical therapy. He is given return precautions and follow-up instructions. He expressed understanding and agreement. Discharge Plan Departure Patient Disposition: Home Clinical Impression: Acute pain of left shoulder Instructions: Shoulder Tendinopathy, DI for Shoulder Pain Activity Restrictions/Additional Instructions: Your physical exam today is consistent with tendinopathy is of your left shoulder. I suspect that this does include your deltoid tendon and potentially rotator cuff tendons. I recommend that you try to avoid activities that make your discomfort worse. The initial treatment for this heat/ice. You could also try massage. I also recommend anti-inflammatories such as Motrin/Naprosyn which you can purchase [id number]. Contact your primary provider for a follow- up. Return to the emergency department for any new or worsening symptoms Prescriptions: No Action isosorbide mononitrate 60 mg tablet extended release 24 hr 60 mg PO DAILY Qty: 90 RF: 3 nitroglycerin 0.4 mg tablet, sublingual 0.4 mg SL Q5M PRN (Reason: chest pain) Qty: 100 RF: 5 lisinopril 10 mg tablet See Rx Instructions .ROUTE .COMPLEX Qty: 90 RF: 0 oxycodone-acetaminophen 7.5-325 mg tablet 2 tab PO Q6H PRN (Reason: pain) Qty: 100 RF: 0 clopidogrel [Plavix] 75 mg tablet 75 mg PO DAILY Qty: 90 RF: 3 ezetimibe 10 mg tablet See Rx Instructions .ROUTE .COMPLEX Qty: 90 RF: 0 atorvastatin 80 mg tablet 80 mg PO DAILY RF: 0 aspirin [Aspirin Low Dose] 81 mg tablet,delayed release (DR/EC) 81 mg PO DAILY RF: 0 triamcinolone acetonide 0.5 % cream 1 applic topical BID PRN (Reason: skin rash) Qty: 15 RF: 0 Narcan 4 mg/actuation spray,non-aerosol 4 mg intranasal Q2M PRN (Reason: opioid overdose) Qty: 2 RF: 0 metoprolol succinate [Toprol XL] 25 MG tablet extended release 24 hr 25 mg PO DAILY RF: 0 ibuprofen 200 mg Tablet 200 mg PO PRN PRN (Reason: pain) RF: 0 Referrals: Horras,Chris M, MD [Primary Care Provider] -
[2021-04-05 20:05] LABS: Troponin I < 0.012 ng/mL (0.01-0.034)
[2021-04-05 20:09] LABS: Creatine Kinase MB 1.28 ng/mL (<2.37)
[2021-04-05 20:17] VITALS: BP 97/56
== END 2021-04-05 20:19 | disposition home or self-care (01) ==
PROVIDERS: Emergency Provider Emergency Medicine; PCP Family Medicine
DX: M25.512 Pain in left shoulder (principal); R20.2 Paresthesia of skin; R07.9 Chest pain, unspecified
CPT/HCPCS: 36415; 80053; 82550; 82553; 83690; 84484; 85025; 93005; 93010; 99283; 99284

== ENCOUNTER → 2021-06-17 14:49 | Outpatient (CLI) | payer OTHER, MEDICAID, SELFPAY ==
[2019-12-27 13:50] VITALS: BMI 23.6
[2021-06-17 16:08] LABS: Add Manual Diff / Slide Review NO; Basophils Absolute Auto 0 /uL (0-100); Basophils Percent Auto 0.4 % (0-2); Eosinophils Absolute Auto 400 /uL (0-450); Eosinophils Percent Auto 5.4 % (2-4); Hematocrit 42.6 % (41-53); Hemoglobin 14.6 g/dL (13.5-17.5); Lymphocytes Absolute Auto 2700 /uL (1100-4500); Lymphocytes Percent Auto 37.7 % (25-40); Mean Corpuscular HGB Conc 34.4 % (30-36); Mean Corpuscular Hemoglobin 29.6 PG (26-34); Monocytes Absolute Auto 700 /uL (0-900); Monocytes Percent Auto 10.3 % (3-14); Neutrophils Absolute Auto 3300 /uL (1500-7000); Neutrophils Percent Auto 46.2 % (50-75); Platelet Count 213 X10^3/uL (150-400); Red Blood Cell Count 4.95 X10^6/uL (4.5-5.9); Red Cell Distribution Width 13.6 % (11.6-14.8)
[2021-06-17 16:22] LABS: C-Reactive Protein Quant 0.6 mg/dL (<1.0)
[2021-06-17 16:24] LABS: Rheumatoid Factor < 8.6 IU/mL (<12.0)
[2021-06-17 17:15] LABS: Erythrocyte Sedimentation Rate 8 MM/HR (0-15)
[2021-06-19 20:36] LABS: CCP Antibodies IgG/IgA 10 units (0-19)
[2021-06-20 13:16] LABS: ANA Screen, IFA Negative (.)
== END ==
PROVIDERS: PCP Family Medicine; Referring Provider Family Medicine; Visit Provider Family Medicine
DX: M25.649 Stiffness of unspecified hand, not elsewhere classified (principal); M79.641 Pain in right hand; M79.642 Pain in left hand
CPT/HCPCS: 36415; 85025; 85651; 86038; 86140; 86200; 86430

== ENCOUNTER → 2021-06-17 14:58 | Outpatient (CLI) | payer OTHER, MEDICAID, SELFPAY ==
[2019-12-27 13:50] VITALS: BMI 23.6
--- NOTE | 2021-06-17 15:00 | DI.RAD.S_ITS ---
PROCEDURE: XR HAND LT MIN 3V INDICATIONS: bilateral hand pain TECHNIQUE: 3 views of the hand(s) acquired. COMPARISON: [facility], , HAND 3V RIGHT, 07/09/2013, 13:05. FINDINGS: Bones: No fractures or dislocations. Carpal bones are normally aligned. No suspicious bony lesions. Mild joint narrowing with periarticular osteophyte formation of the interphalangeal joints. Soft tissues: No suspicious soft tissue calcifications. IMPRESSION: Minimal diffuse interphalangeal joint degeneration. Dictated by: Galdino Burnette [facility] Interpreted: Cabrera Haywood MD on 06/17/2021 at 15:26 Transcribed by: GLENN on 06/17/2021 at 15:26 Approved by: Cabrera Haywood M.D. on 06/17/2021 at 16:52
--- NOTE | 2021-06-17 15:00 | DI.RAD.S_ITS ---
PROCEDURE: XR HAND RT MIN 3V INDICATIONS: bilateral hand pain TECHNIQUE: 3 views of the hand(s) acquired. COMPARISON: [facility], , HAND 3V RIGHT, 07/09/2013, 13:05. FINDINGS: Bones: No fractures or dislocations. Healed fracture deformity of the 5th metacarpus. Minimal diffuse interphalangeal joint space narrowing with periarticular osteophyte formation. Old ulnar styloid tip fracture redemonstrated versus bony ossicle. Carpal bones are normally aligned. No suspicious bony lesions. Soft tissues: No suspicious soft tissue calcifications. IMPRESSION: 1. Healed fracture deformity of the 5th metacarpus and remote ulnar styloid tip fracture. 2. Mild diffuse interphalangeal joint degeneration. Dictated by: Galdino ERNST Interpreted: Cabrera Haywood MD on 06/17/2021 at 15:27 Transcribed by: GLENN on 06/17/2021 at 15:28 Approved by: Cabrera Haywood M.D. on 06/17/2021 at 16:53
== END ==
PROVIDERS: PCP Family Medicine; Referring Provider Family Medicine; Visit Provider Family Medicine
DX: M79.641 Pain in right hand (principal); M79.642 Pain in left hand; M19.041 Primary osteoarthritis, right hand; M25.649 Stiffness of unspecified hand, not elsewhere classified; S62.306S Unspecified fracture of fifth metacarpal bone, right hand, sequela; S52.611S Displaced fracture of right ulna styloid process, sequela
CPT/HCPCS: 36415; 73130; 85025; 85651; 86038; 86140; 86200; 86430

== ENCOUNTER → 2021-09-02 13:40 | Outpatient (CLI) | payer OTHER, MEDICAID, SELFPAY ==
[2019-12-27 13:50] VITALS: BMI 23.6
[2021-09-02 16:56] LABS: COVID19 -Nasal RAPID Negative (Negative)
== END ==
PROVIDERS: Family Provider Family Medicine; PCP Family Medicine; Visit Provider Nurse Practitioner Family
DX: Z20.822 Contact with and (suspected) exposure to COVID-19 (principal); R05.9 Cough, unspecified; R09.81 Nasal congestion
CPT/HCPCS: 87635

== ENCOUNTER 2022-01-16 02:19 | Observation (INO) | payer OTHER, MEDICAID, SELFPAY ==
[2019-12-27 13:50] VITALS: BMI 23.6
[2022-01-16] VITALS (27 sets, daily range): BP systolic 92–129; BP diastolic 54–83; PULSE 46–67; RESP 14–22; TEMP 36.2–37; O2SAT 92–99; BMI 25.8; BMI 26.4
--- NOTE | 2022-01-16 02:26 | DI.RAD.S_ITS ---
PROCEDURE: XR CHEST 1V INDICATIONS: chest pain TECHNIQUE: One view of the chest was acquired. COMPARISON: [facility], CR, XR CHEST 1V, 03/30/2021, 20:55. FINDINGS: Surgical changes and devices: None. Lungs and pleura: Lungs are clear. No pleural effusions or pneumothorax. Mediastinum: Mediastinal contours appear normal. Heart size is normal. Bones and chest wall: No suspicious bony lesions. Overlying soft tissues appear unremarkable. IMPRESSION: No acute cardiopulmonary disease process. Dictated by: Elizabeth Ignacio MD, PhD on 01/16/2022 at 8:13 Approved by: Elizabeth Ignacio MD, PhD on 01/16/2022 at 8:13
[2022-01-16 02:32] LABS: Add Manual Diff / Slide Review NO; Basophils Absolute Auto 100 /uL (0-100); Basophils Percent Auto 0.7 % (0-2); Eosinophils Absolute Auto 600 /uL (0-450); Eosinophils Percent Auto 4.5 % (2-4); Hematocrit 45.8 % (41-53); Hemoglobin 15.2 g/dL (13.5-17.5); Lymphocytes Absolute Auto 5700 /uL (1100-4500); Lymphocytes Percent Auto 44.7 % (25-40); Mean Corpuscular HGB Conc 33.2 % (30-36); Mean Corpuscular Hemoglobin 28.5 PG (26-34); Monocytes Absolute Auto 1200 /uL (0-900); Monocytes Percent Auto 9.4 % (3-14); Neutrophils Absolute Auto 5200 /uL (1500-7000); Neutrophils Percent Auto 40.7 % (50-75); Platelet Count 270 X10^3/uL (150-400); Red Blood Cell Count 5.32 X10^6/uL (4.5-5.9); Red Cell Distribution Width 13.4 % (11.6-14.8); White Blood Cell Count 12.8 X10^3/uL (4.5-11.0)
[2022-01-16 02:45] LABS: Prothrombin Time 10.9 SECONDS (10.1-12.7)
[2022-01-16 02:47] LABS: Alanine Aminotransferase 28 IU/L (<50); Albumin 4.4 g/dL (3.5-5.0); Albumin Globulin Ratio 1.4 (1.0-2.8); Alkaline Phosphatase 73 U/L (38-126); Aspartate Aminotransferase 25 IU/L (17-59); BUN Creatinine Ratio 21.4 (6-22); Bilirubin Total 0.4 mg/dL (0.2-1.3); Blood Urea Nitrogen 21 mg/dL (9-20); Calcium 8.9 mg/dL (8.4-10.2); Carbon Dioxide 27 mmol/L (22-32); Chloride 103 mmol/L (98-107); Creatine Kinase 98 U/L (55-170); Estimated Glomerular Filt Rate > 60.0 mL/min (>60); Globulin 3.2 g/dL (1.7-4.1); Glucose 125 mg/dL (70-100); HEMOLYSIS < 15 (0-50); Lipase 293 U/L (23-300); Potassium 3.8 mmol/L (3.4-5.1); Sodium 135 mmol/L (137-145); Total Protein 7.6 g/dL (6.3-8.2)
[2022-01-16 02:48] LABS: PTT Partial Thromboplastin Tim 29 SECONDS (26.4-36.2)
[2022-01-16] MEDS: NITROGLYCERIN 0.4 MG SL TAB SL (02:51)
[2022-01-16 02:59] LABS: NT-proBNP (BNP-Adult 18+) 128 pg/mL (<125); Troponin I < 0.012 ng/mL (0.01-0.034)
[2022-01-16] MEDS: SODIUM CHLORIDE 0.9% 1,000 ML 150 ML IV (03:05)
[2022-01-16] MEDS: MORPHINE 2 MG/ML INJ IV (03:44)
--- NOTE | 2022-01-16 04:51 | ED.CHESTPAIN ---
HPI - Chest Pain General Chief Complaint: Chest Pain Stated Complaint: chest pain Time Seen by Provider: 01/16/22 02:26 Source: patient and EMS Mode of arrival: EMS Limitations: no limitations History of Present Illness HPI narrative: Patient is a 46-year-old male with unclear in her ear artery disease at least 5 stents presenting today with increasing chest discomfort. He is nose for the week he had what he thought was acid reflux but he has no history of acid reflux. He denies any probe occasions palliation is. Tonight he was resting when pain got significantly worse sharp and stabbing. He says now continues to be a dull achy pressure and squeezing in his chest. He denies any shortness of breath with exertion he took 2 nitroglycerin at home without any success and called 911. He also took aspirin. His tailor fitter is Dr. Capone Related Data Home Medications Medication Instructions Recorded Confirmed aspirin 81 mg tablet,delayed 81 mg PO DAILY 04/07/18 06/10/21 release (Aspirin Low Dose) atorvastatin 80 mg tablet 80 mg PO DAILY 04/07/18 06/10/21 ibuprofen 200 mg tablet 200 mg PO PRN PRN 12/27/19 06/10/21 metoprolol succinate 25 mg 25 mg PO DAILY 12/27/19 06/10/21 tablet,extended release 24 hr (Toprol XL) Previous Rx's Medication Instructions Recorded isosorbide mononitrate 60 mg 60 mg PO DAILY #90 tab 09/06/20 tablet,extended release 24 hr nitroglycerin 0.4 mg sublingual 0.4 mg SL Q5M PRN #100 tab 09/26/20 tablet lisinopril 10 mg tablet See Rx Instructions .ROUTE 11/22/20 .COMPLEX #90 tab naloxone 4 mg/actuation nasal 4 mg INTRANASAL Q2M PRN #2 ea 12/31/20 spray (Narcan) clopidogrel 75 mg tablet (Plavix) 75 mg PO DAILY #90 tab 03/20/21 ezetimibe 10 mg tablet See Rx Instructions .ROUTE 03/21/21 .COMPLEX #90 tab cyclobenzaprine 10 mg tablet 10 mg PO TID PRN #30 tab 10/21/21 oxycodone-acetaminophen 7.5 mg-325 2 tab PO Q6H PRN #100 tab 12/23/21 mg tablet Allergies Allergy/AdvReac Type Severity Reaction Status Date / Time penicillin V Allergy Mild dermatitis Verified 06/10/21 13:03 Review of Systems Review of Systems Narrative: GENERAL: Denies chills, fatigue, malaise, fever, sweats, travel HEENT: Denies sinus pain, ear pain, sore throat, difficulty swallowing, neck pain RESPIRATORY: Denies dyspnea, cough, wheezing, hemoptysis, sputum. CARDIOVASCULAR: See HPI GASTROINTESTINAL: Denies nausea, vomiting, abdominal pain, diarrhea, constipation, melena. : Denies dysuria, frequency, incontinence, hematuria, urinary retention, flank pain. MUSCULOSKELETAL: Denies weakness, joint pain, or bony pain SKIN: No rash, no erythema, no pruritus NEUROLOGIC: Denies weakness, dizziness, headache, numbness, change in speech, confusion PSYCHIATRIC: No concerning psychosocial issues. 12 point review of systems is negative except for those stated above and HPI Patient History Medical History (Updated 01/16/22 @ 07:27 by Holly Araujo DO) Acute coronary syndrome Bilateral hand pain Chronic back pain Hypertension Low back pain without sciatica (05/14/16) Myocardial infarction Unstable angina Surgical History Anesthesia History of angioplasty (~1999) History of angioplasty (10/14/11) History of angioplasty (01/02/15) Social History household members: friend(s) Smoking Status: Former smoker alcohol intake: current substance use type: marijuana Smoking Status: Former smoker alcohol intake frequency: holidays/special occasions only Substance Use Type: marijuana Exam Initial Vital Signs Initial Vital Signs: Vital Signs Temperature 98.6 F 01/16/22 02:25 Pulse Rate 61 01/16/22 02:25 Respiratory Rate 17 01/16/22 02:25 Blood Pressure 123/71 01/16/22 02:25 Pulse Oximetry 94 01/16/22 02:25 GENERAL: Alert well-appearing 46-year-old male in no acute distress. HEENT: Head atraumatic,EOMI, pupils reactive, face symmetric, moist mucous membranes CARDIOVASCULAR: Regular rate and rhythm without murmurs, rubs or gallops. RESPIRATORY: Breath sounds equal bilaterally, no wheezes rales or rhonchi. ABDOMEN: Soft, nontender. Normoactive bowel sounds all 4 quadrants. No guarding or rebound. EXTREMITIES: Normal range of motion, no clubbing or edema. Neurovascularly intact NEUROLOGICAL: Alert and oriented x4.Normal gait and speech. SKIN: Warm, dry, no laceration, no petechiae, no rashes or lesions. Course Orders Ordered: ED Orders 01/16/22 stress [NM boone perf SPECT rest & str] Stat 01/16/22 02:20 Complete Blood Count AUTO DIFF Stat Partial Thromboplastin Time Stat Prothrombin Time INR Stat 01/16/22 02:26 XR chest 1V Stat EKG-12 Lead Stat 01/16/22 02:30 Comprehensive Metabolic Panel Stat Lipase Stat NT-proBNP (BNP-Adult 18+) Stat Troponin & CK Cardiac Panel Stat 01/16/22 04:24 Troponin I Stat 01/16/22 04:33 EKG-12 Lead Stat 01/16/22 05:17 COVID19 -Nasal swab/Pre-Proc Stat 01/16/22 05:30 EKG-12 Lead Stat Nitroglycerin (Nitroglycerin 0.4 Mg Sl Tab) 0.4 mg SL [id number] PRN PRN Reason: chest Last Admin: 01/16/22 02:51 Dose: 0.4 mg Documented by: MARINA Discontinued Medications Sodium Chloride (Normal Saline 0.9%) 1,000 mls @ 150 mls/hr IV CONT ARAVIND Last Admin: 01/16/22 03:05 Dose: 150 mls/hr Documented by: MARINA Morphine Sulfate (Morphine 2 Mg/Ml Inj) 2 mg IV NOW ONE Stop: 01/16/22 03:38 Last Admin: 01/16/22 03:44 Dose: 2 mg Documented by: MARINA Vital Signs Vital signs: Vital Signs - 8 hr 01/16/22 02:25 01/16/22 02:51 01/16/22 03:00 Temperature 98.6 F Pulse Rate 61 64 59 L Respiratory Rate 17 22 Blood Pressure 123/71 123/71 104/61 Pulse Oximetry 94 92 01/16/22 03:30 01/16/22 04:00 01/16/22 04:04 Temperature Pulse Rate 55 L 52 L 52 L Respiratory Rate 18 19 18 Blood Pressure 112/60 129/83 Pulse Oximetry 93 96 96 01/16/22 04:21 01/16/22 04:30 01/16/22 05:00 Temperature Pulse Rate 53 L 50 L 48 L Respiratory Rate 18 18 16 Blood Pressure 120/66 107/67 109/55 L Pulse Oximetry 97 95 95 01/16/22 05:26 01/16/22 05:30 01/16/22 06:00 Temperature Pulse Rate 52 L 47 L 49 L Respiratory Rate 15 14 16 Blood Pressure 124/60 113/64 99/57 L Pulse Oximetry 98 98 95 01/16/22 06:30 01/16/22 07:00 Temperature Pulse Rate 46 L 49 L Respiratory Rate 16 15 Blood Pressure 92/58 L 98/54 L Pulse Oximetry 95 94 MDM - Chest Pain Lab Data Result diagrams: 01/16/22 02:20 01/16/22 02:30 Labs: Lab Results 01/16/22 01/16/22 01/16/22 Range/Units 02:20 02:20 02:30 WBC 12.8 H (4.5-11.0) X10^3/uL RBC 5.32 (4.5-5.9) X10^6/uL Hgb 15.2 (13.5-17.5) g/dL Hct 45.8 (41-53) % MCV 86.0 (80-100) fL MCH 28.5 (26-34) PG MCHC 33.2 (30-36) % RDW 13.4 (11.6-14.8) % Plt Count 270 (150-400) X10^3/uL Neut % (Auto) 40.7 L (50-75) % Lymph % (Auto) 44.7 H (25-40) % [place] % (Auto) 9.4 (3-14) % Eos % (Auto) 4.5 H (2-4) % Baso % (Auto) 0.7 (0-2) % Neut # (Auto) 5200 (2578-1326) /uL Lymph # (Auto) 5700 H (7583-5307) /uL [place] # (Auto) 1200 H (0-900) /uL Eos # (Auto) 600 H (0-450) /uL Baso # (Auto) 100 (0-100) /uL PT 10.9 (10.1-12.7) SECONDS INR 1.0 (0.9-1.3) APTT 29 (26.4-36.2) SECONDS Sodium 135 L (137-145) mmol/L Potassium 3.8 (3.4-5.1) mmol/L Chloride 103 (98-107) mmol/L Carbon Dioxide 27 (22-32) mmol/L BUN 21 H (9-20) mg/dL Creatinine 0.98 (0.66-1.25) mg/dL Estimated GFR > 60.0 (>60) mL/min BUN/Creatinine Ratio 21.4 (6-22) Glucose 125 H (70-100) mg/dL Calcium 8.9 (8.4-10.2) mg/dL Total Bilirubin 0.4 (0.2-1.3) mg/dL AST 25 (17-59) IU/L ALT 28 (<50) IU/L Alkaline Phosphatase 73 (38-126) U/L Total Creatine Kinase 98 (55-170) U/L CK-MB (CK-2) TNP CK-MB (CK-2) Rel Index TNP Troponin I < 0.012 (0.01-0.034) ng/mL NT-Pro-B Natriuret Pep 128 H (<125) pg/mL Total Protein 7.6 (6.3-8.2) g/dL Albumin 4.4 (3.5-5.0) g/dL Globulin 3.2 (1.7-4.1) g/dL Albumin/Globulin Ratio 1.4 (1.0-2.8) Lipase 293 (23-300) U/L SARS-CoV-2 (PCR) (Negative) 01/16/22 01/16/22 Range/Units 04:24 05:17 WBC (4.5-11.0) X10^3/uL RBC (4.5-5.9) X10^6/uL Hgb (13.5-17.5) g/dL Hct (41-53) % MCV (80-100) fL MCH (26-34) PG MCHC (30-36) % RDW (11.6-14.8) % Plt Count (150-400) X10^3/uL Neut % (Auto) (50-75) % Lymph % (Auto) (25-40) % [place] % (Auto) (3-14) % Eos % (Auto) (2-4) % Baso % (Auto) (0-2) % Neut # (Auto) (3542-0816) /uL Lymph # (Auto) (7950-8612) /uL [place] # (Auto) (0-900) /uL Eos # (Auto) (0-450) /uL Baso # (Auto) (0-100) /uL PT (10.1-12.7) SECONDS INR (0.9-1.3) APTT (26.4-36.2) SECONDS Sodium (137-145) mmol/L Potassium (3.4-5.1) mmol/L Chloride (98-107) mmol/L Carbon Dioxide (22-32) mmol/L BUN (9-20) mg/dL Creatinine (0.66-1.25) mg/dL Estimated GFR (>60) mL/min BUN/Creatinine Ratio (6-22) Glucose (70-100) mg/dL Calcium (8.4-10.2) mg/dL Total Bilirubin (0.2-1.3) mg/dL AST (17-59) IU/L ALT (<50) IU/L Alkaline Phosphatase (38-126) U/L Total Creatine Kinase (55-170) U/L CK-MB (CK-2) CK-MB (CK-2) Rel Index Troponin I < 0.012 (0.01-0.034) ng/mL NT-Pro-B Natriuret Pep (<125) pg/mL Total Protein (6.3-8.2) g/dL Albumin (3.5-5.0) g/dL Globulin (1.7-4.1) g/dL Albumin/Globulin Ratio (1.0-2.8) Lipase (23-300) U/L SARS-CoV-2 (PCR) Negative (Negative) Imaging Data Chest x-ray: Radiologist's Impression: Normal heart and lungs ECG Data Interpretation: EKG 1. Normal sinus rhythm rate 65 TX interval [address] changes or T-wave inversions Q-waves noted in inferior leads similar to previous EKG 2. Normal sinus rhythm rate [address] changes similar to previous MDM Narrative Medical decision making narrative: The patient is given nitroglycerin and morphine in the emergency department and is now pain free. North-Dr. Bustos a cardiology consulted, he has reviewed patient's record at this time recommend talking to patient's own tailor fitter was on in 2 hours to see what test they want. Probable stress test versus cardiac catheterization Patient is chest pain-free 07-- Dr. Capone, recommends stress test at this time. Would hold off on heart catheterization and transfer and less needed. 0715 Dr. Diez accepts. Keep NPO Discharge Plan Departure Patient Disposition: Admitted as Observation Clinical Impression: Chest pain
[2022-01-16 04:57] LABS: Troponin I < 0.012 ng/mL (0.01-0.034)
[2022-01-16 05:35] LABS: COVID19 -Nasal RAPID Negative (Negative)
--- NOTE | 2022-01-16 09:25 | P.HP_ITS ---
History of Present Illness History of Present Illness Date Patient Seen: 01/16/22 Time Patient Seen: 09:25 Chief complaint: chest pain Narrative: Tremaine Sy is a 44 y/o M with PMH of CAD (s/p multiple stents, most recently with angioplasty in early 2018, then in 08/2019 had + stress testing but no new disease on [facility]), hypertension, and chronic back pain who presented to the ER with chest pressure starting at 11 pm last night. Patient reports for the last couple of weeks he is felt indigestion and has taken multiple Tums with minimal relief. He denies any cough or sore throat. Starting at 11:00 p.m. last night he developed chest pressure to 6-7/10 which radiated into his back but mainly on his left shoulder and arm. He denies any numbness or tingling. He denies any neck pain, headache, or vision changes. He took 2 nitroglycerins at home without relief, and called EMS. In the emergency room he was given nitro and morphine with some relief and his pain has markedly improved. In the emergency room, his vital signs are unremarkable. Initial laboratory evaluation showed no significant lab abnormalities except for a mild leukocytosis with WBC of 12.8. COVID-19 testing was negative. Troponin was negative. EKG showed no acute ischemic findings and appeared similar to prior tracings. Case was discussed with Cardiology per ER provider who recommended admission for stress testing. Patient History Medical History Acute coronary syndrome Bilateral hand pain Chronic back pain Hypertension Low back pain without sciatica (05/14/16) Myocardial infarction Unstable angina Surgical History Anesthesia History of angioplasty (~1999) History of angioplasty (10/14/11) History of angioplasty (01/02/15) Family & Social History Social History: household members friend(s) Safety & Behavioral: Feels Safe in Current Yes Environment Tobacco & Substance use: Smoking Status Former smoker alcohol intake current alcohol intake frequency holiday/special occasion Substance Use Type marijuana Meds Home Medications and Allergies Home Medications Medication Instructions Recorded Confirmed Type aspirin 81 mg tablet,delayed 81 mg PO DAILY 04/07/18 01/16/22 History release (Aspirin Low Dose) atorvastatin 80 mg tablet 80 mg PO DAILY 04/07/18 01/16/22 History ibuprofen 200 mg tablet 200 mg PO PRN PRN 12/27/19 01/16/22 History metoprolol succinate 25 mg 25 mg PO DAILY 12/27/19 01/16/22 History tablet,extended release 24 hr (Toprol XL) isosorbide mononitrate 60 mg 60 mg PO DAILY #90 tab 09/06/20 01/16/22 Rx tablet,extended release 24 hr nitroglycerin 0.4 mg sublingual 0.4 mg SL Q5M PRN #100 tab 09/26/20 01/16/22 Rx tablet naloxone 4 mg/actuation nasal 4 mg INTRANASAL Q2M PRN #2 ea 12/31/20 01/16/22 Rx spray (Narcan) clopidogrel 75 mg tablet (Plavix) 75 mg PO DAILY #90 tab 03/20/21 01/16/22 Rx ezetimibe 10 mg tablet See Rx Instructions .ROUTE 03/21/21 01/16/22 Rx .COMPLEX #90 tab oxycodone-acetaminophen 7.5 mg-325 2 tab PO Q6H PRN #100 tab 12/23/21 01/16/22 Rx mg tablet lisinopril 10 mg tablet 10 mg PO DAILY 01/16/22 01/16/22 History Allergies Allergy/AdvReac Type Severity Reaction Status Date / Time penicillin V Allergy Mild dermatitis Verified 06/10/21 13:03 Review of Systems Review of Systems Narrative: All other systems reviewed with the patient and are negative unless otherwise stated. Exam Vital Signs (past 8 hours): - 01/16/22 02:25 01/16/22 02:51 01/16/22 03:00 Temperature 98.6 F Pulse Rate 61 64 59 L Respiratory Rate 17 Blood Pressure 123/71 123/71 104/61 Pulse Oximetry 94 92 01/16/22 03:30 01/16/22 04:00 01/16/22 04:04 Temperature Pulse Rate 55 L 52 L 52 L Respiratory Rate 18 19 18 Blood Pressure 112/60 129/83 Pulse Oximetry 93 96 96 01/16/22 04:21 01/16/22 04:30 01/16/22 05:00 Temperature Pulse Rate 53 L 50 L 48 L Respiratory Rate 18 18 16 Blood Pressure 120/66 107/67 109/55 L Pulse Oximetry 97 95 95 01/16/22 05:26 01/16/22 05:30 01/16/22 06:00 Temperature Pulse Rate 52 L 47 L 49 L Respiratory Rate 15 14 16 Blood Pressure 124/60 113/64 99/57 L Pulse Oximetry 98 98 95 01/16/22 06:30 01/16/22 07:00 01/16/22 07:30 Temperature Pulse Rate 46 L 49 L 49 L Respiratory Rate 16 15 16 Blood Pressure 92/58 L 98/54 L 97/58 L Pulse Oximetry 95 94 96 01/16/22 08:00 01/16/22 08:30 01/16/22 09:00 Temperature Pulse Rate 48 L 54 L 50 L Respiratory Rate 16 16 16 Blood Pressure 97/62 107/62 112/58 L Pulse Oximetry 95 97 96 Oxygen Delivery Method Room Air Narrative Exam Narrative: General:? Patient is well developed and well nourished, in no distress at this time. HEENT:? Normocephalic, atraumatic, extraocular muscles intact, oral pharynx is clear and mucous membranes are moist. Neck: supple and symmetric, trachea is midline, no cervical adenopathy. Negative for JVD Chest:? Normal AP diameter and contour without kyphoscoliosis, no tachypnea, equal chest rise bilaterally. Lungs:? CTA b/l no wheezing rhonchi or rales. Cardio:?RRR no m/r/g. Abdomen: S NT ND. No CVA tenderness. Musculoskeletal:? Muscle strength and tone are equal within normal limits, no deformity. Extremities: No edema or joint effusions. No cyanosis or clubbing. Skin:? Pale,? Warm to touch,dry and intact without rashes, ulcerations or petechiae.? Neuro:? Alert and orientated x3,? sensation to touch intact in all extremities, no gross deficits noted of cranial nerves. Psych:? Patient has a well-kept appearance, appropriate affect, mental status attitude thought context and judgment are appropriate for age. Objective Labs Result Diagrams: 01/16/22 02:20 01/16/22 02:30 Labs: Laboratory Results - last 24 hr 01/16/22 01/16/22 01/16/22 02:20 02:20 02:30 WBC 12.8 H RBC 5.32 Hgb 15.2 Hct 45.8 MCV 86.0 MCH 28.5 MCHC 33.2 RDW 13.4 Plt Count 270 Neut % (Auto) 40.7 L Lymph % (Auto) 44.7 H [place] % (Auto) 9.4 Eos % (Auto) 4.5 H Baso % (Auto) 0.7 Neut # (Auto) 5200 Lymph # (Auto) 5700 H [place] # (Auto) 1200 H Eos # (Auto) 600 H Baso # (Auto) 100 PT 10.9 INR 1.0 APTT 29 Sodium 135 L Potassium 3.8 Chloride 103 Carbon Dioxide 27 BUN 21 H Creatinine 0.98 Estimated GFR > 60.0 BUN/Creatinine Ratio 21.4 Glucose 125 H Calcium 8.9 Total Bilirubin 0.4 AST 25 ALT 28 Alkaline Phosphatase 73 Total Creatine Kinase 98 CK-MB (CK-2) TNP CK-MB (CK-2) Rel Index TNP Troponin I < 0.012 NT-Pro-B Natriuret Pep 128 H Total Protein 7.6 Albumin 4.4 Globulin 3.2 Albumin/Globulin Ratio 1.4 Lipase 293 SARS-CoV-2 (PCR) 01/16/22 01/16/22 04:24 05:17 WBC RBC Hgb Hct MCV MCH MCHC RDW Plt Count Neut % (Auto) Lymph % (Auto) [place] % (Auto) Eos % (Auto) Baso % (Auto) Neut # (Auto) Lymph # (Auto) [place] # (Auto) Eos # (Auto) Baso # (Auto) PT INR APTT Sodium Potassium Chloride Carbon Dioxide BUN Creatinine Estimated GFR BUN/Creatinine Ratio Glucose Calcium Total Bilirubin AST ALT Alkaline Phosphatase Total Creatine Kinase CK-MB (CK-2) CK-MB (CK-2) Rel Index Troponin I < 0.012 NT-Pro-B Natriuret Pep Total Protein Albumin Globulin Albumin/Globulin Ratio Lipase SARS-CoV-2 (PCR) Negative Assessment & Plan Assessment & Plan narrative: 1. Chest pain, acute, present on admission, improved- ?-repeat troponin tonight to rule out ACS ?-stress testing recommended by cardiology. Last stress with fixed defect 2 years ago without reversibility. - EKG sinus bradycardia without changes compared to prior. - start PPI trial for possible GERD. 2. CAD, chronic, present on admission -hold home Imdur and metoprolol prior to stress test ?-continue home aspirin, Plavix, Lipitor, ezetimibe 3. Hypertension, chronic, stable ?-resume home medications except for metoprolol as noted above 4. Chronic back pain, chronic, stable ?-continue home oxycodone acetaminophen 7.5/ 325 as needed code: Full as discussed with the patient. Surrogate decision discussed and patient unsure at this time, not willing to decide at the moment. Dispo: Admit as inpatient, stress testing unable to perform until tomorrow. L ikely discharge home tomorrow. DVT: lovenox daily COVID-19 COVID-19 status: Negative Time Spent With Patient Critical Care time: I spent a total of [] minutes of critical care time on this patient's care today; this time is exclusive of procedural time.
[2022-01-16] MEDS: OXYCODONE/ACETAMINOPHEN 7.5/325 TABLET 2 TAB PO (16:03)
[2022-01-16] MEDS: ATORVASTATIN 20 MG TABLET 80 MG PO (20:57)
[2022-01-16] MEDS: ISOSORBIDE MONONITRATE ER 30 MG TABLET 60 MG PO (20:58)
[2022-01-16] MEDS: SODIUM CHLORIDE 0.9% FLUSH 10 ML IV (20:58)
[2022-01-17] VITALS (8 sets, daily range): BP systolic 127–139; BP diastolic 82–90; PULSE 62–65; RESP 17–19; TEMP 35.6–36.3; O2SAT 93–96
[2022-01-17] MEDS: PANTOPRAZOLE DR 20 MG TABLET PO (07:00)
[2022-01-17] MEDS: SODIUM CHLORIDE 0.9% FLUSH 10 ML IV (08:42)
[2022-01-17] MEDS: EZETIMIBE 10 MG TABLET PO (08:42)
[2022-01-17] MEDS: OXYCODONE/ACETAMINOPHEN 7.5/325 TABLET 2 TAB PO (08:42)
[2022-01-17] MEDS: CLOPIDOGREL 75 MG TABLET PO (08:42)
[2022-01-17] MEDS: ASPIRIN EC 81 MG TABLET PO (08:42)
[2022-01-17] MEDS: lisinopriL 10 MG TABLET PO (08:42)
--- NOTE | 2022-01-17 11:47 | PM.TREADMILL ---
Cardiac Stress Test Report Referral & Results Date Patient Seen: 01/17/22 Time Patient Seen: 11:47 Requesting provider: Holly Araujo Indication: chest pain Rest ECG: sinus bradycardia with Q waves in inferior leads and nonspecific ST changes in V5-V6 Procedure Note: After Lexiscan injection, had minimal dyspnea and no chest discomfort No significant ST changes No ectopy Impression: Normal Lexiscan stress test Mibi images pending Please note: Actual ECG tracings can be found in the PACS system.
--- NOTE | 2022-01-17 13:18 | PM.DS.1 ---
History of Present Illness History of Present Illness Date Patient Seen: 01/17/22 Time Patient Seen: 13:18 Chief complaint: chest pain Narrative: Tremaine Sy is a 44 y/o M with PMH of CAD (s/p multiple stents, most recently with angioplasty in early 2018, then in 08/2019 had + stress testing but no new disease on [facility]), hypertension, and chronic back pain who presented to the ER with chest pressure starting at 11 pm last night. Patient reports for the last couple of weeks he is felt indigestion and has taken multiple Tums with minimal relief. He denies any cough or sore throat. Starting at 11:00 p.m. last night he developed chest pressure to 6-7/10 which radiated into his back but mainly on his left shoulder and arm. He denies any numbness or tingling. He denies any neck pain, headache, or vision changes. He took 2 nitroglycerins at home without relief, and called EMS. In the emergency room he was given nitro and morphine with some relief and his pain has markedly improved. In the emergency room, his vital signs are unremarkable. Initial laboratory evaluation showed no significant lab abnormalities except for a mild leukocytosis with WBC of 12.8. COVID-19 testing was negative. Troponin was negative. EKG showed no acute ischemic findings and appeared similar to prior tracings. Case was discussed with Cardiology per ER provider who recommended admission for stress testing. Discharge Providers Provider Date of admission: 01/16/22 07:58 Discharge Date: 01/17/22 Primary care physician: Chris Hampton MD Discharge provider: Curtis Diez DO Summary Hospital Course Discharge Diagnosis: 1. Chest pain, acute, present on admission, improved- 2. CAD, chronic, present on admission 3. Hypertension, chronic, stable 4. Chronic back pain, chronic, stable Hospital Course: This is a 46 year old male with prior history of CAD with multiple prior stents, HTN, and chronic back pain who presented with a concerning story for cardiac chest pain. He had negative troponins and was without EKG changes. Cardiology recommended stress testing which was similar to his previous study a few years ago. His chest pain ultimately resolved. He reported a few weeks of indigestion and was sent a prescription for 2 week PPI trail for possible GERD. He should follow up with his PCP as previously scheduled, or sooner if symptoms recur. Exam Vital Signs (past 8 hours): - 01/17/22 08:54 01/17/22 09:22 01/17/22 10:21 Temperature 97.3 F L Pulse Rate 64 Respiratory Rate 17 Blood Pressure 130/90 Pulse Oximetry 95 96 95 Oxygen Delivery Method Room Air Oxygen Flow Rate 0 Narrative Exam Narrative: General:? Patient is well developed and well nourished, in no distress at this time. HEENT:? Normocephalic, atraumatic, extraocular muscles intact, oral pharynx is clear and mucous membranes are moist. Neck: supple and symmetric, trachea is midline, no cervical adenopathy. Negative for JVD Chest:? Normal AP diameter and contour without kyphoscoliosis, no tachypnea, equal chest rise bilaterally. Lungs:? CTA b/l no wheezing rhonchi or rales. Cardio:?RRR no m/r/g. Abdomen: S NT ND. No CVA tenderness. Musculoskeletal:? Muscle strength and tone are equal within normal limits, no deformity. Extremities: No edema or joint effusions. No cyanosis or clubbing. Skin:? Pale,? Warm to touch,dry and intact without rashes, ulcerations or petechiae.? Neuro:? Alert and orientated x3,? sensation to touch intact in all extremities, no gross deficits noted of cranial nerves. Psych:? Patient has a well-kept appearance, appropriate affect, mental status attitude thought context and judgment are appropriate for age. Objective Labs Result Diagrams: 01/16/22 02:20 01/16/22 02:30 [facility] Medical History Acute coronary syndrome Bilateral hand pain Chronic back pain Hypertension Low back pain without sciatica (05/14/16) Myocardial infarction Unstable angina Surgical History Anesthesia History of angioplasty (~1999) History of angioplasty (10/14/11) History of angioplasty (01/02/15) Social History household members: friend(s) Smoking Status: Former smoker alcohol intake: current substance use type: marijuana Discharge Plan Discharge Plan Patient Disposition: Home Provider Discharge Comment: You were admitted to the hospital with chest pain. Stress testing is the same as a few years ago. Would recommend addition of omeprazole 20 mg daily at home for 14 day trial to see if improvement for possible reflux. No other medication changes are necessary. Discharge orders & Medications Prescriptions: New pantoprazole 20 mg tablet,delayed release (DR/EC) 20 mg PO DAILY 14 Days Qty: 14 0RF Continued isosorbide mononitrate 60 mg tablet extended release 24 hr 60 mg PO DAILY Qty: 90 3RF nitroglycerin 0.4 mg tablet, sublingual 0.4 mg SL Q5M PRN (Reason: chest pain) Qty: 100 5RF Rx Instructions: do not exceed 3 doses per episode clopidogrel [Plavix] 75 mg tablet 75 mg PO DAILY Qty: 90 3RF ezetimibe 10 mg tablet See Rx Instructions .ROUTE .COMPLEX Qty: 90 0RF Dose Instruction: TAKE ONE TABLET BY MOUTH ONE TIME DAILY Rx Instructions: TAKE ONE TABLET BY MOUTH ONE TIME DAILY oxycodone-acetaminophen 7.5-325 mg tablet 2 tab PO Q6H PRN (Reason: pain) Qty: 100 0RF Rx Instructions: MUST last 30 days atorvastatin 80 mg tablet 80 mg PO DAILY 0RF aspirin [Aspirin Low Dose] 81 mg tablet,delayed release (DR/EC) 81 mg PO DAILY 0RF Narcan 4 mg/actuation spray,non-aerosol 4 mg intranasal Q2M PRN (Reason: opioid overdose) Qty: 2 0RF Rx Instructions: spray 1 dose into ONE nostril; alternate nostrils w each dose until help arrives metoprolol succinate [Toprol XL] 25 MG tablet extended release 24 hr 25 mg PO DAILY 0RF ibuprofen 200 mg Tablet 200 mg PO PRN PRN (Reason: pain) 0RF lisinopril 10 mg tablet 10 mg PO DAILY 0RF Rx Instructions: TAKE ONE TABLET BY MOUTH ONE TIME DAILY Follow up/Referrals: Chris Hampton MD [Primary Care Provider] - Diet/Activity/Treatments Diet: Diet as Tolerated Activity: As tolerated Discharge Data Primary Care Provider: Chris Hampton Attending Provider: Curtis Diez
--- NOTE | 2022-01-17 13:52 | PC.NURSE ---
Went over dc instructions and medications with patient, questions answered. RX sent to pharmacy, patient escorted to ER entrance, patient had all belongings.
--- NOTE | 2022-01-17 14:20 | DI.NM.S_ITS ---
DATE OF SERVICE: 01/16/2022 PROCEDURE PERFORMED: Pharmacologic vasodilator stress and rest myocardial perfusion imaging with gating to assess ejection fraction and regional wall motion. INDICATIONS: The patient is a 46-year-old male with previous inferior wall infarction and multiple stents, now admitted with chest discomfort. ORDERING PROVIDER: Dr. Curtis Diez. CARDIAC STRESS: Per protocol, 0.4 mg of regadenoson was infused with a normal hemodynamic response. He had minimal dyspnea but no chest discomfort. His resting ECG shows sinus rhythm with nonspecific inferolateral ST-segment abnormalities which become slightly accentuated with stress, but remained nonspecific. There were no arrhythmias. Per protocol, 27.2 millicuries of technetium-99m Myoview was injected and he was imaged 20 minutes later using a gated SPECT acquisition protocol. The day prior while at rest, he had been injected with 26.1 millicuries of technetium-99m Myoview and had been imaged 25 minutes later, again using a gated SPECT acquisition protocol. FINDINGS: 1. Raw data: There is fairly good myocardial tracer uptake. The lung/heart ratio was normal at 0.36 with a normal TID ratio of 0.74. 2. Quantitated gated SPECT: Post-stress ejection fraction is calculated at 49% with akinesis of the proximal and mid inferior wall with hypokinesis extending into the distal inferior wall and into the proximal inferolateral wall. The resting ejection fraction is calculated at 39%, although visually appears to be similar to that of the post-stress ejection fraction with a similar contraction pattern. Resting end- diastolic volume is mildly increased at 166 mL. 3. Myocardial perfusion imaging: Post-stress supine images continue to show a severe perfusion defect in the majority of the inferior wall extending into the proximal inferolateral wall, and extending out to the apex. This defect persists on the prone images in a similar pattern. The resting images show a near identical perfusion pattern with perhaps slight improvement at the periphery of the defect in the lateral wall, but this is a predominantly fixed defect. IMPRESSION: 1. Abnormal myocardial perfusion study. 2. Predominantly fixed, moderate-sized defect in the proximal and mid inferior and inferolateral wall associated with hypokinesis with slight reversibility at the periphery of the defect in the lateral wall, consistent with previous transmural infarction with mild munir-infarct ischemia. 3. Mildly reduced left ventricular systolic function with inferior wall akinesis and mildly increased left ventricular volumes. 4. No angina or ECG evidence of ischemia with pharmacologic vasodilator stress. 5. Compared to his previous myocardial perfusion study of 12/28/2019, an identical perfusion pattern was seen when compared to today's study. The previous ejection fraction was estimated at 45% with inferior akinesis, suggesting the absence of any significant change and the previous end-diastolic volume was 174 mL. The previous SSS was 14 with an SRS of 13, compared to an SSS of 14 and an SRS of 12 on today's study. Thus, there has been no significant change from the previous exam. Tremaine Sy - /hannah/ doc#: [id number]/job#: [id number] dd: 01/17/2022 13:13:00 dt: 01/17/2022 14:05:00 DICTATING MD/COPIES TO: Randy Reyes MD; Curtis Diez M.D. COPIES MNE: SERENE;
--- NOTE | 2022-01-17 15:24 | CM.IDA ---
Initial DCP Assessment Note Pt is a 46 yo male, resident of [place], arrives w/chest pain per H+P: PMH of CAD (s/p multiple stents, most recently with angioplasty in early 2018, then in 08/2019 had + stress testing but no new disease on [facility]), hypertension, and chronic back pain who presented to the ER with chest pressure starting at 11 pm last night. PCP: Chris Hampton Payer: [employer] Reviewed chart, pt discussed in multidisciplinary rounds this morning. Stress test pending. Patient eager to return home; chart review 1528- stress test neg and patient DC home w/close outpatient f/u. No needs indicated from CM team Plan: Home w/close outpatient f/u via pov DORON Vila
== END 2022-01-17 14:24 | disposition home or self-care (01) ==
LOC: ED 07:27 → AC 07:59
PROVIDERS: Admitting Provider Internal Medicine; Emergency Provider Emergency Medicine; Family Provider Family Medicine; PCP Family Medicine; Referring Provider Emergency Medicine; Visit Provider Internal Medicine
DX: R07.9 Chest pain, unspecified (principal); I25.10 Atherosclerotic heart disease of native coronary artery without angina pectoris; I10 Essential (primary) hypertension; G89.29 Other chronic pain; M54.9 Dorsalgia, unspecified; Z20.822 Contact with and (suspected) exposure to COVID-19
CPT/HCPCS: 71045; 78452; 80053; 82550; 83690; 83880; 84484; 85025; 85610; 85730; 87635; 93005; 93017; 94760; 96361; 96374; 99284; C9803; G0378; A9502; J2270; J2785

== ENCOUNTER → 2023-02-05 14:51 | Outpatient (CLI) | payer OTHER, MEDICAID, SELFPAY ==
[2022-01-16 12:08] VITALS: BMI 26.4
--- NOTE | 2023-02-05 | DI.US.S_ITS ---
PROCEDURE: US ARTERIAL DUPLEX LE BI INDICATIONS: PERIPHERAL VASCULAR DISEASE TECHNIQUE: Color and pulse Doppler interrogation was performed of both lower extremity arterial systems, with image documentation. COMPARISON: [facility], US, US ARTERIAL DUPLEX LE BI, 10/08/2018, 14:14. FINDINGS: Right lower extremity: Common femoral artery: 90.8 cm/sec, with triphasic flow. Deep femoral artery: 49.5 cm/sec, with biphasic flow. Proximal superficial femoral artery: 70.3 cm/sec, with triphasic flow. Mid superficial femoral artery: 71.3 cm/sec, with triphasic flow. Distal superficial femoral artery: 141.7 cm/sec, with triphasic flow. Popliteal artery: 58.2 cm/sec, with triphasic flow. Posterior tibial artery: Occluded Anterior tibial artery/dorsalis pedis: 36.1/36.6 cm/sec, with biphasic/monophasic flow. [place]-scale imaging description: No evidence of significant stenotic disease from the common femoral to the popliteal. Occluded posterior tibial. Monophasic dorsalis pedis waveform is consistent with small vessel disease. Left lower extremity: Common femoral artery: 166.1 cm/sec, with triphasic flow. Deep femoral artery: 45.7 cm/sec, with biphasic flow. Proximal superficial femoral artery: 75.4 cm/sec, with triphasic flow. Mid superficial femoral artery: 77.3 cm/sec, with triphasic flow. Distal superficial femoral artery: 81.8 cm/sec, with triphasic flow. Popliteal artery: 51.2 cm/sec, with triphasic flow. Posterior tibial artery: 10.8 cm/sec, with monophasic flow. Anterior tibial artery/dorsalis pedis: 40.5/61.1 cm/sec, with biphasic/monophasic flow. [place]-scale imaging description: No evidence of stenosis from the common femoral through the popliteal. Distal small vessel disease with monophasic waveform in the posterior tibial and dorsalis pedis. IMPRESSION: 1. No evidence of inflow stenotic disease. 2. No significant stenosis noted from the common femorals through the popliteal arteries. 3. Bilateral small vessel disease. On the right, the posterior tibial is occluded and the dorsalis pedis has monophasic waveforms. On the left, the posterior tibial and dorsalis pedis have monophasic waveforms. Dictated by: Jose Thibodeaux M.D. on 02/05/2023 at 16:00 Approved by: Jose Thibodeaux M.D. on 02/05/2023 at 16:05
== END ==
PROVIDERS: Family Provider Family Medicine; PCP Family Medicine; Referring Provider Internal Medicine Cardiovascular Disease; Visit Provider Internal Medicine Cardiovascular Disease
DX: I73.9 Peripheral vascular disease, unspecified (principal)
CPT/HCPCS: 93925

== ENCOUNTER → 2023-04-24 14:44 | Outpatient (CLI) | payer OTHER, MEDICAID, SELFPAY ==
[2022-01-16 12:08] VITALS: BMI 26.4
[2023-04-24 15:35] LABS: Add Manual Diff / Slide Review NO; Basophils Absolute Auto 0 /uL (0-100); Basophils Percent Auto 0.4 % (0-2); Eosinophils Absolute Auto 400 /uL (0-450); Eosinophils Percent Auto 4.8 % (2-4); Hematocrit 40.4 % (41-53); Lymphocytes Absolute Auto 3500 /uL (1100-4500); Lymphocytes Percent Auto 42.3 % (25-40); Mean Corpuscular HGB Conc 34.7 % (30-36); Mean Corpuscular Hemoglobin 29.8 PG (26-34); Mean Corpuscular Volume 85.9 fL (80-100); Monocytes Absolute Auto 900 /uL (0-900); Monocytes Percent Auto 10.8 % (3-14); Neutrophils Absolute Auto 3500 /uL (1500-7000); Neutrophils Percent Auto 41.7 % (50-75); Platelet Count 192 X10^3/uL (150-400); Red Cell Distribution Width 14.1 % (11.6-14.8); White Blood Cell Count 8.3 X10^3/uL (4.5-11.0)
[2023-04-24 16:33] LABS: Alanine Aminotransferase 49 IU/L (<50); Albumin Globulin Ratio 1.3 (1.0-2.8); Alkaline Phosphatase 70 U/L (38-126); Aspartate Aminotransferase 29 IU/L (17-59); BUN Creatinine Ratio 15.8 (6-22); Bilirubin Total 0.3 mg/dL (0.2-1.3); Blood Urea Nitrogen 19 mg/dL (9-20); Calcium 8.7 mg/dL (8.4-10.2); Carbon Dioxide 29 mmol/L (22-32); Chloride 103 mmol/L (98-107); Cholesterol 127 mg/dL (140-199); Estimated Glomerular Filt Rate > 60 mL/min (>60); Glucose 98 mg/dL (70-100); HDL Cholesterol 26 mg/dL (40-60); HEMOLYSIS < 15 (0-50); LDL Cholesterol Calculated 29 mg/dL (<100); Potassium 4.1 mmol/L (3.4-5.1); Sodium 138 mmol/L (137-145); Triglycerides 361 mg/dL (35-150)
[2023-04-25 07:03] LABS: Labcorp Hemoglobin (Hb) A1c 7.2 % (4.8-5.6)
== END ==
PROVIDERS: Family Provider Family Medicine; PCP Family Medicine; Referring Provider Family Medicine; Visit Provider Family Medicine
DX: I10 Essential (primary) hypertension (principal); M54.32 Sciatica, left side; I25.10 Atherosclerotic heart disease of native coronary artery without angina pectoris; G89.4 Chronic pain syndrome; M54.50 Low back pain, unspecified
CPT/HCPCS: 36415; 80053; 80061; 83036; 85025

== ENCOUNTER → 2023-06-11 15:07 | Outpatient (CLI) | payer OTHER, MEDICAID, SELFPAY ==
[2022-01-16 12:08] VITALS: BMI 26.4
--- NOTE | 2023-06-15 08:56 | P.PFT.S_ITS ---
Pulmonary Function Test Referral & Results Date Patient Seen: 06/11/23 Results: The?spirometry?demonstrates?an?FVC?of?3.16?L?which?is?62%?of?predicted. The?FEV1?was?measured?at?2.18?L?which?is?55%?of?predicted. The?FEV1/FVC?ratio?was?69?which?is?88%?of?predicted. Following?the?administration?of?bronchodilator?there?was?no?notable?change. Lung?volumes?show?an?SVC?of?3.33?L?which?is?67%?of?predicted. The?diffusing?capacity?was?measured?at?18.15?which?is?56%?of?predicted.??No?hemo globin?value?was?provided,?so?no?correction?for?potential?anemia?could?be?made,? if?appropriate. The?maximum?voluntary?ventilation?was?reduced Interpretation: This?study?demonstrates?moderate?obstructive?lung?disease?based?on?reduction?FEV 1?although?FEV1/FVC?ratio?is?relatively?preserved.??There?is?no?evidence?of?bene fit?following?bronchodilator?administration There?is?also?moderate?restrictive?lung?disease?present?based?on?reduction?in?SV C There?is?also?moderate?reduction?in?diffusing?capacity?suggesting?the?presence?o f?disease?at?the?capillary?alveolar?level Altogether?this?is?consistent?with?a?diagnosis?of?moderate?COPD? Clinical?correlation?suggested
--- NOTE | 2023-06-15 08:56 | PM.PFT.1 ---
Pulmonary Function Test Referral & Results Date Patient Seen: 06/11/23 Results: The?spirometry?demonstrates?an?FVC?of?3.16?L?which?is?62%?of?predicted. The?FEV1?was?measured?at?2.18?L?which?is?55%?of?predicted. The?FEV1/FVC?ratio?was?69?which?is?88%?of?predicted. Following?the?administration?of?bronchodilator?there?was?no?notable?change. Lung?volumes?show?an?SVC?of?3.33?L?which?is?67%?of?predicted. The?diffusing?capacity?was?measured?at?18.15?which?is?56%?of?predicted.??No?hemoglobin?value?was?provided,?so?no?correction?for?potential?anemia?could?be?made,?if?appropriate. The?maximum?voluntary?ventilation?was?reduced Interpretation: This?study?demonstrates?moderate?obstructive?lung?disease?based?on?reduction?FEV1?although?FEV1/FVC?ratio?is?relatively?preserved.??There?is?no?evidence?of?benefit?following?bronchodilator?administration There?is?also?moderate?restrictive?lung?disease?present?based?on?reduction?in?SVC There?is?also?moderate?reduction?in?diffusing?capacity?suggesting?the?presence?of?disease?at?the?capillary?alveolar?level Altogether?this?is?consistent?with?a?diagnosis?of?moderate?COPD? Clinical?correlation?suggested
== END ==
PROVIDERS: Family Provider Family Medicine; PCP Family Medicine; Referring Provider Family Medicine; Visit Provider Family Medicine
DX: R06.09 Other forms of dyspnea (principal); Z87.891 Personal history of nicotine dependence; J98.8 Other specified respiratory disorders
CPT/HCPCS: 94060; 94726; 94729

== ENCOUNTER 2023-07-15 14:15 | Outpatient (RCR) | payer OTHER, MEDICAID, SELFPAY ==
[2022-01-16 12:08] VITALS: BMI 26.4
== END 2023-07-15 16:15 ==
LOC: CAR 14:15
PROVIDERS: Family Provider Family Medicine; PCP Family Medicine; Referring Provider Family Medicine; Visit Provider Family Medicine
DX: I21.9 Acute myocardial infarction, unspecified (principal); Z95.1 Presence of aortocoronary bypass graft; Z95.5 Presence of coronary angioplasty implant and graft; Z94.1 Heart transplant status
CPT/HCPCS: 93798

== ENCOUNTER → 2023-09-19 12:27 | Outpatient (CLI) | payer OTHER, MEDICAID, SELFPAY ==
[2022-01-16 12:08] VITALS: BMI 26.4
[2023-09-19 13:11] LABS: Alanine Aminotransferase 45 IU/L (<50); Albumin 4.4 g/dL (3.5-5.0); Albumin Globulin Ratio 1.4 (1.0-2.8); Alkaline Phosphatase 60 U/L (38-126); Aspartate Aminotransferase 33 IU/L (17-59); Bilirubin Total 0.5 mg/dL (0.2-1.3); Blood Urea Nitrogen 18 mg/dL (9-20); Calcium 9.5 mg/dL (8.4-10.2); Carbon Dioxide 26 mmol/L (22-32); Chloride 102 mmol/L (98-107); Estimated Glomerular Filt Rate > 60 mL/min (>60); Globulin 3.1 g/dL (1.7-4.1); Glucose 188 mg/dL (70-100); HEMOLYSIS 36 (0-50); Hemoglobin A1C% w Est Avg Glu 7.5 % (4.0-6.0); Potassium 4.3 mmol/L (3.4-5.1); Sodium 137 mmol/L (137-145); Total Protein 7.5 g/dL (6.3-8.2)
== END ==
PROVIDERS: Family Provider Family Medicine; PCP Family Medicine; Referring Provider Family Medicine; Visit Provider Family Medicine
DX: I25.10 Atherosclerotic heart disease of native coronary artery without angina pectoris (principal); R73.9 Hyperglycemia, unspecified
CPT/HCPCS: 36415; 80053; 83036

== ENCOUNTER → 2024-03-11 08:19 | Outpatient (CLI) | payer OTHER, MEDICAID, SELFPAY ==
[2022-01-16 12:08] VITALS: BMI 26.4
[2024-03-11 08:55] LABS: Alanine Aminotransferase 48 IU/L (<50); Albumin Globulin Ratio 1.6 (1.0-2.8); Alkaline Phosphatase 66 U/L (38-126); Aspartate Aminotransferase 32 IU/L (17-59); Bilirubin Total 0.4 mg/dL (0.2-1.3); Blood Urea Nitrogen 16 mg/dL (9-20); Carbon Dioxide 29 mmol/L (22-32); Chloride 108 mmol/L (98-107); Estimated Glomerular Filt Rate > 60 mL/min (>60); Globulin 2.5 g/dL (1.7-4.1); Glucose 106 mg/dL (70-100); HEMOLYSIS < 15 (0-50); Sodium 140 mmol/L (137-145); Total Protein 6.5 g/dL (6.3-8.2)
[2024-03-11 08:56] LABS: Hemoglobin A1C% w Est Avg Glu 7.3 % (4.0-6.0)
[2024-03-11 17:43] LABS: Creatinine Urine Random 227.9 mg/dL
[2024-03-11 17:47] LABS: Microalbumi Creatinin Ratio Ur 2.6 ug/mg CR (<30); Microalbumin Urine Random 0.6 mg/dL (0-1.6)
[2024-03-16 05:11] LABS: Lipoprotein (a) 123.4 nmol/L (<75.0)
== END ==
PROVIDERS: Family Provider Family Medicine; PCP Family Medicine; Referring Provider Family Medicine; Visit Provider Family Medicine
DX: M54.50 Low back pain, unspecified (principal); G89.29 Other chronic pain; I10 Essential (primary) hypertension; R73.9 Hyperglycemia, unspecified; I25.10 Atherosclerotic heart disease of native coronary artery without angina pectoris
CPT/HCPCS: 36415; 80053; 82043; 82570; 83036; 83695

== ENCOUNTER → 2024-03-21 13:50 | Outpatient (CLI) | payer OTHER, MEDICAID, SELFPAY ==
[2022-01-16 12:08] VITALS: BMI 26.4
--- NOTE | 2024-03-21 13:51 | DI.CT.S_ITS ---
PROCEDURE: CT LUMBAR SPINE WO CON INDICATIONS: chronic low back pain, stool urgency TECHNIQUE: Noncontrast 3 mm thick sections acquired from the T12 level to the sacrum. Sagittal and coronal reformats were constructed. For radiation dose reduction, the following was used: automated exposure control. COMPARISON: [facility], CT, CT ANGIO CHEST ABDOMEN PELVIS, 12/27/2019, 9:17. FINDINGS: Image quality: Excellent. Bones: Large Schmorl's node at the superior L2 endplate and compression deformity and Schmorl's node at the L4 superior endplate are unchanged when compared with the CT dated December 27, 2019. There is slight progression of the anterior osteophytosis within the mid lumbar spine. No new compression deformities. T12-L1: No canal stenosis or foraminal narrowing. L1-L2: Moderate disc desiccation and height loss. Broad-based disc bulge. Mild facet ligamentum flavum hypertrophy. Mild canal stenosis. No foraminal stenosis. L2-L3: Moderate disc desiccation and height loss. Broad-based disc bulge. Moderate facet ligamentum flavum hypertrophy. Moderate canal stenosis. No foraminal stenosis. L3-L4: Moderate to severe disc desiccation and height loss. Severe facet ligamentum flavum hypertrophy. Severe canal stenosis. Mild bilateral foraminal stenosis. L4-L5: Moderate disc desiccation and height loss. Broad-based disc bulge. Moderate facet ligamentum flavum hypertrophy. Moderate canal stenosis. Mild bilateral foraminal stenosis. L5-S1: Mild disc desiccation and height loss. Broad-based disc bulge. No canal stenosis. Mild bilateral foraminal stenosis. Soft tissues: No retroperitoneal masses or hematomas. Atheromatous calcifications are visualized throughout the abdominal aorta and iliac arteries. IMPRESSION: 1. No new compression deformities when compared with the CT dated December 27, 2019. 2. Mild to moderate disc desiccation and height loss throughout the lumbar spine. 3. Broad-based disc bulges and facet ligamentum flavum hypertrophy with resultant mild canal stenosis at L1-2, moderate canal stenosis at L2-3 and L4-5 and severe canal stenosis at L3-4. Dictated by: Kendy Holden M.D. on 03/21/2024 at 16:21 Approved by: eKndy Holden M.D. on 03/21/2024 at 16:32
== END ==
LOC: CT 13:51
PROVIDERS: Family Provider Family Medicine; PCP Family Medicine; Referring Provider Family Medicine; Visit Provider Family Medicine
DX: M51.36 Other intervertebral disc degeneration, lumbar region (principal); M51.37 Other intervertebral disc degeneration, lumbosacral region; M47.816 Spondylosis without myelopathy or radiculopathy, lumbar region; M48.061 Spinal stenosis, lumbar region without neurogenic claudication; M48.07 Spinal stenosis, lumbosacral region; R15.2 Fecal urgency; I10 Essential (primary) hypertension; R15.9 Full incontinence of feces; M54.50 Low back pain, unspecified; G89.29 Other chronic pain
CPT/HCPCS: 72131

== ENCOUNTER → 2024-07-20 14:03 | Outpatient (CLI) | payer OTHER, MEDICAID, SELFPAY ==
[2022-01-16 12:08] VITALS: BMI 26.4
--- NOTE | 2024-07-20 14:04 | DI.RAD.S_ITS ---
PROCEDURE: XR THORACIC SPINE 3V INDICATIONS: pain upper thoracic spine mid-scapular area TECHNIQUE: 4 views of the thoracic spine were acquired. COMPARISON: None. FINDINGS: Bones: No acute fractures or dislocations. No suspicious bony lesions. 12 pairs of ribs are noted, and appear intact where visualized. Mild multilevel thoracic spondylosis. Soft tissues: No paravertebral stripe thickening. IMPRESSION: No acute bony abnormality. Mild multilevel thoracic spondylosis. Dictated by: Cabrera Haywood M.D. on 07/20/2024 at 16:49 Approved by: Cabrera Haywood M.D. on 07/20/2024 at 16:49
--- NOTE | 2024-07-20 14:04 | DI.RAD.S_ITS ---
PROCEDURE: XR CERVICAL SPINE 2V OR 3V INDICATIONS: pain neck TECHNIQUE: 3 view(s) of the cervical spine were acquired. COMPARISON: None. FINDINGS: Bones: No fractures or dislocations to the T1 level. The lateral masses of C1 appear intact on the odontoid view. No suspicious bony lesions. Multilevel cervical spondylosis. Straightening of cervical lordosis which may be due to patient positioning and/or concurrent muscle spasms. Soft tissues: No prevertebral soft tissue swelling. IMPRESSION: No displaced fracture or traumatic subluxation. Multilevel cervical spondylosis. Mild straightening of normal cervical lordosis likely related to positioning and/or concurrent muscle spasms. Dictated by: Cabrera Haywood M.D. on 07/20/2024 at 16:47 Approved by: Cabrera Haywood M.D. on 07/20/2024 at 16:49
== END ==
PROVIDERS: Family Provider Family Medicine; PCP Family Medicine; Referring Provider Physician Assistant; Visit Provider Physician Assistant
DX: M47.812 Spondylosis without myelopathy or radiculopathy, cervical region (principal); M47.814 Spondylosis without myelopathy or radiculopathy, thoracic region; M62.838 Other muscle spasm; M54.6 Pain in thoracic spine; M54.2 Cervicalgia
CPT/HCPCS: 72040; 72072

== ENCOUNTER 2024-08-21 13:53 | Emergency (ER) | payer OTHER, MEDICAID, SELFPAY ==
[2022-01-16 12:08] VITALS: BMI 26.4
[2024-08-21] VITALS (14 sets, daily range): BP systolic 90–129; BP diastolic 57–80; PULSE 64–79; RESP 13–21; TEMP 36.6; O2SAT 93–97; BMI 27.8
--- NOTE | 2024-08-21 14:03 | DI.RAD.S_ITS ---
PROCEDURE: XR CHEST 1V INDICATIONS: chest pain TECHNIQUE: One view of the chest was acquired. COMPARISON: [facility], CR, XR CHEST 1V, 01/16/2022, 2:26. [facility], CR, XR CHEST 1V, 03/30/2021, 20:55. FINDINGS: Surgical changes and devices: Left chest wall generator with cardiac leads. Lungs and pleura: Lungs are clear. No pleural effusions or pneumothorax. Mediastinum: Mediastinal contours appear normal. Heart size is normal. Bones and chest wall: No suspicious bony lesions. Overlying soft tissues appear unremarkable. IMPRESSION: No acute cardiopulmonary abnormality is seen. Dictated by: Hardy Lu M.D. on 08/21/2024 at 14:24 Approved by: Hardy Lu M.D. on 08/21/2024 at 14:25
--- NOTE | 2024-08-21 14:08 | EKG_ITS ---
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
[2024-08-21 14:18] LABS: Add Manual Diff / Slide Review NO; Basophils Absolute Auto 0 /uL (0-100); Basophils Percent Auto 0.7 % (0-2); Eosinophils Absolute Auto 100 /uL (0-450); Eosinophils Percent Auto 2.5 % (2-4); Hematocrit 44.8 % (41-53); Hemoglobin 15.3 g/dL (13.5-17.5); Lymphocytes Absolute Auto 2500 /uL (1100-4500); Lymphocytes Percent Auto 42.5 % (25-40); Mean Corpuscular HGB Conc 34.2 % (30-36); Mean Corpuscular Hemoglobin 29.5 PG (26-34); Mean Corpuscular Volume 86.4 fL (80-100); Monocytes Absolute Auto 700 /uL (0-900); Monocytes Percent Auto 12.6 % (3-14); Neutrophils Absolute Auto 2400 /uL (1500-7000); Neutrophils Percent Auto 41.7 % (50-75); Platelet Count 224 X10^3/uL (150-400); Red Blood Cell Count 5.18 X10^6/uL (4.5-5.9); Red Cell Distribution Width 13.7 % (11.6-14.8); White Blood Cell Count 5.9 X10^3/uL (4.5-11.0)
[2024-08-21] MEDS: ASPIRIN 81 MG CHEW TAB 324 MG PO (14:18)
[2024-08-21 14:21] LABS: INR 1.1 (0.9-1.3); Prothrombin Time 12.1 SECONDS (9.4-12.5)
[2024-08-21 14:23] LABS: PTT Partial Thromboplastin Tim 28 SECONDS (25.1-36.5)
[2024-08-21 14:25] LABS: Alanine Aminotransferase 42 IU/L (<50); Albumin 4.3 g/dL (3.5-5.0); Albumin Globulin Ratio 1.3 (1.0-2.8); Alkaline Phosphatase 68 U/L (38-126); Aspartate Aminotransferase 28 IU/L (17-59); BUN Creatinine Ratio 17.8 (6-22); Bilirubin Total 0.4 mg/dL (0.2-1.3); Blood Urea Nitrogen 18 mg/dL (9-20); Calcium 9.1 mg/dL (8.4-10.2); Carbon Dioxide 24 mmol/L (22-32); Chloride 100 mmol/L (98-107); Creatine Kinase 61 U/L (55-170); Estimated Glomerular Filt Rate > 60 mL/min (>60); Globulin 3.3 g/dL (1.7-4.1); Glucose 104 mg/dL (70-100); HEMOLYSIS < 15 (0-50); Lipase 383 U/L (23-300); Potassium 4.2 mmol/L (3.4-5.1); Sodium 133 mmol/L (137-145); Total Protein 7.6 g/dL (6.3-8.2)
[2024-08-21 14:37] LABS: NT-proBNP (BNP-Adult 18+) 271 pg/mL (<125); Troponin I < 0.012 ng/mL (0.01-0.034)
--- NOTE | 2024-08-21 15:19 | ED_ITS ---
HPI - Abdominal Pain General Chief Complaint: Abdominal Pain Stated Complaint: abd pain Time Seen by Provider: 08/21/24 15:14 Source: patient, RN notes reviewed and old records reviewed Mode of arrival: Ambulatory Limitations: no limitations History of Present Illness HPI narrative: 49-year-old male with prior history of coronary artery disease and myocardial infarction, pacemaker, hypertension, dyslipidemia, COPD, [id number] diabetes, takes aspirin and clopidogrel daily. Patient presents with complaint of bilateral flank pain, radiates to the front a little bit. Patient states he is chronic low back pain but that is usually midline. Same lower lumbar region but does not normally have any radiation to the front. States he has a little bit discomfort in the abdominal area as well. No radiation down the legs. Denies fevers or chills, states nothing seems to make it better nothing seems to make it worse. Took his normal home medications including oxycodone which he takes PRN for back pain states it did not make much difference. Patient states he did have the flu about a week and has since recovered. Denies any nausea or vomiting, no issues with bowel movements no black or bloody stools, no incontinence. No swelling of extremities. No chest pain or shortness of breath no lightheadedness or passing out. Patient states has history of cardiac stents and pacemaker denies any other prior abdominal or back surgeries. Former tobacco user, 1 alcoholic drink monthly, uses marijuana no other recreational drugs. Dr. Hampton is his primary care physician. Dr. Capone is his laundry tech. Related Data Home Medications Medication Instructions Recorded Confirmed aspirin 81 mg tablet,delayed 81 mg PO DAILY 04/07/18 07/12/24 release (Evelyn Low Dose Aspirin) atorvastatin 80 mg tablet 80 mg PO DAILY 04/07/18 07/12/24 ibuprofen 200 mg tablet 200 mg PO PRN PRN pain 12/27/19 07/12/24 metoprolol succinate 25 mg 25 mg PO DAILY 12/27/19 07/12/24 tablet,extended release 24 hr (Toprol XL) lisinopril 10 mg tablet 10 mg PO DAILY 01/16/22 07/12/24 Previous Rx's Medication Instructions Recorded isosorbide mononitrate 60 mg 60 mg PO DAILY #90 tabs 09/06/20 tablet,extended release 24 hr clopidogrel 75 mg tablet (Plavix) 75 mg PO DAILY #90 tabs 03/20/21 ezetimibe 10 mg tablet See Rx Instructions .Route 03/21/21 .COMPLEX #90 tabs nitroglycerin 0.4 mg sublingual 0.4 mg sublingual Q5M PRN chest 06/01/23 tablet pain #100 tabs naloxone 4 mg/actuation nasal 4 mg intranasal Q2M PRN opioid 09/21/23 spray (Narcan) overdose #2 ea empagliflozin 25 mg tablet See Rx Instructions PO DAILY #90 03/14/24 (Jardiance) tabs cyclobenzaprine 10 mg tablet See Rx Instructions .Route 06/13/24 .COMPLEX #30 tabs oxycodone-acetaminophen 7.5 mg-325 2 tab PO Q6H PRN pain #100 tabs 06/13/24 mg tablet oxycodone-acetaminophen 7.5 mg-325 2 tab PO Q6H PRN pain #100 tabs 06/13/24 mg tablet oxycodone-acetaminophen 7.5 mg-325 2 tab PO Q6H PRN pain #100 tabs 06/13/24 mg tablet semaglutide 0.25 mg or 0.5 mg (2 0.25 mg (0.368 mL) SUBCUT QWEEK #3 06/13/24 mg/3 mL) subcutaneous pen injector mL (Ozempic) Allergies Allergy/AdvReac Type Severity Reaction Status Date / Time No Known Drug Allergies Allergy Unverified 07/12/24 11:17 Review of Systems Review of Systems ROS Unobtainable: All systems reviewed & are unremarkable except as noted in HPI and below Patient History Medical History Hx of myocardial infarction Restrictive lung disease Chronic low back pain Bilateral hand pain Chronic back pain Myocardial infarction Hypertension Low back pain without sciatica (05/14/16) Unstable angina Acute coronary syndrome Surgical History Anesthesia History of angioplasty (01/02/15) History of angioplasty (10/14/11) History of angioplasty (~1999) Social History household members: friend(s) Smoking Status: Never smoker alcohol intake: current substance use type: marijuana (Every day use) Smoking Status: Never smoker alcohol intake frequency: holidays/special occasions only Substance Use Type: marijuana Exam Narrative Exam Narrative: GENERAL: Alert and oriented x three, male in mild distress HEENT: Head normocephalic, atraumatic, EOMI, pupils reactive, face symmetric, moist mucous membranes NECK: Supple, full range of motion CARDIOVASCULAR: Regular rate and rhythm without murmurs, rubs or gallops. RESPIRATORY: Breath sounds equal bilaterally, no wheezes rales or rhonchi. ABDOMEN: Soft, very mild left lower quadrant tenderness. Normoactive bowel sounds all 4 quadrants. No guarding or rebound, rigidity, no mass : No CVA tenderness bilaterally. BACK: No cervical, thoracic vertebral tenderness, patient has some generalized lumbar tenderness on exam. Patient has normal range of motion. Patient's gait is normal. Rectal exam is deferred. Muscle strength is 5/5 in lower extremities, dorsalis pedis 2+ bilaterally. Sensation is intact in the lower extremities. No warmth, erythema or other skin changes. EXTREMITIES: Normal range of motion, no clubbing or edema. Neurovascularly intact NEUROLOGICAL: Cranial nerves II through XII grossly intact. Moving all extremities SKIN: Warm, dry, no petechiae, no rashes or lesions. Initial Vital Signs Initial Vital Signs: Vital Signs Temperature 97.8 F 08/21/24 13:59 Pulse Rate 79 08/21/24 13:59 Respiratory Rate 18 08/21/24 13:59 Blood Pressure 129/72 08/21/24 13:59 Pulse Oximetry 95 08/21/24 13:59 Oxygen Delivery Method Room Air 08/21/24 13:59 Course Orders Ordered: Discontinued Medications Aspirin (Aspirin 81 Mg Chew Tab) 324 mg PO NOW ONE Stop: 08/21/24 14:04 Last Admin: 08/21/24 14:18 Dose: 243 mg Documented By: SB Sodium Chloride (Normal Saline 0.9%) 1,000 mls @ 500 mls/hr IV BOLUS ONE Stop: 08/21/24 18:03 Last Admin: 08/21/24 16:27 Dose: 500 mls/hr Documented By: ES Ondansetron HCl (Ondansetron 4 Mg/2 Ml Inj) 4 mg IV NOW PRN PRN Reason: Nausea And Vomiting Ondansetron HCl (Ondansetron 4 Mg Odt) 4 mg PO NOW PRN PRN Reason: Nausea And Vomiting Vital Signs Vital signs: Vital Signs - 8 hr 08/21/24 13:59 08/21/24 13:59 08/21/24 14:00 Temperature 97.8 F Pulse Rate 79 77 77 Respiratory Rate 18 Blood Pressure 129/72 Pulse Oximetry 95 96 95 Oxygen Delivery Method Room Air 08/21/24 14:13 08/21/24 14:13 08/21/24 14:30 Temperature Pulse Rate 74 Respiratory Rate 21 Blood Pressure 107/66 90/57 L Pulse Oximetry 94 Oxygen Delivery Method 08/21/24 14:30 08/21/24 14:32 08/21/24 14:32 Temperature Pulse Rate 70 71 Respiratory Rate 18 15 Blood Pressure 101/65 Pulse Oximetry 93 94 Oxygen Delivery Method 08/21/24 14:45 08/21/24 14:45 08/21/24 15:00 Temperature Pulse Rate 71 Respiratory Rate 18 Blood Pressure 96/60 102/66 Pulse Oximetry 93 Oxygen Delivery Method 08/21/24 15:00 08/21/24 15:15 08/21/24 15:15 Temperature Pulse Rate 65 68 Respiratory Rate 16 13 Blood Pressure 101/65 Pulse Oximetry 94 93 Oxygen Delivery Method Room Air 08/21/24 15:30 08/21/24 15:30 08/21/24 16:00 Temperature Pulse Rate 64 71 Respiratory Rate 14 20 Blood Pressure 105/66 Pulse Oximetry 94 95 Oxygen Delivery Method Room Air 08/21/24 16:00 08/21/24 16:27 08/21/24 16:27 Temperature Pulse Rate 69 Respiratory Rate 16 Blood Pressure 101/65 117/64 Pulse Oximetry 97 Oxygen Delivery Method 08/21/24 16:30 08/21/24 16:30 08/21/24 17:00 Temperature Pulse Rate 68 71 Respiratory Rate 19 15 Blood Pressure 110/64 Pulse Oximetry 96 97 Oxygen Delivery Method Room Air 08/21/24 17:00 08/21/24 17:30 08/21/24 17:30 Temperature Pulse Rate 69 Respiratory Rate 16 Blood Pressure 113/80 110/73 Pulse Oximetry 96 Oxygen Delivery Method Room Air MDM - Abdominal Pain Lab Data 08/21/24 14:06 08/21/24 14:06 Labs: Lab Results 08/21/24 Range/Units 14:06 WBC 5.9 (4.5-11.0) X10^3/uL RBC 5.18 (4.5-5.9) X10^6/uL Hgb 15.3 (13.5-17.5) g/dL Hct 44.8 (41-53) % MCV 86.4 (80-100) fL MCH 29.5 (26-34) PG MCHC 34.2 (30-36) % RDW 13.7 (11.6-14.8) % Plt Count 224 (150-400) X10^3/uL Neut % (Auto) 41.7 L (50-75) % Lymph % (Auto) 42.5 H (25-40) % [place] % (Auto) 12.6 (3-14) % Eos % (Auto) 2.5 (2-4) % Baso % (Auto) 0.7 (0-2) % Neut # (Auto) 2400 (5078-1041) /uL Lymph # (Auto) 2500 (3492-0128) /uL [place] # (Auto) 700 (0-900) /uL Eos # (Auto) 100 (0-450) /uL Baso # (Auto) 0 (0-100) /uL PT 12.1 (9.4-12.5) SECONDS INR 1.1 (0.9-1.3) APTT 28 (25.1-36.5) SECONDS Sodium 133 L (137-145) mmol/L Potassium 4.2 (3.4-5.1) mmol/L Chloride 100 (98-107) mmol/L Carbon Dioxide 24 (22-32) mmol/L BUN 18 (9-20) mg/dL Creatinine 1.01 (0.66-1.25) mg/dL Estimated GFR > 60 (>60) mL/min BUN/Creatinine Ratio 17.8 (6-22) Glucose 104 H (70-100) mg/dL Calcium 9.1 (8.4-10.2) mg/dL Magnesium 2.0 (1.6-2.3) mg/dL Total Bilirubin 0.4 (0.2-1.3) mg/dL AST 28 (17-59) IU/L ALT 42 (<50) IU/L Alkaline Phosphatase 68 (38-126) U/L Total Creatine Kinase 61 (55-170) U/L Troponin I < 0.012 (0.01-0.034) ng/mL NT-Pro-B Natriuret Pep 271 H (<125) pg/mL Total Protein 7.6 (6.3-8.2) g/dL Albumin 4.3 (3.5-5.0) g/dL Globulin 3.3 (1.7-4.1) g/dL Albumin/Globulin Ratio 1.3 (1.0-2.8) Lipase 383 H (23-300) U/L Point of care testing: Urine Dip Bedside Urine Glucose 1000 mg/dl Bedside Urine Bilirubin - Negative Bedside Urine Ketone - Negative Urine Specific [place] 1.005 Bedside Urine Occult Blood - Negative Bedside Urine pH 5.5 Bedside Urine Protein - Negative Bedside Urine Urobilinogen - Negative Bedside Urine Nitrite - Negative Bedside Urine Leukocytes - Negative Esterase Imaging Data Chest x-ray: Radiologist's Impression: [address] [address] XRay Report Signed Patient: Tremaine Sy MR#: [id number] : 1975 Acct:[id number] Age/Sex: 49 / M Date of Service: 08/21/24 Loc: ED Accession Number: [id number] Procedure: XR chest 1V Ordering Provider: Ivette Callaway D.O. PROCEDURE: XR CHEST 1V INDICATIONS: chest pain TECHNIQUE: One view of the chest was acquired. COMPARISON: [facility], XR CHEST 1V, 01/16/2022, 2:26. [facility], XR CHEST 1V, 03/30/2021, 20:55. FINDINGS: Surgical changes and devices: Left chest wall generator with cardiac leads. Lungs and pleura: Lungs are clear. No pleural effusions or pneumothorax. Mediastinum: Mediastinal contours appear normal. Heart size is normal. Bones and chest wall: No suspicious bony lesions. Overlying soft tissues appear unremarkable. IMPRESSION: No acute cardiopulmonary abnormality is seen. Dictated by: Hardy Lu M.D. on 08/21/2024 at 14:24 Approved by: Hardy Lu M.D. on 08/21/2024 at 14:25 ECG Data Attestation: I personally reviewed and interpreted this ECG as follows: Prior ECG tracings: available for review Interpretation: Sinus rhythm rate of 68 MI 148 QRS of 108 QTC of 412, Q-waves in 2 3 AVF, no acute ST elevation or depression otherwise noted. Patient has prior from 01/16/2022 which appears similar. MDM Narrative Medical decision making narrative: Labs white count of 5.9 hemoglobin of 15.3 platelets of 224 predominance of lymphocytes. Chemistry shows sodium 133 potassium of 4.2 chloride of 100 CO2 of 24 BUN 18 creatinine 1.01 glucose of 104 LFTs are lipase is 383. Troponins less than 0.012 BNP is 271. LFTs are negative. urine positive for glucose, otherwise negative for nitrates, leukocyte esterase, no blood. EKG shows sinus rhythm, Q-waves 2 3 and AVF no acute ST elevation depression noted appears similar to prior. CXR shows no acute change. CT abdomen pelvis was obtained as patient was having little bit of left lower quadrant tenderness with complaint of bilateral back pain diverticulitis was at the differential. Negative for acute change in the abdomen. Patient has a 2.3 x 1.8 cm left lower lobe nodule with suspected left hilar adenopathy concerning for malignancy versus infectious. Patient has prominent L4 superior endplate Schmorl's node. Reviewed findings with the patient, return precautions. Discussed with patient does have a left lung nodule that is concerning and needs follow up. He is to call the office tomorrow morning. Otherwise CT did not show any other acute cause for his abdominal discomfort he is feeling improved now. States he is pain medications at home he can take and defers anything here. Spoke with Dr. Becerra to help facilitate follow-up for lung nodule. Discharge Plan Departure Patient Disposition: Home Clinical Impression: Pulmonary nodule, left Instructions: DI for Abdominal Pain-Adult Activity Restrictions/Additional Instructions: Your imaging and workup today does not show any major changes to the abdomen or clear signs of infection, but incidentally a left lower lung nodule was seen. This needs to be followed up shortly with your physician for further workup. Please call tomorrow to set up additional workup. You can continue your home medications as prescribed. Please return for fevers, new or worsening abdominal back or flank pain, lightheadedness or passing out, black or bloody stools, difficulty with urination or other new or concerning changes. Prescriptions: No Action isosorbide mononitrate 60 mg tablet extended release 24 hr 60 mg PO DAILY Qty: 90 3RF clopidogrel [Plavix] 75 mg tablet 75 mg PO DAILY Qty: 90 3RF ezetimibe 10 mg tablet See Rx Instructions .ROUTE .COMPLEX Qty: 90 0RF Dose Instruction: TAKE ONE TABLET BY MOUTH ONE TIME DAILY Rx Instructions: TAKE ONE TABLET BY MOUTH ONE TIME DAILY nitroglycerin 0.4 mg tablet, sublingual 0.4 mg SL Q5M PRN (Reason: chest pain) Qty: 100 5RF Rx Instructions: do not exceed 3 doses per episode atorvastatin 80 mg tablet 80 mg PO DAILY aspirin [Evelyn Low Dose Aspirin] 81 mg tablet,delayed release (DR/EC) 81 mg PO DAILY naloxone [Narcan] 4 mg/actuation spray,non-aerosol 4 mg intranasal Q2M PRN (Reason: opioid overdose) Qty: 2 0RF Rx Instructions: spray 1 dose into ONE nostril; alternate nostrils w each dose until help arrives Jardiance 25 mg tablet See Rx Instructions PO DAILY Qty: 90 3RF Rx Instructions: t1/2 tab po daily for 1 week, then increase to 1 tab daily cyclobenzaprine 10 mg tablet See Rx Instructions .ROUTE .COMPLEX Qty: 30 3RF Dose Instruction: take 1 tablet by mouth three times daily As Needed for muscle spasm; Do not drive during treatment Rx Instructions: take 1 tablet by mouth three times daily As Needed for muscle spasm; Do not drive during treatment oxycodone-acetaminophen 7.5-325 mg tablet 2 tab PO Q6H PRN (Reason: pain) Qty: 100 0RF Ozempic 0.25 mg or 0.5 mg (2 mg/3 mL) pen injector 0.25 mg SUBCUT QWEEK Qty: 3 1RF Rx Instructions: for 4 weeks; then increase to 0.5 mg every week oxycodone-acetaminophen 7.5-325 mg tablet 2 tab PO Q6H PRN (Reason: pain) Qty: 100 0RF oxycodone-acetaminophen 7.5-325 mg tablet 2 tab PO Q6H PRN (Reason: pain) Qty: 100 0RF Rx Instructions: MUST last 30 days metoprolol succinate [Toprol XL] 25 MG tablet extended release 24 hr 25 mg PO DAILY ibuprofen 200 mg Tablet 200 mg PO PRN PRN (Reason: pain) lisinopril 10 mg tablet 10 mg PO DAILY Rx Instructions: TAKE ONE TABLET BY MOUTH ONE TIME DAILY Referrals: Chris Hampton MD [Primary Care Provider] - Stand Alone Forms: Patient Portal/API
--- NOTE | 2024-08-21 16:04 | DI.CT.S_ITS ---
PROCEDURE: CT ABDOMEN PELVIS W CON INDICATIONS: b/l flank pain, LLQ pain TECHNIQUE: After the administration of intravenous contrast, axial sections acquired from the lung bases to the pubic symphysis. Coronal and sagittal reformats were performed. For radiation dose reduction, the following was used: automated exposure control, adjustment of mA and/or kV according to patient size. COMPARISON: [facility], CR, XR CHEST 1V, 08/21/2024, 14:02. FINDINGS: Image quality: Diagnostic. Lower Chest: 2.3 x 1.8 cm left lower lobe nodule. Suspected left hilar adenopathy (series 2, image 1). Partially visualized intravenous leads. ABDOMEN: Liver: No solid mass. Gallbladder: No radiopaque gallstones or wall thickening. Biliary ducts: No biliary dilation. Pancreas: No ductal dilation. Spleen: Size is within normal limits. Adrenal Glands: No adrenal nodules. Kidneys and Ureters: No hydronephrosis. No solid mass. No complex renal cystic lesion which requires follow up. Stomach and Bowel: Normal colonic caliber, without significant wall thickening. No significant diverticular disease. Normal appendix. Peritoneum: No abnormal intraperitoneal fluid. No free air. Ventral Wall: No significant ventral hernia. Abdominal Nodes: No retroperitoneal or mesenteric adenopathy by size criteria. Vessels: Aorta and inferior vena cava are normal in size. PELVIS: Pelvic Organs: Unremarkable. Bladder: No bladder wall thickening, accounting for underdistention. Pelvic Nodes: No enlarged lymph nodes. Miscellaneous: No inguinal hernias are seen. Bones: No aggressive osseous abnormality. Degenerative disc disease of the lumbar spine. Prominent L4 superior endplate Schmorl's node. IMPRESSION: No findings to explain the patient's left lower quadrant pain. No significant diverticular disease. Left lower lobe nodule measuring 2.3 x 1.8 cm, with associated left hilar adenopathy. Findings are concerning for malignancy in the absence of leukocytosis or other infectious symptoms. Consider PET-CT to exclude malignancy. Dictated by: Hardy Lu M.D. on 08/21/2024 at 16:37 Approved by: Hardy Lu M.D. on 08/21/2024 at 16:41
[2024-08-21] MEDS: SODIUM CHLORIDE 0.9% 1,000 ML 500 ML IV (16:27)
== END 2024-08-21 17:47 | disposition home or self-care (01) ==
PROVIDERS: Emergency Provider Emergency Medicine; Family Provider Family Medicine; PCP Family Medicine
DX: R91.1 Solitary pulmonary nodule (principal); R07.9 Chest pain, unspecified; I25.10 Atherosclerotic heart disease of native coronary artery without angina pectoris; I25.2 Old myocardial infarction; Z95.0 Presence of cardiac pacemaker; I10 Essential (primary) hypertension; E78.5 Hyperlipidemia, unspecified; J44.9 Chronic obstructive pulmonary disease, unspecified; E11.9 Type 2 diabetes mellitus without complications; Z79.899 Other long term (current) drug therapy
CPT/HCPCS: 36415; 71045; 74177; 80053; 81003; 82550; 83690; 83735; 83880; 84484; 85025; 85610; 85730; 93005; 93010; 96360; 99284; Q9967

== ENCOUNTER → 2024-09-12 13:12 | Outpatient (CLI) | payer OTHER, MEDICAID, SELFPAY ==
[2022-01-16 12:08] VITALS: BMI 26.4
--- NOTE | 2024-09-12 13:14 | DI.CT.S_ITS ---
PROCEDURE: CT CHEST WO CON INDICATIONS: Left lung lower lobe nodule TECHNIQUE: Noncontrast 2.0-2.5 mm thick sections acquired from the pulmonary apices to the posterior costophrenic angles. 7 mm thick axial MIP and 5 mm coronal and sagittal reformats were then acquired. For radiation dose reduction, the following was used: automated exposure control, adjustment of mA and/or kV according to patient size. COMPARISON: [facility], CT, CT ABDOMEN PELVIS W CON, 08/21/2024, 16:21. FINDINGS: Image quality: Diagnostic. Lower Neck: No enlarged lymph nodes. Thyroid: No thyroid nodules which require sonographic follow up, per consensus guidelines. Axillae: No enlarged lymph nodes. Chest Wall: Left chest wall pacemaker is seen. Bones: No aggressive appearing bony lesions. Subacute to chronic appearing right anterolateral 5th rib fracture is seen series 2, image 51. Lungs and Pleura: No pneumothorax or pleural effusions. There is a 2.7 x 1.9 cm lobulated soft tissue density structure seen in posterior medial aspect of left lower lobe with mildly spiculated margin unchanged in size and appearance from previous study measuring at the same level series 3, image 70 (previous study series 3, image 4). No other pulmonary nodule is seen. Central and peripheral airway is patent. Heart: Heart size is normal. No pericardial effusion. Pacemaker leads are seen in right atrium and right ventricle. Thoracic Vessels: The aorta and pulmonary arteries demonstrate normal size. 3 vessel coronary artery atherosclerotic calcifications are seen. Mediastinum and Mary: Prominent precarinal lymph no measures 1.7 x 2.8 cm in size is seen series 2, image 40. Subcarinal lymph no measures 1.1 cm in short axis diameter is also seen series 2, image 48. Soft tissue prominence involving left infrahilar region is noted and measures 11 mm in short axis diameter series 2, image 50, evaluation is slightly limited due to lack of IV contrast. Esophagus: No wall thickening. No hiatal hernia. Upper Abdomen: Visualized upper abdomen solid organs and bowel loops appear normal. IMPRESSION: 1. 2.7 x 1.9 cm slightly lobulated soft tissue density lesion involving posterior medial aspect of left lower lobe unchanged in size and overall appearance compared to prior study. Slightly spiculated margin is noted. Consider PET-CT scan to rule out malignancy. No other pulmonary nodule or mass is seen. 2. Enlarged mediastinal and left hilar lymph nodes, concerning for metastatic disease versus reactive inflammatory changes. These can also be evaluated on PET-CT scan. 3. Moderate to severe atherosclerotic calcifications in coronary arteries. Left chest wall pacemaker in place. No pericardial effusion. Fleischner Society criteria for SOLID lung nodule followup. Nodule size (mm)Low-risk patientHigh-risk patient<6 (single or multiple)No routine followup.Optional CT at 12 months. 6-8 (single or multiple)CT at 6-12 months, then optional CT at 18-24 mo.CT at 6-12 months, then CT at 18-24 months. >8 (single)CT at 3 months, PET-CT, or biopsy. Same as for low-risk pts. >8 (multiple)CT at 3-6 months, then optional CT at 18-24 mo.CT at 3-6 months, then CT at 18-24 months. Fleischner Society criteria for SUB-SOLID lung nodule followup. Solitary pure ground-glass nodules<6 mm (ground glass or part solid)No followup needed. 6 mm or larger (ground glass)CT at 6-12 months to confirm persistence, then CT every 2 years until 5 years.6 mm or larger (part solid)CT at 3-6 months to confirm persistence, then annual CT until 5 years if unchanged and solid component remains <6 mm. Multiple sub-solid nodules<6 mmCT at 3-6 months, then CT consider at 2 & 4 years for high risk patients. [address] at 3-6 months. Subsequent management based on most suspicious lesions. Recommendations do not apply to lung cancer screening, patients with immunosuppression, or patients with known primary cancer. Dictated by: Gelacio Ku M.D. on 09/12/2024 at 21:33 Approved by: Gelacio Ku M.D. on 09/12/2024 at 21:55
== END ==
PROVIDERS: Family Provider Family Medicine; PCP Family Medicine; Referring Provider Family Medicine; Visit Provider Family Medicine
DX: R91.1 Solitary pulmonary nodule (principal); R59.0 Localized enlarged lymph nodes; I25.10 Atherosclerotic heart disease of native coronary artery without angina pectoris; Z95.0 Presence of cardiac pacemaker
CPT/HCPCS: 71250

== ENCOUNTER 2024-11-01 17:07 | Emergency (ER) | payer OTHER, MEDICAID, SELFPAY ==
[2022-01-16 12:08] VITALS: BMI 26.4
[2024-11-01] VITALS (11 sets, daily range): BP systolic 96–112; BP diastolic 62–74; PULSE 60–80; RESP 14–24; TEMP 37; O2SAT 92–97; BMI 25.1
--- NOTE | 2024-11-01 17:12 | DI.RAD.S_ITS ---
PROCEDURE: XR CHEST 1V INDICATIONS: chest pain TECHNIQUE: One view of the chest was acquired. COMPARISON: [facility], CR, XR CHEST 1V, 08/21/2024, 14:02. [facility], CR, XR CHEST 1V, 01/16/2022, 2:26. FINDINGS: Surgical changes and devices: Left chest wall generator with cardiac leads. Lungs and pleura: Lungs are clear. No pleural effusions or pneumothorax. Mediastinum: Mediastinal contours appear normal. Heart size is normal. Bones and chest wall: No suspicious bony lesions. Overlying soft tissues appear unremarkable. IMPRESSION: No acute cardiopulmonary abnormality is seen. Dictated by: Hardy Lu M.D. on 11/01/2024 at 17:59 Approved by: Hardy Lu M.D. on 11/01/2024 at 18:00
--- NOTE | 2024-11-01 17:13 | EKG_ITS ---
[address] [address] Test Date: 2024-11-01 Pat Name: Tremaine Sy Department: Room: Gender: Male Medical Transcriber: NABEEL : 1975 Requested By: Order Number: [id number] Reading MD: Vimal Sargent MD Measurements Intervals [place] Rate: 83 P: 53 MD: 162 QRS: 40 QRSD: 120 T: 76 QT: 376 QTc: 441 Interpretive Statements Normal sinus rhythm Inferior infarct , age undetermined Electronically Signed On 11-03-2024 7:35:55 PST by Vimal Sargent MD
[2024-11-01 17:30] LABS: Add Manual Diff / Slide Review NO; Basophils Absolute Auto 100 /uL (0-100); Basophils Percent Auto 0.5 % (0-2); Eosinophils Absolute Auto 400 /uL (0-450); Hematocrit 47.3 % (41-53); Hemoglobin 16.1 g/dL (13.5-17.5); Lymphocytes Absolute Auto 3300 /uL (1100-4500); Mean Corpuscular HGB Conc 34.1 % (30-36); Mean Corpuscular Hemoglobin 29.1 PG (26-34); Mean Corpuscular Volume 85.5 fL (80-100); Monocytes Absolute Auto 1300 /uL (0-900); Monocytes Percent Auto 12.1 % (3-14); Neutrophils Absolute Auto 5300 /uL (1500-7000); Neutrophils Percent Auto 51.4 % (50-75); Platelet Count 149 X10^3/uL (150-400); Red Blood Cell Count 5.53 X10^6/uL (4.5-5.9); Red Cell Distribution Width 13.9 % (11.6-14.8); White Blood Cell Count 10.4 X10^3/uL (4.5-11.0)
[2024-11-01 17:31] LABS: Prothrombin Time 11.6 SECONDS (9.4-12.5)
[2024-11-01 18:15] LABS: Creatine Kinase 96 U/L (55-170)
[2024-11-01 18:16] LABS: Alanine Aminotransferase 54 IU/L (<50); Albumin 4.6 g/dL (3.5-5.0); Albumin Globulin Ratio 1.2 (1.0-2.8); Alkaline Phosphatase 90 U/L (38-126); Aspartate Aminotransferase 53 IU/L (17-59); BUN Creatinine Ratio 21.2 (6-22); Bilirubin Total 0.4 mg/dL (0.2-1.3); Blood Urea Nitrogen 21 mg/dL (9-20); Calcium 9.5 mg/dL (8.4-10.2); Carbon Dioxide 28 mmol/L (22-32); Chloride 101 mmol/L (98-107); Estimated Glomerular Filt Rate > 60 mL/min (>60); Globulin 3.9 g/dL (1.7-4.1); Glucose 83 mg/dL (70-100); HEMOLYSIS < 15 (0-50); Potassium 3.8 mmol/L (3.4-5.1); Sodium 137 mmol/L (137-145); Total Protein 8.5 g/dL (6.3-8.2)
[2024-11-01 18:27] LABS: NT-proBNP (BNP-Adult 18+) 360 pg/mL (<125); Troponin I < 0.012 ng/mL (0.01-0.034)
--- NOTE | 2024-11-01 18:28 | ED.CHESTPAIN ---
HPI - Chest Pain General Chief Complaint: Chest Pain Stated Complaint: Chest pain Time Seen by Provider: 11/01/24 17:11 History of Present Illness HPI narrative: 49-year-old male with history of extensive CAD, has resolved chest pain. Patient relays history of 1st heart attack at age 27, has had 6 total stents, last coronary stenting procedure coronary 2020, also has AICD/pacer placed September 2022, all cardiac procedures at [facility], followed by cardiology Dr. 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 Patient was watching TV 5:00 p.m. today, had acute onset left anterior lower chest discomfort, radiating straight back, no associated diaphoresis or nausea or vomiting, no syncope or presyncope, he took 2 baby aspirin, 2 sublingual nitroglycerin, still had pain, called 911, during EMS transport was given additional sublingual nitroglycerin and additional 2 baby aspirins, with resolution of pain shortly after arrival to the emergency department. No recent cough, shortness of breath, fevers, chills. Symptoms resolved. Related Data Home Medications Medication Instructions Recorded Confirmed aspirin 81 mg tablet,delayed 81 mg PO DAILY 04/07/18 09/05/24 release (Evelyn Low Dose Aspirin) atorvastatin 80 mg tablet 80 mg PO DAILY 04/07/18 09/05/24 ibuprofen 200 mg tablet 200 mg PO PRN PRN pain 12/27/19 09/05/24 metoprolol succinate 25 mg 25 mg PO DAILY 12/27/19 09/05/24 tablet,extended release 24 hr (Toprol XL) lisinopril 10 mg tablet 10 mg PO DAILY 01/16/22 09/05/24 Previous Rx's Medication Instructions Recorded isosorbide mononitrate 60 mg 60 mg PO DAILY #90 tabs 09/06/20 tablet,extended release 24 hr clopidogrel 75 mg tablet (Plavix) 75 mg PO DAILY #90 tabs 03/20/21 ezetimibe 10 mg tablet See Rx Instructions .Route 03/21/21 .COMPLEX #90 tabs nitroglycerin 0.4 mg sublingual 0.4 mg sublingual Q5M PRN chest 06/01/23 tablet pain #100 tabs naloxone 4 mg/actuation nasal 4 mg intranasal Q2M PRN opioid 09/21/23 spray (Narcan) overdose #2 ea empagliflozin 25 mg tablet See Rx Instructions PO DAILY #90 03/14/24 (Jardiance) tabs cyclobenzaprine 10 mg tablet See Rx Instructions .Route 06/13/24 .COMPLEX #30 tabs oxycodone-acetaminophen 7.5 mg-325 2 tab PO Q6H PRN pain #100 tabs 09/05/24 mg tablet oxycodone-acetaminophen 7.5 mg-325 2 tab PO Q6H PRN pain #100 tabs 09/05/24 mg tablet oxycodone-acetaminophen 7.5 mg-325 2 tab PO Q6H PRN pain #100 tabs 09/05/24 mg tablet semaglutide 1 mg/dose (4 mg/3 mL) 1 mg (0.75 mL) SUBCUT QWEEK #3 mL 09/05/24 subcutaneous pen injector (Ozempic) Allergies Allergy/AdvReac Type Severity Reaction Status Date / Time No Known Drug Allergies Allergy Unverified 09/05/24 13:13 Review of Systems Review of Systems Narrative: See HPI Patient History Medical History Hx of myocardial infarction Restrictive lung disease Chronic low back pain Bilateral hand pain Chronic back pain Myocardial infarction Hypertension Low back pain without sciatica (05/14/16) Unstable angina Acute coronary syndrome Surgical History Anesthesia History of angioplasty (01/02/15) History of angioplasty (10/14/11) History of angioplasty (~1999) Social History household members: friend(s) Smoking Status: Never smoker alcohol intake: current substance use type: marijuana (Every day use) Smoking Status: Never smoker alcohol intake frequency: holidays/special occasions only Exam Narrative Exam Narrative: GENERAL: Well-developed patient, in mild distress. HEAD: Atraumatic. Normocephalic. EYES: Pupils equal round and reactive. Extraocular motions intact. No scleral icterus. No injection or drainage. ENT: Nose without bleeding, purulent drainage. Throat without erythema, tonsillar hypertrophy or exudate. Airway patent. NECK: Trachea midline. Non tender CARDIOVASCULAR: Regular rate and rhythm without murmurs, gallops, or rubs. RESPIRATORY: Clear to auscultation. Breath sounds equal bilaterally. No wheezes, rales, or rhonchi. Left upper chest AICD/pacer site, without redness or swelling, no crepitance or fluctuance GASTROINTESTINAL: Abdomen soft, non-tender, nondistended. EXTREMITIES: No edema or joint tenderness. BACK: Nontender without deformity or crepitance. No flank tenderness. NEURO: AOx3. Motor functions grossly nonfocal SKIN: No rash or erythema of visible areas Initial Vital Signs Initial Vital Signs: Vital Signs Pulse Rate 80 11/01/24 17:14 Respiratory Rate 24 11/01/24 17:14 Course Orders Ordered: ED Orders 11/01/24 19:20 Troponin I Stat Vital Signs Vital signs: Vital Signs - 8 hr 11/01/24 20:30 11/01/24 20:30 11/01/24 21:00 Pulse Rate 60 68 Respiratory Rate 14 21 Blood Pressure 102/68 Pulse Oximetry 96 97 11/01/24 21:01 11/01/24 21:01 Pulse Rate 71 Respiratory Rate 18 Blood Pressure 112/74 Pulse Oximetry 96 MDM - Chest Pain Lab Data Attestation: I reviewed the patient's lab results. Lab results narrative: White blood cell count 45348, hemoglobin 16, platelets normal. Basic metabolic panel negative. Lipase and liver functions unremarkable. BNP 360. Initial troponin negative/unmeasurable. 11/01/24 17:12 11/01/24 17:12 Labs: Lab Results 11/01/24 11/01/24 Range/Units 17:12 19:20 WBC 10.4 (4.5-11.0) X10^3/uL RBC 5.53 (4.5-5.9) X10^6/uL Hgb 16.1 (13.5-17.5) g/dL Hct 47.3 (41-53) % MCV 85.5 (80-100) fL MCH 29.1 (26-34) PG MCHC 34.1 (30-36) % RDW 13.9 (11.6-14.8) % Plt Count 149 L (150-400) X10^3/uL Neut % (Auto) 51.4 (50-75) % Lymph % (Auto) 32.0 (25-40) % [place] % (Auto) 12.1 (3-14) % Eos % (Auto) 4.0 (2-4) % Baso % (Auto) 0.5 (0-2) % Neut # (Auto) 5300 (2716-6093) /uL Lymph # (Auto) 3300 (0174-1093) /uL [place] # (Auto) 1300 H (0-900) /uL Eos # (Auto) 400 (0-450) /uL Baso # (Auto) 100 (0-100) /uL PT 11.6 (9.4-12.5) SECONDS INR 1.0 (0.9-1.3) Sodium 137 (137-145) mmol/L Potassium 3.8 (3.4-5.1) mmol/L Chloride 101 (98-107) mmol/L Carbon Dioxide 28 (22-32) mmol/L BUN 21 H (9-20) mg/dL Creatinine 0.99 (0.66-1.25) mg/dL Estimated GFR > 60 (>60) mL/min BUN/Creatinine Ratio 21.2 (6-22) Glucose 83 (70-100) mg/dL Calcium 9.5 (8.4-10.2) mg/dL Total Bilirubin 0.4 (0.2-1.3) mg/dL AST 53 (17-59) IU/L ALT 54 H (<50) IU/L Alkaline Phosphatase 90 (38-126) U/L Total Creatine Kinase 96 (55-170) U/L Troponin I < 0.012 < 0.012 (0.01-0.034) ng/mL NT-Pro-B Natriuret Pep 360 H (<125) pg/mL Total Protein 8.5 H (6.3-8.2) g/dL Albumin 4.6 (3.5-5.0) g/dL Globulin 3.9 (1.7-4.1) g/dL Albumin/Globulin Ratio 1.2 (1.0-2.8) Imaging Data Chest x-ray: Radiologist's Impression: Imaging Reports Close Chest X-Ray (Signed) Hardy Lu - 11/01/24 Launch?[address] [address] XRay Report Signed Patient: Tremaine Sy MR#: [id number] : 1975 Acct:[id number] Age/Sex: 49 / M Date of Service: 11/01/24 Loc: ED Accession Number: [id number] Procedure: XR chest 1V Ordering Provider: Ivette Barlow MD PROCEDURE: XR CHEST 1V INDICATIONS: chest pain TECHNIQUE: One view of the chest was acquired. COMPARISON: [facility], CR, XR CHEST 1V, 08/21/2024, 14:02. [facility], CR, XR CHEST 1V, 01/16/2022, 2:26. FINDINGS: Surgical changes and devices: Left chest wall generator with cardiac leads. Lungs and pleura: Lungs are clear. No pleural effusions or pneumothorax. Mediastinum: Mediastinal contours appear normal. Heart size is normal. Bones and chest wall: No suspicious bony lesions. Overlying soft tissues appear unremarkable. IMPRESSION: No acute cardiopulmonary abnormality is seen. Dictated by: Hardy Lu M.D. on 11/01/2024 at 17:59 Approved by: Hardy Lu M.D. on 11/01/2024 at 18:00 ECG Data Attestation: I personally reviewed and interpreted this ECG as follows: Interpretation: Normal sinus rhythm with rate of 83, no obvious ST segment elevation or depression changes. FL 162, QRS 120, QTC 441. 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 Screening EKG without obvious ischemic changes. Initial troponin negative/unmeasurable. No shocking sensation from his AICD, we will interrogate pacemaker. We will obtain interval troponin. 1999, call back from [place] status post interrogation verbal report by phone. Dual chamber AICD, has 7.4 years left on current battery. Normal function, no ectopy, no shocks. Awaiting repeat troponin results. Repeat troponin also negative, patient takes Isordil, SBP 100-110, would hold dose for now. He would like to go home, does not want to have any other evaluation for now. He will call his architectural design professor Dr. Chowdhury during regular hours tomorrow. Discharged home per patient request. Further testing as an outpatient for now. Return precautions discussed. Discharge Plan Departure Patient Disposition: Home Clinical Impression: Chest pain Activity Restrictions/Additional Instructions: History of coronary artery disease, followed by local architectural design professor Dr. Capone, chest pain earlier today, resolved after serial nitroglycerin. EKG without obvious ischemic changes, serial troponin blood tests not showing any evidence for heart attack at this time. No chest pain while in the emergency department for a number of hours. Your pacemaker/AICD device was interrogated, functioning normal, good battery life should be 7.4 years left, no ectopy or malfunction, no discharges or cardioversions or shocks. Continue your same medications for now, you wanted to go home. Follow up with your architectural design professor. Call the office of the Dr. Chowdhury tomorrow morning. Return earlier to this/nearest emergency department for any change worsening symptoms or any concerns prior Prescriptions: No Action isosorbide mononitrate 60 mg tablet extended release 24 hr 60 mg PO DAILY Qty: 90 3RF clopidogrel [Plavix] 75 mg tablet 75 mg PO DAILY Qty: 90 3RF ezetimibe 10 mg tablet See Rx Instructions .ROUTE .COMPLEX Qty: 90 0RF Dose Instruction: TAKE ONE TABLET BY MOUTH ONE TIME DAILY Rx Instructions: TAKE ONE TABLET BY MOUTH ONE TIME DAILY nitroglycerin 0.4 mg tablet, sublingual 0.4 mg SL Q5M PRN (Reason: chest pain) Qty: 100 5RF Rx Instructions: do not exceed 3 doses per episode atorvastatin 80 mg tablet 80 mg PO DAILY aspirin [Evelyn Low Dose Aspirin] 81 mg tablet,delayed release (DR/EC) 81 mg PO DAILY naloxone [Narcan] 4 mg/actuation spray,non-aerosol 4 mg intranasal Q2M PRN (Reason: opioid overdose) Qty: 2 0RF Rx Instructions: spray 1 dose into ONE nostril; alternate nostrils w each dose until help arrives Jardiance 25 mg tablet See Rx Instructions PO DAILY Qty: 90 3RF Rx Instructions: t1/2 tab po daily for 1 week, then increase to 1 tab daily cyclobenzaprine 10 mg tablet See Rx Instructions .ROUTE .COMPLEX Qty: 30 3RF Dose Instruction: take 1 tablet by mouth three times daily As Needed for muscle spasm; Do not drive during treatment Rx Instructions: take 1 tablet by mouth three times daily As Needed for muscle spasm; Do not drive during treatment oxycodone-acetaminophen 7.5-325 mg tablet 2 tab PO Q6H PRN (Reason: pain) Qty: 100 0RF oxycodone-acetaminophen 7.5-325 mg tablet 2 tab PO Q6H PRN (Reason: pain) Qty: 100 0RF oxycodone-acetaminophen 7.5-325 mg tablet 2 tab PO Q6H PRN (Reason: pain) Qty: 100 0RF Rx Instructions: MUST last 30 days Ozempic 1 mg/dose (4 mg/3 mL) pen injector 1 mg SUBCUT QWEEK Qty: 3 3RF metoprolol succinate [Toprol XL] 25 MG tablet extended release 24 hr 25 mg PO DAILY ibuprofen 200 mg Tablet 200 mg PO PRN PRN (Reason: pain) lisinopril 10 mg tablet 10 mg PO DAILY Rx Instructions: TAKE ONE TABLET BY MOUTH ONE TIME DAILY Referrals: Chris Hampton MD [Primary Care Provider] - Harpreet Capone MD [Physician] - Stand Alone Forms: Patient Portal/API/Survey
[2024-11-01 20:06] LABS: Troponin I < 0.012 ng/mL (0.01-0.034)
== END 2024-11-01 21:15 | disposition home or self-care (01) ==
PROVIDERS: Emergency Medicine; Emergency Provider Emergency Medicine; Family Provider Family Medicine; PCP Family Medicine
DX: R07.9 Chest pain, unspecified (principal); I25.2 Old myocardial infarction; Z95.5 Presence of coronary angioplasty implant and graft
CPT/HCPCS: 71045; 80053; 82550; 83880; 84484; 85025; 85610; 93005; 93010; 99281; 99284

== ENCOUNTER 2024-11-14 20:38 | Emergency (ER) | payer OTHER, SELFPAY ==
[2022-01-16 12:08] VITALS: BMI 26.4
[2024-11-14] VITALS (9 sets, daily range): BP systolic 114–135; BP diastolic 75–82; PULSE 82–112; RESP 14–26; TEMP 36.3; O2SAT 93–98; BMI 25.1
--- NOTE | 2024-11-14 20:50 | EKG_ITS ---
[place] [id number] [place] [id number] Test Date: 2024-11-14 Pat Name: Tremaine Sy Department: [facility] Room: Gender: Male Director Auto: : 1975 Requested By: Order Number: [id number] Reading MD: Nathan Garcia Measurements Intervals Gary Rate: 102 P: 66 TN: 144 QRS: 66 QRSD: 116 T: -37 QT: 348 QTc: 453 Interpretive Statements Sinus tachycardia Possible Inferior infarct , age undetermined Electronically Signed On 11-15-2024 7:54:59 PST by Nathan Garcia
--- NOTE | 2024-11-14 21:32 | ED_ITS ---
HPI - Back Pain/Injury General Chief Complaint: Back Pain/Injury Stated Complaint: back px, has defibrilator Time Seen by Provider: 11/14/24 21:32 Source: patient History of Present Illness HPI Narrative: Patient 49-year-old male extensive coronary artery disease normal 1st heart attack age 27 has a total of 6 stents last coronary stenting procedure in 2020 also has AICD pacer followed by [facility] cardiology Dr. Capone presents today with bilateral back pain. He reports he always has back pain he takes oxycodone unless relaxers for it however over the last 2 days pain has gotten much worse. He reports that it is radiating around his chest it is worse when he moves his arms. Does not feel like prior heart attacks. He is quite hot now and feels sweaty but has been chilled and had some body aches. Denies any significant cough or sore throat. He just generally does not feel well. He denies any sort of abdominal pain nausea or vomiting. Related Data Home Medications Medication Instructions Recorded Confirmed aspirin 81 mg tablet,delayed 81 mg PO DAILY 04/07/18 09/05/24 release (Evelyn Low Dose Aspirin) atorvastatin 80 mg tablet 80 mg PO DAILY 04/07/18 09/05/24 ibuprofen 200 mg tablet 200 mg PO PRN PRN pain 12/27/19 09/05/24 metoprolol succinate 25 mg 25 mg PO DAILY 12/27/19 09/05/24 tablet,extended release 24 hr (Toprol XL) lisinopril 10 mg tablet 10 mg PO DAILY 01/16/22 09/05/24 Previous Rx's Medication Instructions Recorded isosorbide mononitrate 60 mg 60 mg PO DAILY #90 tabs 09/06/20 tablet,extended release 24 hr clopidogrel 75 mg tablet (Plavix) 75 mg PO DAILY #90 tabs 03/20/21 ezetimibe 10 mg tablet See Rx Instructions .Route 03/21/21 .COMPLEX #90 tabs nitroglycerin 0.4 mg sublingual 0.4 mg sublingual Q5M PRN chest 06/01/23 tablet pain #100 tabs naloxone 4 mg/actuation nasal 4 mg intranasal Q2M PRN opioid 09/21/23 spray (Narcan) overdose #2 ea empagliflozin 25 mg tablet See Rx Instructions PO DAILY #90 03/14/24 (Jardiance) tabs cyclobenzaprine 10 mg tablet See Rx Instructions .Route 06/13/24 .COMPLEX #30 tabs oxycodone-acetaminophen 7.5 mg-325 2 tab PO Q6H PRN pain #100 tabs 09/05/24 mg tablet oxycodone-acetaminophen 7.5 mg-325 2 tab PO Q6H PRN pain #100 tabs 09/05/24 mg tablet oxycodone-acetaminophen 7.5 mg-325 2 tab PO Q6H PRN pain #100 tabs 09/05/24 mg tablet semaglutide 1 mg/dose (4 mg/3 mL) 1 mg (0.75 mL) SUBCUT QWEEK #3 mL 09/05/24 subcutaneous pen injector (Ozempic) methocarbamol 750 mg tablet 750 mg PO Q8H PRN muscle spasm #14 11/14/24 tabs Allergies Allergy/AdvReac Type Severity Reaction Status Date / Time No Known Drug Allergies Allergy Unverified 09/05/24 13:13 Patient History Medical History Hx of myocardial infarction Restrictive lung disease Chronic low back pain Bilateral hand pain Chronic back pain Myocardial infarction Hypertension Low back pain without sciatica (05/14/16) Unstable angina Acute coronary syndrome Surgical History Anesthesia History of angioplasty (01/02/15) History of angioplasty (10/14/11) History of angioplasty (~1999) Social History household members: friend(s) Smoking Status: Former smoker alcohol intake: current substance use type: marijuana (Every day use) Smoking Status: Former smoker alcohol intake frequency: holidays/special occasions only Exam Initial Vital Signs Initial Vital Signs: Vital Signs Temperature 97.3 F L 11/14/24 20:44 Pulse Rate 112 H 11/14/24 20:44 Respiratory Rate 26 H 11/14/24 20:44 Blood Pressure 135/75 11/14/24 20:44 Pulse Oximetry 98 11/14/24 20:44 Oxygen Delivery Method Room Air 11/14/24 20:44 GENERAL: Alert 49-year-old male appears to not feel well and in no acute distress. HEENT: Head atraumatic,EOMI, pupils reactive, face symmetric, moist mucous membranes CARDIOVASCULAR: Regular rate and rhythm without murmurs, rubs or gallops. RESPIRATORY: Breath sounds equal bilaterally, no wheezes rales or rhonchi. ABDOMEN: Soft, nontender. Normoactive bowel sounds all 4 quadrants. No guarding or rebound. Negative Mancilla's sign no lower abdominal pain BACK: No vertebral tenderness he actually has some bilateral flank pain EXTREMITIES: Normal range of motion, no clubbing or edema. Neurovascularly intact NEUROLOGICAL: Alert and oriented x4.Normal gait and speech. Cranial nerves II through XII grossly intact. SKIN: Warm, dry, no laceration, no petechiae, no rashes or lesions. Course Orders Ordered: ED Orders 11/14/24 20:50 EKG-12 Lead Stat 11/14/24 21:45 XR chest 1V Stat 11/14/24 21:58 Covid-19 + FLU A/B + RSV - PCR Stat 11/14/24 22:00 Complete Blood Count AUTO DIFF Stat Comprehensive Metabolic Panel Stat Lipase Stat Magnesium Stat NT-proBNP (BNP-Adult 18+) Stat PTT Partial Thromboplastin Fly Stat Prothrombin Time INR Stat Troponin & CK Cardiac Panel Stat Discontinued Medications Aspirin (Aspirin 81 Mg Chew Tab) 324 mg PO NOW ONE Stop: 11/14/24 21:46 Last Admin: 11/14/24 21:59 Dose: 324 mg Documented By: NIMESH Hydromorphone HCl (Hydromorphone 0.5 Mg Inj) 0.5 mg IV NOW ONE Stop: 11/14/24 21:48 Last Admin: 11/14/24 22:13 Dose: 0.5 mg Documented By: NIMESH Vital Signs Vital signs: Vital Signs - 8 hr 11/14/24 20:44 11/14/24 21:01 11/14/24 21:02 Temperature 97.3 F L Pulse Rate 112 H 103 H Respiratory Rate 26 H Blood Pressure 135/75 132/82 Pulse Oximetry 98 96 Oxygen Delivery Method Room Air 11/14/24 21:02 11/14/24 21:30 11/14/24 21:30 Temperature Pulse Rate 102 H 90 Respiratory Rate 20 19 Blood Pressure 114/80 Pulse Oximetry 98 93 Oxygen Delivery Method Room Air 11/14/24 22:00 11/14/24 22:00 11/14/24 22:29 Temperature Pulse Rate 86 90 Respiratory Rate 17 18 Blood Pressure 124/82 Pulse Oximetry 93 95 Oxygen Delivery Method Room Air 11/14/24 22:30 11/14/24 22:31 11/14/24 23:00 Temperature Pulse Rate 88 82 Respiratory Rate 24 14 Blood Pressure 123/77 Pulse Oximetry 95 98 Oxygen Delivery Method Room Air Room Air 11/14/24 23:00 Temperature Pulse Rate Respiratory Rate Blood Pressure 132/82 Pulse Oximetry Oxygen Delivery Method MDM - Back Pain/Injury Lab Data 11/14/24 22:00 11/14/24 22:00 Labs: Lab Results 11/14/24 11/14/24 Range/Units 21:58 22:00 WBC 4.2 L (4.5-11.0) X10^3/uL RBC 4.59 (4.5-5.9) X10^6/uL Hgb 13.2 L (13.5-17.5) g/dL Hct 38.8 L (41-53) % MCV 84.5 (80-100) fL MCH 28.8 (26-34) PG MCHC 34.1 (30-36) % RDW 13.9 (11.6-14.8) % Plt Count 94 L (150-400) X10^3/uL Neut % (Auto) 49.1 L (50-75) % Lymph % (Auto) 35.6 (25-40) % Henry % (Auto) 12.9 (3-14) % Eos % (Auto) 1.2 L (2-4) % Baso % (Auto) 1.2 (0-2) % Neut # (Auto) 2100 (8696-2960) /uL Lymph # (Auto) 1500 (3794-9605) /uL Henry # (Auto) 500 (0-900) /uL Eos # (Auto) 100 (0-450) /uL Baso # (Auto) 100 (0-100) /uL PT 14.8 H (9.4-12.5) SECONDS INR 1.3 (0.9-1.3) APTT 29 (25.1-36.5) SECONDS Sodium 132 L (137-145) mmol/L Potassium 3.6 (3.4-5.1) mmol/L Chloride 103 (98-107) mmol/L Carbon Dioxide 25 (22-32) mmol/L BUN 20 (9-20) mg/dL Creatinine 0.73 (0.66-1.25) mg/dL Estimated GFR > 60 (>60) mL/min BUN/Creatinine Ratio 27.4 H (6-22) Glucose 127 H (70-100) mg/dL Calcium 9.7 (8.4-10.2) mg/dL Magnesium 1.8 (1.6-2.3) mg/dL Total Bilirubin 0.7 (0.2-1.3) mg/dL AST 56 (17-59) IU/L ALT 45 (<50) IU/L Alkaline Phosphatase 118 (38-126) U/L Total Creatine Kinase 80 (55-170) U/L Troponin I < 0.012 (0.01-0.034) ng/mL NT-Pro-B Natriuret Pep 847 H (<125) pg/mL Total Protein 7.4 (6.3-8.2) g/dL Albumin 3.6 (3.5-5.0) g/dL Globulin 3.8 (1.7-4.1) g/dL Albumin/Globulin Ratio 0.9 L (1.0-2.8) Lipase 85 (23-300) U/L SARS-CoV-2 (PCR) Negative (Negative) Influenza A (RT-PCR) Flu a negative (NEGATIVE) Influenza B (RT-PCR) Flu b negative (NEGATIVE) RSV (PCR) Negative (Negative) Imaging Data Chest x-ray: Radiologist's Impression: PROCEDURE: XR CHEST 1V INDICATIONS: chest pain TECHNIQUE: One view of the chest was acquired. COMPARISON: [facility], , XR CHEST 1V, 11/01/2024, 17:27. FINDINGS: Surgical changes and devices: Pacemaker. Lungs and pleura: Lungs are clear. No pleural effusions or pneumothorax. Mediastinum: Mediastinal contours appear normal. Heart size is enlarged. Bones and chest wall: No suspicious bony lesions. Overlying soft tissues appear unremarkable. IMPRESSION: No acute pulmonary process. Dictated by: Radha Finch M.D. on 11/14/2024 at 22:09 ECG Data Attestation: I personally reviewed and interpreted this ECG as follows: Interpretation: Sinus rhythm rate 102 WI interval 144 QRS 116 QTC 453 persistent inferior Q- waves with ST changes similar to prior EKGs MDM Narrative Medical decision making narrative: ANI CC: Back pain Complicating co-morbidities: Significant coronary artery disease multiple stents Medical records reviewed: Previous ED visits Differential considered: Coronary artery disease musculoskeletal nephrolithiasis cholelithiasis cholecystitis Exam documented above, pertinent findings include: Patient appears slightly diaphoretic pale Lab Test results independently reviewed as above. Pertinent findings: Troponin negative Viral panel negative WBCs 4.2, hemoglobin 13.2 hematocrit 30.8 platelets 94 Independently reviewed EKG as above: Similar to previous EKGs Imaging studies independently reviewed: No acute cardiopulmonary process Consultations: None Treatments: Dilaudid Re-evaluations: Patient is feeling better after Dilaudid Discussion: 49-year-old male significant cardiac history presenting today with bilateral back pain. It definitely seems to be musculoskeletal it is worse with palpation and movement. He has not really having any chest pain. Blood work is overall reassuring. Initially thought that he might have some sort of virus he was feeling ill a couple days ago. For pack viral panel is negative chest x-ray does not show any kind of pneumonia. He has no leukocytosis. He has no history or reason why he should have worsening back pain but he does have chronic back pain. He takes oxycodone and Flexeril. We can change up his muscle relaxer to see if it helps him he is feeling better after Dilaudid in the ED Discharge Plan Departure Patient Disposition: Home Clinical Impression: Acute on chronic back pain Instructions: DI for Back Spasm Activity Restrictions/Additional Instructions: *You have been diagnosed with acute on chronic back pain *What to do: At this time unclear what is causing your pain they do think it is musculoskeletal. Let us try changing your muscle relaxer *Continue to take medications as directed Methocarbamol 750 mg every 8 hours if needed for muscle spasms *Follow up with your primary care provider in 2-3 days or call [phone] *Return to ER if you should have Increasing pain weakness shortness of breath [or] any new, worsening or concerning symptoms Prescriptions: New methocarbamol 750 mg tablet 750 mg PO Q8H PRN (Reason: muscle spasm) Qty: 14 0RF No Action isosorbide mononitrate 60 mg tablet extended release 24 hr 60 mg PO DAILY Qty: 90 3RF clopidogrel [Plavix] 75 mg tablet 75 mg PO DAILY Qty: 90 3RF ezetimibe 10 mg tablet See Rx Instructions .ROUTE .COMPLEX Qty: 90 0RF Dose Instruction: TAKE ONE TABLET BY MOUTH ONE TIME DAILY Rx Instructions: TAKE ONE TABLET BY MOUTH ONE TIME DAILY nitroglycerin 0.4 mg tablet, sublingual 0.4 mg SL Q5M PRN (Reason: chest pain) Qty: 100 5RF Rx Instructions: do not exceed 3 doses per episode atorvastatin 80 mg tablet 80 mg PO DAILY aspirin [Evelyn Low Dose Aspirin] 81 mg tablet,delayed release (DR/EC) 81 mg PO DAILY naloxone [Narcan] 4 mg/actuation spray,non-aerosol 4 mg intranasal Q2M PRN (Reason: opioid overdose) Qty: 2 0RF Rx Instructions: spray 1 dose into ONE nostril; alternate nostrils w each dose until help arrives Jardiance 25 mg tablet See Rx Instructions PO DAILY Qty: 90 3RF Rx Instructions: t1/2 tab po daily for 1 week, then increase to 1 tab daily cyclobenzaprine 10 mg tablet See Rx Instructions .ROUTE .COMPLEX Qty: 30 3RF Dose Instruction: take 1 tablet by mouth three times daily As Needed for muscle spasm; Do not drive during treatment Rx Instructions: take 1 tablet by mouth three times daily As Needed for muscle spasm; Do not drive during treatment oxycodone-acetaminophen 7.5-325 mg tablet 2 tab PO Q6H PRN (Reason: pain) Qty: 100 0RF oxycodone-acetaminophen 7.5-325 mg tablet 2 tab PO Q6H PRN (Reason: pain) Qty: 100 0RF oxycodone-acetaminophen 7.5-325 mg tablet 2 tab PO Q6H PRN (Reason: pain) Qty: 100 0RF Rx Instructions: MUST last 30 days Ozempic 1 mg/dose (4 mg/3 mL) pen injector 1 mg SUBCUT QWEEK Qty: 3 3RF metoprolol succinate [Toprol XL] 25 MG tablet extended release 24 hr 25 mg PO DAILY ibuprofen 200 mg Tablet 200 mg PO PRN PRN (Reason: pain) lisinopril 10 mg tablet 10 mg PO DAILY Rx Instructions: TAKE ONE TABLET BY MOUTH ONE TIME DAILY Referrals: Chris Hampton MD [Primary Care Provider] - Stand Alone Forms: Patient Portal/API/Survey
--- NOTE | 2024-11-14 21:45 | DI.RAD.S_ITS ---
PROCEDURE: XR CHEST 1V INDICATIONS: chest pain TECHNIQUE: One view of the chest was acquired. COMPARISON: [facility], CR, XR CHEST 1V, 11/01/2024, 17:27. FINDINGS: Surgical changes and devices: Pacemaker. Lungs and pleura: Lungs are clear. No pleural effusions or pneumothorax. Mediastinum: Mediastinal contours appear normal. Heart size is enlarged. Bones and chest wall: No suspicious bony lesions. Overlying soft tissues appear unremarkable. IMPRESSION: No acute pulmonary process. Dictated by: Radha Finch M.D. on 11/14/2024 at 22:09 Approved by: Radha Finch M.D. on 11/14/2024 at 22:09
[2024-11-14] MEDS: ASPIRIN 81 MG CHEW TAB 324 MG PO (21:59)
[2024-11-14] MEDS: HYDROMORPHONE 0.5 MG INJ IV (22:13)
[2024-11-14 22:19] LABS: Add Manual Diff / Slide Review NO; Basophils Absolute Auto 100 /uL (0-100); Basophils Percent Auto 1.2 % (0-2); Eosinophils Absolute Auto 100 /uL (0-450); Eosinophils Percent Auto 1.2 % (2-4); Hematocrit 38.8 % (41-53); Hemoglobin 13.2 g/dL (13.5-17.5); Lymphocytes Absolute Auto 1500 /uL (1100-4500); Lymphocytes Percent Auto 35.6 % (25-40); Mean Corpuscular HGB Conc 34.1 % (30-36); Mean Corpuscular Hemoglobin 28.8 PG (26-34); Mean Corpuscular Volume 84.5 fL (80-100); Monocytes Absolute Auto 500 /uL (0-900); Monocytes Percent Auto 12.9 % (3-14); Neutrophils Absolute Auto 2100 /uL (1500-7000); Neutrophils Percent Auto 49.1 % (50-75); Platelet Count 94 X10^3/uL (150-400); Red Blood Cell Count 4.59 X10^6/uL (4.5-5.9); Red Cell Distribution Width 13.9 % (11.6-14.8); White Blood Cell Count 4.2 X10^3/uL (4.5-11.0)
[2024-11-14 22:23] LABS: INR 1.3 (0.9-1.3); Prothrombin Time 14.8 SECONDS (9.4-12.5)
[2024-11-14 22:26] LABS: PTT Partial Thromboplastin Tim 29 SECONDS (25.1-36.5)
[2024-11-14 22:29] LABS: Alanine Aminotransferase 45 IU/L (<50); Albumin 3.6 g/dL (3.5-5.0); Albumin Globulin Ratio 0.9 (1.0-2.8); Alkaline Phosphatase 118 U/L (38-126); Aspartate Aminotransferase 56 IU/L (17-59); BUN Creatinine Ratio 27.4 (6-22); Bilirubin Total 0.7 mg/dL (0.2-1.3); Blood Urea Nitrogen 20 mg/dL (9-20); Calcium 9.7 mg/dL (8.4-10.2); Carbon Dioxide 25 mmol/L (22-32); Chloride 103 mmol/L (98-107); Creatine Kinase 80 U/L (55-170); Estimated Glomerular Filt Rate > 60 mL/min (>60); Globulin 3.8 g/dL (1.7-4.1); Glucose 127 mg/dL (70-100); HEMOLYSIS < 15 (0-50); Lipase 85 U/L (23-300); Magnesium 1.8 mg/dL (1.6-2.3); Potassium 3.6 mmol/L (3.4-5.1); Sodium 132 mmol/L (137-145); Total Protein 7.4 g/dL (6.3-8.2)
[2024-11-14 22:40] LABS: NT-proBNP (BNP-Adult 18+) 847 pg/mL (<125); Troponin I < 0.012 ng/mL (0.01-0.034)
[2024-11-14 22:53] LABS: Influenza A - CEPHEID Flu A NEGATIVE (NEGATIVE); Influenza B - CEPHEID Flu B NEGATIVE (NEGATIVE); Respiratory Syncytial Virus Negative (Negative)
[2024-11-14 22:55] LABS: COVID-19 CEPHEID 4-PLEX PCR Negative (Negative)
== END 2024-11-14 23:48 | disposition home or self-care (01) ==
PROVIDERS: Emergency Provider Emergency Medicine; Family Provider Family Medicine; PCP Family Medicine
DX: M54.9 Dorsalgia, unspecified (principal); G89.29 Other chronic pain; I25.10 Atherosclerotic heart disease of native coronary artery without angina pectoris; Z95.5 Presence of coronary angioplasty implant and graft; I25.2 Old myocardial infarction; Z95.810 Presence of automatic (implantable) cardiac defibrillator
CPT/HCPCS: 87635; 87400 ×2; 87420; 0241U; 36415; 71045; 80053; 82550; 83690; 83735; 83880; 84484; 85025; 85610; 85730; 93005; 96374; 99284; J1171

== ENCOUNTER 2024-11-19 01:57 | Emergency (ER) | payer OTHER, SELFPAY ==
[2022-01-16 12:08] VITALS: BMI 26.4
[2024-11-19 02:02] VITALS: PULSE 105; O2SAT 97
[2024-11-19 02:03] VITALS: BP 157/95; PULSE 106; O2SAT 98
[2024-11-19 02:06] VITALS: BP 157/95; PULSE 104; RESP 18; TEMP 36.6; O2SAT 97; BMI 25.1
--- NOTE | 2024-11-19 02:11 | PC.NURSE ---
Pt states that the pain worsens when laying down. Not sure if he originally injured back when laying down before. However, nothing helps pain. When attempting to stand pain improves for a short time very short.
--- NOTE | 2024-11-19 02:27 | ED.BACK ---
HPI - Back Pain/Injury General Chief Complaint: Back Pain/Injury Stated Complaint: back pain Time Seen by Provider: 11/19/24 02:00 Source: patient Mode of arrival: Ambulatory History of Present Illness HPI Narrative: Patient is a 49-year-old male. Has a extensive cardiac history. Was seen here several days ago for back discomfort. Had a negative cardiac workup. He returns today stating that he was not having any chest pain or shortness of breath. He describes pain all throughout his back. Upper back and lower back on both sides. He states he was having discomfort like this the last time that he was here with a focus more on his heart. He does receive chronic pain medications from his primary doctor. He was out of those pain medication. He was also been taking muscle relaxers. Related Data Home Medications Medication Instructions Recorded Confirmed aspirin 81 mg tablet,delayed 81 mg PO DAILY 04/07/18 09/05/24 release (Evelyn Low Dose Aspirin) atorvastatin 80 mg tablet 80 mg PO DAILY 04/07/18 09/05/24 ibuprofen 200 mg tablet 200 mg PO PRN PRN pain 12/27/19 09/05/24 metoprolol succinate 25 mg 25 mg PO DAILY 12/27/19 09/05/24 tablet,extended release 24 hr (Toprol XL) lisinopril 10 mg tablet 10 mg PO DAILY 01/16/22 09/05/24 Previous Rx's Medication Instructions Recorded isosorbide mononitrate 60 mg 60 mg PO DAILY #90 tabs 09/06/20 tablet,extended release 24 hr clopidogrel 75 mg tablet (Plavix) 75 mg PO DAILY #90 tabs 03/20/21 ezetimibe 10 mg tablet See Rx Instructions .Route 03/21/21 .COMPLEX #90 tabs nitroglycerin 0.4 mg sublingual 0.4 mg sublingual Q5M PRN chest 06/01/23 tablet pain #100 tabs naloxone 4 mg/actuation nasal 4 mg intranasal Q2M PRN opioid 09/21/23 spray (Narcan) overdose #2 ea empagliflozin 25 mg tablet See Rx Instructions PO DAILY #90 03/14/24 (Jardiance) tabs cyclobenzaprine 10 mg tablet See Rx Instructions .Route 06/13/24 .COMPLEX #30 tabs oxycodone-acetaminophen 7.5 mg-325 2 tab PO Q6H PRN pain #100 tabs 09/05/24 mg tablet oxycodone-acetaminophen 7.5 mg-325 2 tab PO Q6H PRN pain #100 tabs 09/05/24 mg tablet oxycodone-acetaminophen 7.5 mg-325 2 tab PO Q6H PRN pain #100 tabs 09/05/24 mg tablet semaglutide 1 mg/dose (4 mg/3 mL) 1 mg (0.75 mL) SUBCUT QWEEK #3 mL 09/05/24 subcutaneous pen injector (Ozempic) methocarbamol 750 mg tablet 750 mg PO Q8H PRN muscle spasm #14 11/14/24 tabs Allergies Allergy/AdvReac Type Severity Reaction Status Date / Time No Known Drug Allergies Allergy Unverified 09/05/24 13:13 Review of Systems Review of Systems Narrative: See HPI Patient History Medical History Hx of myocardial infarction Restrictive lung disease Chronic low back pain Bilateral hand pain Chronic back pain Myocardial infarction Hypertension Low back pain without sciatica (05/14/16) Unstable angina Acute coronary syndrome Surgical History Anesthesia History of angioplasty (01/02/15) History of angioplasty (10/14/11) History of angioplasty (~1999) Social History household members: friend(s) Smoking Status: Former smoker alcohol intake: current substance use type: marijuana (Every day use) Smoking Status: Former smoker alcohol intake frequency: holidays/special occasions only Exam Initial Vital Signs Initial Vital Signs: Vital Signs Temperature 97.9 F 11/19/24 02:06 Pulse Rate 104 H 11/19/24 02:06 Respiratory Rate 18 11/19/24 02:06 Blood Pressure 157/95 H 11/19/24 02:06 Pulse Oximetry 97 11/19/24 02:06 Oxygen Delivery Method Room Air 11/19/24 02:06 Resp Effort & Inspection: normal respiratory effort Auscultation: clear to auscultation bilaterally Cardio Rate: regular rate Rhythm: regular rhythm Back/Spine/Pelvis Other: Tenderness to palpation throughout the thoracic and lumbar paraspinal region. Skin General: no rashes or lesions noted Extrem General: capillary refill normal Course Orders Ordered: Discontinued Medications Hydromorphone HCl (Hydromorphone 1 Mg Inj) 1 mg IM NOW ONE Stop: 11/19/24 02:29 Last Admin: 11/19/24 02:35 Dose: 1 mg Documented By: AB Ketorolac Tromethamine (Ketorolac 30 Mg/Ml Vial) 30 mg IM NOW ONE Stop: 11/19/24 02:29 Last Admin: 11/19/24 02:32 Dose: 30 mg Documented By: AB Vital Signs Vital signs: Vital Signs - 8 hr 11/19/24 02:06 Temperature 97.9 F Pulse Rate 104 H Respiratory Rate 18 Blood Pressure 157/95 H Pulse Oximetry 97 Oxygen Delivery Method Room Air MDM - Back Pain/Injury MDM Narrative Medical decision making narrative: Patient's symptoms today are clearly musculoskeletal in origin. He was reproducible discomfort to his entire back. He was chronic back pain but this seems to be worse than normal. No new trauma. He was no chest pain or shortness of breath. After medications here in the emergency department he reports vast improvement of his symptoms. Unfortunately he was out of his chronic pain medication and can not get it refilled until after new year. I advised that we can not refill chronic pain medicine out of the emergency department and he will have to contact his primary doctor's office on Thursday for refill. I have low suspicion for ACS. He was given return precautions. He expressed understanding and agreement. Discharge Plan Departure Patient Disposition: Home Clinical Impression: Acute on chronic back pain Instructions: DI for Muscle Strain Activity Restrictions/Additional Instructions: Recommend that you continue to take all of your medications as directed. Unfortunately we can not refill chronic pain medications out of the emergency department so you will need to contact your primary care doctor's office on Thursday to discuss any early refills of your medicines. Prescriptions: No Action isosorbide mononitrate 60 mg tablet extended release 24 hr 60 mg PO DAILY Qty: 90 3RF clopidogrel [Plavix] 75 mg tablet 75 mg PO DAILY Qty: 90 3RF ezetimibe 10 mg tablet See Rx Instructions .ROUTE .COMPLEX Qty: 90 0RF Dose Instruction: TAKE ONE TABLET BY MOUTH ONE TIME DAILY Rx Instructions: TAKE ONE TABLET BY MOUTH ONE TIME DAILY nitroglycerin 0.4 mg tablet, sublingual 0.4 mg SL Q5M PRN (Reason: chest pain) Qty: 100 5RF Rx Instructions: do not exceed 3 doses per episode atorvastatin 80 mg tablet 80 mg PO DAILY aspirin [Evelyn Low Dose Aspirin] 81 mg tablet,delayed release (DR/EC) 81 mg PO DAILY naloxone [Narcan] 4 mg/actuation spray,non-aerosol 4 mg intranasal Q2M PRN (Reason: opioid overdose) Qty: 2 0RF Rx Instructions: spray 1 dose into ONE nostril; alternate nostrils w each dose until help arrives Jardiance 25 mg tablet See Rx Instructions PO DAILY Qty: 90 3RF Rx Instructions: t1/2 tab po daily for 1 week, then increase to 1 tab daily cyclobenzaprine 10 mg tablet See Rx Instructions .ROUTE .COMPLEX Qty: 30 3RF Dose Instruction: take 1 tablet by mouth three times daily As Needed for muscle spasm; Do not drive during treatment Rx Instructions: take 1 tablet by mouth three times daily As Needed for muscle spasm; Do not drive during treatment oxycodone-acetaminophen 7.5-325 mg tablet 2 tab PO Q6H PRN (Reason: pain) Qty: 100 0RF oxycodone-acetaminophen 7.5-325 mg tablet 2 tab PO Q6H PRN (Reason: pain) Qty: 100 0RF oxycodone-acetaminophen 7.5-325 mg tablet 2 tab PO Q6H PRN (Reason: pain) Qty: 100 0RF Rx Instructions: MUST last 30 days Ozempic 1 mg/dose (4 mg/3 mL) pen injector 1 mg SUBCUT QWEEK Qty: 3 3RF metoprolol succinate [Toprol XL] 25 MG tablet extended release 24 hr 25 mg PO DAILY ibuprofen 200 mg Tablet 200 mg PO PRN PRN (Reason: pain) lisinopril 10 mg tablet 10 mg PO DAILY Rx Instructions: TAKE ONE TABLET BY MOUTH ONE TIME DAILY methocarbamol 750 mg tablet 750 mg PO Q8H PRN (Reason: muscle spasm) Qty: 14 0RF Referrals: Chris Hampton MD [Primary Care Provider] - Stand Alone Forms: Patient Portal/API/Survey
[2024-11-19 02:30] VITALS: BP 132/86; PULSE 97; O2SAT 95
[2024-11-19] MEDS: KETOROLAC 30 MG/ML VIAL IM (02:32)
[2024-11-19] MEDS: HYDROMORPHONE 1 MG INJ IM (02:35)
[2024-11-19 03:00] VITALS: BP 140/85; PULSE 91; O2SAT 95
[2024-11-19] MEDS: OXYCODONE/APAP 5/325 PREPACK 1 BOTTLE MISC (03:29)
[2024-11-19 03:30] VITALS: BP 145/103; PULSE 92; O2SAT 97
== END 2024-11-19 03:39 | disposition home or self-care (01) ==
PROVIDERS: Emergency Provider Emergency Medicine; Family Provider Family Medicine; PCP Family Medicine
DX: M54.89 Other dorsalgia (principal)
CPT/HCPCS: 96372; 99283; 99284; J1171; J1885

== ENCOUNTER 2024-11-20 21:09 | Emergency (ER) | payer OTHER, SELFPAY ==
[2022-01-16 12:08] VITALS: BMI 26.4
[2024-11-20 21:26] VITALS: BP 163/101; PULSE 97; RESP 16; TEMP 36.6; O2SAT 99; BMI 25.1
--- NOTE | 2024-11-20 22:32 | ED.BACK ---
HPI - Back Pain/Injury General Chief Complaint: Back Pain/Injury Stated Complaint: back px Time Seen by Provider: 11/20/24 22:30 Source: patient, RN notes reviewed and old records reviewed Mode of arrival: Family Vehicle Limitations: no limitations History of Present Illness HPI Narrative: 49-year-old male history of coronary artery disease with 6 prior cardiac stents AICD/pacer placed September 2022, chronic low back pain, hypertension patient has had visits on November 14 and the for back pain notes that he is out of his chronic pain medications because he has been taking it more frequently. He normally takes oxycodone 7.5/325, patient states he has a follow up on November 23 with his primary care Dr. Hampton. Patient states he has had some back issues in the past but does not recall any trauma or injuries. He states it is worse with movement describes it as mid back radiates around. Patient has had lower back issues in the past and has had x-ray imaging of his thoracic spine that did show mild multilevel thoracic spondylosis. Patient has also had MRI in his lower lumbar spine in the past with disc disease as well as compression fracture. Patient states the medication last night was helpful. He states he has been taking ibuprofen for pain management at home states he has not been taking acetaminophen as he does not find it helpful. Related Data Home Medications Medication Instructions Recorded Confirmed aspirin 81 mg tablet,delayed 81 mg PO DAILY 04/07/18 09/05/24 release (Evelyn Low Dose Aspirin) atorvastatin 80 mg tablet 80 mg PO DAILY 04/07/18 09/05/24 ibuprofen 200 mg tablet 200 mg PO PRN PRN pain 12/27/19 09/05/24 metoprolol succinate 25 mg 25 mg PO DAILY 12/27/19 09/05/24 tablet,extended release 24 hr (Toprol XL) lisinopril 10 mg tablet 10 mg PO DAILY 01/16/22 09/05/24 Previous Rx's Medication Instructions Recorded isosorbide mononitrate 60 mg 60 mg PO DAILY #90 tabs 09/06/20 tablet,extended release 24 hr clopidogrel 75 mg tablet (Plavix) 75 mg PO DAILY #90 tabs 03/20/21 ezetimibe 10 mg tablet See Rx Instructions .Route 03/21/21 .COMPLEX #90 tabs nitroglycerin 0.4 mg sublingual 0.4 mg sublingual Q5M PRN chest 06/01/23 tablet pain #100 tabs naloxone 4 mg/actuation nasal 4 mg intranasal Q2M PRN opioid 09/21/23 spray (Narcan) overdose #2 ea empagliflozin 25 mg tablet See Rx Instructions PO DAILY #90 03/14/24 (Jardiance) tabs cyclobenzaprine 10 mg tablet See Rx Instructions .Route 06/13/24 .COMPLEX #30 tabs oxycodone-acetaminophen 7.5 mg-325 2 tab PO Q6H PRN pain #100 tabs 09/05/24 mg tablet oxycodone-acetaminophen 7.5 mg-325 2 tab PO Q6H PRN pain #100 tabs 09/05/24 mg tablet oxycodone-acetaminophen 7.5 mg-325 2 tab PO Q6H PRN pain #100 tabs 09/05/24 mg tablet semaglutide 1 mg/dose (4 mg/3 mL) 1 mg (0.75 mL) SUBCUT QWEEK #3 mL 09/05/24 subcutaneous pen injector (Ozempic) methocarbamol 750 mg tablet 750 mg PO Q8H PRN muscle spasm #14 11/14/24 tabs meloxicam 7.5 mg tablet 7.5 mg PO BID PRN pain #14 tabs 11/21/24 Allergies Allergy/AdvReac Type Severity Reaction Status Date / Time No Known Drug Allergies Allergy Unverified 09/05/24 13:13 Review of Systems Review of Systems ROS Unobtainable: All systems reviewed & are unremarkable except as noted in HPI and below Patient History Medical History Hx of myocardial infarction Restrictive lung disease Chronic low back pain Bilateral hand pain Chronic back pain Myocardial infarction Hypertension Low back pain without sciatica (05/14/16) Unstable angina Acute coronary syndrome Surgical History Anesthesia History of angioplasty (01/02/15) History of angioplasty (10/14/11) History of angioplasty (~1999) Social History household members: friend(s) Smoking Status: Former smoker alcohol intake: current substance use type: marijuana (Every day use) Smoking Status: Former smoker alcohol intake frequency: holidays/special occasions only Exam Narrative Exam Narrative: GENERAL: Alert and oriented x three, male in moderate distress. Patient was ambulating in the room when I arrived. HEENT: Head normocephalic, atraumatic, EOMI, pupils reactive, face symmetric, moist mucous membranes NECK: Supple, full range of motion CARDIOVASCULAR: Regular rate and rhythm without murmurs, rubs or gallops. RESPIRATORY: Breath sounds equal bilaterally, no wheezes rales or rhonchi. ABDOMEN: Soft, nontender. Normoactive bowel sounds all 4 quadrants. No guarding or rebound, rigidity, no mass, no pulsatile bruit or mass : No CVA tenderness BACK: No cervical, vertebral point tenderness, patient has some mid thoracic vertebral tenderness but is at several levels, no lumbar vertebral point tenderness. Patient has normal range of motion. Patient's gait is normal. Rectal exam is deferred. Muscle strength is 5/5 in lower extremities. Cap refill less than 2 seconds.. Sensation is in all 4 extremities.. EXTREMITIES: Normal range of motion, no clubbing or edema. Neurovascularly intact NEUROLOGICAL: Cranial nerves II through XII grossly intact. Moving all extremities SKIN: Warm, dry, no petechiae, no rashes or lesions. Initial Vital Signs Initial Vital Signs: Vital Signs Temperature 97.9 F 11/20/24 21:26 Pulse Rate 97 H 11/20/24 21:26 Respiratory Rate 16 11/20/24 21:26 Blood Pressure 163/101 H 11/20/24 21:26 Pulse Oximetry 99 11/20/24 21:26 Oxygen Delivery Method Room Air 11/20/24 21:26 Course Orders Ordered: ED Orders 11/20/24 22:46 CT thoracic spine wo con Stat Discontinued Medications Hydromorphone HCl (Hydromorphone 1 Mg Inj) 1 mg IM NOW ONE Stop: 11/20/24 22:47 Last Admin: 11/20/24 23:05 Dose: 1 mg Documented By: ELKE Ketorolac Tromethamine (Ketorolac 30 Mg/Ml Vial) 30 mg IM NOW ONE Stop: 11/20/24 22:47 Last Admin: 11/20/24 23:05 Dose: 30 mg Documented By: ELKE Vital Signs Vital signs: Vital Signs - 8 hr 11/20/24 21:26 11/20/24 23:24 11/20/24 23:30 Temperature 97.9 F Pulse Rate 97 H 91 H 90 Respiratory Rate 16 18 Blood Pressure 163/101 H 163/97 H Pulse Oximetry 99 98 98 Oxygen Delivery Method Room Air Room Air 11/21/24 00:00 11/21/24 00:01 11/21/24 00:01 Temperature Pulse Rate 97 H 96 H Respiratory Rate Blood Pressure 167/87 H Pulse Oximetry 96 97 Oxygen Delivery Method MDM - Back Pain/Injury Imaging Data thoracic spine CT: Radiologist's Impression: Tremaine Sy??49??M??1975 ? Allergy/Adv: No Known Drug Allergies (More??) Close Thoracic Spine CT (Signed) Margie Francisco - 11/20/24 Chest X-Ray (Signed) Radha Finch - 11/14/24 Chest X-Ray (Signed) Hardy Lu - 11/01/[address] (Signed) Gelacio Ku - 09/12/24 Abdomen/Pelvis CT (Signed) Hardy Lu - 08/21/24 Chest X-Ray (Signed) Hardy Lu - 08/21/24 Thoracic Spine X-Ray (Signed) Cabrera Haywood - 07/20/24 Cervical Spine X-Ray (Signed) Cabrera Haywood - 07/20/[address] (Signed) Kendy Holden - 03/21/24 PFT Result 06/11/23 Duplex Scan Lower Extremity Artery (Signed) Jose Thibodeaux - 02/05/23 Radiology Report (Cancelled) Randy Reyes - 01/17/22 Myocardial Perfusion Scan Nuc Med (Signed) Randy Reyes - 01/17/22 Telemetry Strips 01/16/22 Telemetry Strips 01/16/22 Chest X-Ray (Signed) Elizabeth Ignacio - 01/16/22 Hand X-Ray (Signed) Christian Burnette - 06/17/21 Hand X-Ray (Signed) Christian Burnette - 06/17/21 Chest X-Ray (Signed) Vaibhav Glover - 03/30/21 Myocardial Perfusion Scan Nuc Med (Signed) Salvador Hidalgo - 12/27/19 Telemetry Strips 12/27/19 Chest/Abdomen/Pelvis CTA (Signed) Jeremias Reich - 12/27/19 Chest X-Ray (Signed) Radha Finch - 12/27/[address] (Signed) EmmanuelChad - 12/15/[address] (Signed) Chad Benitez - 12/15/19 Chest X-Ray (Signed) SuarezVipuldelicia - 12/15/19 Elbow X-Ray (Signed) Chon Finchley - 11/22/19 Lumbar Spine MRI (Signed) Chad Benitez - 10/30/19 Knee X-Ray (Signed) Willy Oliviaantonio - 08/18/19 Knee X-Ray (Cancelled) 08/18/19 Hip X-Ray (Addendum) NeWilly contehantonio - 08/18/19 Chest X-Ray (Signed) NeWilly contehantonio - 01/24/19 Chest X-Ray (Signed) Willy Oliviaantonio - 12/01/18 Duplex Scan Lower Extremity Artery (Signed) Mio Suarez - 10/08/18 Launch?[place] [address] CT Scan Report Signed Patient: Tremaine Sy MR#: [id number] : 1975 Acct:[id number] Age/Sex: 49 / M Date of Service: 11/20/24 Loc: Accession Number: [id number] Procedure: CT thoracic spine wo con Ordering Provider: Ivette Callaway D.O. PROCEDURE: CT THORACIC SPINE WO CON INDICATIONS: thoracic back pain acute on chronic TECHNIQUE: Noncontrast 3 mm thick sections acquired through the region of interest in the thoracic spine. Sagittal and coronal reformats were then constructed. For radiation dose reduction, the following was used: automated exposure control. COMPARISON: [facility], CT, CT THORACIC SPINE WO CON, 12/15/2019, 17:58., CT lumbar spine 03/21/2024, CT chest 09/12/2024 FINDINGS: Image quality: Diagnostic. Bones: There is normal overall bony alignment. No acute vertebral body compression fractures. No suspicious sclerotic or lytic bony lesions. Central spinal canal is of normal overall caliber. Multilevel degenerative changes, overall not significantly changed since 03/21/2024 Soft tissues: No paravertebral masses or hematomas. There is increasing soft tissue density in the posterior medial aspect of the left lower lobe, increased since 09/12/2024. IMPRESSION: No acute fracture or traumatic subluxation. Degenerative changes are not significantly changed since February 2024. Posterior medial left lower lobe soft tissue density, increased since 09/12/2024 CT chest. Consider PET-CT for further evaluation. Approved by: Margie Francisco M.D.,Ph.D. on 11/20/2024 at 23:47 MDM Narrative Medical decision making narrative: 49-year-old has been seen here several times this month for thoracic back pain did have 2 cardiac workups does have a history of compression fractures as well as degenerative joint disease he denies any recent trauma or new injury. He was little bit tender over the thoracic spine but has good movement with no neurologic changes. Discussed with patient we will obtain CT imaging of the thoracic spine, had an x-ray in June of 2024 which showed multilevel spondylosis had a thoracic spine CT 2019 that showed no acute changes besides scattered Schmorl's node. CT thoracic spine shows no acute fracture or traumatic subluxation degenerative changes are not significantly changed since February of 2024. Posteromedial left lower lobe soft tissue density increased since 09/12/2024 CT of the chest consider PET-CT for further evaluation. Patient received Toradol and Dilaudid. States still has not pain but feels much improved is able to sit and rest comfortably. Discussed findings with patient need for follow up regarding lower lobe soft tissue density. He states that insurance would not cover a PET-CT after his last imaging. Discussed he has not appointment on November 29 with his primary care to take his findings from today as he should follow up and have this obtained. Patient expresses understanding. He states the Toradol here has been very helpful today we will give a short prescription for meloxicam while we discussed I would not recommend long-term because of his cardiac history. Discharge Plan Departure Patient Disposition: Home Clinical Impression: Back pain, thoracic, Mass of lower lobe of left lung Activity Restrictions/Additional Instructions: Follow up at your appointment on November [address] Hampton. Your imaging shows some degenerative changes of the spine but no new changes since February of 2024 it is noted incidentally there is a posterior medial left lower lobe soft tissue density that has increased since your CT of your chest in 09/12/[address] Hampton as PET-CT is recommended. You can take ibuprofen up to 600 mg every 6 hours and/or acetaminophen up to a 1000 mg every 6 hours as needed for pain. You can take meloxicam 1 tablet every 12 hours as needed for pain. This is similar to ibuprofen but much stronger. Do not take with other NSAIDs such as ibuprofen, Aleve or naproxen. Prescription sent to [facility] in [place]. Prescriptions: New meloxicam 7.5 mg tablet 7.5 mg PO BID PRN (Reason: pain) Qty: 14 0RF No Action isosorbide mononitrate 60 mg tablet extended release 24 hr 60 mg PO DAILY Qty: 90 3RF clopidogrel [Plavix] 75 mg tablet 75 mg PO DAILY Qty: 90 3RF ezetimibe 10 mg tablet See Rx Instructions .ROUTE .COMPLEX Qty: 90 0RF Dose Instruction: TAKE ONE TABLET BY MOUTH ONE TIME DAILY Rx Instructions: TAKE ONE TABLET BY MOUTH ONE TIME DAILY nitroglycerin 0.4 mg tablet, sublingual 0.4 mg SL Q5M PRN (Reason: chest pain) Qty: 100 5RF Rx Instructions: do not exceed 3 doses per episode atorvastatin 80 mg tablet 80 mg PO DAILY aspirin [Evelyn Low Dose Aspirin] 81 mg tablet,delayed release (DR/EC) 81 mg PO DAILY naloxone [Narcan] 4 mg/actuation spray,non-aerosol 4 mg intranasal Q2M PRN (Reason: opioid overdose) Qty: 2 0RF Rx Instructions: spray 1 dose into ONE nostril; alternate nostrils w each dose until help arrives Jardiance 25 mg tablet See Rx Instructions PO DAILY Qty: 90 3RF Rx Instructions: t1/2 tab po daily for 1 week, then increase to 1 tab daily cyclobenzaprine 10 mg tablet See Rx Instructions .ROUTE .COMPLEX Qty: 30 3RF Dose Instruction: take 1 tablet by mouth three times daily As Needed for muscle spasm; Do not drive during treatment Rx Instructions: take 1 tablet by mouth three times daily As Needed for muscle spasm; Do not drive during treatment oxycodone-acetaminophen 7.5-325 mg tablet 2 tab PO Q6H PRN (Reason: pain) Qty: 100 0RF oxycodone-acetaminophen 7.5-325 mg tablet 2 tab PO Q6H PRN (Reason: pain) Qty: 100 0RF oxycodone-acetaminophen 7.5-325 mg tablet 2 tab PO Q6H PRN (Reason: pain) Qty: 100 0RF Rx Instructions: MUST last 30 days Ozempic 1 mg/dose (4 mg/3 mL) pen injector 1 mg SUBCUT QWEEK Qty: 3 3RF metoprolol succinate [Toprol XL] 25 MG tablet extended release 24 hr 25 mg PO DAILY ibuprofen 200 mg Tablet 200 mg PO PRN PRN (Reason: pain) lisinopril 10 mg tablet 10 mg PO DAILY Rx Instructions: TAKE ONE TABLET BY MOUTH ONE TIME DAILY methocarbamol 750 mg tablet 750 mg PO Q8H PRN (Reason: muscle spasm) Qty: 14 0RF Referrals: Chris Hampton MD [Primary Care Provider] - Stand Alone Forms: Patient Portal/API/Survey
--- NOTE | 2024-11-20 22:46 | DI.CT.S_ITS ---
PROCEDURE: CT THORACIC SPINE WO CON INDICATIONS: thoracic back pain acute on chronic TECHNIQUE: Noncontrast 3 mm thick sections acquired through the region of interest in the thoracic spine. Sagittal and coronal reformats were then constructed. For radiation dose reduction, the following was used: automated exposure control. COMPARISON: [facility], CT, CT THORACIC SPINE WO CON, 12/15/2019, 17:58., CT lumbar spine 03/21/2024, CT chest 09/12/2024 FINDINGS: Image quality: Diagnostic. Bones: There is normal overall bony alignment. No acute vertebral body compression fractures. No suspicious sclerotic or lytic bony lesions. Central spinal canal is of normal overall caliber. Multilevel degenerative changes, overall not significantly changed since 03/21/2024 Soft tissues: No paravertebral masses or hematomas. There is increasing soft tissue density in the posterior medial aspect of the left lower lobe, increased since 09/12/2024. IMPRESSION: No acute fracture or traumatic subluxation. Degenerative changes are not significantly changed since February 2024. Posterior medial left lower lobe soft tissue density, increased since 09/12/2024 CT chest. Consider PET-CT for further evaluation. Approved by: Margie Francisco M.D.,Ph.D. on 11/20/2024 at 23:47
[2024-11-20] MEDS: KETOROLAC 30 MG/ML VIAL IM (23:05)
[2024-11-20] MEDS: HYDROMORPHONE 1 MG INJ IM (23:05)
[2024-11-20 23:24] VITALS: BP 163/97; PULSE 91; RESP 18; O2SAT 98
[2024-11-20 23:30] VITALS: PULSE 90; O2SAT 98
[2024-11-21] VITALS: PULSE 97; O2SAT 96
[2024-11-21 00:01] VITALS: BP 167/87; PULSE 96; O2SAT 97
== END 2024-11-21 00:30 | disposition home or self-care (01) ==
PROVIDERS: Emergency Provider Emergency Medicine; Family Provider Family Medicine; PCP Family Medicine
DX: M54.6 Pain in thoracic spine (principal); R91.8 Other nonspecific abnormal finding of lung field
CPT/HCPCS: 72128; 96372; 99284; J1171; J1885

== ENCOUNTER 2024-12-17 15:51 | Emergency (ER) | payer OTHER, SELFPAY ==
[2022-01-16 12:08] VITALS: BMI 26.4
[2024-12-17] VITALS (19 sets, daily range): BP systolic 88–128; BP diastolic 52–71; PULSE 84–101; RESP 16–18; TEMP 36.7; O2SAT 96–100; BMI 25.4
--- NOTE | 2024-12-17 16:06 | DI.CT.S_ITS ---
PROCEDURE: CT HEAD/BRAIN WO CON INDICATIONS: fall with head strike 8 days ago TECHNIQUE: Noncontrast 4.5 mm thick angled axial sections acquired from the foramen magnum to the vertex, with coronal and sagittal reformats. For radiation dose reduction, the following was used: automated exposure control, adjustment of mA and/or kV according to patient size. COMPARISON: [facility], CT, CT CERVICAL SPINE WO CON, 12/17/2024, 16:17. FINDINGS: Image quality: Streak artifact can be seen through the skull base. CSF spaces: Basal cisterns are patent. No extra-axial fluid collections. Ventricles are normal in size and shape. Brain: No midline shift. No intracranial masses or hemorrhage. [place]field-white matter interface is normal. Skull and face: Calvarium and visualized facial bones are intact, without suspicious lesions. Sinuses: Visualized sinuses and mastoids are clear. IMPRESSION: No acute intracranial hemorrhage is seen. No acute intracranial pathology. Dictated by: Vikas Dial M.D. on 12/17/2024 at 15:55 Approved by: Vikas Dial M.D. on 12/17/2024 at 15:56
--- NOTE | 2024-12-17 16:06 | DI.CT.S_ITS ---
PROCEDURE: CT CERVICAL SPINE WO CON INDICATIONS: fall with head strike 8 days ago TECHNIQUE: Noncontrast 3 mm thick sections acquired from the skull base to the T4 level. Sagittal and coronal reformats were then constructed. For radiation dose reduction, the following was used: automated exposure control, adjustment of mA and/or kV according to patient size. COMPARISON: [facility], CT, CT HEAD/BRAIN WO CON, 12/17/2024, 16:17. [facility], CT, CT CERVICAL SPINE WO CON, 12/15/2019, 17:58. FINDINGS: Image quality: This examination is somewhat limited by quantum mottle artifact. Bones: No fractures or dislocations. Visualized superior ribs are intact. Focal degenerative change is seen involving the C1-C2 interface anteriorly. There is mild disc space narrowing seen at C4-C5. Multiple levels of significant facet hypertrophy can be seen. Soft tissues: Prevertebral soft tissues are normal in thickness. No paravertebral hematomas. No apical pneumothoraces. Atherosclerotic calcification is noted. A left-sided pacer device is seen. IMPRESSION: No displaced fracture or traumatic subluxation. Underlying cervical spine degenerative changes are seen. Additional findings: Left-sided pacer device Dictated by: Vikas Dial M.D. on 12/17/2024 at 15:56 Approved by: Vikas Dial M.D. on 12/17/2024 at 15:57
--- NOTE | 2024-12-17 16:07 | DI.RAD.S_ITS ---
PROCEDURE: XR SHOULDER RT MIN 2V INDICATIONS: fall, pain TECHNIQUE: 3 views of the shoulder were acquired. COMPARISON: [facility], CR, XR CHEST 1V, 11/01/2024, 17:27. [facility], CT, CT HEAD/BRAIN WO CON, 12/17/2024, 16:17. [facility], CT, CT CERVICAL SPINE WO CON, 12/17/2024, 16:17. [facility], CR, XR CHEST 1V, 11/14/2024, 21:42. FINDINGS: Bones: No fractures or dislocations. No suspicious bony lesions. Visualized ribs appear intact. Degenerative changes are seen, including involving the acromioclavicular joint, with milder degenerative change of the glenohumeral joint. Soft tissues: No suspicious soft tissue calcifications. Pacer leads are partially seen. The visualized lung demonstrates an unremarkable appearance. IMPRESSION: No acute plain film abnormality is seen. If it would be helpful for clinical management decision making, please consider a dedicated, scheduled shoulder MRI for further evaluation (assuming that there is no contraindication). Dictated by: Vikas Dial M.D. on 12/17/2024 at 15:45 Approved by: Vikas Dial M.D. on 12/17/2024 at 15:46
--- NOTE | 2024-12-17 16:57 | ED.FALL ---
HPI - Fall General Chief Complaint: Fall Stated Complaint: faceplanted into wall 8 days ago Time Seen by Provider: 12/17/24 16:23 Source: patient Mode of arrival: Ambulatory History of Present Illness HPI Narrative: 49-year-old male with history of chronic neck pain presents for worsening neck pain, shoulder pain, leg pain since a fall 8 days ago. Patient is on Percocet, flexeril, and gabapentin chronically through Dr. Hampton. Patient states that he was getting out of a chair when his feet got tangled in some wires and he fell to the side, striking his right face against a wall. Denies loss of consciousness. He takes Plavix but no other blood thinners. Denies numbness, weaknesss, other complaints at this time. Of note, patient had PET scan for lung mass. PET scan shows extensive metastatic disease. Patient scheduled for biopsy next week. Related Data Home Medications Medication Instructions Recorded Confirmed aspirin 81 mg tablet,delayed 81 mg PO DAILY 04/07/18 11/24/24 release (Evelyn Low Dose Aspirin) atorvastatin 80 mg tablet 80 mg PO DAILY 04/07/18 11/24/24 ibuprofen 200 mg tablet 200 mg PO PRN PRN pain 12/27/19 11/24/24 metoprolol succinate 25 mg 25 mg PO DAILY 12/27/19 11/24/24 tablet,extended release 24 hr (Toprol XL) lisinopril 10 mg tablet 10 mg PO DAILY 01/16/22 11/24/24 Previous Rx's Medication Instructions Recorded isosorbide mononitrate 60 mg 60 mg PO DAILY #90 tabs 09/06/20 tablet,extended release 24 hr clopidogrel 75 mg tablet (Plavix) 75 mg PO DAILY #90 tabs 03/20/21 ezetimibe 10 mg tablet See Rx Instructions .Route 03/21/21 .COMPLEX #90 tabs nitroglycerin 0.4 mg sublingual 0.4 mg sublingual Q5M PRN chest 06/01/23 tablet pain #100 tabs naloxone 4 mg/actuation nasal 4 mg intranasal Q2M PRN opioid 09/21/23 spray (Narcan) overdose #2 ea empagliflozin 25 mg tablet See Rx Instructions PO DAILY #90 03/14/24 (Jardiance) tabs semaglutide 1 mg/dose (4 mg/3 mL) 1 mg (0.75 mL) SUBCUT QWEEK #3 mL 10/14/24 subcutaneous pen injector (Ozempic) meloxicam 7.5 mg tablet 7.5 mg PO BID PRN pain #14 tabs 11/21/24 oxycodone-acetaminophen 7.5 mg-325 2 tab PO Q6H PRN pain #100 tabs 11/24/24 mg tablet oxycodone-acetaminophen 7.5 mg-325 2 tab PO Q6H PRN pain #100 tabs 11/24/24 mg tablet oxycodone-acetaminophen 7.5 mg-325 2 tab PO Q6H PRN pain #100 tabs 11/24/24 mg tablet cyclobenzaprine 10 mg tablet See Rx Instructions .Route 12/05/24 .COMPLEX #30 tabs gabapentin 300 mg capsule 300 mg PO BEDTIME PRN significant 12/16/24 pain #30 caps Allergies Allergy/AdvReac Type Severity Reaction Status Date / Time No Known Drug Allergies Allergy Verified 12/17/24 15:57 Patient History Medical History Hx of myocardial infarction Restrictive lung disease Chronic low back pain Bilateral hand pain Chronic back pain Myocardial infarction Hypertension Low back pain without sciatica (05/14/16) Unstable angina Acute coronary syndrome Surgical History Anesthesia History of angioplasty (01/02/15) History of angioplasty (10/14/11) History of angioplasty (~1999) Social History household members: friend(s) Smoking Status: Former smoker alcohol intake: current substance use type: marijuana (Every day use) Smoking Status: Former smoker alcohol intake frequency: holidays/special occasions only Exam Initial Vital Signs Initial Vital Signs: Vital Signs Temperature 98.1 F 12/17/24 15:57 Pulse Rate 101 H 12/17/24 15:57 Respiratory Rate 16 12/17/24 15:57 Blood Pressure 128/71 12/17/24 15:57 Pulse Oximetry 100 12/17/24 15:57 Oxygen Delivery Method Room Air 12/17/24 15:57 Const: Awake, alert, no acute distress Cardiac: regular rate, regular rhythm RESP: unlabored, conversational without dyspnea MSK: Generalized tenderness across neck, full range of motion, pulses equal Skin: Warm, Dry, intact, no rashes Neuro: AO x3, CN II-XII grossly intact, moves all extremities Course Orders Ordered: Discontinued Medications Diazepam (Diazepam 10 Mg/2 Ml Syringe) 3 mg IV NOW ONE Stop: 12/17/24 16:57 Last Admin: 12/17/24 17:27 Dose: 3 mg Documented By: NELSON Hydromorphone HCl (Hydromorphone 1 Mg Inj) 1 mg IV NOW ONE Stop: 12/17/24 17:43 Last Admin: 12/17/24 19:19 Dose: 1 mg Documented By: SONJA Acetaminophen (Ofirmev) 1,000 mg in 100 mls @ 400 mls/hr IV NOW ONE Stop: 12/17/24 17:10 Last Infusion: 12/17/24 17:58 Dose: Infused Documented By: Admin: 12/17/24 17:27 Dose: 400 mls/hr Documented By: NELSON Ketorolac Tromethamine (Ketorolac 30 Mg/Ml Vial) 15 mg IV NOW ONE Stop: 12/17/24 16:57 Last Admin: 12/17/24 17:26 Dose: 15 mg Documented By: NELSON Lidocaine (Lidocaine 5% Patch) 1 each TOP NOW ONE Stop: 12/17/24 16:57 Last Admin: 12/17/24 17:28 Dose: 1 each Documented By: NELSON Vital Signs Vital signs: Vital Signs - 8 hr 12/17/24 15:57 Temperature 98.1 F Pulse Rate 101 H Respiratory Rate 16 Blood Pressure 128/71 Pulse Oximetry 100 Oxygen Delivery Method Room Air MDM - Fall Imaging Data CT scan - head: Radiologist's Impression: PROCEDURE: CT HEAD/BRAIN WO CON INDICATIONS: fall with head strike 8 days ago TECHNIQUE: Noncontrast 4.5 mm thick angled axial sections acquired from the foramen magnum to the vertex, with coronal and sagittal reformats. For radiation dose reduction, the following was used: automated exposure control, adjustment of mA and/or kV according to patient size. COMPARISON: [facility], CT, CT CERVICAL SPINE WO CON, 12/17/2024, 16:17. FINDINGS: Image quality: Streak artifact can be seen through the skull base. CSF spaces: Basal cisterns are patent. No extra-axial fluid collections. Ventricles are normal in size and shape. Brain: No midline shift. No intracranial masses or hemorrhage. [place]-white matter interface is normal. Skull and face: Calvarium and visualized facial bones are intact, without suspicious lesions. Sinuses: Visualized sinuses and mastoids are clear. IMPRESSION: No acute intracranial hemorrhage is seen. No acute intracranial pathology. Dictated by: Vikas Dial M.D. on 12/17/2024 at 15:55 Approved by: Vikas Dial M.D. on 12/17/2024 at 15:56 CT - cervical spine: Radiologist's Impression: PROCEDURE: CT CERVICAL SPINE WO CON INDICATIONS: fall with head strike 8 days ago TECHNIQUE: Noncontrast 3 mm thick sections acquired from the skull base to the T4 level. Sagittal and coronal reformats were then constructed. For radiation dose reduction, the following was used: automated exposure control, adjustment of mA and/or kV according to patient size. COMPARISON: [facility], CT, CT HEAD/BRAIN WO CON, 12/17/2024, 16:17. [facility], CT, CT CERVICAL SPINE WO CON, 12/15/2019, 17:58. FINDINGS: Image quality: This examination is somewhat limited by quantum mottle artifact. Bones: No fractures or dislocations. Visualized superior ribs are intact. Focal degenerative change is seen involving the C1-C2 interface anteriorly. There is mild disc space narrowing seen at C4-C5. Multiple levels of significant facet hypertrophy can be seen. Soft tissues: Prevertebral soft tissues are normal in thickness. No paravertebral hematomas. No apical pneumothoraces. Atherosclerotic calcification is noted. A left-sided pacer device is seen. IMPRESSION: No displaced fracture or traumatic subluxation. Underlying cervical spine degenerative changes are seen. Additional findings: Left-sided pacer device Dictated by: Vikas Dial M.D. on 12/17/2024 at 15:56 Approved by: Vikas Dial M.D. on 12/17/2024 at 15:57 MDM Narrative Medical decision making narrative: Trip and fall with neck pain and body pains for 8 days. On exam patient has generalized tenderness to palpation along his neck but full range of motion. He has full range of motion in upper and lower extremities with out weakness. He is already on multiple chronic pain medications including 7.5 mg oxycodone 2 tablets q.6 hours. Due to the duration of symptoms a CT was ordered from triage. CT imaging negative for acute findings. Pet scan with no bony lesions in neck from 2 days prior ago. Patient counseled on CT imaging findings. Recommended follow up with primary care doctor on Thursday morning if he continues to experience pain. ED return precautions discussed. Discharge Plan Departure Patient Disposition: Home Clinical Impression: Neck pain Instructions: Whiplash Activity Restrictions/Additional Instructions: Your CT imaging today does not show any new fractures or misalignment. Continue to take your chronic pain medications as prescribed. Call your primary care doctor's office Thursday for follow up. Prescriptions: No Action isosorbide mononitrate 60 mg tablet extended release 24 hr 60 mg PO DAILY Qty: 90 3RF clopidogrel [Plavix] 75 mg tablet 75 mg PO DAILY Qty: 90 3RF ezetimibe 10 mg tablet See Rx Instructions .ROUTE .COMPLEX Qty: 90 0RF Dose Instruction: TAKE ONE TABLET BY MOUTH ONE TIME DAILY Rx Instructions: TAKE ONE TABLET BY MOUTH ONE TIME DAILY nitroglycerin 0.4 mg tablet, sublingual 0.4 mg SL Q5M PRN (Reason: chest pain) Qty: 100 5RF Rx Instructions: do not exceed 3 doses per episode cyclobenzaprine 10 mg tablet See Rx Instructions .ROUTE .COMPLEX Qty: 30 3RF Dose Instruction: take 1 tablet by mouth three times daily As Needed for muscle spasm; Do not drive during treatment Rx Instructions: take 1 tablet by mouth three times daily As Needed for muscle spasm; Do not drive during treatment gabapentin 300 mg capsule 300 mg PO BEDTIME PRN (Reason: significant pain) Qty: 30 0RF atorvastatin 80 mg tablet 80 mg PO DAILY aspirin [Evelyn Low Dose Aspirin] 81 mg tablet,delayed release (DR/EC) 81 mg PO DAILY naloxone [Narcan] 4 mg/actuation spray,non-aerosol 4 mg intranasal Q2M PRN (Reason: opioid overdose) Qty: 2 0RF Rx Instructions: spray 1 dose into ONE nostril; alternate nostrils w each dose until help arrives Jardiance 25 mg tablet See Rx Instructions PO DAILY Qty: 90 3RF Rx Instructions: t1/2 tab po daily for 1 week, then increase to 1 tab daily Ozempic 1 mg/dose (4 mg/3 mL) pen injector 1 mg SUBCUT QWEEK Qty: 3 3RF oxycodone-acetaminophen 7.5-325 mg tablet 2 tab PO Q6H PRN (Reason: pain) Qty: 100 0RF oxycodone-acetaminophen 7.5-325 mg tablet 2 tab PO Q6H PRN (Reason: pain) Qty: 100 0RF oxycodone-acetaminophen 7.5-325 mg tablet 2 tab PO Q6H PRN (Reason: pain) Qty: 100 0RF Rx Instructions: MUST last 30 days metoprolol succinate [Toprol XL] 25 MG tablet extended release 24 hr 25 mg PO DAILY ibuprofen 200 mg Tablet 200 mg PO PRN PRN (Reason: pain) lisinopril 10 mg tablet 10 mg PO DAILY Rx Instructions: TAKE ONE TABLET BY MOUTH ONE TIME DAILY meloxicam 7.5 mg tablet 7.5 mg PO BID PRN (Reason: pain) Qty: 14 0RF Referrals: Chris Hampton MD [Primary Care Provider] - Stand Alone Forms: Patient Portal/API/Survey
[2024-12-17] MEDS: KETOROLAC 30 MG/ML VIAL 15 MG IV (17:26)
[2024-12-17] MEDS: ACETAMINOPHEN IV 1,000 MG/100 ML VIAL 400 MG IV (17:27)
[2024-12-17] MEDS: diazePAM 10 MG/2 ML SYRINGE 3 MG IV (17:27)
[2024-12-17] MEDS: LIDOCAINE 5% PATCH 1 EACH TOP (17:28)
--- NOTE | 2024-12-17 17:59 | PC.NURSE ---
Pt hypotensive after receiving IV medications (see MAR). Dilaudid was ordered but d/t hypotension I did not administer dilaudid. Pt denies dizziness, lightheaded, nausea. I placed pt in trandelenburg position and notified Rachel CASTILLO.
[2024-12-17] MEDS: HYDROMORPHONE 1 MG INJ IV (19:19)
== END 2024-12-17 19:21 | disposition home or self-care (01) ==
PROVIDERS: Emergency Provider Emergency Medicine; Family Provider Family Medicine; PCP Family Medicine
DX: M54.2 Cervicalgia (principal); S09.93XA Unspecified injury of face, initial encounter; Z79.01 Long term (current) use of anticoagulants; Z86.79 Personal history of other diseases of the circulatory system; I25.2 Old myocardial infarction
CPT/HCPCS: 70450; 72125; 73030; 96365; 96375; 99284; J0131; J1171; J1885; J3360

== ENCOUNTER 2024-12-28 14:14 | Inpatient (IN) | payer OTHER, SELFPAY ==
[2022-01-16 12:08] VITALS: BMI 26.4
[2024-12-28] VITALS (33 sets, daily range): BP systolic 94–132; BP diastolic 52–78; PULSE 88–103; RESP 17–27; TEMP 36.4–37.3; O2SAT 94–100; BMI 23.1
--- NOTE | 2024-12-28 14:38 | PC.NURSE ---
Pt's family member states that aggressive lung CA has mets to lymphnodes, liver & bones. Pt is at risk for femoral neck fx. Pet scan results available in [facility] record.
--- NOTE | 2024-12-28 14:51 | DI.US.S_ITS ---
PROCEDURE: US PERIPH VENOUS LOW EXTREM BI INDICATIONS: dvt suspected TECHNIQUE: Real-time imaging, as well as color and pulse Doppler interrogation, were performed of the deep veins of both legs from the inguinal ligament to the popliteal fossa, with documentation of the visualized calf veins. COMPARISON: None. FINDINGS: Right: The common femoral, femoral, popliteal, and the visualized calf veins are normally compressible, and free of intraluminal thrombus. Color and pulse Doppler demonstrate normal phasic intravascular flow. There is normal augmentation response to distal compression maneuver. Left: The common femoral, femoral, popliteal, and the visualized calf veins are normally compressible, and free of intraluminal thrombus. Color and pulse Doppler demonstrate normal phasic intravascular flow. There is normal augmentation response to distal compression maneuver. IMPRESSION: No findings of deep venous thrombosis in either lower extremity. Dictated by: Amrik Newby M.D. on 12/28/2024 at 16:03 Approved by: Amrik Newby M.D. on 12/28/2024 at 16:03
--- NOTE | 2024-12-28 14:52 | DI.RAD.S_ITS ---
PROCEDURE: XR KNEE LT 3V INDICATIONS: knee pain possible metastatic disease TECHNIQUE: 3 views of the knee were acquired. COMPARISON: [facility], CR, XR KNEE RT 3V, 08/18/2019, 14:34. FINDINGS: Bones: No fractures or dislocations. No suspicious bony lesions. Soft tissues: No joint effusion. No suspicious soft tissue calcifications. IMPRESSION: No acute bony abnormality or significant effusion. Dictated by: Celso Jorge M.D. on 12/28/2024 at 16:29 Approved by: Celso Jorge M.D. on 12/28/2024 at 16:30
--- NOTE | 2024-12-28 14:52 | DI.RAD.S_ITS ---
PROCEDURE: XR KNEE RT 3V INDICATIONS: knee pain possible metastatic disease TECHNIQUE: 3 views of the knee were acquired. COMPARISON: [facility], CR, XR KNEE RT 3V, 08/18/2019, 14:34. FINDINGS: Bones: No fractures or dislocations. No suspicious bony lesions. Soft tissues: No joint effusion. No suspicious soft tissue calcifications. Vascular calcifications. IMPRESSION: No acute bony abnormality or significant effusion. Dictated by: Celso Jorge M.D. on 12/28/2024 at 16:30 Approved by: Celso Jorge M.D. on 12/28/2024 at 16:30
[2024-12-28] MEDS: MORPHINE 4 MG/ML INJ IV ×3 (15:03→17:37)
--- NOTE | 2024-12-28 15:49 | PC.NURSE ---
Pt states that pain medication is not working. Dr Roland notified.
[2024-12-28 17:46] LABS: Mean Corpuscular HGB Conc 33.9 % (30-36); Mean Corpuscular Hemoglobin 27.9 PG (26-34); Mean Corpuscular Volume 82.2 fL (80-100); Red Blood Cell Count 1.71 X10^6/uL (4.5-5.9); Red Cell Distribution Width 15.2 % (11.6-14.8); White Blood Cell Count 5.6 X10^3/uL (4.5-11.0)
[2024-12-28 17:50] LABS: Alanine Aminotransferase 30 IU/L (<50); Albumin Globulin Ratio 0.8 (1.0-2.8); Alkaline Phosphatase 223 U/L (38-126); Aspartate Aminotransferase 81 IU/L (17-59); BUN Creatinine Ratio 27.6 (6-22); Bilirubin Total 0.7 mg/dL (0.2-1.3); Blood Urea Nitrogen 21 mg/dL (9-20); Calcium 8.2 mg/dL (8.4-10.2); Carbon Dioxide 22 mmol/L (22-32); Chloride 100 mmol/L (98-107); Estimated Glomerular Filt Rate > 60 mL/min (>60); Globulin 3.7 g/dL (1.7-4.1); Glucose 121 mg/dL (70-100); HEMOLYSIS < 15 (0-50); Potassium 3.7 mmol/L (3.4-5.1); Sodium 130 mmol/L (137-145); Total Protein 6.7 g/dL (6.3-8.2)
[2024-12-28 17:55] LABS: Hematocrit 14.1 % (41-53); Hemoglobin 4.8 g/dL (13.5-17.5)
[2024-12-28 17:56] LABS: Add Manual Diff / Slide Review YES; Platelet Count 17 X10^3/uL (150-400)
[2024-12-28 18:02] LABS: Neutrophils Absolute Manual 2968 /uL (3000-5900); Nucleated Red Blood Cells 2 #/Diff; RBC Morphology Normal Morphology; Total Cells Counted 100
--- NOTE | 2024-12-28 18:09 | ED_ITS ---
HPI - Weakness <Zach Roland MD - Last Filed: 01/15/25 07:22> General Chief complaint: Weakness Stated complaint: Knee Pain,Pain Management Time Seen by Provider: 12/28/24 14:44 Source: patient Mode of arrival: Ambulatory History of Present Illness HPI Narrative: 49-year-old male with newly diagnosed metastatic lung cancer presenting with complaints of generalized weakness and bilateral lower extremity pain. Pain is mainly in the legs. Has not had any recent traumatic injury. He has had a PET scan that showed skeletal metastatic disease including in the femurs. Additionally has metastatic disease in his liver and mediastinum. He sees for oncology at [facility]. He was scheduled to have a biopsy today but was unable to do this secondary to pain. Additionally is scheduled to have a central line placed for palliative chemotherapy. He has been using oxycodone 7.5 mg t.i.d. along with 10 mg as needed for breakthrough pain and gabapentin 300 t.i.d.. Patient is feeling generally weak, he does not have focal weakness, he has not had fevers he has not having chest pain or shortness of breath. Past medical history significant for chronic back pain, history of cardiac arrest and coronary disease has an implanted defibrillator. Patient has Plavix on his medication list has not taken in over a week, took aspirin as recently as yesterday Related Data Home Medications Medication Instructions Recorded Confirmed aspirin 81 mg tablet,delayed 81 mg PO DAILY 04/07/18 12/29/24 release (Evelyn Low Dose Aspirin) metoprolol succinate 25 mg 25 mg PO DAILY 12/27/19 12/29/24 tablet,extended release 24 hr (Toprol XL) lisinopril 10 mg tablet 10 mg PO DAILY 01/16/22 12/29/24 cyclobenzaprine 10 mg tablet 10 mg PO QID PRN muscle spasms 12/30/24 12/30/24 ezetimibe 10 mg tablet 10 mg PO DAILY 12/30/24 12/30/24 Previous Rx's Medication Instructions Recorded isosorbide mononitrate 60 mg 60 mg PO DAILY #90 tabs 09/06/20 tablet,extended release 24 hr clopidogrel 75 mg tablet (Plavix) 75 mg PO DAILY #90 tabs 03/20/21 nitroglycerin 0.4 mg sublingual 0.4 mg sublingual Q5M PRN chest 06/01/23 tablet pain #100 tabs naloxone 4 mg/actuation nasal 4 mg intranasal Q2M PRN opioid 09/21/23 spray (Narcan) overdose #2 ea empagliflozin 25 mg tablet See Rx Instructions PO DAILY #90 03/14/24 (Jardiance) tabs gabapentin 300 mg capsule 600 mg (2 x 300 mg) PO TID #180 12/26/24 caps fentanyl 50 mcg/hr transdermal 1 patch transdermal Q72H #5 ea 12/31/24 patch morphine 10 mg/5 mL oral solution 10 mg (5 mL) PO Q6H PRN pain #100 12/31/24 mL Allergies Allergy/AdvReac Type Severity Reaction Status Date / Time No Known Drug Allergies Allergy Verified 12/26/24 08:54 Patient History <Zach Roland MD - Last Filed: 01/15/25 07:22> Medical History Hx of myocardial infarction Restrictive lung disease Chronic low back pain Bilateral hand pain Chronic back pain Myocardial infarction Hypertension Low back pain without sciatica (05/14/16) Unstable angina Acute coronary syndrome Surgical History Anesthesia History of angioplasty (01/02/15) History of angioplasty (10/14/11) History of angioplasty (~1999) Social History household members: friend(s) Smoking Status: Former smoker alcohol intake: current substance use type: marijuana (Every day use) Smoking Status: Former smoker alcohol intake frequency: holidays/special occasions only Exam <Zach Roland MD - Last Filed: 01/15/25 07:22> Initial Vital Signs Initial Vital Signs: Vital Signs Temperature 97.6 F 12/28/24 14:17 Pulse Rate 100 H 12/28/24 14:17 Respiratory Rate 20 12/28/24 14:17 Blood Pressure 114/56 L 12/28/24 14:17 Pulse Oximetry 100 12/28/24 14:17 Oxygen Delivery Method Room Air 12/28/24 14:17 Cachectic and pale appears to be in painful distress [facility] Other: Normocephalic atraumatic pupils are equal and reactive extraocular movements are intact Neck Other: Neck is supple without tenderness of the midline Resp Other: No respiratory distress, lungs are clear with equal breath sounds Cardio Other: Regular rhythm rate no murmur or gallop GI Other: Normal bowel sounds soft nontender. Rectal exam is nontender with scant gross blood on exam Skin Other: Pale Neuro General: patient oriented x3 Cranial Nerves: CN's II-XI intact bilaterally Motor: strength 5/5 throughout Sensory Exam: no sensory deficits noted <Curtis Anderson, DO - Last Filed: 12/29/24 05:35> Initial Vital Signs Initial Vital Signs: Vital Signs Temperature 97.6 F 12/28/24 14:17 Pulse Rate 100 H 12/28/24 14:17 Respiratory Rate 20 12/28/24 14:17 Blood Pressure 114/56 L 12/28/24 14:17 Pulse Oximetry 100 12/28/24 14:17 Oxygen Delivery Method Room Air 12/28/24 14:17 <Ivette Callaway, DO - Last Filed: 12/29/24 08:18> Initial Vital Signs Initial Vital Signs: Vital Signs Temperature 97.6 F 12/28/24 14:17 Pulse Rate 100 H 12/28/24 14:17 Respiratory Rate 20 12/28/24 14:17 Blood Pressure 114/56 L 12/28/24 14:17 Pulse Oximetry 100 12/28/24 14:17 Oxygen Delivery Method Room Air 12/28/24 14:17 Course <Zach Roland MD - Last Filed: 01/15/25 07:22> Course Course Narrative: After anemia became known, patient reported he has had some dark stool recently. He is not having abdominal pain. He is agreeable to a blood transfusion. He has not sure that he wants to have an endoscopy, tells me that a few years ago his primary care provider recommended a screening colonoscopy which he declined. Patient has an implanted defibrillator, at this point we will continue to be full code however he states he does not wish intubation or mechanical ventilation. I explained to him that this is an incongruous position and that if he had return of spontaneous circulation after resuscitation he would likely be on a ventilator. Additionally, he wants to think about whether or not he would want to have his implanted defibrillator deactivated.. Orders Ordered: Discontinued Medications Acetaminophen (Acetaminophen 325 Mg Tablet) 650 mg PO NOW ONE Stop: 12/29/24 00:43 Last Admin: 12/29/24 00:51 Dose: 650 mg Documented By: KARINA Acetaminophen (Acetaminophen 325 Mg Tablet) 975 mg PO Q8H PRN PRN Reason: Pain, Mild (1-3) Acetaminophen (Acetaminophen 325 Mg Tablet) 650 mg PO Q6H PRN PRN Reason: Fever/Mild Pain (1-3) Last Admin: 12/30/24 23:25 Dose: 650 mg Documented By: Admin: 12/30/24 17:17 Dose: 650 mg Documented By: Admin: 12/29/24 10:09 Dose: 650 mg Documented By: CARMEN Cyclobenzaprine HCl (Cyclobenzaprine 10 Mg Tablet) 10 mg PO BID [facility] Last Admin: 12/31/24 08:13 Dose: 10 mg Documented By: Admin: 12/30/24 21:00 Dose: 10 mg Documented By: Admin: 12/30/24 08:42 Dose: 10 mg Documented By: Admin: 12/29/24 21:18 Dose: 10 mg Documented By: Admin: 12/29/24 08:04 Dose: 10 mg Documented By: MICHELE Gabapentin (Gabapentin 600 Mg Tablet) 600 mg PO TID [facility] Last Admin: 12/31/24 08:13 Dose: 600 mg Documented By: Admin: 12/30/24 21:00 Dose: 600 mg Documented By: Admin: 12/30/24 15:43 Dose: 600 mg Documented By: Admin: 12/30/24 08:42 Dose: 600 mg Documented By: Admin: 12/29/24 21:18 Dose: 600 mg Documented By: Admin: 12/29/24 14:58 Dose: 600 mg Documented By: Admin: 12/29/24 08:04 Dose: 600 mg Documented By: MICHELE Hydromorphone HCl (Hydromorphone 1 Mg Inj) 1 mg IV NOW ONE Stop: 12/28/24 19:43 Last Admin: 12/28/24 19:55 Dose: 1 mg Documented By: KARINA Hydromorphone HCl (Hydromorphone 1 Mg Inj) 1 mg IV NOW ONE Stop: 12/28/24 22:18 Last Admin: 12/28/24 22:24 Dose: 1 mg Documented By: KARINA Hydromorphone HCl (Hydromorphone 1 Mg Inj) 1 mg IV PRN PRN PRN Reason: Pain, Severe (7-10) Last Admin: 12/29/24 06:09 Dose: 1 mg Documented By: Admin: 12/29/24 00:51 Dose: 1 mg Documented By: KARINA Hydromorphone HCl (Hydromorphone 1 Mg Inj) 1 mg IV Q2H PRN PRN Reason: Pain, Moderate (4-6) Last Admin: 12/30/24 15:42 Dose: 1 mg Documented By: Admin: 12/30/24 08:50 Dose: 1 mg Documented By: Admin: 12/29/24 07:41 Dose: 1 mg Documented By: MPO Dextrose/Sodium Chloride (Dextrose 5%-0.45% Ns) 1,000 mls @ 100 mls/hr IV CONT ARAVIND Last Admin: 12/29/24 21:23 Dose: 100 mls/hr Documented By: Infusion: 12/29/24 21:23 Dose: Infused Documented By: Admin: 12/29/24 11:27 Dose: 100 mls/hr Documented By: SB Morphine Sulfate (Morphine 4 Mg/Ml Inj) 4 mg IV NOW ONE Stop: 12/28/24 14:52 Last Admin: 12/28/24 15:03 Dose: 4 mg Documented By: MPO Morphine Sulfate (Morphine 4 Mg/Ml Inj) 4 mg IV NOW ONE Stop: 12/28/24 15:54 Last Admin: 12/28/24 16:05 Dose: 4 mg Documented By: MPO Morphine Sulfate (Morphine 4 Mg/Ml Inj) 4 mg IV NOW ONE Stop: 12/28/24 16:32 Last Admin: 12/28/24 17:37 Dose: 4 mg Documented By: MPO Morphine Sulfate (Morphine 2 Mg/Ml Inj) 4 mg IV Q4HR PRN PRN Reason: Pain, Moderate (4-6) Last Admin: 12/29/24 04:28 Dose: 4 mg Documented By: AB Morphine Sulfate (Morphine 4 Mg/Ml Inj) 4 mg IV Q2HR PRN PRN Reason: Pain, Moderate (4-6) Last Admin: 12/30/24 23:27 Dose: 4 mg Documented By: Admin: 12/30/24 20:59 Dose: 4 mg Documented By: Admin: 12/30/24 18:22 Dose: 4 mg Documented By: Admin: 12/30/24 14:10 Dose: 4 mg Documented By: Admin: 12/30/24 07:30 Dose: 4 mg Documented By: Admin: 12/29/24 21:18 Dose: 4 mg Documented By: Admin: 12/29/24 18:31 Dose: 4 mg Documented By: Admin: 12/29/24 13:54 Dose: 4 mg Documented By: Admin: 12/29/24 10:11 Dose: 4 mg Documented By: HW Morphine Sulfate (Morphine 10 Mg/0.5 Ml Oral Syringe) 10 mg PO Q1HR PRN PRN Reason: Pain, Severe (7-10) Last Admin: 12/31/24 11:30 Dose: 10 mg Documented By: Admin: 12/31/24 08:14 Dose: 10 mg Documented By: Naloxone HCl (Naloxone 0.4 Mg/Ml Vial) 0.2 mg IV Q2MIN PRN PRN Reason: Opiate Reversal Oxycodone HCl (Oxycodone Ir 10 Mg Tablet) 10 mg PO Q6HR PRN PRN Reason: Pain, Severe (7-10) Oxycodone HCl (Oxycodone Ir 5 Mg Tablet) 10 mg PO Q6HR PRN PRN Reason: Pain, Severe (7-10) Last Admin: 12/29/24 21:18 Dose: 10 mg Documented By: Admin: 12/29/24 08:04 Dose: 10 mg Documented By: MICHELE Oxycodone HCl (Oxycodone Ir 10 Mg Tablet) 10 mg PO Q3H PRN PRN Reason: Pain, Severe (7-10) Last Admin: 12/31/24 06:53 Dose: 10 mg Documented By: Admin: 12/31/24 01:10 Dose: 10 mg Documented By: Admin: 12/30/24 17:16 Dose: 10 mg Documented By: Admin: 12/30/24 14:10 Dose: 10 mg Documented By: Admin: 12/30/24 11:08 Dose: 10 mg Documented By: Admin: 12/30/24 07:30 Dose: 10 mg Documented By: Admin: 12/30/24 04:55 Dose: 10 mg Documented By: Admin: 12/30/24 01:29 Dose: 10 mg Documented By: Admin: 12/29/24 14:58 Dose: 10 mg Documented By: CARMEN Pantoprazole Sodium (Pantoprazole Dr 40 Mg Tablet) 40 mg PO 0700,2100 ARAVIND Last Admin: 12/31/24 06:52 Dose: 40 mg Documented By: Admin: 12/30/24 21:00 Dose: 40 mg Documented By: Admin: 12/30/24 07:31 Dose: 40 mg Documented By: Admin: 12/29/24 21:18 Dose: 40 mg Documented By: [facility] Consultations Consultation #1: Case was discussed with scheduled oncology, Dr Colon and later Dr Curry, agree with transfusion and pain management. Do not recommend transfer to [facility] at this point. Additionally, hoping that biopsy can be accomplished this admission Consultation #2: Discussed with hospitalist Dr. Joshi, requested labs prior to accepting for pain management Consultation #3: Discussed with hospitalist Dr. Rodriguez, recommends transfer to a facility with higher capabilities Vital Signs Vital signs: Vital Signs - 8 hr 12/29/24 00:30 12/29/24 00:34 12/29/24 00:38 Temperature 99.3 F Pulse Rate 114 H 96 H Respiratory Rate 24 Blood Pressure Pulse Oximetry 96 12/29/24 00:38 12/29/24 00:51 12/29/24 01:00 Temperature 99.3 F Pulse Rate 94 H Respiratory Rate 19 Blood Pressure 133/77 Pulse Oximetry 92 12/29/24 01:00 12/29/24 01:30 12/29/24 01:30 Temperature Pulse Rate 95 H Respiratory Rate 20 Blood Pressure 122/71 128/76 Pulse Oximetry 93 12/29/24 01:45 12/29/24 02:00 12/29/24 02:00 Temperature 97.2 F L Pulse Rate 96 H 93 H Respiratory Rate 20 20 Blood Pressure 128/76 131/84 Pulse Oximetry 95 12/29/24 02:30 12/29/24 02:30 12/29/24 03:00 Temperature Pulse Rate 92 H 90 Respiratory Rate 22 21 Blood Pressure 136/85 Pulse Oximetry 95 96 12/29/24 03:00 12/29/24 03:30 12/29/24 03:30 Temperature Pulse Rate 90 Respiratory Rate 23 Blood Pressure 138/85 131/83 Pulse Oximetry 97 12/29/24 04:00 12/29/24 04:00 12/29/24 04:30 Temperature Pulse Rate 86 92 H Respiratory Rate 18 24 Blood Pressure 126/78 Pulse Oximetry 96 100 12/29/24 04:32 12/29/24 04:32 12/29/24 05:00 Temperature Pulse Rate 91 H Respiratory Rate 22 Blood Pressure 140/75 137/79 Pulse Oximetry 100 12/29/24 05:00 12/29/24 05:30 12/29/24 06:00 Temperature Pulse Rate 90 90 95 H Respiratory Rate 21 21 22 Blood Pressure Pulse Oximetry 95 96 96 12/29/24 06:00 12/29/24 06:30 12/29/24 07:00 Temperature Pulse Rate 98 H 103 H Respiratory Rate 36 H 27 H Blood Pressure 133/89 Pulse Oximetry 99 95 12/29/24 07:30 Temperature Pulse Rate 113 H Respiratory Rate 30 H Blood Pressure Pulse Oximetry 92 <Curtis Anderson DO - Last Filed: 12/29/24 05:35> Orders Ordered: Discontinued Medications Acetaminophen (Acetaminophen 325 Mg Tablet) 650 mg PO NOW ONE Stop: 12/29/24 00:43 Last Admin: 12/29/24 00:51 Dose: 650 mg Documented By: KARINA Acetaminophen (Acetaminophen 325 Mg Tablet) 975 mg PO Q8H PRN PRN Reason: Pain, Mild (1-3) Acetaminophen (Acetaminophen 325 Mg Tablet) 650 mg PO Q6H PRN PRN Reason: Fever/Mild Pain (1-3) Last Admin: 12/30/24 23:25 Dose: 650 mg Documented By: Admin: 12/30/24 17:17 Dose: 650 mg Documented By: Admin: 12/29/24 10:09 Dose: 650 mg Documented By: CARMEN Cyclobenzaprine HCl (Cyclobenzaprine 10 Mg Tablet) 10 mg PO BID [facility] Last Admin: 12/31/24 08:13 Dose: 10 mg Documented By: Admin: 12/30/24 21:00 Dose: 10 mg Documented By: Admin: 12/30/24 08:42 Dose: 10 mg Documented By: Admin: 12/29/24 21:18 Dose: 10 mg Documented By: Admin: 12/29/24 08:04 Dose: 10 mg Documented By: MICHELE Gabapentin (Gabapentin 600 Mg Tablet) 600 mg PO TID [facility] Last Admin: 12/31/24 08:13 Dose: 600 mg Documented By: Admin: 12/30/24 21:00 Dose: 600 mg Documented By: Admin: 12/30/24 15:43 Dose: 600 mg Documented By: Admin: 12/30/24 08:42 Dose: 600 mg Documented By: Admin: 12/29/24 21:18 Dose: 600 mg Documented By: Admin: 12/29/24 14:58 Dose: 600 mg Documented By: Admin: 12/29/24 08:04 Dose: 600 mg Documented By: MICHELE Hydromorphone HCl (Hydromorphone 1 Mg Inj) 1 mg IV NOW ONE Stop: 12/28/24 19:43 Last Admin: 12/28/24 19:55 Dose: 1 mg Documented By: KARINA Hydromorphone HCl (Hydromorphone 1 Mg Inj) 1 mg IV NOW ONE Stop: 12/28/24 22:18 Last Admin: 12/28/24 22:24 Dose: 1 mg Documented By: KARINA Hydromorphone HCl (Hydromorphone 1 Mg Inj) 1 mg IV PRN PRN PRN Reason: Pain, Severe (7-10) Last Admin: 12/29/24 06:09 Dose: 1 mg Documented By: Admin: 12/29/24 00:51 Dose: 1 mg Documented By: KARINA Hydromorphone HCl (Hydromorphone 1 Mg Inj) 1 mg IV Q2H PRN PRN Reason: Pain, Moderate (4-6) Last Admin: 12/30/24 15:42 Dose: 1 mg Documented By: Admin: 12/30/24 08:50 Dose: 1 mg Documented By: Admin: 12/29/24 07:41 Dose: 1 mg Documented By: MICHELE Dextrose/Sodium Chloride (Dextrose 5%-0.45% Ns) 1,000 mls @ 100 mls/hr IV CONT ARAVIND Last Admin: 12/29/24 21:23 Dose: 100 mls/hr Documented By: Infusion: 12/29/24 21:23 Dose: Infused Documented By: Admin: 12/29/24 11:27 Dose: 100 mls/hr Documented By: DAMIEN Morphine Sulfate (Morphine 4 Mg/Ml Inj) 4 mg IV NOW ONE Stop: 12/28/24 14:52 Last Admin: 12/28/24 15:03 Dose: 4 mg Documented By: MPO Morphine Sulfate (Morphine 4 Mg/Ml Inj) 4 mg IV NOW ONE Stop: 12/28/24 15:54 Last Admin: 12/28/24 16:05 Dose: 4 mg Documented By: MPO Morphine Sulfate (Morphine 4 Mg/Ml Inj) 4 mg IV NOW ONE Stop: 12/28/24 16:32 Last Admin: 12/28/24 17:37 Dose: 4 mg Documented By: MPO Morphine Sulfate (Morphine 2 Mg/Ml Inj) 4 mg IV Q4HR PRN PRN Reason: Pain, Moderate (4-6) Last Admin: 12/29/24 04:28 Dose: 4 mg Documented By: AB Morphine Sulfate (Morphine 4 Mg/Ml Inj) 4 mg IV Q2HR PRN PRN Reason: Pain, Moderate (4-6) Last Admin: 12/30/24 23:27 Dose: 4 mg Documented By: Admin: 12/30/24 20:59 Dose: 4 mg Documented By: Admin: 12/30/24 18:22 Dose: 4 mg Documented By: Admin: 12/30/24 14:10 Dose: 4 mg Documented By: Admin: 12/30/24 07:30 Dose: 4 mg Documented By: Admin: 12/29/24 21:18 Dose: 4 mg Documented By: Admin: 12/29/24 18:31 Dose: 4 mg Documented By: Admin: 12/29/24 13:54 Dose: 4 mg Documented By: Admin: 12/29/24 10:11 Dose: 4 mg Documented By: HW Morphine Sulfate (Morphine 10 Mg/0.5 Ml Oral Syringe) 10 mg PO Q1HR PRN PRN Reason: Pain, Severe (7-10) Last Admin: 12/31/24 11:30 Dose: 10 mg Documented By: Admin: 12/31/24 08:14 Dose: 10 mg Documented By: Naloxone HCl (Naloxone 0.4 Mg/Ml Vial) 0.2 mg IV Q2MIN PRN PRN Reason: Opiate Reversal Oxycodone HCl (Oxycodone Ir 10 Mg Tablet) 10 mg PO Q6HR PRN PRN Reason: Pain, Severe (7-10) Oxycodone HCl (Oxycodone Ir 5 Mg Tablet) 10 mg PO Q6HR PRN PRN Reason: Pain, Severe (7-10) Last Admin: 12/29/24 21:18 Dose: 10 mg Documented By: Admin: 12/29/24 08:04 Dose: 10 mg Documented By: MICHELE Oxycodone HCl (Oxycodone Ir 10 Mg Tablet) 10 mg PO Q3H PRN PRN Reason: Pain, Severe (7-10) Last Admin: 12/31/24 06:53 Dose: 10 mg Documented By: Admin: 12/31/24 01:10 Dose: 10 mg Documented By: Admin: 12/30/24 17:16 Dose: 10 mg Documented By: Admin: 12/30/24 14:10 Dose: 10 mg Documented By: Admin: 12/30/24 11:08 Dose: 10 mg Documented By: Admin: 12/30/24 07:30 Dose: 10 mg Documented By: Admin: 12/30/24 04:55 Dose: 10 mg Documented By: Admin: 12/30/24 01:29 Dose: 10 mg Documented By: Admin: 12/29/24 14:58 Dose: 10 mg Documented By: CARMEN Pantoprazole Sodium (Pantoprazole Dr 40 Mg Tablet) 40 mg PO 0700,2100 ARAVIND Last Admin: 12/31/24 06:52 Dose: 40 mg Documented By: Admin: 12/30/24 21:00 Dose: 40 mg Documented By: Admin: 12/30/24 07:31 Dose: 40 mg Documented By: Admin: 12/29/24 21:18 Dose: 40 mg Documented By: JESSICA Vital Signs Vital signs: Vital Signs - 8 hr 12/29/24 00:30 12/29/24 00:34 12/29/24 00:38 Temperature 99.3 F Pulse Rate 114 H 96 H Respiratory Rate 24 Blood Pressure Pulse Oximetry 96 12/29/24 00:38 12/29/24 00:51 12/29/24 01:00 Temperature 99.3 F Pulse Rate 94 H Respiratory Rate 19 Blood Pressure 133/77 Pulse Oximetry 92 12/29/24 01:00 12/29/24 01:30 12/29/24 01:30 Temperature Pulse Rate 95 H Respiratory Rate 20 Blood Pressure 122/71 128/76 Pulse Oximetry 93 12/29/24 01:45 12/29/24 02:00 12/29/24 02:00 Temperature 97.2 F L Pulse Rate 96 H 93 H Respiratory Rate 20 20 Blood Pressure 128/76 131/84 Pulse Oximetry 95 12/29/24 02:30 12/29/24 02:30 12/29/24 03:00 Temperature Pulse Rate 92 H 90 Respiratory Rate 22 21 Blood Pressure 136/85 Pulse Oximetry 95 96 12/29/24 03:00 12/29/24 03:30 12/29/24 03:30 Temperature Pulse Rate 90 Respiratory Rate 23 Blood Pressure 138/85 131/83 Pulse Oximetry 97 12/29/24 04:00 12/29/24 04:00 12/29/24 04:30 Temperature Pulse Rate 86 92 H Respiratory Rate 18 24 Blood Pressure 126/78 Pulse Oximetry 96 100 12/29/24 04:32 12/29/24 04:32 12/29/24 05:00 Temperature Pulse Rate 91 H Respiratory Rate 22 Blood Pressure 140/75 137/79 Pulse Oximetry 100 12/29/24 05:00 12/29/24 05:30 12/29/24 06:00 Temperature Pulse Rate 90 90 95 H Respiratory Rate 21 21 22 Blood Pressure Pulse Oximetry 95 96 96 12/29/24 06:00 12/29/24 06:30 12/29/24 07:00 Temperature Pulse Rate 98 H 103 H Respiratory Rate 36 H 27 H Blood Pressure 133/89 Pulse Oximetry 99 95 12/29/24 07:30 Temperature Pulse Rate 113 H Respiratory Rate 30 H Blood Pressure Pulse Oximetry 92 <Ivette Callaway, - Last Filed: 12/29/24 08:18> Orders Ordered: Discontinued Medications Acetaminophen (Acetaminophen 325 Mg Tablet) 650 mg PO NOW ONE Stop: 12/29/24 00:43 Last Admin: 12/29/24 00:51 Dose: 650 mg Documented By: KARINA Acetaminophen (Acetaminophen 325 Mg Tablet) 975 mg PO Q8H PRN PRN Reason: Pain, Mild (1-3) Acetaminophen (Acetaminophen 325 Mg Tablet) 650 mg PO Q6H PRN PRN Reason: Fever/Mild Pain (1-3) Last Admin: 12/30/24 23:25 Dose: 650 mg Documented By: Admin: 12/30/24 17:17 Dose: 650 mg Documented By: Admin: 12/29/24 10:09 Dose: 650 mg Documented By: CARMEN Cyclobenzaprine HCl (Cyclobenzaprine 10 Mg Tablet) 10 mg PO BID [facility] Last Admin: 12/31/24 08:13 Dose: 10 mg Documented By: Admin: 12/30/24 21:00 Dose: 10 mg Documented By: Admin: 12/30/24 08:42 Dose: 10 mg Documented By: Admin: 12/29/24 21:18 Dose: 10 mg Documented By: Admin: 12/29/24 08:04 Dose: 10 mg Documented By: MICHELE Gabapentin (Gabapentin 600 Mg Tablet) 600 mg PO TID [facility] Last Admin: 12/31/24 08:13 Dose: 600 mg Documented By: Admin: 12/30/24 21:00 Dose: 600 mg Documented By: Admin: 12/30/24 15:43 Dose: 600 mg Documented By: Admin: 12/30/24 08:42 Dose: 600 mg Documented By: Admin: 12/29/24 21:18 Dose: 600 mg Documented By: Admin: 12/29/24 14:58 Dose: 600 mg Documented By: Admin: 12/29/24 08:04 Dose: 600 mg Documented By: MICHELE Hydromorphone HCl (Hydromorphone 1 Mg Inj) 1 mg IV NOW ONE Stop: 12/28/24 19:43 Last Admin: 12/28/24 19:55 Dose: 1 mg Documented By: KARINA Hydromorphone HCl (Hydromorphone 1 Mg Inj) 1 mg IV NOW ONE Stop: 12/28/24 22:18 Last Admin: 12/28/24 22:24 Dose: 1 mg Documented By: KARINA Hydromorphone HCl (Hydromorphone 1 Mg Inj) 1 mg IV PRN PRN PRN Reason: Pain, Severe (7-10) Last Admin: 12/29/24 06:09 Dose: 1 mg Documented By: Admin: 12/29/24 00:51 Dose: 1 mg Documented By: KARINA Hydromorphone HCl (Hydromorphone 1 Mg Inj) 1 mg IV Q2H PRN PRN Reason: Pain, Moderate (4-6) Last Admin: 12/30/24 15:42 Dose: 1 mg Documented By: Admin: 12/30/24 08:50 Dose: 1 mg Documented By: Admin: 12/29/24 07:41 Dose: 1 mg Documented By: MPO Dextrose/Sodium Chloride (Dextrose 5%-0.45% Ns) 1,000 mls @ 100 mls/hr IV CONT ARAVIND Last Admin: 12/29/24 21:23 Dose: 100 mls/hr Documented By: Infusion: 12/29/24 21:23 Dose: Infused Documented By: Admin: 12/29/24 11:27 Dose: 100 mls/hr Documented By: SB Morphine Sulfate (Morphine 4 Mg/Ml Inj) 4 mg IV NOW ONE Stop: 12/28/24 14:52 Last Admin: 12/28/24 15:03 Dose: 4 mg Documented By: MPO Morphine Sulfate (Morphine 4 Mg/Ml Inj) 4 mg IV NOW ONE Stop: 12/28/24 15:54 Last Admin: 12/28/24 16:05 Dose: 4 mg Documented By: MPO Morphine Sulfate (Morphine 4 Mg/Ml Inj) 4 mg IV NOW ONE Stop: 12/28/24 16:32 Last Admin: 12/28/24 17:37 Dose: 4 mg Documented By: MPO Morphine Sulfate (Morphine 2 Mg/Ml Inj) 4 mg IV Q4HR PRN PRN Reason: Pain, Moderate (4-6) Last Admin: 12/29/24 04:28 Dose: 4 mg Documented By: AB Morphine Sulfate (Morphine 4 Mg/Ml Inj) 4 mg IV Q2HR PRN PRN Reason: Pain, Moderate (4-6) Last Admin: 12/30/24 23:27 Dose: 4 mg Documented By: Admin: 12/30/24 20:59 Dose: 4 mg Documented By: Admin: 12/30/24 18:22 Dose: 4 mg Documented By: Admin: 12/30/24 14:10 Dose: 4 mg Documented By: Admin: 12/30/24 07:30 Dose: 4 mg Documented By: Admin: 12/29/24 21:18 Dose: 4 mg Documented By: Admin: 12/29/24 18:31 Dose: 4 mg Documented By: Admin: 12/29/24 13:54 Dose: 4 mg Documented By: Admin: 12/29/24 10:11 Dose: 4 mg Documented By: HW Morphine Sulfate (Morphine 10 Mg/0.5 Ml Oral Syringe) 10 mg PO Q1HR PRN PRN Reason: Pain, Severe (7-10) Last Admin: 12/31/24 11:30 Dose: 10 mg Documented By: Admin: 12/31/24 08:14 Dose: 10 mg Documented By: Naloxone HCl (Naloxone 0.4 Mg/Ml Vial) 0.2 mg IV Q2MIN PRN PRN Reason: Opiate Reversal Oxycodone HCl (Oxycodone Ir 10 Mg Tablet) 10 mg PO Q6HR PRN PRN Reason: Pain, Severe (7-10) Oxycodone HCl (Oxycodone Ir 5 Mg Tablet) 10 mg PO Q6HR PRN PRN Reason: Pain, Severe (7-10) Last Admin: 12/29/24 21:18 Dose: 10 mg Documented By: Admin: 12/29/24 08:04 Dose: 10 mg Documented By: MICHELE Oxycodone HCl (Oxycodone Ir 10 Mg Tablet) 10 mg PO Q3H PRN PRN Reason: Pain, Severe (7-10) Last Admin: 12/31/24 06:53 Dose: 10 mg Documented By: Admin: 12/31/24 01:10 Dose: 10 mg Documented By: Admin: 12/30/24 17:16 Dose: 10 mg Documented By: Admin: 12/30/24 14:10 Dose: 10 mg Documented By: Admin: 12/30/24 11:08 Dose: 10 mg Documented By: Admin: 12/30/24 07:30 Dose: 10 mg Documented By: Admin: 12/30/24 04:55 Dose: 10 mg Documented By: Admin: 12/30/24 01:29 Dose: 10 mg Documented By: Admin: 12/29/24 14:58 Dose: 10 mg Documented By: CARMEN Pantoprazole Sodium (Pantoprazole Dr 40 Mg Tablet) 40 mg PO 0700,2100 ARAVIND Last Admin: 12/31/24 06:52 Dose: 40 mg Documented By: Admin: 12/30/24 21:00 Dose: 40 mg Documented By: Admin: 12/30/24 07:31 Dose: 40 mg Documented By: Admin: 12/29/24 21:18 Dose: 40 mg Documented By: [email or web address] Consultations Consultation #2: Discussed with hospitalist Dr. Diez, requested labs prior to accepting for pain management Vital Signs Vital signs: Vital Signs - 8 hr 12/29/24 00:30 12/29/24 00:34 12/29/24 00:38 Temperature 99.3 F Pulse Rate 114 H 96 H Respiratory Rate 24 Blood Pressure Pulse Oximetry 96 12/29/24 00:38 12/29/24 00:51 12/29/24 01:00 Temperature 99.3 F Pulse Rate 94 H Respiratory Rate 19 Blood Pressure 133/77 Pulse Oximetry 92 12/29/24 01:00 12/29/24 01:30 12/29/24 01:30 Temperature Pulse Rate 95 H Respiratory Rate 20 Blood Pressure 122/71 128/76 Pulse Oximetry 93 12/29/24 01:45 12/29/24 02:00 12/29/24 02:00 Temperature 97.2 F L Pulse Rate 96 H 93 H Respiratory Rate 20 20 Blood Pressure 128/76 131/84 Pulse Oximetry 95 12/29/24 02:30 12/29/24 02:30 12/29/24 03:00 Temperature Pulse Rate 92 H 90 Respiratory Rate 22 21 Blood Pressure 136/85 Pulse Oximetry 95 96 12/29/24 03:00 12/29/24 03:30 12/29/24 03:30 Temperature Pulse Rate 90 Respiratory Rate 23 Blood Pressure 138/85 131/83 Pulse Oximetry 97 12/29/24 04:00 12/29/24 04:00 12/29/24 04:30 Temperature Pulse Rate 86 92 H Respiratory Rate 18 24 Blood Pressure 126/78 Pulse Oximetry 96 100 12/29/24 04:32 12/29/24 04:32 12/29/24 05:00 Temperature Pulse Rate 91 H Respiratory Rate 22 Blood Pressure 140/75 137/79 Pulse Oximetry 100 12/29/24 05:00 12/29/24 05:30 12/29/24 06:00 Temperature Pulse Rate 90 90 95 H Respiratory Rate 21 21 22 Blood Pressure Pulse Oximetry 95 96 96 12/29/24 06:00 12/29/24 06:30 12/29/24 07:00 Temperature Pulse Rate 98 H 103 H Respiratory Rate 36 H 27 H Blood Pressure 133/89 Pulse Oximetry 99 95 12/29/24 07:30 Temperature Pulse Rate 113 H Respiratory Rate 30 H Blood Pressure Pulse Oximetry 92 MDM - Weakness <Zach Roland MD - Last Filed: 01/15/25 07:22> Lab Data Lab results narrative: Labs are notable for anemia with a hemoglobin 4.8 and thrombocytopenia platelet counts are 17. INR slightly prolonged at 1.5 12/29/24 12:05 12/29/24 12:05 Labs: Lab Results 12/28/24 12/28/24 12/29/24 Range/Units 17:30 18:21 05:10 WBC 5.6 5.7 (4.5-11.0) X10^3/uL RBC 1.71 L 2.55 L (4.5-5.9) X10^6/uL Hgb 4.8 L* 7.4 L (13.5-17.5) g/dL Hct 14.1 L* 21.2 L (41-53) % MCV 82.2 83.1 (80-100) fL MCH 27.9 29.1 (26-34) PG MCHC 33.9 35.0 (30-36) % RDW 15.2 H 15.4 H (11.6-14.8) % Plt Count 17 L* 56 L (150-400) X10^3/uL Neut % (Auto) Not Reportable Not Reportable Lymph % (Auto) Not Reportable Not Reportable Barbour % (Auto) Not Reportable Not Reportable Eos % (Auto) Not Reportable Not Reportable Baso % (Auto) Not Reportable Not Reportable Lymph # (Auto) Not Reportable Not Reportable Barbour # (Auto) Not Reportable Not Reportable Baso # (Auto) Not Reportable Not Reportable Total Counted 100 100 Seg Neutrophils % 47.0 43.0 (38-70) % Band Neutrophils % 6.0 13.0 H (3-7) % Lymphocytes % (Manual) 34.0 30.0 (25-45) % Monocytes % (Manual) 10.0 9.0 (2-11) % Eosinophils % (Manual) 1.0 L 2.0 (2-4) % Basophils % (Manual) 1.0 1.0 (0-1) % Metamyelocytes % 1.0 H 2.0 H (-0) % Neutrophils # (Manual) 2968 L 3192 (7590-3669) /uL Nucleated RBCs 2 H 2 H ( - 0) #/Diff RBC Morphology Normal morphology Normal morphology ESR 128 H (0-15) MM/HR PT 17.3 H (9.4-12.5) SECONDS INR 1.5 H (0.9-1.3) Sodium 130 L (137-145) mmol/L Potassium 3.7 (3.4-5.1) mmol/L Chloride 100 (98-107) mmol/L Carbon Dioxide 22 (22-32) mmol/L BUN 21 H (9-20) mg/dL Creatinine 0.76 (0.66-1.25) mg/dL Estimated GFR > 60 (>60) mL/min BUN/Creatinine Ratio 27.6 H (6-22) Glucose 121 H (70-100) mg/dL Calcium 8.2 L (8.4-10.2) mg/dL Total Bilirubin 0.7 (0.2-1.3) mg/dL AST 81 H (17-59) IU/L ALT 30 (<50) IU/L Alkaline Phosphatase 223 H (38-126) U/L Lactate Dehydrogenase 1803 H (120-246) U/L Total Protein 6.7 (6.3-8.2) g/dL Albumin 3.0 L (3.5-5.0) g/dL Globulin 3.7 (1.7-4.1) g/dL Albumin/Globulin Ratio 0.8 L (1.0-2.8) Carcinoembryonic Ag 0.8 (0.1-3.0) ng/mL Blood Type A Positive Antibody Screen Negative Crossmatch See Detail Imaging Data Bilateral plain films of knee: My Impression: No effusion no bony abnormality Radiologist Impression: No bony abnormality US - DVT: Radiologist Impression: Negative for DVT <Curtis Anderson DO - Last Filed: 12/29/24 05:35> Lab Data Labs: Lab Results 12/28/24 12/28/24 12/29/24 Range/Units 17:30 18:21 05:10 WBC 5.6 5.7 (4.5-11.0) X10^3/uL RBC 1.71 L 2.55 L (4.5-5.9) X10^6/uL Hgb 4.8 L* 7.4 L (13.5-17.5) g/dL Hct 14.1 L* 21.2 L (41-53) % MCV 82.2 83.1 (80-100) fL MCH 27.9 29.1 (26-34) PG MCHC 33.9 35.0 (30-36) % RDW 15.2 H 15.4 H (11.6-14.8) % Plt Count 17 L* 56 L (150-400) X10^3/uL Neut % (Auto) Not Reportable Not Reportable Lymph % (Auto) Not Reportable Not Reportable Barbour % (Auto) Not Reportable Not Reportable Eos % (Auto) Not Reportable Not Reportable Baso % (Auto) Not Reportable Not Reportable Lymph # (Auto) Not Reportable Not Reportable Barbour # (Auto) Not Reportable Not Reportable Baso # (Auto) Not Reportable Not Reportable Total Counted 100 100 Seg Neutrophils % 47.0 43.0 (38-70) % Band Neutrophils % 6.0 13.0 H (3-7) % Lymphocytes % (Manual) 34.0 30.0 (25-45) % Monocytes % (Manual) 10.0 9.0 (2-11) % Eosinophils % (Manual) 1.0 L 2.0 (2-4) % Basophils % (Manual) 1.0 1.0 (0-1) % Metamyelocytes % 1.0 H 2.0 H (-0) % Neutrophils # (Manual) 2968 L 3192 (4883-1906) /uL Nucleated RBCs 2 H 2 H ( - 0) #/Diff RBC Morphology Normal morphology Normal morphology ESR 128 H (0-15) MM/HR PT 17.3 H (9.4-12.5) SECONDS INR 1.5 H (0.9-1.3) Sodium 130 L (137-145) mmol/L Potassium 3.7 (3.4-5.1) mmol/L Chloride 100 (98-107) mmol/L Carbon Dioxide 22 (22-32) mmol/L BUN 21 H (9-20) mg/dL Creatinine 0.76 (0.66-1.25) mg/dL Estimated GFR > 60 (>60) mL/min BUN/Creatinine Ratio 27.6 H (6-22) Glucose 121 H (70-100) mg/dL Calcium 8.2 L (8.4-10.2) mg/dL Total Bilirubin 0.7 (0.2-1.3) mg/dL AST 81 H (17-59) IU/L ALT 30 (<50) IU/L Alkaline Phosphatase 223 H (38-126) U/L Lactate Dehydrogenase 1803 H (120-246) U/L Total Protein 6.7 (6.3-8.2) g/dL Albumin 3.0 L (3.5-5.0) g/dL Globulin 3.7 (1.7-4.1) g/dL Albumin/Globulin Ratio 0.8 L (1.0-2.8) Carcinoembryonic Ag 0.8 (0.1-3.0) ng/mL Blood Type A Positive Antibody Screen Negative Crossmatch See Detail MDM Narrative Medical decision making narrative: 49-year-old male with a newly diagnosed metastatic lung disease presents for bilateral knee pain. Was supposedly in the hospital to obtain lung biopsy however did not make this appointment due to severe bilateral knee pain. Patient without trauma or falls not on any blood thinners. Denies any other symptoms. Patient did have rectal exam performed by morning physician, Dr. Roland, was Hemoccult positive. Patient not wanting any interventions in regards to his lower GI bleed he denies any abdominal pain cramping nausea and vomiting. States that he is never really noticed bleeding to his rectum. Patient states that he is still unsure about hospice/palliative care at this time, he states that he does not want to be intubated, however states that he would want compressions performed. 1800: (Dr. Jones) Received sign-out from morning provider, patient with newly diagnosed lung cancer with diffuse bony metastatic disease came in complaining of bilateral low knee pain, was supposed to have a biopsy here however was unable to go to this appointment secondary to increased knee pain, patient had recent PET scan that did show extensive metastatic disease. Patient follows with [facility], patient did have x-rays that did not show any acute fractures patient denies any trauma or falls, patient without any focal neurological deficits, patient was pending admission for pain control however lab work revealed acute thrombocytopenia, anemia, 2 units PRBC ordered pending consultation with [facility]. 2011: Patient was re-evaluated by me improving symptoms after additional administration of medication, patient is pending 2 units PRBC in 1 of platelets, I informed patient that hospitalist does not feel comfortable with patient being admitted here given lower GI bleed history newly diagnosed metastatic disease, patient states that this time he does not want any intervention in regards to his lower GI bleed but states that he would be okay with being transferred over to [facility] for pain management and continued evaluation treatment of his thrombocytopenia, anemia. 2124: Call was placed out to [facility] for possible transfer, however they state they do not have beds available and to call back in the morning for possible transfer. Patient currently only needing to be transferred for pain management at this time given patient does not want any interventions for his lower GI bleed therefore patient will remain here in the emergency department for pain management, as well as completion of his PRBC and platelets, will call back out in the morning for possible transfer. 0700: [facility], patient completed 2 units PRBC and 1 unit of platelets, patient's repeat lab work showing hemoglobin 7.4, platelets 56. We will need to reach out to [facility] for admission for pain control given known diffuse metastatic disease to the bone, patient is still stating he does not want any intervention in regards to GI, patient does follow up with [facility] oncology team. <Ivette Callaway, DO - Last Filed: 12/29/24 08:18> Lab Data Labs: Lab Results 12/28/24 12/28/24 12/29/24 Range/Units 17:30 18:21 05:10 WBC 5.6 5.7 (4.5-11.0) X10^3/uL RBC 1.71 L 2.55 L (4.5-5.9) X10^6/uL Hgb 4.8 L* 7.4 L (13.5-17.5) g/dL Hct 14.1 L* 21.2 L (41-53) % MCV 82.2 83.1 (80-100) fL MCH 27.9 29.1 (26-34) PG MCHC 33.9 35.0 (30-36) % RDW 15.2 H 15.4 H (11.6-14.8) % Plt Count 17 L* 56 L (150-400) X10^3/uL Neut % (Auto) Not Reportable Not Reportable Lymph % (Auto) Not Reportable Not Reportable Barbour % (Auto) Not Reportable Not Reportable Eos % (Auto) Not Reportable Not Reportable Baso % (Auto) Not Reportable Not Reportable Lymph # (Auto) Not Reportable Not Reportable Barbour # (Auto) Not Reportable Not Reportable Baso # (Auto) Not Reportable Not Reportable Total Counted 100 100 Seg Neutrophils % 47.0 43.0 (38-70) % Band Neutrophils % 6.0 13.0 H (3-7) % Lymphocytes % (Manual) 34.0 30.0 (25-45) % Monocytes % (Manual) 10.0 9.0 (2-11) % Eosinophils % (Manual) 1.0 L 2.0 (2-4) % Basophils % (Manual) 1.0 1.0 (0-1) % Metamyelocytes % 1.0 H 2.0 H (-0) % Neutrophils # (Manual) 2968 L 3192 (9624-8083) /uL Nucleated RBCs 2 H 2 H ( - 0) #/Diff RBC Morphology Normal morphology Normal morphology ESR 128 H (0-15) MM/HR PT 17.3 H (9.4-12.5) SECONDS INR 1.5 H (0.9-1.3) Sodium 130 L (137-145) mmol/L Potassium 3.7 (3.4-5.1) mmol/L Chloride 100 (98-107) mmol/L Carbon Dioxide 22 (22-32) mmol/L BUN 21 H (9-20) mg/dL Creatinine 0.76 (0.66-1.25) mg/dL Estimated GFR > 60 (>60) mL/min BUN/Creatinine Ratio 27.6 H (6-22) Glucose 121 H (70-100) mg/dL Calcium 8.2 L (8.4-10.2) mg/dL Total Bilirubin 0.7 (0.2-1.3) mg/dL AST 81 H (17-59) IU/L ALT 30 (<50) IU/L Alkaline Phosphatase 223 H (38-126) U/L Lactate Dehydrogenase 1803 H (120-246) U/L Total Protein 6.7 (6.3-8.2) g/dL Albumin 3.0 L (3.5-5.0) g/dL Globulin 3.7 (1.7-4.1) g/dL Albumin/Globulin Ratio 0.8 L (1.0-2.8) Carcinoembryonic Ag 0.8 (0.1-3.0) ng/mL Blood Type A Positive Antibody Screen Negative Crossmatch See Detail MDM Narrative Medical decision making narrative: 49-year-old male with a newly diagnosed metastatic lung disease presents for bilateral knee pain. Was supposedly in the hospital to obtain lung biopsy however did not make this appointment due to severe bilateral knee pain. Patient without trauma or falls not on any blood thinners. Denies any other symptoms. Patient did have rectal exam performed by morning physician, Dr. Roland, was Hemoccult positive. Patient not wanting any interventions in regards to his lower GI bleed he denies any abdominal pain cramping nausea and vomiting. States that he is never really noticed bleeding to his rectum. Patient states that he is still unsure about hospice/palliative care at this time, he states that he does not want to be intubated, however states that he would want compressions performed. 1800: (Dr. Jones) Received sign-out from morning provider, patient with newly diagnosed lung cancer with diffuse bony metastatic disease came in complaining of bilateral low knee pain, was supposed to have a biopsy here however was unable to go to this appointment secondary to increased knee pain, patient had recent PET scan that did show extensive metastatic disease. Patient follows with [facility], patient did have x-rays that did not show any acute fractures patient denies any trauma or falls, patient without any focal neurological deficits, patient was pending admission for pain control however lab work revealed acute thrombocytopenia, anemia, 2 units PRBC ordered pending consultation with [facility]. 2011: Patient was re-evaluated by me improving symptoms after additional administration of medication, patient is pending 2 units PRBC in 1 of platelets, I informed patient that hospitalist does not feel comfortable with patient being admitted here given lower GI bleed history newly diagnosed metastatic disease, patient states that this time he does not want any intervention in regards to his lower GI bleed but states that he would be okay with being transferred over to [facility] for pain management and continued evaluation treatment of his thrombocytopenia, anemia. 2124: Call was placed out to [facility] for possible transfer, however they state they do not have beds available and to call back in the morning for possible transfer. Patient currently only needing to be transferred for pain management at this time given patient does not want any interventions for his lower GI bleed therefore patient will remain here in the emergency department for pain management, as well as completion of his PRBC and platelets, will call back out in the morning for possible transfer. 0700: Patient was signed out to [facility] provider, patient completed 2 units PRBC and 1 unit of platelets, patient's repeat lab work showing hemoglobin 7.4, platelets 56. We will need to reach out to [facility] for admission for pain control given known diffuse metastatic disease to the bone, patient is still stating he does not want any intervention in regards to GI, patient does follow up with [facility] oncology team. 07 Dr. Callaway: Patient signed out to myself by Dr. Anderson. Patient has diffuse metastatic disease likely causing his bilateral knee pain has had negative DVT studies, x-rays which show no fracture patient has had significant amount of medication for pain management. Found to be anemic thrombocytopenic had 2 units PRBCs and 1 of platelets. Patient was stool occult positive. Called [facility] case was discussed with his oncologist. Patient does not want any interventions for his lower GI bleed had quite a bit of difficulty with pain management thus far. Patient was seen and evaluated by myself. Repeat labs from 5:00 a.m. reviewed. Spoke with the patient ultimately his goal is to return home and be pain controlled he is explaining he wishes to be comfort measures. Patient states isosorbide and lisinopril has been held, we will hold his anticoagulants including aspirin and Plavix patient normally takes oxycodone 7.5/325 we will add on 10 mg q.6 hours, cyclobenzaprine in his usual dose as well as gabapentin. Along with IV pain medication. Spoke with Dr. Garcia, accepts for observation discussed patient's goal is ultimately to return home with pain control that he does not wish to pursue treatment for his cancer or anemia at this time. Discharge Plan Departure Patient Disposition: Admitted as Observation Clinical Impression: Intractable pain, Metastatic cancer, Thrombocytopenia Lung cancer Qualifiers: Laterality: left Lung location: unspecified part of lung Qualified Code(s): C 34.92 - Malignant neoplasm of unspecified part of left bronchus or lung Admit Date/Time: 12/29/24 07:39 Admit Provider: Nathan Garcia
[2024-12-28 19:30] LABS: INR 1.5 (0.9-1.3); Prothrombin Time 17.3 SECONDS (9.4-12.5)
[2024-12-28] MEDS: HYDROMORPHONE 1 MG INJ IV ×2 (19:55→22:24)
[2024-12-28 20:00] LABS: Erythrocyte Sedimentation Rate 128 MM/HR (0-15)
[2024-12-28 20:37] LABS: Lactate Dehydrogenase 1803 U/L (120-246)
[2024-12-28 20:57] LABS: Carcinoembryonic Antigen 0.8 ng/mL (0.1-3.0)
[2024-12-29] VITALS (25 sets, daily range): BP systolic 120–140; BP diastolic 71–89; PULSE 86–120; RESP 18–36; TEMP 36.2–37.4; O2SAT 92–100; BMI 22.6
[2024-12-29] MEDS: HYDROMORPHONE 1 MG INJ IV ×3 (00:51→07:41)
[2024-12-29] MEDS: ACETAMINOPHEN 325 MG TABLET 650 MG PO ×2 (00:51→10:09)
--- NOTE | 2024-12-29 00:59 | PC.NURSE ---
Dr Anderson notified of temp increase to 99.3 with chills. 2nd unit PRBC's infusing. Orders received for tylenol, plan to continue transfusion, monitor closely for reaction.
[2024-12-29] MEDS: MORPHINE 2 MG/ML INJ 4 MG IV (04:28)
[2024-12-29 05:29] LABS: Add Manual Diff / Slide Review YES; Hematocrit 21.2 % (41-53); Hemoglobin 7.4 g/dL (13.5-17.5); Mean Corpuscular Hemoglobin 29.1 PG (26-34); Mean Corpuscular Volume 83.1 fL (80-100); Platelet Count 56 X10^3/uL (150-400); Red Blood Cell Count 2.55 X10^6/uL (4.5-5.9); Red Cell Distribution Width 15.4 % (11.6-14.8); White Blood Cell Count 5.7 X10^3/uL (4.5-11.0)
[2024-12-29 05:52] LABS: Neutrophils Absolute Manual 3192 /uL (3000-5900); Nucleated Red Blood Cells 2 #/Diff; Total Cells Counted 100
[2024-12-29 05:53] LABS: RBC Morphology Normal Morphology
--- NOTE | 2024-12-29 07:22 | PC.NURSE ---
Assumed care of pt at 0700. C/o 08/02 pain. pt a&ox4.
--- NOTE | 2024-12-29 08:00 | PC.NURSE ---
c/o 08/02 pain. pt a&ox4. States that most of his pain is in his back and knees. 400cc out dark samson urine.
[2024-12-29] MEDS: OXYCODONE IR 5 MG TABLET 10 MG PO ×2 (08:04→21:18)
[2024-12-29] MEDS: CYCLOBENZAPRINE 10 MG TABLET PO ×2 (08:04→21:18)
[2024-12-29] MEDS: GABAPENTIN 600 MG TABLET PO ×3 (08:04→21:18)
--- NOTE | 2024-12-29 08:40 | PM.HP.1 ---
History of Present Illness History of Present Illness Date Patient Seen: 12/29/24 Chief complaint: Knee Pain,Pain Management Narrative: The patient is a 49-year-old male recently diagnosed with metastatic cancer which is presumably lung cancer. He was a lobar mass as well as mediastinal adenopathy. The patient presents today due to uncontrolled pain and failure to thrive. He denies any dyspnea. He was recently diagnosed with widespread metastatic cancer which seems like it is associated with a lung tumor. He does not want to pursue any chemotherapy. He wants to be comfortable. He lives with friends in a support hospice and comfort at their home. He was had anemia, as well as melena for several weeks. He denies any abdominal pain. His entire body is having pain however. He was eating very little. [facility], [facility]ER [facility] Medical History Hx of myocardial infarction Restrictive lung disease Chronic low back pain Bilateral hand pain Chronic back pain Myocardial infarction Hypertension Low back pain without sciatica (05/14/16) Unstable angina Acute coronary syndrome Surgical History Anesthesia History of angioplasty (01/02/15) History of angioplasty (10/14/11) History of angioplasty (~1999) Social History household members: friend(s) Smoking Status: Former smoker alcohol intake: current substance use type: marijuana (Every day use) Meds Home Medications and Allergies Home Medications Medication Instructions Recorded Confirmed Type aspirin 81 mg tablet,delayed 81 mg PO DAILY 04/07/18 12/26/24 History release (Evelyn Low Dose Aspirin) atorvastatin 80 mg tablet 80 mg PO DAILY 04/07/18 12/26/24 History ibuprofen 200 mg tablet 200 mg PO PRN PRN pain 12/27/19 12/26/24 History metoprolol succinate 25 mg 25 mg PO DAILY 12/27/19 12/26/24 History tablet,extended release 24 hr (Toprol XL) isosorbide mononitrate 60 mg 60 mg PO DAILY #90 tabs 09/06/20 12/26/24 Rx tablet,extended release 24 hr clopidogrel 75 mg tablet (Plavix) 75 mg PO DAILY #90 tabs 03/20/21 12/26/24 Rx ezetimibe 10 mg tablet See Rx Instructions .Route 03/21/21 12/26/24 Rx .COMPLEX #90 tabs lisinopril 10 mg tablet 10 mg PO DAILY 01/16/22 12/26/24 History nitroglycerin 0.4 mg sublingual 0.4 mg sublingual Q5M PRN chest 06/01/23 12/26/24 Rx tablet pain #100 tabs naloxone 4 mg/actuation nasal 4 mg intranasal Q2M PRN opioid 09/21/23 12/26/24 Rx spray (Narcan) overdose #2 ea empagliflozin 25 mg tablet See Rx Instructions PO DAILY #90 03/14/24 12/26/24 Rx (Jardiance) tabs semaglutide 1 mg/dose (4 mg/3 mL) 1 mg (0.75 mL) SUBCUT QWEEK #3 mL 09/05/24 12/26/24 Rx subcutaneous pen injector (Ozempic) meloxicam 7.5 mg tablet 7.5 mg PO BID PRN pain #14 tabs 11/21/24 12/26/24 Rx oxycodone-acetaminophen 7.5 mg-325 2 tab PO Q6H PRN pain #100 tabs 11/24/24 12/26/24 Rx mg tablet cyclobenzaprine 10 mg tablet See Rx Instructions .Route 12/05/24 12/26/24 Rx .COMPLEX #30 tabs oxycodone-acetaminophen 7.5 mg-325 2 tab PO Q6H PRN pain #100 tabs 12/22/24 12/26/24 Rx mg tablet gabapentin 300 mg capsule 600 mg (2 x 300 mg) PO TID #180 12/26/24 12/26/24 Rx caps oxycodone 10 mg tablet 10 mg PO BID PRN pain #60 tabs 12/26/24 12/26/24 Rx oxycodone 5 mg tablet 10 mg (2 x 5 mg) PO BID PRN pain 12/26/24 12/26/24 Rx #120 tabs oxycodone-acetaminophen 7.5 mg-325 2 tab PO Q6H PRN pain #100 tabs 12/26/24 12/26/24 Rx mg tablet Allergies Allergy/AdvReac Type Severity Reaction Status Date / Time No Known Drug Allergies Allergy Verified 12/26/24 08:54 Review of Systems Review of Systems Narrative: No nausea or hematemesis. All else reviewed and otherwise unremarkable except as noted in the history and physical. Exam Vital Signs (past 8 hours): - 12/29/24 00:51 12/29/24 01:00 12/29/24 01:00 Temperature 99.3 F Pulse Rate 94 H Respiratory Rate 19 Blood Pressure 122/71 Pulse Oximetry 92 12/29/24 01:30 12/29/24 01:30 12/29/24 01:45 Temperature 97.2 F L Pulse Rate 95 H 96 H Respiratory Rate 20 20 Blood Pressure 128/76 128/76 Pulse Oximetry 93 12/29/24 02:00 12/29/24 02:00 12/29/24 02:30 Temperature Pulse Rate 93 H Respiratory Rate 20 Blood Pressure 131/84 136/85 Pulse Oximetry 95 12/29/24 02:30 12/29/24 03:00 12/29/24 03:00 Temperature Pulse Rate 92 H 90 Respiratory Rate 22 21 Blood Pressure 138/85 Pulse Oximetry 95 96 12/29/24 03:30 12/29/24 03:30 12/29/24 04:00 Temperature Pulse Rate 90 Respiratory Rate 23 Blood Pressure 131/83 126/78 Pulse Oximetry 97 12/29/24 04:00 12/29/24 04:30 12/29/24 04:32 Temperature Pulse Rate 86 92 H 91 H Respiratory Rate 18 24 22 Blood Pressure Pulse Oximetry 96 100 100 12/29/24 04:32 12/29/24 05:00 12/29/24 05:00 Temperature Pulse Rate 90 Respiratory Rate 21 Blood Pressure 140/75 137/79 Pulse Oximetry 95 12/29/24 05:30 12/29/24 06:00 12/29/24 06:00 Temperature Pulse Rate 90 95 H Respiratory Rate 21 22 Blood Pressure 133/89 Pulse Oximetry 96 96 12/29/24 06:30 12/29/24 07:00 12/29/24 07:30 Temperature Pulse Rate 98 H 103 H 113 H Respiratory Rate 36 H 27 H 30 H Blood Pressure Pulse Oximetry 99 95 92 12/29/24 08:00 12/29/24 08:00 12/29/24 08:30 Temperature Pulse Rate 107 H 105 H Respiratory Rate 23 20 Blood Pressure 139/77 Pulse Oximetry 93 94 Oxygen Delivery Method Room Air Narrative Exam Narrative: NAD, alert and oriented, fluent speech, calm. Flat affect. Appears uncomfortable. Normocephalic skull, EOMI, anicteric sclera, symmetric pupils. Oropharynx unremarkable, no droop. Neck supple, midline trachea, no adenopathy. Lungs clear, normal rate and effort. Heart regular, no murmur gallop or rub. Abdomen is soft, non distended and non tender. Extremities are free of edema. Skin is free of rash or lesions. Joints are not swollen or deformed. Judgment appears to be normal. Objective Imaging PET Scan (12/14):: Radiologist's impression: IMPRESSION: Left lower lobe pulmonary malignancy is likely the primary lesion, increased compared to prior imaging in August 2024. Diffuse mediastinal, hilar, and supraclavicular hypermetabolic lymphadenopathy. Distant metastases are seen in the liver and throughout the bones. Weightbearing lesions are seen, which are at risk of pathologic fracture, most notably the femoral necks bilaterally Note is made of the rapid progression suggestive of high-grade malignancy The supraclavicular lymph nodes are likely the least invasive targets for tissue sampling if clinically necessary. (with ultrasound guidance) Labs 12/29/24 05:10 12/28/24 17:30 Labs: Laboratory Results - last 24 hr 12/28/24 12/28/24 12/29/24 17:30 18:21 05:10 WBC 5.6 5.7 RBC 1.71 L 2.55 L Hgb 4.8 L* 7.4 L Hct 14.1 L* 21.2 L MCV 82.2 83.1 MCH 27.9 29.1 MCHC 33.9 35.0 RDW 15.2 H 15.4 H Plt Count 17 L* 56 L Neut % (Auto) Not Reportable Not Reportable Lymph % (Auto) Not Reportable Not Reportable [place] % (Auto) Not Reportable Not Reportable Eos % (Auto) Not Reportable Not Reportable Baso % (Auto) Not Reportable Not Reportable Lymph # (Auto) Not Reportable Not Reportable [place] # (Auto) Not Reportable Not Reportable Baso # (Auto) Not Reportable Not Reportable Total Counted 100 100 Seg Neutrophils % 47.0 43.0 Band Neutrophils % 6.0 13.0 H Lymphocytes % (Manual) 34.0 30.0 Monocytes % (Manual) 10.0 9.0 Eosinophils % (Manual) 1.0 L 2.0 Basophils % (Manual) 1.0 1.0 Metamyelocytes % 1.0 H 2.0 H Neutrophils # (Manual) 2968 L 3192 Nucleated RBCs 2 H 2 H RBC Morphology Normal morphology Normal morphology ESR 128 H PT 17.3 H INR 1.5 H Sodium 130 L Potassium 3.7 Chloride 100 Carbon Dioxide 22 BUN 21 H Creatinine 0.76 Estimated GFR > 60 BUN/Creatinine Ratio 27.6 H Glucose 121 H Calcium 8.2 L Total Bilirubin 0.7 AST 81 H ALT 30 Alkaline Phosphatase 223 H Lactate Dehydrogenase 1803 H Total Protein 6.7 Albumin 3.0 L Globulin 3.7 Albumin/Globulin Ratio 0.8 L Carcinoembryonic Ag 0.8 Blood Type A Positive Antibody Screen Negative Crossmatch See Detail Assessment & Plan Assessment & Plan narrative: 1. Presumed metastatic lung cancer, present on admission and active. 2. Uncontrolled cancer-related pain, present on admission and active. 3. Anemia secondary to cancer, present on admission and active. 4. 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 PLAN: -Hospice initiation. -pain control with morphine prn, and Duragesic 25 mcg Q&2HR. -DNR. Time-Based Coding :: 35 min spent with patient and on the chart (including review of chart, obtaining history, exam, reviewing outside data, placing orders, documenting exam and treatment plan, and counseling patient) on 12/29. Quality MIPS - Admit I confirm the patient?s Advance Care Plan is present, Code status is documented, Surrogate decision maker is in patient?s record [If Yes, STOP here]: Yes MIPS - Meds 'Current medications' to include all prescriptions, [id number] products, herbals, cannabis/cannabidiol products, and vitamin/mineral/dietary (nutritional) supplements. I have utilized all available resources to obtain, update, or review the patient?s current medications. [If Yes, STOP here]: Yes
[2024-12-29] MEDS: MORPHINE 4 MG/ML INJ IV ×4 (10:11→21:18)
[2024-12-29] MEDS: DEXTROSE 5%-0.45% NS 1,000 ML 100 ML IV ×2 (11:27→21:23)
[2024-12-29 12:16] LABS: Hematocrit 21.3 % (41-53); Hemoglobin 7.5 g/dL (13.5-17.5); Mean Corpuscular HGB Conc 35.2 % (30-36); Mean Corpuscular Hemoglobin 29.2 PG (26-34); Platelet Count 55 X10^3/uL (150-400); Red Blood Cell Count 2.57 X10^6/uL (4.5-5.9); Red Cell Distribution Width 14.8 % (11.6-14.8); White Blood Cell Count 5.3 X10^3/uL (4.5-11.0)
[2024-12-29 12:29] LABS: Alanine Aminotransferase 37 IU/L (<50); Albumin 3.2 g/dL (3.5-5.0); Albumin Globulin Ratio 0.8 (1.0-2.8); Alkaline Phosphatase 241 U/L (38-126); Aspartate Aminotransferase 79 IU/L (17-59); Bilirubin Total 1.1 mg/dL (0.2-1.3); Blood Urea Nitrogen 13 mg/dL (9-20); Calcium 8.8 mg/dL (8.4-10.2); Carbon Dioxide 26 mmol/L (22-32); Chloride 100 mmol/L (98-107); Estimated Glomerular Filt Rate > 60 mL/min (>60); Globulin 3.9 g/dL (1.7-4.1); Glucose 138 mg/dL (70-100); HEMOLYSIS < 15 (0-50); Potassium 4.2 mmol/L (3.4-5.1); Sodium 132 mmol/L (137-145); Total Protein 7.1 g/dL (6.3-8.2)
[2024-12-29 12:51] LABS: Add Manual Diff / Slide Review YES
[2024-12-29 12:54] LABS: Neutrophils Absolute Manual 3339 /uL (3000-5900); Total Cells Counted 100
[2024-12-29 12:55] LABS: RBC Morphology Normal Morphology
[2024-12-29] MEDS: OXYCODONE IR 10 MG TABLET PO (14:58)
[2024-12-29] MEDS: PANTOPRAZOLE DR 40 MG TABLET PO (21:18)
[2024-12-30] MEDS: OXYCODONE IR 10 MG TABLET PO ×6 (01:29→17:16)
[2024-12-30] MEDS: MORPHINE 4 MG/ML INJ IV ×5 (07:30→23:27)
[2024-12-30] MEDS: PANTOPRAZOLE DR 40 MG TABLET PO ×2 (07:31→21:00)
--- NOTE | 2024-12-30 07:47 | PM.PN.1 ---
Subjective Subjective Interval history: Summary: The patient is a 49-year-old male recently diagnosed with metastatic cancer which is presumably lung cancer. He was a lobar mass as well as mediastinal adenopathy. The patient presents today due to uncontrolled pain and failure to thrive. He denies any dyspnea. He was recently diagnosed with widespread metastatic cancer which seems like it is associated with a lung tumor. He does not want to pursue any chemotherapy. He wants to be comfortable. He lives with friends in a support hospice and comfort at their home. He was had anemia, as well as melena for several weeks. He denies any abdominal pain. His entire body is having pain however. He was eating very little. S: He was still has pain, but is much more comfortable today. Planning for hospice at home is proceeding. Exam Vital Signs (past 8 hours): Oxygen Delivery Method Room Air Oxygen Flow Rate 0 Narrative Exam Narrative: NAD, alert and oriented. Fluent speech. Appears much more comfortable. Lungs are clear, normal rate and effort. Heart is regular, no murmur gallop or rub. Abdomen is soft, non distended. Extremities are free of edema. Objective Labs 12/29/24 12:05 12/29/24 12:05 Labs: Laboratory Results - last 24 hr 12/29/24 12:05 WBC 5.3 RBC 2.57 L Hgb 7.5 L Hct 21.3 L MCV 83.0 MCH 29.2 MCHC 35.2 RDW 14.8 Plt Count 55 L Neut % (Auto) Certified Personal Trainer Lymph % (Auto) Certified Personal Trainer [place] % (Auto) Certified Personal Trainer Eos % (Auto) Certified Personal Trainer Baso % (Auto) Certified Personal Trainer Neut # (Auto) Certified Personal Trainer Lymph # (Auto) Certified Personal Trainer [place] # (Auto) Certified Personal Trainer Eos # (Auto) Certified Personal Trainer Baso # (Auto) Certified Personal Trainer Total Counted 100 Seg Neutrophils % 43.0 Band Neutrophils % 20.0 H Lymphocytes % (Manual) 24.0 L Monocytes % (Manual) 11.0 Eosinophils % (Manual) 2.0 Neutrophils # (Manual) 3339 RBC Morphology Normal morphology Sodium 132 L Potassium 4.2 Chloride 100 Carbon Dioxide 26 BUN 13 Creatinine 0.62 L Estimated GFR > 60 BUN/Creatinine Ratio 21.0 Glucose 138 H Calcium 8.8 Total Bilirubin 1.1 AST 79 H ALT 37 Alkaline Phosphatase 241 H Total Protein 7.1 Albumin 3.2 L Globulin 3.9 Albumin/Globulin Ratio 0.8 L PFS Medical History Hx of myocardial infarction Restrictive lung disease Chronic low back pain Bilateral hand pain Chronic back pain Myocardial infarction Hypertension Low back pain without sciatica (05/14/16) Unstable angina Acute coronary syndrome Surgical History Anesthesia History of angioplasty (01/02/15) History of angioplasty (10/14/11) History of angioplasty (~1999) Social History household members: friend(s) Smoking Status: Former smoker alcohol intake: current substance use type: marijuana (Every day use) Assessment & Plan Assessment & Plan narrative: Assessment & Plan narrative: 1. Presumed metastatic lung cancer, present on admission and active. 2. Uncontrolled cancer-related pain, present on admission and active. 3. Anemia secondary to cancer, present on admission and active. 4. 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 PLAN: -Hospice initiation. -pain control with morphine prn, and Duragesic 25 mcg Q&2HR. -DNR. -we will convert morphine to oral solution for discharge transition. Time-Based Coding :: [TOTAL MINUTES] spent with patient and on the chart (including review of chart, obtaining history, exam, reviewing outside data, placing orders, documenting exam and treatment plan, and counseling patient) on [DATE].
[2024-12-30] MEDS: CYCLOBENZAPRINE 10 MG TABLET PO ×2 (08:42→21:00)
[2024-12-30] MEDS: GABAPENTIN 600 MG TABLET PO ×3 (08:42→21:00)
[2024-12-30] MEDS: HYDROMORPHONE 1 MG INJ IV ×2 (08:50→15:42)
[2024-12-30 09:39] VITALS: BP 136/85; PULSE 103; RESP 14; TEMP 36.7; O2SAT 98
--- NOTE | 2024-12-30 15:41 | CM.DANOTE ---
Initial DCP Assessment Note Pt is a 53 yo male, living with friends at [address] [facility], patient presents with intractable pain sec to metastatic cancer which is presumably lung cancer PCP: Chris Hampton Payer: Fela Reviewed chart, pt discussed in multidisciplinary rounds this morning. Patient plans on returning home with friends and hospice upon discharge. Met w/patient, friend Angie and another friend (Erlinda?) at bedside, reviewed discharge plan. Patient requests that friend Angie Susanna [phone] be the point person for all coordination. Patient has no family he is in contact with. Provided DPOA ppk and educational material per patient/friend request. Discussed hospice services and what to expect. Patient agreeable to referral to [facility]. Referral sent to [facility] via [employer]ax. Plan: Discharge home w/friends, [facility]. Hospice SOC unknown. Further coordination needed. Patient remains on IV pain medicine. DORON Vila Discharge Planning/Care Management CM Discharge Assessment Start: 12/30/24 15:15 Freq: Status: Active Protocol: Document 12/30/24 15:15 SANDRA (Rec: 12/30/24 15:40 SANDRA [id number]) Discharge Planning Assessment Assigned Proof Coin Collector DORON Mills DPOA/Assigned Designee Name Angie Ansari, nelson and point of contact Contact Information [phone] Advance Directives? No History Provided By Patient,Friend,Medical Record Prior Living Arrangements House Household Members friend(s) Type of transporation used prior to Relies on Others admit Independent with ADL's Yes Is patient alert and oriented? Yes Comment Patient has been needing increased assist recently Discharge Plan Hospice Transportation Arrangement Friends Referrals Initiated Other Additional Comment Hospice Whiteboard Updated in Patient Room with Yes name and ext. # of Proof Coin Collector
[2024-12-30] MEDS: ACETAMINOPHEN 325 MG TABLET 650 MG PO ×2 (17:17→23:25)
[2024-12-30 19:00] VITALS: BP 128/82; PULSE 112; RESP 20; TEMP 36.1; O2SAT 98
[2024-12-31] MEDS: OXYCODONE IR 10 MG TABLET PO ×2 (01:10→06:53)
[2024-12-31] MEDS: PANTOPRAZOLE DR 40 MG TABLET PO (06:52)
[2024-12-31 07:00] VITALS: BP 124/78; PULSE 115; RESP 16; TEMP 36.7; O2SAT 95
--- NOTE | 2024-12-31 07:26 | PM.PN.1 ---
Subjective Subjective Interval history: Summary: The patient is a 49-year-old male recently diagnosed with metastatic cancer which is presumably lung cancer. He was a lobar mass as well as mediastinal adenopathy. The patient presents today due to uncontrolled pain and failure to thrive. He denies any dyspnea. He was recently diagnosed with widespread metastatic cancer which seems like it is associated with a lung tumor. He does not want to pursue any chemotherapy. He wants to be comfortable. He lives with friends in a support hospice and comfort at their home. He was had anemia, as well as melena for several weeks. He denies any abdominal pain. His entire body is having pain however. He was eating very little. S: Exam Vital Signs (past 8 hours): Oxygen Delivery Method Room Air Oxygen Flow Rate 0 Narrative Exam Narrative: NAD, alert and oriented. Fluent speech. Appears much more comfortable. Lungs are clear, normal rate and effort. Heart is regular, no murmur gallop or rub. Abdomen is soft, non distended. Extremities are free of edema. Objective Labs 12/29/24 12:05 12/29/24 12:05 [facility] Medical History Hx of myocardial infarction Restrictive lung disease Chronic low back pain Bilateral hand pain Chronic back pain Myocardial infarction Hypertension Low back pain without sciatica (05/14/16) Unstable angina Acute coronary syndrome Surgical History Anesthesia History of angioplasty (01/02/15) History of angioplasty (10/14/11) History of angioplasty (~1999) Social History household members: friend(s) Smoking Status: Former smoker alcohol intake: current substance use type: marijuana (Every day use) Assessment & Plan Assessment & Plan narrative: 1. Presumed metastatic lung cancer, present on admission and active. 2. Uncontrolled cancer-related pain, present on admission and active. 3. Anemia secondary to cancer, present on admission and active. 4. 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 PLAN: -Hospice initiation. -pain control with morphine prn, and Duragesic 25 mcg Q&2HR. -DNR. -we will convert morphine to oral solution for discharge transition. Time-Based Coding :: [TOTAL MINUTES] spent with patient and on the chart (including review of chart, obtaining history, exam, reviewing outside data, placing orders, documenting exam and treatment plan, and counseling patient) on [DATE].
[2024-12-31] MEDS: CYCLOBENZAPRINE 10 MG TABLET PO (08:13)
[2024-12-31] MEDS: GABAPENTIN 600 MG TABLET PO (08:13)
[2024-12-31] MEDS: MORPHINE 10 MG/0.5 ML ORAL SYRINGE PO ×2 (08:14→11:30)
--- NOTE | 2024-12-31 11:01 | CM.DPC ---
Addendum entered by DORON Brownlee 12/31/24 12:19: ADD: JEREMIE met bedside with pt, friend Angie and RN and they requested assist with submitting application for [facility] CG and confirmed they have a CG lined up but plan to apply for [facility] as well. JEREMIE provided the LT YOBANY application and discussed In-Home support and JEREMIE also completed and faxed [facility] Expedited Referral as well. Pt requested two witnesses for his DPOA pwk to assign friend Angie Bolton as his medical POA. Pt also has his POLST form as well. BF Addendum entered by DORON Brownlee 12/31/24 11:53: ADD: JEREMIE faxed updated POLST and d/c summary to Hospice to review and Angie confirms their friend Tremaine will provide transport when pt ready for d/c. JEREMIE updated RN and provided Angie's contact number to call when pt ready for transport home. BF Original Note: DCP Discharge Home with Hospice Per MD, pt medically stable to d/c home with Hospice today and will write for a few days of Comfort Meds and will update the POLST bedside with pt prior to d/c per Hospice request. JEREMIE spoke to Diamond at Hospice and she confirms DME to be delivered today and volcanology professor to do SOC tomorrow Sun 01/01. JEREMIE met bedside with pt and explained role and pt confirms his preference is to d/c home today and states he has been ambulatory in the room, pain seems managed with the PO pain meds and patch and confirms he has multiple friends who can transport today and that DME is supposed to be delivered to the home around 1430 today and pt does not feel he needs DME delivered before he discharges but requests JEREMIE to call Angie to confirm d/c plan for today. JEREMIE called Anige and left detailed msg to confirm d/c home this afternoon and DME delivery and volcanology professor start of care tomorrow. DORON Brownlee
--- NOTE | 2024-12-31 11:22 | PM.DS.1 ---
History of Present Illness History of Present Illness Chief complaint: Knee Pain,Pain Management Narrative: The patient is a 49-year-old male recently diagnosed with metastatic cancer which is presumably lung cancer. He was a lobar mass as well as mediastinal adenopathy. The patient presents today due to uncontrolled pain and failure to thrive. He denies any dyspnea. He was recently diagnosed with widespread metastatic cancer which seems like it is associated with a lung tumor. He does not want to pursue any chemotherapy. He wants to be comfortable. He lives with friends in a support hospice and comfort at their home. He was had anemia, as well as melena for several weeks. He denies any abdominal pain. His entire body is having pain however. He was eating very little. Discharge Providers Provider Date of admission: 12/29/24 07:39 Discharge Date: 12/31/24 Primary care physician: Chris Hampton MD Consults: Hospice Discharge provider: Nathan Garcia MD Summary Hospital Course Discharge Diagnosis: 1. Presumed metastatic lung cancer, present on admission and active. 2. Uncontrolled cancer-related pain, present on admission and active. 3. Anemia secondary to cancer, present on admission and active. 4. 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 5. CAD with multiple ME, stable. Hospital Course: The patient was admitted with metastatic cancer which is presumed to be from lung. The patient presented with severe pain complaints. He was history of chronic cardiac issues relating to multiple myocardial infarctions. The patient was started on a fentanyl patch and treated with morphine IV and then converted to oral my morphine. The patient was quite clear that he wanted to be do not resuscitate a want to pursue hospice at home. His support system was all in agreement and these preparations were made. Status at Discharge Cognitive/behavioral status at discharge: oriented Functional status at discharge: uses cane/walker Overall status at discharge: patient is not back to baseline Time Spent with Patient Time spent: Greater than 30 minutes Exam Vital Signs (past 8 hours): - 12/31/24 07:00 12/31/24 07:00 Temperature 98.0 F Pulse Rate 115 H Respiratory Rate 16 Blood Pressure 124/78 Pulse Oximetry 95 Oxygen Delivery Method Room Air Oxygen Flow Rate 0 Oxygen Delivery Method Room Air Oxygen Flow Rate 0 Narrative Exam Narrative: NAD, alert and oriented. Fluent speech. Lungs are clear, normal rate and effort. Heart is regular, no murmur gallop or rub. Abdomen is soft, non distended. Extremities are free of edema. Objective Labs 12/29/24 12:05 12/29/24 12:05 [facility] Medical History Hx of myocardial infarction Restrictive lung disease Chronic low back pain Bilateral hand pain Chronic back pain Myocardial infarction Hypertension Low back pain without sciatica (05/14/16) Unstable angina Acute coronary syndrome Surgical History Anesthesia History of angioplasty (01/02/15) History of angioplasty (10/14/11) History of angioplasty (~1999) Social History household members: friend(s) Smoking Status: Former smoker alcohol intake: current substance use type: marijuana (Every day use) Discharge Assessment & Plan Assessment and Plan Assessment: 1. Presumed metastatic lung cancer, present on admission and active. 2. Uncontrolled cancer-related pain, present on admission and active. 3. Anemia secondary to cancer, present on admission and active. 4. 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 5. CAD with multiple ME, stable. Plan of Treatment: Stable for discharge home with hospice. We will use fentanyl 50 mics transderm and morphine solution as needed. Discharge Plan Discharge Plan Patient Disposition: Hospice - Home Provider Discharge Comment: Stable for discharge to home with hospice. Discharge orders & Medications Prescriptions: New fentanyl 50 mcg/hr patch 72 hour 1 patch transdermal Q72H Qty: 5 0RF morphine 10 mg/5 mL solution 5 mg PO Q4H PRN (Reason: pain) Qty: 150 0RF Continued isosorbide mononitrate 60 mg tablet extended release 24 hr 60 mg PO DAILY Qty: 90 3RF clopidogrel [Plavix] 75 mg tablet 75 mg PO DAILY Qty: 90 3RF nitroglycerin 0.4 mg tablet, sublingual 0.4 mg SL Q5M PRN (Reason: chest pain) Qty: 100 5RF Rx Instructions: do not exceed 3 doses per episode aspirin [Evelyn Low Dose Aspirin] 81 mg tablet,delayed release (DR/EC) 81 mg PO DAILY naloxone [Narcan] 4 mg/actuation spray,non-aerosol 4 mg intranasal Q2M PRN (Reason: opioid overdose) Qty: 2 0RF Rx Instructions: spray 1 dose into ONE nostril; alternate nostrils w each dose until help arrives Jardiance 25 mg tablet See Rx Instructions PO DAILY Qty: 90 3RF Rx Instructions: t1/2 tab po daily for 1 week, then increase to 1 tab daily gabapentin 300 mg capsule 600 mg PO TID Qty: 180 3RF metoprolol succinate [Toprol XL] 25 MG tablet extended release 24 hr 25 mg PO DAILY lisinopril 10 mg tablet 10 mg PO DAILY Hold Instructions: Home Medication placed on hold at Doctor's office Rx Instructions: TAKE ONE TABLET BY MOUTH ONE TIME DAILY ezetimibe 10 mg tablet 10 mg PO DAILY Rx Instructions: TAKE ONE TABLET BY MOUTH ONE TIME DAILY cyclobenzaprine 10 mg tablet 10 mg PO QID PRN (Reason: muscle spasms) Rx Instructions: take 1 tablet by mouth three times daily As Needed for muscle spasm; Do not drive during treatment Discontinued oxycodone 10 mg tablet 10 mg PO BID PRN (Reason: pain) Qty: 60 0RF Rx Instructions: Use for breakthrough pain oxycodone-acetaminophen 7.5-325 mg tablet 2 tab PO Q6H PRN (Reason: pain) Qty: 100 0RF Ozempic 1 mg/dose (4 mg/3 mL) pen injector 1 mg SUBCUT QWEEK Qty: 3 3RF Hold Instructions: Home Medication placed on hold at Doctor's office oxycodone-acetaminophen 7.5-325 mg tablet 2 tab PO Q6H PRN (Reason: pain) Qty: 100 0RF Medication counseling provided by Pharmacist: No Follow up/Referrals: Chris Hampton MD [Primary Care Provider] - Discharge Health Status Multidrug resistant organism: No MDRO Diet/Activity/Treatments Diet: Regular Visit Report/Discharge Packet Stand Alone Forms: Patient Portal/API Discharge Data Primary Care Provider: Chris Hampton
== END 2024-12-31 12:12 | disposition hospice, home (50) | DRG 861 ==
LOC: ED 12-29 07:38 → AC 12-29 09:13
PROVIDERS: Emergency Medicine; Student in an Organized Health Care Education/Training Program; Admitting Provider Hospitalist; Emergency Provider Emergency Medicine; Family Provider Family Medicine; PCP Family Medicine; Referring Provider Emergency Medicine; Visit Provider Hospitalist
DX: G89.3 Neoplasm related pain (acute) (chronic) (principal); D63.0 Anemia in neoplastic disease; D69.59 Other secondary thrombocytopenia; C34.32 Malignant neoplasm of lower lobe, left bronchus or lung; R62.7 Adult failure to thrive; I25.10 Atherosclerotic heart disease of native coronary artery without angina pectoris; I25.2 Old myocardial infarction; I10 Essential (primary) hypertension; C79.51 Secondary malignant neoplasm of bone; C78.7 Secondary malignant neoplasm of liver and intrahepatic bile duct; C78.1 Secondary malignant neoplasm of mediastinum; Z79.02 Long term (current) use of antithrombotics/antiplatelets; Z87.891 Personal history of nicotine dependence; Z98.61 Coronary angioplasty status; Z68.22 Body mass index [BMI] 22.0-22.9, adult
CPT/HCPCS: 36415; 36430; 73562; 80053; 82378; 83615; 85007; 85025; 85610; 85651; 86850; 86900; 86901; 93970; 96374; 96375; 96376; 99285; J1171; J2270; P9035